=== PATIENT | male | born 1960 | race Caucasian/White ===

== ENCOUNTER 2020-06-18 19:51 | Emergency (ER) | payer BC, SELFPAY ==
[2020-06-18 19:55] VITALS: BP 152/103; PULSE 69; RESP 18; TEMP 35.6; O2SAT 100; BMI 38.7
--- NOTE | 2020-06-18 21:11 | ED.BACK ---
HPI - Back Pain/Injury General Chief Complaint: Back Pain/Injury Stated Complaint: lower back pain Time Seen by Provider: 06/18/20 21:09 Source: patient Mode of arrival: ambulatory Limitations: no limitations History of Present Illness HPI Narrative: This is a 60-year-old male who presents with atraumatic left lower back pain that is sharp in nature and started on Monday without associated fevers, chills, shortness of breath, chest pain /palpitations, GI symptoms but radiates into the left lower extremity posterior without numbness/ tingling /weakness. Patient states he does have chronic back pain but this is the worst it has been. He states he has tried heat, ice, Tylenol, ibuprofen, lidocaine patch. Related Data Home Medications Medication Instructions Recorded Confirmed atorvastatin 1 tab PO DAILY 06/18/20 06/18/20 citalopram 1 tab PO DAILY 06/18/20 06/18/20 fluticasone propionate [Flovent 1 puff INHALATION BID 06/18/20 06/18/20 HFA] lisinopril 1 tab PO DAILY 06/18/20 06/18/20 pantoprazole 1 tab PO DAILY 06/18/20 06/18/20 spironolactone 1 tab PO DAILY 06/18/20 06/18/20 Previous Rx's Medication Instructions Recorded cyclobenzaprine 10 mg PO BEDTIME PRN #3 tab 06/18/20 ketorolac 10 mg PO Q6H PRN 5 Days #20 tab 06/18/20 Allergies Allergy/AdvReac Type Severity Reaction Status Date / Time amoxicillin [AMOXICILLIN] Allergy Unknown DIFF Verified 06/18/20 21:46 BREATHING Review of Systems Review of Systems: Pertinent positives and negatives as stated in the HPI. GEN: no fevers, chills, fatigue HEENT: no nasal congestion, sore throat, ear pain NEURO: no headache, dizziness, focal weakness PULM: no cough, shortness of breath CV: no chest pain, palpitations, LE edema ABD: no abdominal pain, nausea, vomiting, diarrhea : no dysuria, urgency, frequency SKIN: no rash ROS otherwise negative x 10 PMFSH Past Medical History Source: nursing notes reviewed Medical History Pulmonary embolism Sarcoidosis Sleep apnea Social History Social History Alcohol intake: never Smoking Status: Never smoker Use of substances other than those prescribed or required for medical reasons: No Advance Directives: No Advance Directives Information Provided: No Physical Exam Vital Signs and I&O and Narrative: Vital Signs and I&O: Vital Signs Temp 98.3 F 06/18/20 21:26 Pulse 72 06/18/20 22:51 Resp 18 06/18/20 22:51 BP 129/79 06/18/20 22:51 Pulse Ox 96 06/18/20 22:51 Intake & Output 06/18/20 06/18/20 06/19/20 06:59 18:59 06:59 Weight 122.47 kg Body Mass Index 38.7 VITAL SIGNS: Reviewed. GENERAL: Well developed, well nourished, in no acute distress. HEAD: Normocephalic/atraumatic, EYES: PERRLA, EOMI intact without pain, no nystagmus/pallor/icterus noted EARS: Ext canals without abnormality, TMs non-bulging and non-erythematous NOSE: Nares patent bilateral OROPHARYNX: no oral lesions noted, posterior pharynx clear and non-erythematous without noted tonsillar enlargement/erythema/exudates NECK: Supple, no adenopathy LUNGS: Normal breath sounds. No adventitious sounds or accessory muscle use. SpO2<> CARDIOVASCULAR: Regular rate and rhythm without noted murmurs, no JVD or lower extremity edema. BACK: No CVA tenderness bilaterally, there is noted spasm to the left lower aspect and RLE straight leg test is positive with left lower extremity sensation and strength intact. ABDOMEN: Soft, non-tender, non-distended with bowel sounds. No rigidity. No guarding. No palpable masses or hernias noted MUSCULOSKELETAL: No tenderness, deformities, or effusions noted on gross inspection. EXTREMITIES: No cyanosis, clubbing or edema. SKIN: Inspection of the skin reveals no rashes, ulcerations, jaundice, pallor, or petechiae. NEUROLOGIC: Alert and oriented x 4. Strength and sensation to light touch were grossly intact x 4. Course Course Course Narrative: this is a 60-year-old male with history and clinical presentation consistent with acute on chronic lower back pain that is atraumatic and associated with muscle spasm and mild sciatica. There is no evidence on urinalysis for renal colic and EKG was without concerning findings. All results and findings were discussed with the patient at bedside and he had good reduction in back discomfort after receiving combination analgesics with lidocaine patch. MDM - Back Pain/Injury Lab Data Labs: Lab Results 06/18/20 Range/Units 21:35 Urine Color YELLOW Urine Appearance CLEAR Urine pH 5.5 (5.0-8.0) Ur Specific [place] 1.025 (1.005-1.025) Urine Protein NEG (NEG-TRACE) MG/DL Urine Glucose (UA) NEG (NEG) MG/DL Urine Ketones NEG (NEG) MG/DL Urine Blood NEG (NEG) Urine Nitrite NEG (NEG) Ur Leukocyte Esterase NEG (NEG) ECG Data Attestation: I personally reviewed and interpreted this ECG as follows: Interpretation: NSR, HR-63, no evidence of ischemia Discharge Plan Discharge Clinical Impression: Lumbar radiculopathy, Muscle spasm Patient Disposition: Home, Self-Care Instructions: Lumbar Radiculopathy (ED), Muscle Spasm (ED), Lower Back Exercises (ED) Additional Instructions: 1. Tylenol 1000 mg, orally, every 6 hours as needed for pain control. Do not exceed 4000 mg within 24 hours. 2. lidocaine patch, [id number] at every drug store, apply to area of maximal tenderness as directed on the outside packaging. 3. review information regarding gentle back exercises. The patient and/or family acknowledge understanding of results (as applicable), diagnosis, treatment plan, need for follow up, and symptoms that should prompt a return to the emergency room. Prescriptions: New ketorolac 10 mg tablet 10 mg PO Q6H PRN (Reason: pain) 5 Days Qty: 20 RF: 0 cyclobenzaprine 10 mg tablet 10 mg PO BEDTIME PRN (Reason: muscle spasm) Qty: 3 RF: 0 No Action atorvastatin 20 mg tablet 1 tab PO DAILY RF: 0 spironolactone 25 mg tablet 1 tab PO DAILY RF: 0 pantoprazole 20 mg tablet,delayed release (DR/EC) 1 tab PO DAILY RF: 0 citalopram 20 mg tablet 1 tab PO DAILY RF: 0 lisinopril 40 mg tablet 1 tab PO DAILY RF: 0 Flovent HFA 110 mcg/actuation HFA aerosol inhaler 1 puff inhalation BID RF: 0 Referrals: Amilcar Leggett MD [Primary Care Provider] - 2 days ( for further management and evaluation of left lower back pain)
--- NOTE | 2020-06-18 21:14 | ECG_ITS ---
Test Reason : WEAKNESS Blood Pressure : / mmHG Vent. Rate : 063 BPM Atrial Rate : 063 BPM P-R Int : 154 ms QRS Dur : 108 ms QT Int : 436 ms P-R-T Axes : 025 -15 016 degrees QTc Int : 446 ms Normal sinus rhythm Left axis deviation Normal ECG No previous ECGs available Referred By: Ade Haley Electronically Signed By:BRIONNA GARCIA MD
[2020-06-18 21:26] VITALS: BP 135/79; PULSE 62; RESP 16; TEMP 36.8; O2SAT 95
[2020-06-18 21:43] LABS: Appearance Urine CLEAR; Color Urine YELLOW; Glucose Urine UA NEG (NEG); Leukocyte Esterase Urine NEG (NEG); Nitrite Urine NEG (NEG); PH 5.5 (5.0-8.0); Specific Gravity - Urine 1.025 (1.005-1.025); Urine Blood NEG (NEG); Urine Ketones NEG (NEG); Urine Protein NEG (NEG-TRACE)
[2020-06-18] MEDS: Acetaminophen 325 MG TABLET 975 MG PO (21:52)
[2020-06-18] MEDS: Cyclobenzaprine HCl 10 MG TABLET PO (21:52)
[2020-06-18] MEDS: Lidocaine 4 % Patch ADH..PATCH 1 PATCH TRANSDERMA (21:53)
[2020-06-18] MEDS: Ketorolac Tromethamine 15 MG/ML VIAL IM (21:53)
[2020-06-18 22:51] VITALS: BP 129/79; PULSE 72; RESP 18; O2SAT 96
== END 2020-06-18 23:12 | disposition home or self-care (01) ==
PROVIDERS: Emergency Provider Student in an Organized Health Care Education/Training Program; PCP Internal Medicine
DX: M54.16 Radiculopathy, lumbar region (principal); M62.830 Muscle spasm of back; Z86.711 Personal history of pulmonary embolism; Z79.899 Other long term (current) drug therapy
CPT/HCPCS: 81003; 93005; 96372; 99284; J1885

== ENCOUNTER 2020-07-15 14:37 | Outpatient (REF) | payer BC, SELFPAY ==
[2020-07-15 15:42] LABS: MANUAL DIFF FLAG NO
[2020-07-15 15:52] LABS: Basophils Absolute Auto 0.1 X10*3/uL (0.0-0.2); Basophils Percent Auto 0.7 % (0-2); Eosinophils Absolute Auto 0.3 X10*3/uL (0.0-0.4); Eosinophils Percent Auto 4.3 % (0-4); Hematocrit 42.9 % (42-52); Hemoglobin 13.9 g/dl (14.0-18.0); Imm Gran Abs Auto 0.08 X10*3/uL (0.00-0.03); Imm Gran Pct Auto 1.1 % (0.0-0.4); Lymphocytes Absolute Auto 1.2 X10*3/uL (1.2-4.9); Lymphocytes Percent Auto 16.5 % (20-40); Mean Corpuscular HGB Conc 32.4 g/dl (31.0-36.0); Mean Corpuscular Hemoglobin 28.9 pg (27.0-33.0); Mean Corpuscular Volume 89.2 fL (80-98); Mean Platelet Volume 10.2 fL (9.4-12.4); Monocytes Absolute Auto 0.9 X10*3/uL (0.1-1.2); Monocytes Percent Auto 11.9 % (2-11); Neutrophils Absolute Auto 4.7 X10*3/uL (2.0-8.3); Neutrophils Percent Auto 65.5 % (45-73); Platelet Count 303 X10*3/uL (160-400); Red Blood Count 4.81 X10*6/uL (4.60-5.80); Red Cell Distribution Width 13.7 % (11.0-16.0); White Blood Count 7.2 X10*3/uL (4.8-10.8)
[2020-07-15 16:10] LABS: Alanine Aminotransferase 29 U/L (0-40); Albumin Level 4.2 g/dL (3.5-5.0); Alkaline Phosphatase 117 U/L (39-117); Anion Gap 15 (12-20); Aspartate Amino Transferase 28 U/L (5-37); Bilirubin Direct 0.4 mg/dL (0.0-0.5); Bilirubin Total 1.3 mg/dL (0.0-1.0); Blood Urea Nitrogen 15 mg/dL (9-16); Calcium 9.3 mg/dL (8.4-10.2); Carbon Dioxide 27 mmol/L (22-29); Chloride 103 mmol/L (96-108); Estimated Glomerular Filt Rate 55; Glucose Random 84 mg/dL (60-115); Potassium 5.5 mmol/l (3.3-5.1); Sodium 139 mmol/L (135-145); Total Protein 6.5 g/dL (6.5-8.0)
[2020-07-20 18:06] LABS: Angiotensin Converting Enzyme 11 U/L (9-67)
== END 2020-07-15 14:38 | disposition home or self-care (01) ==
LOC: HO.LAB 14:37
PROVIDERS: PCP Internal Medicine; Visit Provider Hospitalist
DX: D86.9 Sarcoidosis, unspecified (principal)
CPT/HCPCS: 36415; 80048; 80076; 82164; 85025

== ENCOUNTER → 2020-07-30 14:03 | Outpatient (BNVA) | payer BC, SELFPAY | PROVIDERS: PCP Internal Medicine; Referring Provider Internal Medicine; Visit Provider Hospitalist | DX: Z76.89 Persons encountering health services in other specified circumstances (principal) ==

== ENCOUNTER 2020-08-28 18:33 | Emergency (ER) | payer BC, SELFPAY ==
[2020-08-28 19:27] VITALS: BP 137/92; PULSE 97; RESP 18; TEMP 37.4; O2SAT 95; BMI 39.3
[2020-08-28 20:02] LABS: Basophils Percent Auto 0.3 % (0-2); Eosinophils Absolute Auto 0.1 X10*3/uL (0.0-0.4); Eosinophils Percent Auto 0.8 % (0-4); Hematocrit 46.8 % (42-52); Hemoglobin 15.6 g/dl (14.0-18.0); Imm Gran Abs Auto 0.07 X10*3/uL (0.00-0.03); Imm Gran Pct Auto 0.5 % (0.0-0.4); Lymphocytes Absolute Auto 0.7 X10*3/uL (1.2-4.9); Lymphocytes Percent Auto 4.4 % (20-40); MANUAL DIFF FLAG SCAN; Mean Corpuscular HGB Conc 33.3 g/dl (31.0-36.0); Mean Corpuscular Hemoglobin 29.2 pg (27.0-33.0); Mean Corpuscular Volume 87.6 fL (80-98); Mean Platelet Volume 9.9 fL (9.4-12.4); Monocytes Absolute Auto 1.4 X10*3/uL (0.1-1.2); Monocytes Percent Auto 8.8 % (2-11); Neutrophils Absolute Auto 13.2 X10*3/uL (2.0-8.3); Neutrophils Percent Auto 85.2 % (45-73); Platelet Count 284 X10*3/uL (160-400); Red Blood Count 5.34 X10*6/uL (4.60-5.80); Red Cell Distribution Width 13.6 % (11.0-16.0); SCAN SMEAR FLAG 1; White Blood Count 15.5 X10*3/uL (4.8-10.8)
--- NOTE | 2020-08-28 20:06 | CT_ITS ---
EXAMINATION: CT ABDOMEN AND PELVIS WITH CONTRAST CLINICAL INFORMATION: Diffuse abdominal pain worse in the right lower quadrant. COMPARISON: None TECHNIQUE: Multidetector volumetric images were obtained from the superior aspect of the liver through the pubic symphysis following administration 85 mL of Omnipaque 350 intravenous contrast. Sagittal and coronal reformatted images were obtained on the technologist's workstation. Oral contrast: No This CT examination was performed using dose optimization techniques as appropriate, variously including the following: *Automated exposure control *Adjustment of mA and/or kV according to patient size (this includes techniques or standardized protocols for targeted exams where dose is matched to indication/reason for exam; i.e. extremities or head) *Use of iterative reconstruction technique DLP: 986 mGy-cm FINDINGS: LUNG BASES: The visualized lung bases are unremarkable. A 0.9 cm right anterior prepericardiac lymph node is present. LIVER, GALLBLADDER, AND BILIARY TREE: The liver is normal in size, shape, and attenuation. No focal hepatic lesion or biliary ductal dilatation is present. The gallbladder is unremarkable with no evidence of radiopaque gallstones, gallbladder wall thickening, or obvious pericholecystic inflammatory changes. PANCREAS: Unremarkable. SPLEEN: Unremarkable. ADRENAL GLANDS: Unremarkable. KIDNEYS AND URETERS: The kidneys are normal in size, shape, and attenuation. 3 cysts are present in the right kidney. No solid renal masses are seen. A small punctate right lower pole nonobstructing calculus is seen measuring at most 2 mm in size. No hydronephrosis, hydroureter, or other calculi seen. No perinephric stranding. BLADDER: Unremarkable. GASTROINTESTINAL TRACT: Diverticular changes are present in the colon. In the mid sigmoid, there is an area of marked wall thickening with pericolonic inflammatory change consistent with acute diverticulitis. No extraluminal air is seen. No paracolonic fluid collections are seen. The remainder of the colon is unremarkable. The small bowel is unremarkable. The appendix is unremarkable. ABDOMINAL WALL: No significant hernia is appreciated. LYMPH NODES: Small retroperitoneal lymph nodes are present in the para-aortic region, retrocaval region and bilateral iliac regions. The largest nodes are again retrocaval measuring 1.7 x 1.3 x 2.9 cm along with a right iliac chain iliac node measuring 2.5 x 1.5 x 0.8 cm. VASCULAR: Unremarkable. PELVIC VISCERA: There is mild BPH with the prostate measuring 5.3 x 4.2 x 5.3 cm. Some prostatic calcifications are present. The seminal vesicles appear normal. OSSEOUS STRUCTURES: Unremarkable. CT/CT abdomen pelvis w con IMPRESSION: Acute diverticulitis in the sigmoid colon. The area of sigmoid that is involved is actually in the right lower quadrant, in the region of the patient's pain. Repeat imaging or colonoscopy after treatment is recommended to take certain there is no underlying neoplasm.
[2020-08-28 20:11] LABS: Glucose Urine UA NEG (NEG); Leukocyte Esterase Urine NEG (NEG); Nitrite Urine NEG (NEG); PH 5.5 (5.0-8.0); Specific Gravity - Urine >= 1.030 (1.005-1.025); Urine Blood NEG (NEG); Urine Ketones 5 MG/DL (NEG); Urine Protein NEG (NEG-TRACE)
[2020-08-28 20:13] LABS: Appearance Urine CLEAR; Color Urine YELLOW
[2020-08-28 20:15] LABS: Alanine Aminotransferase 27 U/L (0-40); Albumin Level 4.5 g/dL (3.5-5.0); Alkaline Phosphatase 142 U/L (39-117); Anion Gap 14 (12-20); Aspartate Amino Transferase 23 U/L (5-37); Bilirubin Total 1.6 mg/dL (0.0-1.0); Blood Urea Nitrogen 29 mg/dL (9-16); Calcium 9.4 mg/dL (8.4-10.2); Carbon Dioxide 28 mmol/L (22-29); Chloride 104 mmol/L (96-108); Creatinine Clr Calc Pharmacy 82.5; Estimated Glomerular Filt Rate 57; Glucose Random 111 mg/dL (60-115); Potassium 5.2 mmol/l (3.3-5.1); Sodium 141 mmol/L (135-145); Total Protein 7.1 g/dL (6.5-8.0)
[2020-08-28] MEDS: 0.9 % Sodium Chloride 1,000 ML 999 ML IVCONT (20:18)
[2020-08-28 20:21] LABS: Basophils Percent Auto 0.3 % (0-2); Eosinophils Absolute Auto 0.1 X10*3/uL (0.0-0.4); Eosinophils Percent Auto 0.7 % (0-4); Hematocrit 44.9 % (42-52); Hemoglobin 14.9 g/dl (14.0-18.0); Imm Gran Abs Auto 0.05 X10*3/uL (0.00-0.03); Imm Gran Pct Auto 0.3 % (0.0-0.4); Lymphocytes Absolute Auto 0.6 X10*3/uL (1.2-4.9); Lymphocytes Percent Auto 3.7 % (20-40); Mean Corpuscular HGB Conc 33.2 g/dl (31.0-36.0); Mean Corpuscular Hemoglobin 29.2 pg (27.0-33.0); Mean Corpuscular Volume 87.9 fL (80-98); Mean Platelet Volume 9.6 fL (9.4-12.4); Monocytes Absolute Auto 1.3 X10*3/uL (0.1-1.2); Monocytes Percent Auto 8.9 % (2-11); Neutrophils Percent Auto 86.1 % (45-73); Platelet Count 251 X10*3/uL (160-400); Red Blood Count 5.11 X10*6/uL (4.60-5.80); Red Cell Distribution Width 13.3 % (11.0-16.0); SCAN SMEAR FLAG 1; White Blood Count 15.1 X10*3/uL (4.8-10.8)
[2020-08-28 20:22] LABS: MANUAL DIFF FLAG NO
[2020-08-28 20:35] LABS: SLIDE REVIEW VERIFIED
[2020-08-28] MEDS: iohexoL 350 MG/ML 100 ML INFUS..BTL IV (20:35)
--- NOTE | 2020-08-28 20:47 | ED.GENADULT ---
HPI - General Adult General Chief complaint: General Medical Stated complaint: abdominal pain Time Seen by Provider: 08/28/20 19:56 Source: patient Mode of arrival: ambulatory Limitations: no limitations History of Present Illness HPI narrative: Patient comes to emergency room complaining of right-sided flank pain. Patient states he is unsure if his flank hurts , also complaining of diffuse abdominal pain, worse in the right lower quadrant. Patient denies history of kidney stones, no recent trauma. MD complaint: Abdominal pain Related Data Home Medications Medication Instructions Recorded Confirmed atorvastatin 1 tab PO DAILY 06/18/20 07/30/20 citalopram 1 tab PO DAILY 06/18/20 07/30/20 fluticasone propionate [Flovent 1 puff INHALATION BID 06/18/20 07/30/20 HFA] lisinopril 1 tab PO DAILY 06/18/20 07/30/20 pantoprazole 1 tab PO DAILY 06/18/20 07/30/20 spironolactone 1 tab PO DAILY 06/18/20 07/30/20 albuterol sulfate 90 mcg/actuation 2 inh INHALATION Q6H PRN 07/30/20 07/30/20 breath activated powder inhaler carvedilol 6.25 mg tablet 6.25 mg PO BID 07/30/20 07/30/20 flu vac qs 2019(4 yr up)CD(PF) ml IM 07/30/20 07/30/20 varicella-zoster glycoE [id number] IM 07/30/20 07/30/20 adj(PF) 50 mcg/0.5 mL IM susp, kit Previous Rx's Medication Instructions Recorded cyclobenzaprine 10 mg PO BEDTIME PRN #3 tab 06/18/20 ketorolac 10 mg PO Q6H PRN 5 Days #20 tab 06/18/20 budesonide-formoterol HFA 160 2 puff INHALATION BID 30 Days 07/30/20 mcg-4.5 mcg/actuation aerosol #10.2 g inhaler ciprofloxacin HCl 500 mg PO Q12H #19 tab 08/28/20 metronidazole 500 mg PO Q12H #19 tab 08/28/20 tramadol 50 mg PO Q8H PRN #14 tab 08/28/20 Allergies Allergy/AdvReac Type Severity Reaction Status Date / Time amoxicillin [AMOXICILLIN] Allergy Severe DIFF Verified 08/28/20 19:15 BREATHING Review of Systems Review of Systems: Constitutional : No Weight loss, No Fever, No Chills, No Night Sweats, No Fatigue, No Malaise ENT/Mouth : No Hearing loss, No Ear Pain, No Nasal Congestion, No Sinus Pain, No Hoarseness, No sore throat, No Rhinorrhea, No Swallowing Difficulty Eyes: No Eye Pain, No Swelling, No Redness, No Foreign Body, No Discharge, No Vision Changes Cardiovascular : No Chest Pain, No SOB, No Dyspnea on Exertion, No Orthopnea, No Edema, No Palpitations Respiratory : No Cough, No Sputum, No Wheezing, No Smoke Exposure, No Dyspnea Gastrointestinal : Patient denies nausea vomiting or diarrhea, patient states that he has cramping in his abdomen, unable to specify the quality of the pain or pinpoint the location Genitourinary : no irregular bleeding, No Dysuria, No Urinary Frequency, No Hematuria, No Urinary Incontinence, No Urgency, No Flank Pain, No Urinary Flow Changes, No Hesitancy Musculoskeletal : No joint pain, No Myalgias, No Joint Swelling Skin : No Skin Lesions, No rash Neuro : No Weakness, No Numbness, No Paresthesias, No Loss of Consciousness, No Dizziness, No Headache Psych : No Anxiety/Panic, No Depression, No SI/HI/AH/VH, No Social Issues, Heme/Lymph: No Bruising, No Bleeding,No Lymphadenopathy Endocrine : No Polyuria, No Polydipsia, No Temperature Intolerance PMFSH Past Medical History Medical History Asthma Cough NANCY on CPAP Pulmonary embolism Sarcoidosis Sarcoidosis Sleep apnea Social History Social History Alcohol intake: never Smoking Status: Smoker, status unknown Use of substances other than those prescribed or required for medical reasons: No Advance Directives: No Advance Directives Information Provided: No Physical Exam Vital Signs: Vital Signs: Last Vital Signs Temp 100.1 F 08/28/20 22:01 Pulse 102 H 08/28/20 22:01 Resp 18 08/28/20 22:01 BP 125/68 08/28/20 22:01 Pulse Ox 94 08/28/20 22:01 Body Mass Index 39.3 Appearance: Alert. Oriented X3. No acute distress. Eyes: Pupils equal, round and reactive to light. ENT: Pharynx normal. Neck: Normal inspection. Neck supple. No lymph nodes noted. No crepitus CVS: Normal heart rate and rhythm. Pulses normal. Normal S1 and S2 Respiratory: No respiratory distress. Breath sounds normal. No Wheezing. No rales Abdomen: Soft , distended, mild diffuse abdominal pain on palpation, however, significant abdominal pain on palpation in the right lower quadrant, no CVA tenderness Skin: Skin warm and dry. Normal skin color. Normal skin turgor. Extremities: No lower extremity edema. No lower extremity edema. No Lacerations. No Rash Neuro: Oriented X 3. No motor deficit. No sensory deficit. Moving all extermities. No slurred speech. Course Course Course Narrative: I discussed the CT scan and the labs with the patient, patient states that his abdominal pain is fairly well controlled, states that he thinks he will be doing better at home. Patient will be given 1 IV dose of Levaquin and metronidazole, then discharge home with pain medication and antibiotics. Discussed with the patient that he will need a repeat CT scan or a colonoscopy, patient needs to follow-up with his primary care physician and funnel setter Medical Decision Making Lab Data Result diagrams: 08/28/20 20:15 08/28/20 20:15 Labs: Lab Results 08/28/20 08/28/20 08/28/20 Range/Units 19:44 19:44 19:44 WBC 15.5 H (4.8-10.8) X10*3/uL RBC 5.34 (4.60-5.80) X10*6/uL Hgb 15.6 (14.0-18.0) g/dl Hct 46.8 (42-52) % MCV 87.6 (80-98) fL MCH 29.2 (27.0-33.0) pg MCHC 33.3 (31.0-36.0) g/dl RDW 13.6 (11.0-16.0) % Plt Count 284 (160-400) X10*3/uL MPV 9.9 (9.4-12.4) fL Immature Gran % (Auto) 0.5 H (0.0-0.4) % Neut % (Auto) 85.2 H (45-73) % Lymph % (Auto) 4.4 L (20-40) % [place] % (Auto) 8.8 (2-11) % Eos % (Auto) 0.8 (0-4) % Baso % (Auto) 0.3 (0-2) % Lymph # (Auto) 0.7 L (1.2-4.9) X10*3/uL [place] # (Auto) 1.4 H (0.1-1.2) X10*3/uL Eos # (Auto) 0.1 (0.0-0.4) X10*3/uL Baso # (Auto) 0.0 (0.0-0.2) X10*3/uL Abs Immat Gran (auto) 0.07 H (0.00-0.03) X10*3/uL Absolute Neuts (auto) 13.2 H (2.0-8.3) X10*3/uL Absolute Nucleated RBC 0.000 (0.0-0.012) X10*3/uL Nucleated RBC % (auto) 0.0 (0.0-0.2) /100WBC Smear Tech's Comments VERIFIED Hold Blue Top SEE NOTE Sodium 141 (135-145) mmol/L Potassium 5.2 H (3.3-5.1) mmol/l Chloride 104 (96-108) mmol/L Carbon Dioxide 28 (22-29) mmol/L Anion Gap 14 (12-20) BUN 29 H D (9-16) mg/dL Creatinine 1.29 (0.5-1.4) mg/dL Estim Creat Clear Calc 82.5 Estimated GFR 57 Random Glucose 111 (60-115) mg/dL Calcium 9.4 (8.4-10.2) mg/dL Total Bilirubin 1.6 H (0.0-1.0) mg/dL Direct Bilirubin (0.0-0.5) mg/dL AST 23 (5-37) U/L ALT 27 (0-40) U/L Alkaline Phosphatase 142 H D (39-117) U/L Total Protein 7.1 (6.5-8.0) g/dL Albumin 4.5 (3.5-5.0) g/dL Lipase (8-78) U/L Urine Color Urine Appearance Urine pH (5.0-8.0) Ur Specific [place] (1.005-1.025) Urine Protein (NEG-TRACE) MG/DL Urine Glucose (UA) (NEG) MG/DL Urine Ketones (NEG) MG/DL Urine Blood (NEG) Urine Nitrite (NEG) Ur Leukocyte Esterase (NEG) 08/28/20 08/28/20 08/28/20 Range/Units 19:44 20:15 20:15 WBC 15.1 H (4.8-10.8) X10*3/uL RBC 5.11 (4.60-5.80) X10*6/uL Hgb 14.9 (14.0-18.0) g/dl Hct 44.9 (42-52) % MCV 87.9 (80-98) fL MCH 29.2 (27.0-33.0) pg MCHC 33.2 (31.0-36.0) g/dl RDW 13.3 (11.0-16.0) % Plt Count 251 (160-400) X10*3/uL MPV 9.6 (9.4-12.4) fL Immature Gran % (Auto) 0.3 (0.0-0.4) % Neut % (Auto) 86.1 H (45-73) % Lymph % (Auto) 3.7 L (20-40) % [place] % (Auto) 8.9 (2-11) % Eos % (Auto) 0.7 (0-4) % Baso % (Auto) 0.3 (0-2) % Lymph # (Auto) 0.6 L (1.2-4.9) X10*3/uL [place] # (Auto) 1.3 H (0.1-1.2) X10*3/uL Eos # (Auto) 0.1 (0.0-0.4) X10*3/uL Baso # (Auto) 0.0 (0.0-0.2) X10*3/uL Abs Immat Gran (auto) 0.05 H (0.00-0.03) X10*3/uL Absolute Neuts (auto) 13.0 H (2.0-8.3) X10*3/uL Absolute Nucleated RBC 0.000 (0.0-0.012) X10*3/uL Nucleated RBC % (auto) 0.0 (0.0-0.2) /100WBC Smear Tech's Comments Hold Blue Top Sodium 140 (135-145) mmol/L Potassium 4.8 (3.3-5.1) mmol/l Chloride 105 (96-108) mmol/L Carbon Dioxide 26 (22-29) mmol/L Anion Gap 14 (12-20) BUN 29 H (9-16) mg/dL Creatinine 1.28 (0.5-1.4) mg/dL Estim Creat Clear Calc 83.2 Estimated GFR 58 Random Glucose 107 (60-115) mg/dL Calcium 9.0 (8.4-10.2) mg/dL Total Bilirubin 1.6 H (0.0-1.0) mg/dL Direct Bilirubin 0.6 H (0.0-0.5) mg/dL AST 20 (5-37) U/L ALT 24 (0-40) U/L Alkaline Phosphatase 133 H (39-117) U/L Total Protein 6.7 (6.5-8.0) g/dL Albumin 4.3 (3.5-5.0) g/dL Lipase 23 (8-78) U/L Urine Color YELLOW Urine Appearance CLEAR Urine pH 5.5 (5.0-8.0) Ur Specific [place] >= 1.030 H (1.005-1.025) Urine Protein NEG (NEG-TRACE) MG/DL Urine Glucose (UA) NEG (NEG) MG/DL Urine Ketones 5 (NEG) MG/DL Urine Blood NEG (NEG) Urine Nitrite NEG (NEG) Ur Leukocyte Esterase NEG (NEG) Imaging Data CT scan - abdomen: Radiologist's impression: FINDINGS: LUNG BASES: The visualized lung bases are unremarkable. A 0.9 cm right anterior prepericardiac lymph node is present. LIVER, GALLBLADDER, AND BILIARY TREE: The liver is normal in size, shape, and attenuation. No focal hepatic lesion or biliary ductal dilatation is present. The gallbladder is unremarkable with no evidence of radiopaque gallstones, gallbladder wall thickening, or obvious pericholecystic inflammatory changes. PANCREAS: Unremarkable. SPLEEN: Unremarkable. ADRENAL GLANDS: Unremarkable. KIDNEYS AND URETERS: The kidneys are normal in size, shape, and attenuation. 3 cysts are present in the right kidney. No solid renal masses are seen. A small punctate right lower pole nonobstructing calculus is seen measuring at most 2 mm in size. No hydronephrosis, hydroureter, or other calculi seen. No perinephric stranding. BLADDER: Unremarkable. GASTROINTESTINAL TRACT: Diverticular changes are present in the colon. In the mid sigmoid, there is an area of marked wall thickening with pericolonic inflammatory change consistent with acute diverticulitis. No extraluminal air is seen. No paracolonic fluid collections are seen. The remainder of the colon is unremarkable. The small bowel is unremarkable. The appendix is unremarkable. ABDOMINAL WALL: No significant hernia is appreciated. LYMPH NODES: Small retroperitoneal lymph nodes are present in the para-aortic region, retrocaval region and bilateral iliac regions. The largest nodes are again retrocaval measuring 1.7 x 1.3 x 2.9 cm along with a right iliac chain iliac node measuring 2.5 x 1.5 x 0.8 cm. VASCULAR: Unremarkable. PELVIC VISCERA: There is mild BPH with the prostate measuring 5.3 x 4.2 x 5.3 cm. Some prostatic calcifications are present. The seminal vesicles appear normal. OSSEOUS STRUCTURES: Unremarkable. CT/CT abdomen pelvis w con IMPRESSION: Acute diverticulitis in the sigmoid colon. The area of sigmoid that is involved is actually in the right lower quadrant, in the region of the patient's pain. Repeat imaging or colonoscopy after treatment is recommended to take certain there is no underlying neoplasm. Discharge Plan Discharge Clinical Impression: Diverticulitis Patient Disposition: Home, Self-Care Instructions: Diverticulitis (ED) Additional Instructions: If you have any worsening abdominal pain, fever, please return to the emergency room. Otherwise, please follow up with your primary care physician and funnel setter on Monday. Please be advised that you may need a repeat CT scan and/or a colonoscopy after you completed your treatment. Prescriptions: New ciprofloxacin HCl 500 mg tablet 500 mg PO Q12H Qty: 19 RF: 0 metronidazole 500 mg tablet 500 mg PO Q12H Qty: 19 RF: 0 tramadol 50 mg tablet 50 mg PO Q8H PRN (Reason: pain) Qty: 14 RF: 0 No Action atorvastatin 20 mg tablet 1 tab PO DAILY RF: 0 spironolactone 25 mg tablet 1 tab PO DAILY RF: 0 pantoprazole 20 mg tablet,delayed release (DR/EC) 1 tab PO DAILY RF: 0 citalopram 20 mg tablet 1 tab PO DAILY RF: 0 lisinopril 40 mg tablet 1 tab PO DAILY RF: 0 Flovent HFA 110 mcg/actuation HFA aerosol inhaler 1 puff inhalation BID RF: 0 ketorolac 10 mg tablet 10 mg PO Q6H PRN (Reason: pain) 5 Days Qty: 20 RF: 0 cyclobenzaprine 10 mg tablet 10 mg PO BEDTIME PRN (Reason: muscle spasm) Qty: 3 RF: 0 carvedilol 6.25 mg tablet 6.25 mg PO BID RF: 0 Flucelvax Quad (PF) 60 mcg (15 mcg x 4)/0.5 mL syringe IM RF: 0 Shingrix (PF) 50 mcg/0.5 mL suspension for reconstitution IM RF: 0 ProAir RespiClick 90 mcg/actuation aerosol powdr breath activated 2 inh inhalation Q6H PRNRF: 0 budesonide-formoterol [Symbicort] 160-4.5 mcg/actuation HFA aerosol inhaler 2 puff inhalation BID 30 Days Qty: 10.2 RF: 0
[2020-08-28 20:48] LABS: Alanine Aminotransferase 24 U/L (0-40); Albumin Level 4.3 g/dL (3.5-5.0); Alkaline Phosphatase 133 U/L (39-117); Anion Gap 14 (12-20); Aspartate Amino Transferase 20 U/L (5-37); Bilirubin Direct 0.6 mg/dL (0.0-0.5); Bilirubin Total 1.6 mg/dL (0.0-1.0); Blood Urea Nitrogen 29 mg/dL (9-16); Carbon Dioxide 26 mmol/L (22-29); Chloride 105 mmol/L (96-108); Creatinine Clr Calc Pharmacy 83.2; Estimated Glomerular Filt Rate 58; Glucose Random 107 mg/dL (60-115); Lipase 23 U/L (8-78); Potassium 4.8 mmol/l (3.3-5.1); Sodium 140 mmol/L (135-145); Total Protein 6.7 g/dL (6.5-8.0)
[2020-08-28] MEDS: Morphine Sulfate 4 MG/ML CARTRIDGE IVPUSH (21:09)
[2020-08-28 22:01] VITALS: BP 125/68; PULSE 102; RESP 18; TEMP 37.8; O2SAT 94
[2020-08-28] MEDS: Morphine Sulfate 4 MG/ML CARTRIDGE 2 MG IVPUSH (22:28)
[2020-08-28] MEDS: levoFLOXacin/D5W 500 MG/100 ML PIGGYBACK 100 MG IV (22:53)
[2020-08-29] MEDS: metroNIDAZOLE/NS 500 MG/100 ML PIGGYBACK 100 MG IV (00:09)
== END 2020-08-29 01:31 | disposition home or self-care (01) ==
PROVIDERS: Emergency Provider Emergency Medicine; PCP Internal Medicine
DX: K57.32 Diverticulitis of large intestine without perforation or abscess without bleeding (principal)
CPT/HCPCS: 36415; 74177; 80048; 80053; 80076; 81003; 83690; 85025; 87040; 96361; 96365; 96375; 96376; 99284; J1956; J2270; Q9967

== ENCOUNTER → 2020-09-01 08:29 | Outpatient (BNVA) | payer BC, SELFPAY | PROVIDERS: PCP Internal Medicine; Visit Provider Internal Medicine Gastroenterology | DX: Z76.89 Persons encountering health services in other specified circumstances (principal) ==

== ENCOUNTER 2021-11-13 12:32 | Inpatient (IN) | payer OTHER, SELFPAY ==
[2021-11-13] VITALS (7 sets, daily range): BP systolic 136–145; BP diastolic 78–96; PULSE 66–78; RESP 17–20; TEMP 36.7–37.1; O2SAT 92–99; BMI 38.0; BMI 39.2
--- NOTE | ~2021-11-13 | XR_ITS ---
EXAMINATION: XR CHEST CLINICAL INFORMATION: Chest pain COMPARISON: Previous abdominal pelvic CT August 2020 TECHNIQUE: Frontal view of the chest was obtained. FINDINGS: The cardiac silhouette is slightly enlarged. There is increased density and abnormal contour to the subcarinal region particularly on the right questionable for subcarinal mediastinal lymphadenopathy. Hilar contours are unremarkable. There is an abnormal parenchymal density in the right upper lobe partially overlying the right anterior fourth rib. The lungs are otherwise clear. There is no pleural effusion or pneumothorax. Bony structures are unremarkable. XR/XR chest 1V IMPRESSION: Question subcarinal mediastinal lymphadenopathy and abnormal parenchymal density in the right upper lobe. Follow-up chest CT with IV contrast should be considered.
--- NOTE | 2021-11-13 12:35 | ECG_ITS ---
Test Reason : chest pain Blood Pressure : / mmHG Vent. Rate : 070 BPM Atrial Rate : 070 BPM P-R Int : 150 ms QRS Dur : 146 ms QT Int : 452 ms P-R-T Axes : 028 -12 023 degrees QTc Int : 488 ms Normal sinus rhythm Right bundle branch block Abnormal ECG When compared with ECG of 18-JUN-2020 21:19, Right bundle branch block is now Present Referred By: Generic ED Physician Electronically Signed By:Mikhail Delgado
--- NOTE | 2021-11-13 12:48 | ECG_ITS ---
Test Reason : chest pain Blood Pressure : / mmHG Vent. Rate : 070 BPM Atrial Rate : 070 BPM P-R Int : 116 ms QRS Dur : 146 ms QT Int : 448 ms P-R-T Axes : 011 -27 007 degrees QTc Int : 483 ms Sinus rhythm with occasional Premature ventricular complexes Right bundle branch block Abnormal ECG When compared with ECG of 13-NOV-2021 12:36, Premature ventricular complexes are now Present Referred By: Marcos Pantoja Electronically Signed By:Mikhail Delgado
[2021-11-13 12:53] LABS: MANUAL DIFF FLAG NO
[2021-11-13 12:54] LABS: Basophils Percent Auto 0.3 % (0-2); Eosinophils Absolute Auto 0.2 X10*3/uL (0.0-0.4); Eosinophils Percent Auto 2.4 % (0-4); Hematocrit 42.7 % (42.0-52.0); Hemoglobin 14.1 g/dl (14.0-18.0); Imm Gran Abs Auto 0.05 X10*3/uL (0.00-0.03); Imm Gran Pct Auto 0.6 % (0.0-0.4); Lymphocytes Absolute Auto 0.9 X10*3/uL (1.2-4.9); Lymphocytes Percent Auto 10.5 % (20-40); Mean Corpuscular Hemoglobin 28.5 pg (27.0-33.0); Mean Corpuscular Volume 86.4 fL (80.0-98.0); Monocytes Percent Auto 11.2 % (2-11); Neutrophils Absolute Auto 6.7 x10*3/uL (2.0-8.3); Platelet Count 229 X10*3/uL (160-400); Red Blood Count 4.94 X10*6/uL (4.60-5.80); White Blood Count 8.9 X10*3/uL (4.8-10.8)
[2021-11-13 13:00] LABS: Prothrombin Time 11.8 SEC (9.9-13.0)
--- NOTE | 2021-11-13 13:01 | ED_ITS ---
HPI - Chest Pain General Chief Complaint: Chest Pain Stated Complaint: cp, light headed Time Seen by Provider: 11/13/21 12:48 Source: patient Limitations: no limitations History of Present Illness HPI narrative: This is a 61-year-old male with history of hypertension, hypercholesterolemia, obesity, who complains of discomfort in his chest, pressure-like feeling around his chest and upper back, which began last night. The onset was not during exertion. Discomfort has been relatively constant. He feels somewhat better after shower this morning but then the discomfort came back. Has had some nausea today, denies any unusual sweats. He feels a little short of breath. Denies any pain or swelling in his legs. He is not a tobacco smoker. Discomfort is about a 7/10 at its worst. Patient does have history of pulmonary embolism but 2 and half years ago and was on Eliquis for a year. The patient's notes that about 5 years ago patient did have chest pain and had a workup done at [facility] including a stress test Related Data Home Medications Medication Instructions Recorded Confirmed atorvastatin 20 mg tablet 1 tab PO DAILY 06/18/20 07/30/20 citalopram 20 mg tablet 1 tab PO DAILY 06/18/20 07/30/20 fluticasone propionate 110 1 puff INHALATION BID 06/18/20 07/30/20 mcg/actuation HFA aerosol inhaler (Flovent HFA) lisinopril 40 mg tablet 1 tab PO DAILY 06/18/20 07/30/20 spironolactone 25 mg tablet 1 tab PO DAILY 06/18/20 07/30/20 albuterol sulfate 90 mcg/actuation 2 inh INHALATION Q6H PRN 07/30/20 07/30/20 breath activated powder inhaler (ProAir RespiClick) carvedilol 6.25 mg tablet 6.25 mg PO BID 07/30/20 07/30/20 Previous Rx's Medication Instructions Recorded budesonide-formoterol HFA 160 2 puff INHALATION BID 30 Days 07/30/20 mcg-4.5 mcg/actuation aerosol #10.2 g inhaler (Symbicort) pantoprazole 20 mg tablet,delayed 20 mg PO DAILY 30 Days #30 tab 09/16/20 release Allergies Allergy/AdvReac Type Severity Reaction Status Date / Time amoxicillin [AMOXICILLIN] Allergy Severe DIFF Verified 08/28/20 19:15 BREATHING Review of Systems Review of Systems: Yes all other systems are reviewed and are negative Constitutional: Constitutional: Reports as per HPI and Denies fever(s) Eyes: Eyes: Reports as per HPI and Reports no additional eye complaints ENT: Reports system reviewed and no additional complaints, except as documented, Reports as per HPI, Denies nasal congestion, Denies nasal discharge and Denies sore throat Cardiovascular: Cardiovascular: Reports as per HPI, Denies chest pain and Denies dyspnea Respiratory: Respiratory: Reports as per HPI, Denies cough and Denies dyspnea Gastrointestinal: Gastrointestinal: Reports as per HPI, Denies abdominal pain, Denies diarrhea and Denies vomiting Genitourinary: Genitourinary: Reports as per HPI, Denies hematuria, Denies dysuria and Denies urinary frequency Musculoskeletal: Musculoskeletal: Reports no additional musculoskeletal complaints and Denies numbness Integumentary/Breasts: Skin/Breast: Reports as per HPI and Denies rash Neurologic: Reports as per HPI, Denies focal weakness and Denies numbness Psychiatric: Psychiatric: Reports no additional psychiatric complaints and Reports as per HPI Endocrine: Endocrine: Reports no additional endocrine complaints and Reports as per HPI Hematologic/Lymphatic: Hematologic/Lymphatic: Reports no additional hematologic/lymphatic complaints, Reports as per HPI and Reports other (No peripheral edema) [facility] Past Medical History Medical History (Updated 11/13/21 @ 15:07 by Marcos Pantoja MD) Asthma Cough GERD (gastroesophageal reflux disease) HLD (hyperlipidemia) HTN (hypertension) Obesity NANCY on CPAP Pulmonary embolism Sarcoidosis Sleep apnea Surgical History History of colonoscopy History of hernia repair Hx of endoscopy Hx of tonsillectomy Hx of vasectomy Family History Family History Father Family history of high blood pressure Mother History of colon cancer Social History Social History Alcohol intake: never Patient Tobacco Use Status: Never used Tobacco Use of substances other than those prescribed or required for medical reasons: No Advance Directives: Yes Advance Directives Information Provided: Yes Advance Directives on File: No Physical Exam Vital Signs: Vital Signs: Last Vital Signs Temp 98.8 F 11/13/21 13:01 Pulse 69 11/13/21 13:01 Resp 17 11/13/21 13:01 BP 136/82 11/13/21 13:01 Pulse Ox 99 11/13/21 13:01 BMI result Body Mass Index 39.2 Const: Other: Patient no distress, not pale or diaphoretic General: no acute distress Orientation/consciousness: patient oriented x3 HENMT: Head: Yes normal to inspection Mouth: moist mucous membranes Eyes: General: appearance normal, both eyes and all related structures Eyelids: Yes eyelids normal Conjunctivae: conjunctivae normal Pupils: Equal, round and reactive pupils present Neck: Neck: Yes supple Resp: Effort & Inspection: normal respiratory effort Auscultation: clear to auscultation bilaterally Cardio: Rate: regular rate Rhythm: regular rhythm Heart sounds: S1 normal heart sound present, S2 normal heart sound present, no gallops, no murmurs and no rubs GI: Other: Moderately obese Inspection: No distended Palpation (GI): Soft to palpation and nontender Skin: General skin exam: dry skin Neuro: General: patient oriented x3 Cranial nerves: Yes Equal, round and reactive pupils present Extrem: General: Yes no pedal edema Psych: Affect: normal affect MDM - Chest Pain MDM Narrative Medical decision making narrative: Patient with risk factors for coronary artery disease including hypertension, hypercholesterolemia, obesity, has had chest pain and pressure radiating to his upper back with associated nausea off and on since last night, more severe this afternoon. EKG shows a new right bundle branch block but no definite ischemic changes. Troponin is mildly elevated at 45.8. Given the patient's risk factors and the nature of his pain, this all likely represents acute coronary syndrome. Patient does have history of pulmonary embolism was D-dimer is negative and the nature of his pain is not pleuritic. Prior PE was related to travel. Patient was treated with aspirin, Plavix, heparin, nitroglycerin sublingual. Dr. Delgado of Cardiology was consulted regarding the patient's admission and agreed with management. Hospitalist Dr. Werner has evaluated the patient and the patient has been admitted to telemetry. Critical care time for this life-threatening illness exclusive of all other billable procedures was approximately 45 minutes including initial evaluation of the patient, ordering tests, x-ray interpretation, EKG interpretation, medical consultation, documentation, reevaluation. Medical Records Data Attestation: I reviewed the patient's medical records. Lab Data Attestation: I reviewed the patient's lab results. Result diagrams: 11/13/21 12:49 11/13/21 12:49 Labs: Lab Results 11/13/21 11/13/21 11/13/21 Range/Units 12:49 12:49 12:49 WBC 8.9 (4.8-10.8) X10*3/uL RBC 4.94 (4.60-5.80) X10*6/uL Hgb 14.1 (14.0-18.0) g/dl Hct 42.7 (42.0-52.0) % MCV 86.4 (80.0-98.0) fL MCH 28.5 (27.0-33.0) pg MCHC 33.0 (31.0-36.0) g/dl RDW 14.0 (11.0-16.0) % Plt Count 229 (160-400) X10*3/uL MPV 10.0 (9.4-12.4) fL Immature Gran % (Auto) 0.6 H (0.0-0.4) % Neut % (Auto) 75.0 H (45-73) % Lymph % (Auto) 10.5 L (20-40) % [facility] % (Auto) 11.2 H (2-11) % Eos % (Auto) 2.4 (0-4) % Baso % (Auto) 0.3 (0-2) % Lymph # (Auto) 0.9 L (1.2-4.9) X10*3/uL [facility] # (Auto) 1.0 (0.1-1.2) X10*3/uL Eos # (Auto) 0.2 (0.0-0.4) X10*3/uL Baso # (Auto) 0.0 (0.0-0.2) X10*3/uL Abs Immat Gran (auto) 0.05 H (0.00-0.03) X10*3/uL Absolute Neuts (auto) 6.7 (2.0-8.3) x10*3/uL Absolute Nucleated RBC 0.000 (0.0-0.012) X10*3/uL Nucleated RBC % (auto) 0.0 (0.0-0.2) /100WBC PT (9.9-13.0) SEC INR (0.9-1.1) APTT (24.1-38.0) SEC aPTT Heparin Protocol (53-77.9) SEC D-Dimer High Sensitivty NG/ML Sodium 141 (135-145) mmol/L Potassium 4.2 (3.3-5.1) mmol/L Chloride 109 H (96-108) mmol/L Carbon Dioxide 26 (22-29) mmol/L Anion Gap 10 L (12-20) BUN 18 H (9-16) mg/dL Creatinine 1.15 (0.5-1.4) mg/dL Estim Creat Clear Calc 89.8 Estimated GFR > 60 Random Glucose 126 H (60-115) mg/dL Calcium 9.3 (8.4-10.2) mg/dL Magnesium 1.8 (1.6-2.6) mg/dL Troponin I High Sens 45.8 H (<3.5-35.0) ng/L 11/13/21 11/13/21 Range/Units 12:49 13:40 WBC (4.8-10.8) X10*3/uL RBC (4.60-5.80) X10*6/uL Hgb (14.0-18.0) g/dl Hct (42.0-52.0) % MCV (80.0-98.0) fL MCH (27.0-33.0) pg MCHC (31.0-36.0) g/dl RDW (11.0-16.0) % Plt Count (160-400) X10*3/uL MPV (9.4-12.4) fL Immature Gran % (Auto) (0.0-0.4) % Neut % (Auto) (45-73) % Lymph % (Auto) (20-40) % [facility] % (Auto) (2-11) % Eos % (Auto) (0-4) % Baso % (Auto) (0-2) % Lymph # (Auto) (1.2-4.9) X10*3/uL [facility] # (Auto) (0.1-1.2) X10*3/uL Eos # (Auto) (0.0-0.4) X10*3/uL Baso # (Auto) (0.0-0.2) X10*3/uL Abs Immat Gran (auto) (0.00-0.03) X10*3/uL Absolute Neuts (auto) (2.0-8.3) x10*3/uL Absolute Nucleated RBC (0.0-0.012) X10*3/uL Nucleated RBC % (auto) (0.0-0.2) /100WBC PT 11.8 (9.9-13.0) SEC INR 1.0 (0.9-1.1) APTT 32.8 (24.1-38.0) SEC aPTT Heparin Protocol 33.6 L (53-77.9) SEC D-Dimer High Sensitivty < 150 NG/ML Sodium (135-145) mmol/L Potassium (3.3-5.1) mmol/L Chloride (96-108) mmol/L Carbon Dioxide (22-29) mmol/L Anion Gap (12-20) BUN (9-16) mg/dL Creatinine (0.5-1.4) mg/dL Estim Creat Clear Calc Estimated GFR Random Glucose (60-115) mg/dL Calcium (8.4-10.2) mg/dL Magnesium (1.6-2.6) mg/dL Troponin I High Sens (<3.5-35.0) ng/L Imaging Data Chest x-ray: My impression: Borderline cardiomegaly. A focal infiltrate or pleural effusion. Ectatic aorta. ECG Data ECG #1: ECG interpretation date: 11/13/21 ECG interpretation time: 13:09 Interpretation: Sinus rhythm with right bundle-branch block, single PVC. No concerning ST elevation or depression. Right bundle branch block is new compared to 06/18/2020 Discharge Plan Discharge Clinical Impression: NSTEMI (non-ST elevated myocardial infarction) Patient Disposition: Admitted As Inpatient
[2021-11-13 13:02] LABS: Partial Thromboplastin Time 32.8 SEC (24.1-38.0)
[2021-11-13 13:03] LABS: D Dimer High Sensitivity < 150 NG/ML
[2021-11-13 13:11] LABS: Anion Gap 10 (12-20); Blood Urea Nitrogen 18 mg/dL (9-16); Calcium 9.3 mg/dL (8.4-10.2); Carbon Dioxide 26 mmol/L (22-29); Chloride 109 mmol/L (96-108); Creatinine Clr Calc Pharmacy 89.8; Estimated Glomerular Filt Rate > 60; Glucose Random 126 mg/dL (60-115); Potassium 4.2 mmol/L (3.3-5.1); Sodium 141 mmol/L (135-145)
[2021-11-13 13:18] LABS: Troponin-I High Sensitivity 45.8 ng/L (<3.5-35.0)
[2021-11-13 13:27] LABS: Magnesium 1.8 mg/dL (1.6-2.6)
[2021-11-13] MEDS: Aspirin 81 MG TAB.CHEW 324 MG PO (13:51)
[2021-11-13] MEDS: Clopidogrel Bisulfate 300 MG TABLET PO (13:52)
[2021-11-13 13:54] LABS: PTT Heparin Drip 33.6 SEC (53-77.9)
[2021-11-13] MEDS: Heparin Sodium,Porcine/1/2NS 25,000 UNIT/250 ML IV.SOLN 12.38 UNIT IVCONT (13:55)
[2021-11-13] MEDS: Heparin Sodium,Porcine 5,000 UNIT/ML VIAL 4000 UNIT IVPUSH (13:57)
--- NOTE | 2021-11-13 14:12 | P.HPHOSP_ITS ---
History of Present Illness Date of Service: 11/13/21 Attending physician on admission: Andrei Werner Chief Complaint: Chest pain 61-year-old male with history of hypertension on Lisinopril, Coreg, hypercholesterolemia teated with Lipitor, NANCY uses CPAP, obesity, who presents with chest pain. He describes a pressure-like in the chest that started yesterday initially intermittent but became constant this morning around 3. He took Tylenol on 2 separate occasions with partial relief. This morning after shower he felt that the pain seemed worse. He is been feeling a bit SOB not ne cessary exertional. He has nausea but no vomiting, no diaphoresis. feeling around his chest and upper back since last night.? The onset was not during exertion.? Discomfort has been relatively constant.? He feels somewhat better after shower this morning but then the discomfort came back.? Has had some nausea today, denies any unusual sweats.? He feels a little short of breath.? Denies any pain or swelling in his legs.? Lab work shows a rise in troponin to 45, non specic ECG changes. Cardiology has advised IV heparin, additionally has received Plavix, and Aspirin, O2. He is fully vaccinated with [facility] for covid. Review of Systems Review of Systems: Gen: no fever Resp: no sob, no cough CV: + chest, no [place], no leg edema GI: No n/v, no abd pain Neuro: No confusion Yes all other systems are reviewed and are negative [facility] Medical History (Updated 11/13/21 @ 14:44 by Andrei Werner MD) Asthma Cough GERD (gastroesophageal reflux disease) HLD (hyperlipidemia) HTN (hypertension) Obesity NANCY on CPAP Pulmonary embolism Sarcoidosis Sleep apnea Family History Father Family history of high blood pressure Mother History of colon cancer Surgical History History of colonoscopy History of hernia repair Hx of endoscopy Hx of tonsillectomy Hx of vasectomy Social History Alcohol intake: never Patient Tobacco Use Status: Never used Tobacco Use of substances other than those prescribed or required for medical reasons: No Advance Directives: Yes Advance Directives Information Provided: Yes Advance Directives on File: No Meds Allergies Allergy/AdvReac Type Severity Reaction Status Date / Time amoxicillin [AMOXICILLIN] Allergy Severe DIFF Verified 08/28/20 19:15 BREATHING Active Medications: Current Medications Heparin Sodium (Porcine) (Heparin Sodium,Porcine 5,000 Unit/Ml Vial) 5,000 unit 40 unit/kg (5000 unit) IVPUSH PROTOCOL BOLUS PRN; Protocol PRN Reason: 40 unit/kg - Heparin Protocol Heparin Sodium (Porcine) (Heparin Sodium,Porcine 5,000 Unit/Ml Vial) 9,900 unit 80 unit/kg (9900 unit) IVPUSH PROTOCOL BOLUS PRN; Protocol PRN Reason: 80 unit/kg - Heparin Protocol Heparin Sodium/Sodium Chloride () 25,000 unit in 250 mls @ 0 mls/hr IVCONT .Q0M ALEXANDREA; Protocol Last Titration: 11/13/21 13:59 Dose: 8.08 units/kg/hr, 10 mls/hr Documented by: Nitroglycerin (Nitroglycerin 0.4 Mg Tab.Subl) 0.4 mg SUBLINGUAL [id number] PRN PRN Reason: Chest Pain Home Medications Medication Instructions Recorded Confirmed Last Taken Type atorvastatin 20 mg tablet 1 tab PO DAILY 06/18/20 07/30/20 06/18/20 History citalopram 20 mg tablet 1 tab PO DAILY 06/18/20 07/30/20 06/17/20 History fluticasone propionate 110 1 puff INHALATION BID 06/18/20 07/30/20 06/18/20 History mcg/actuation HFA aerosol inhaler (Flovent HFA) lisinopril 40 mg tablet 1 tab PO DAILY 06/18/20 07/30/20 06/17/20 History spironolactone 25 mg tablet 1 tab PO DAILY 06/18/20 07/30/20 06/17/20 History albuterol sulfate 90 mcg/actuation 2 inh INHALATION Q6H PRN 07/30/20 07/30/20 Unknown History breath activated powder inhaler (ProAir RespiClick) carvedilol 6.25 mg tablet 6.25 mg PO BID 07/30/20 07/30/20 Unknown History flu vac qs 2020(4 yr up)CD(PF) ml IM 07/30/20 07/30/20 Unknown History varicella-zoster glycoE [id number] IM 07/30/20 07/30/20 Unknown History adj(PF) 50 mcg/0.5 mL IM susp, kit Physical Exam Vital Signs and Narrative: Vital Signs: Last Vital Signs Temp 98.8 F 11/13/21 13:01 Pulse 69 11/13/21 13:01 Resp 17 11/13/21 13:01 BP 136/82 11/13/21 13:01 Pulse Ox 99 11/13/21 13:01 BMI result Body Mass Index 39.2 Const: Other: Constitutional: Alert, in no distress, overweight. Mental Status: Oriented to person, place and time. Eyes: Pupils are equal, round and reactive to light. Ear, Nose and Throat: Oropharynx clear, mucous membranes moist. Ears and nose without deformities. Trachea midline. Respiratory: Clear to auscultation. No wheezing, rales or rhonchi. Cardiovascular: S1 S2 regular. No murmurs, rubs or gallops. Gastrointestinal: Abdomen soft, non-tender, non-distended. Normal bowel sounds.? Neurologic: Cranial nerves II-XII grossly intact. No focal neurological deficits. Moves all extremities spontaneously.? Skin: No rashes or lesions.? Musculoskeletal: No cyanosis or clubbing. Psychiatric: Normal mood and affect? Results Labs CBC and Chem 7: 11/13/21 12:49 11/13/21 12:49 Labs: Laboratory Results - last 24 hr 11/13/21 11/13/21 11/13/21 12:49 12:49 12:49 MCV 86.4 MCH 28.5 MCHC 33.0 RDW 14.0 Plt Count 229 MPV 10.0 Immature Gran % (Auto) 0.6 H Neut % (Auto) 75.0 H Lymph % (Auto) 10.[address] [facility] [facility] % (Auto) 11.2 H Eos % (Auto) 2.4 Baso % (Auto) 0.3 Lymph # (Auto) 0.[address] [facility] # (Auto) 1.0 Eos # (Auto) 0.2 Baso # (Auto) 0.0 Abs Immat Gran (auto) 0.05 H Absolute Neuts (auto) 6.7 Absolute Nucleated RBC 0.000 Nucleated RBC % (auto) 0.0 PT 11.8 INR 1.0 APTT 32.8 aPTT Heparin Protocol D-Dimer High Sensitivty < 150 Anion Gap 10 L Estim Creat Clear Calc 89.8 Estimated GFR > 60 Random Glucose 126 H Calcium 9.3 Magnesium 1.8 11/13/21 13:40 MCV MCH MCHC RDW Plt Count MPV Immature Gran % (Auto) Neut % (Auto) Lymph % (Auto) [facility] % (Auto) Eos % (Auto) Baso % (Auto) Lymph # (Auto) [facility] # (Auto) Eos # (Auto) Baso # (Auto) Abs Immat Gran (auto) Absolute Neuts (auto) Absolute Nucleated RBC Nucleated RBC % (auto) PT INR APTT aPTT Heparin Protocol 33.6 L D-Dimer High Sensitivty Anion Gap Estim Creat Clear Calc Estimated GFR Random Glucose Calcium Magnesium Assessment and Plan (1) NANCY on CPAP: Status: Acute (2) NSTEMI (non-ST elevated myocardial infarction): Status: Acute (3) HTN (hypertension): Status: Acute (4) HLD (hyperlipidemia): Status: Acute (5) Obesity: Status: Acute Plan 61-year-old male with history of hypertension on Lisinopril, Coreg, hyp ercholesterolemia teated with Lipitor, NANCY uses CPAP, obesity, who presents with chest pain and found to have NSTEMI by elevated troponin I.. #NSTEMI-chest pain has subsided, hemodynamically stable -medical management with intravenous heparin, aspirin, Plavix, Lipitor, and beta-sammy. O2 -echocardiogram when available, he will probably be transfer to [facility] for cardiac catheterization at a later time -cardiology consultation in -morphine p.r.n. for chest pain, nitroglycerin p.r.n. as well for angina type of pain -check lipid panel tomorrow morning #Hypertension--resume home meds including Coreg and lisinopril. #Hyperlipidemia--increase Lipitor to 80 mg p.o. at bedtime. 20 mg at home #Obesity--have benefit of weight loss advice and he is aware of his option #NANCY--CPAP at night #GERD--ppi #Sarcoidosis with possible endobronchial involved--continue bronchodilators. Heparin for DVT prophylaxis. Need 2 midnight stay for management of acute heart attack that is required in travenous heparin for at least 48-72 hours in addition to the need for further testing and hemodynamic monitoring. Quality Stroke Does the patient have a stroke diagnosis?: No VTE Prior VTE?: No VTE Risk Level:: Medical - moderate - high VTE Device Contraindication: Treatment Not Indicated VTE Drug Contraindication: N/A - Med Ordered
--- NOTE | 2021-11-13 15:40 | PHA.MEDREC ---
Pharmacy Consult ? Medication Reconciliation Pharmacy has completed the medication reconciliation.
[2021-11-13 18:12] LABS: IDNOW Serial# 16C4AD1C
[2021-11-13 18:13] LABS: COVID-19 Test Negative (Negative)
--- NOTE | 2021-11-13 18:18 | PC.NURSE ---
Report given to Marciano VANEGAS. Awaiting bed to be clean.
[2021-11-13 20:29] LABS: PTT Heparin Drip 47.5 SEC (53-77.9)
[2021-11-13] MEDS: Heparin Sodium,Porcine 5,000 UNIT/ML VIAL 5000 UNIT IVPUSH (20:44)
[2021-11-13] MEDS: Morphine Sulfate 4 MG/ML CARTRIDGE 2 MG IVPUSH (21:23)
[2021-11-13] MEDS: Atorvastatin Calcium 80 MG TABLET PO (21:26)
--- NOTE | 2021-11-14 | CA_ITS ---
Acquisition Time: 2021-11-15 08:44:24 Total Exercise Time: 00:07:23 Test Indications: Abnormal ECG Medications: SEE EMAR Protocol: ANU Max HR: 137 BPM 85% of Pred: 161 BPM Max BP: 152/072 mmHG Max Work Load: 9.1 METS Exercise stress test with exercise 7 min 23 sec of Anu protocol, achieing 85% MPHR, 9.1 METs, with moderate shortness of breath, no chest discomfort, with isolated PVC, with normotensive response to exercise, with baseline EKG showing RBBB and downsloping ST leads III, V1 and V3, flattened ST aVF without noted changes during exercise or recovery. Test reviewed with Dr Carrasquillo. Referred By: Mikhail Delgado Overread By: MAG HEMPHILL
[2021-11-14 02:56] LABS: PTT Heparin Drip 74.1 SEC (53-77.9)
[2021-11-14 03:25] VITALS: BP 126/75; PULSE 80; RESP 20; TEMP 36.8; O2SAT 92
[2021-11-14 07:32] VITALS: BP 134/75; PULSE 76; RESP 12; TEMP 36.6; O2SAT 92
--- NOTE | 2021-11-14 07:43 | HO.PM.IMPN ---
Subjective Subjective Date of Service: 11/14/21 Interval History: F/u on NSTEMI, no chest pain, no sob, no dizznes, Review of Systems Gen: no fever Resp: no sob, no cough CV: + chest, no [place], no leg edema GI: No n/v, no abd pain Neuro: No confusion Physical Exam Vital Signs: Vital Signs: Last Vital Signs Temp 97.9 F 11/14/21 07:32 Pulse 76 11/14/21 07:32 Resp 12 11/14/21 07:32 BP 134/75 11/14/21 07:32 Pulse Ox 92 11/14/21 07:32 BMI result Body Mass Index 39.2 Objective Data Active Medications Acetaminophen (Acetaminophen 325 Mg Tablet) 650 mg PO Q6H PRN PRN Reason: Pain, Mild (Pain Scale 1-3) Al Hydroxide/Mg Hydroxide (Magnesium Hydrox/Alum Hydrox 30 Ml Oral.Susp) 30 ml PO Q4H PRN PRN Reason: Heartburn/Nausea Albuterol Sulfate (Albuterol Sulfate 90 Mcg 8 Gm Inhaler) 2 puff INHALE Q6H PRN PRN Reason: Shortness Of Breath Atorvastatin Calcium (Atorvastatin Calcium 80 Mg Tablet) 80 mg PO BEDTIME [facility] Last Admin: 11/13/21 21:26 Dose: 80 mg Documented by: MARIA DEL CARMEN Carvedilol (Carvedilol 6.25 Mg Tablet) 6.25 mg PO BID [facility]; Protocol Escitalopram Oxalate (Escitalopram Oxalate 10 Mg Tablet) 10 mg PO BEDTIME [facility] Heparin Sodium (Porcine) (Heparin Sodium,Porcine 5,000 Unit/Ml Vial) 5,000 unit 40 unit/kg (5000 unit) IVPUSH PROTOCOL BOLUS PRN; Protocol PRN Reason: 40 unit/kg - Heparin Protocol Last Admin: 11/13/21 20:44 Dose: 5,000 unit Documented by: MARIA DEL CARMEN Heparin Sodium (Porcine) (Heparin Sodium,Porcine 5,000 Unit/Ml Vial) 9,900 unit 80 unit/kg (9900 unit) IVPUSH PROTOCOL BOLUS PRN; Protocol PRN Reason: 80 unit/kg - Heparin Protocol Heparin Sodium/Sodium Chloride () 25,000 unit in 250 mls @ 0 mls/hr IVCONT .Q0M [facility]; Protocol Last Titration: 11/14/21 02:45 Dose: 10.08 units/kg/hr, 12.48 mls/hr Documented by: MARIA DEL CARMEN Cosigned by: DANNY Lisinopril (Lisinopril 40 Mg Tablet) 40 mg PO BEDTIME [facility]; Protocol Melatonin (Melatonin 3 Mg Tablet) 6 mg PO BEDTIME PRN PRN Reason: Insomnia Morphine Sulfate (Morphine Sulfate 4 Mg/Ml Cartridge) 2 mg IVPUSH Q4H PRN; Protocol PRN Reason: Pain, Severe (Pain Scale 7-10) Last Admin: 11/13/21 21:23 Dose: 2 mg Documented by: MARIA DEL CARMEN Multivitamins/Vitamin C (Multivitamin Tablet) 1 tab PO DAILY [facility] Nitroglycerin (Nitroglycerin 0.4 Mg Tab.Subl) 0.4 mg SUBLINGUAL Q5MX3 PRN PRN Reason: Chest Pain Nitroglycerin (Nitroglycerin 0.4 Mg Tab.Subl) 0.4 mg SUBLINGUAL Q5MX3 PRN PRN Reason: Chest Pain Omeprazole (Omeprazole 20 Mg Capsule.Dr) 20 mg PO DAILY@1630 [facility] Ondansetron HCl (Ondansetron Hcl 4 Mg/2 Ml Vial) 4 mg IVPUSH Q8H PRN PRN Reason: Nausea and Vomiting Sodium Chloride (0.9 % Sodium Chloride Flush 3 Ml Syringe) 3 ml IVFLUSH QSHIFT [facility] Last Admin: 11/14/21 01:15 Dose: Not Given Documented by: MARIA DEL CARMEN Non-Admin Reason: IV Running Spironolactone (Spironolactone 25 Mg Tablet) 25 mg PO BEDTIME [facility]; Protocol Vitamin D (Cholecalciferol (Vitamin D3) 25 Mcg Tablet) 25 mcg PO DAILY [facility] Labs CBC & Chem 7: 11/13/21 12:49 11/13/21 12:49 Labs: Laboratory Results - last 24 hr 11/13/21 11/13/21 11/13/21 12:49 12:49 12:49 MCV 86.4 MCH 28.5 MCHC 33.0 RDW 14.0 Plt Count 229 MPV 10.0 Immature Gran % (Auto) 0.6 H Neut % (Auto) 75.0 H Lymph % (Auto) 10.5 L [place] % (Auto) 11.2 H Eos % (Auto) 2.4 Baso % (Auto) 0.3 Lymph # (Auto) 0.9 L [place] # (Auto) 1.0 Eos # (Auto) 0.2 Baso # (Auto) 0.0 Abs Immat Gran (auto) 0.05 H Absolute Neuts (auto) 6.7 Absolute Nucleated RBC 0.000 Nucleated RBC % (auto) 0.0 PT 11.8 INR 1.0 APTT 32.8 aPTT Heparin Protocol D-Dimer High Sensitivty < 150 Anion Gap 10 L Estim Creat Clear Calc 89.8 Estimated GFR > 60 Random Glucose 126 H Calcium 9.3 Magnesium 1.8 COVID-19 ([facility]) COVID-19 Clin Com 11/13/21 11/13/21 11/13/21 13:40 14:13 20:04 MCV MCH MCHC RDW Plt Count MPV Immature Gran % (Auto) Neut % (Auto) Lymph % (Auto) [place] % (Auto) Eos % (Auto) Baso % (Auto) Lymph # (Auto) [place] # (Auto) Eos # (Auto) Baso # (Auto) Abs Immat Gran (auto) Absolute Neuts (auto) Absolute Nucleated RBC Nucleated RBC % (auto) PT INR APTT aPTT Heparin Protocol 33.6 L 47.5 L D D-Dimer High Sensitivty Anion Gap Estim Creat Clear Calc Estimated GFR Random Glucose Calcium Magnesium COVID-19 (MIR) Negative COVID-19 [facility] Com See Note 11/14/21 02:42 MCV MCH MCHC RDW Plt Count MPV Immature Gran % (Auto) Neut % (Auto) Lymph % (Auto) [place] % (Auto) Eos % (Auto) Baso % (Auto) Lymph # (Auto) [place] # (Auto) Eos # (Auto) Baso # (Auto) Abs Immat Gran (auto) Absolute Neuts (auto) Absolute Nucleated RBC Nucleated RBC % (auto) PT INR APTT aPTT Heparin Protocol 74.1 D D-Dimer High Sensitivty Anion Gap Estim Creat Clear Calc Estimated GFR Random Glucose Calcium Magnesium COVID-19 ([facility]IR) COVID-19 Clin [employer] Assessment and Plan (1) NSTEMI (non-ST elevated myocardial infarction): Status: Acute (2) HTN (hypertension): Status: Acute (3) HLD (hyperlipidemia): Status: Acute (4) NANCY on CPAP: Status: Acute Plan 61-year-old male with history of hypertension on Lisinopril, Coreg, hypercholesterolemia teated with Lipitor, NANCY uses CPAP, obesity, who presents with chest pain and found to have NSTEMI by elevated troponin I.. #NSTEMI--hemodynamically stable, no pain at present -medical management with intravenous heparin for 48 to 72 hours, aspirin, Plavix, Lipitor, and beta-sammy. O2 -morphine p.r.n. for chest pain, nitroglycerin p.r.n. as well for angina type of pain -check lipid panel this morning #Hypertension--resume home meds including Aldactone, Coreg and lisinopril. #Hyperlipidemia--increased Lipitor to 80 mg p.o. at bedtime. #Obesity--health benefits of weight loss advice and he is aware of his options #NANCY--CPAP at night #GERD--ppi #Sarcoidosis with possible endobronchial involved--continue bronchodilators. Heparin for DVT prophylaxis. need for inpt: NSTEMI management with IV heparin and likely need for cardiac cath Quality Stroke Does the patient have a stroke diagnosis?: No VTE Prior VTE?: No VTE Risk Level:: Medical - moderate - high VTE Device Contraindication: Treatment Not Indicated VTE Drug Contraindication: N/A - Med Ordered
[2021-11-14] MEDS: carvediloL 6.25 MG TABLET PO ×2 (08:05→20:37)
[2021-11-14] MEDS: Cholecalciferol (Vitamin D3) 25 MCG TABLET PO (08:05)
[2021-11-14] MEDS: Acetaminophen 325 MG TABLET 650 MG PO (08:05)
[2021-11-14] MEDS: Aspirin Enteric Coated 81 MG TABLET.DR PO (08:05)
[2021-11-14] MEDS: Multivitamin TABLET 1 TAB PO (08:05)
[2021-11-14] MEDS: 0.9 % Sodium Chloride Flush 3 ML SYRINGE IVFLUSH ×3 (08:05→20:38)
[2021-11-14 08:59] LABS: PTT Heparin Drip 60.6 SEC (53-77.9)
[2021-11-14 09:09] LABS: Cholesterol 117 mg/dL; HDL Cholesterol 35 mg/dL; LDL Cholesterol Calculated 59 mg/dl; Triglycerides 116 mg/dL
--- NOTE | 2021-11-14 10:25 | PM.CNCAR ---
History of Present Illness History of Present Illness Date of Service: 11/14/21 Requesting physician: Andrei Werner Chief complaint: Chest pain Narrative: 61-year-old gentleman background history of venous thromboembolism in 2019 for which he was on anticoagulation which was stopped approximately a year ago. Also has background of hypertension hyperlipidemia. He is presenting with chest discomfort which started on Monday. This was a pressure-like feeling as well as some back discomfort. These symptoms lasted for approximately 24 hours when he came to the emergency department. His ECG showed a new right bundle-branch block. His D-dimer was negative. His high sensitivity troponin level despite having 24 hours of chest discomfort was 45 and then 42. He said he received some morphine and since then has been doing well. He was started on heparin drip for acute coronary syndrome. [facility] Past Medical History Medical History (Updated 11/14/21 @ 10:27 by Mikhail Delgado MD) Asthma Cough GERD (gastroesophageal reflux disease) HLD (hyperlipidemia) HTN (hypertension) Obesity NANCY on CPAP Pulmonary embolism Sarcoidosis Sleep apnea Family History Family History Father Family history of high blood pressure Mother History of colon cancer Surgical History Surgical History History of colonoscopy History of hernia repair Hx of endoscopy Hx of tonsillectomy Hx of vasectomy Social History Social History Household Members: Spouse Housing: House Do you presently have visiting nurse or other home services: No Alcohol intake: never Patient Tobacco Use Status: Former Tobacco user Tobacco use type: Cigarette Advance Directives Date on File: 11/13/21 Meds Allergies Allergy/AdvReac Type Severity Reaction Status Date / Time amoxicillin [AMOXICILLIN] Allergy Severe DIFF Verified 08/28/20 19:15 BREATHING Active Medications: Current Medications Acetaminophen (Acetaminophen 325 Mg Tablet) 650 mg PO Q6H PRN PRN Reason: Pain, Mild (Pain Scale 1-3) Last Admin: 11/14/21 08:05 Dose: 650 mg Documented by: Al Hydroxide/Mg Hydroxide (Magnesium Hydrox/Alum Hydrox 30 Ml Oral.Susp) 30 ml PO Q4H PRN PRN Reason: Heartburn/Nausea Albuterol Sulfate (Albuterol Sulfate 90 Mcg 8 Gm Inhaler) 2 puff INHALE Q6H PRN PRN Reason: Shortness Of Breath Aspirin (Aspirin Enteric Coated 81 Mg Tablet.) 81 mg PO DAILY [facility] Last Admin: 11/14/21 08:05 Dose: 81 mg Documented by: Atorvastatin Calcium (Atorvastatin Calcium 80 Mg Tablet) 80 mg PO BEDTIME [facility] Last Admin: 11/13/21 21:26 Dose: 80 mg Documented by: Carvedilol (Carvedilol 6.25 Mg Tablet) 6.25 mg PO BID [facility]; Protocol Last Admin: 11/14/21 08:05 Dose: 6.25 mg Documented by: Escitalopram Oxalate (Escitalopram Oxalate 10 Mg Tablet) 10 mg PO BEDTIME [facility] Heparin Sodium (Porcine) (Heparin Sodium,Porcine 5,000 Unit/Ml Vial) 5,000 unit 40 unit/kg (5000 unit) IVPUSH PROTOCOL BOLUS PRN; Protocol PRN Reason: 40 unit/kg - Heparin Protocol Last Admin: 11/13/21 20:44 Dose: 5,000 unit Documented by: Heparin Sodium (Porcine) (Heparin Sodium,Porcine 5,000 Unit/Ml Vial) 9,900 unit 80 unit/kg (9900 unit) IVPUSH PROTOCOL BOLUS PRN; Protocol PRN Reason: 80 unit/kg - Heparin Protocol Heparin Sodium/Sodium Chloride () 25,000 unit in 250 mls @ 0 mls/hr IVCONT .Q0M [facility]; Protocol Last Titration: 11/14/21 09:26 Dose: 10.08 units/kg/hr, 12.48 mls/hr Documented by: Lisinopril (Lisinopril 40 Mg Tablet) 40 mg PO BEDTIME [facility]; Protocol Melatonin (Melatonin 3 Mg Tablet) 6 mg PO BEDTIME PRN PRN Reason: Insomnia Morphine Sulfate (Morphine Sulfate 4 Mg/Ml Cartridge) 2 mg IVPUSH Q4H PRN; Protocol PRN Reason: Pain, Severe (Pain Scale 7-10) Last Admin: 11/13/21 21:23 Dose: 2 mg Documented by: Multivitamins/Vitamin C (Multivitamin Tablet) 1 tab PO DAILY [facility] Last Admin: 11/14/21 08:05 Dose: 1 tab Documented by: Nitroglycerin (Nitroglycerin 0.4 Mg Tab.Subl) 0.4 mg SUBLINGUAL Q5MX3 PRN PRN Reason: Chest Pain Nitroglycerin (Nitroglycerin 0.4 Mg Tab.Subl) 0.4 mg SUBLINGUAL Q5MX3 PRN PRN Reason: Chest Pain Omeprazole (Omeprazole 20 Mg Capsule.Dr) 20 mg PO DAILY@1630 [facility] Ondansetron HCl (Ondansetron Hcl 4 Mg/2 Ml Vial) 4 mg IVPUSH Q8H PRN PRN Reason: Nausea and Vomiting Sodium Chloride (0.9 % Sodium Chloride Flush 3 Ml Syringe) 3 ml IVFLUSH QSHIFT [facility] Last Admin: 11/14/21 08:05 Dose: 3 ml Documented by: Spironolactone (Spironolactone 25 Mg Tablet) 25 mg PO BEDTIME [facility]; Protocol Vitamin D (Cholecalciferol (Vitamin D3) 25 Mcg Tablet) 25 mcg PO DAILY [facility] Last Admin: 11/14/21 08:05 Dose: 25 mcg Documented by: Home Medications Medication Instructions Recorded Confirmed Last Taken Type atorvastatin 20 mg tablet 1 tab PO BEDTIME 06/18/20 11/13/21 11/12/21 History citalopram 20 mg tablet 1 tab PO BEDTIME 06/18/20 11/13/21 11/13/21 History lisinopril 40 mg tablet 1 tab PO BEDTIME 06/18/20 11/13/21 11/12/21 History spironolactone 25 mg tablet 1 tab PO BEDTIME 06/18/20 11/13/21 11/12/21 History albuterol sulfate 90 mcg/actuation 2 inh INHALATION Q6H PRN 07/30/20 11/13/21 Unknown History breath activated powder inhaler (ProAir RespiClick) carvedilol 6.25 mg tablet 6.25 mg PO BID 07/30/20 11/13/21 11/13/21 History cholecalciferol (vitamin D3) 25 25 mcg PO DAILY 11/13/21 11/13/21 11/13/21 History mcg (1,000 unit) tablet (Vitamin D3) multivitamin 1 tab PO DAILY 11/13/21 11/13/21 11/13/21 History pantoprazole 20 mg tablet,delayed 1 tab PO BEDTIME 11/13/21 11/13/21 11/12/21 History release Physical Exam Vital Signs: Vital Signs: Last Vital Signs Temp 97.9 F 11/14/21 07:32 Pulse 76 11/14/21 07:32 Resp 12 11/14/21 07:32 BP 134/75 11/14/21 07:32 Pulse Ox 92 11/14/21 07:32 BMI result Body Mass Index 39.2 GENERAL APPEARANCE: in no acute distress, pleasant. NECK: no carotid bruit, no jugular venous distention. SKIN: no suspicious lesions, warm and dry. HEART: no murmurs, regular rate and rhythm. LUNGS: clear to auscultation bilaterally. ABDOMEN: soft, nontender. EXTREMITIES: no edema. PERIPHERAL PULSES: equal. NEUROLOGIC: No gross deficits, AAO X 3 Objective Labs and Meds Result diagrams: 11/13/21 12:49 11/13/21 12:49 Lab results: Laboratory Results - last 24 hr 11/13/21 11/13/21 11/13/21 12:49 12:49 12:49 WBC 8.9 RBC 4.94 Hgb 14.1 Hct 42.7 MCV 86.4 MCH 28.5 MCHC 33.0 RDW 14.0 Plt Count 229 MPV 10.0 Immature Gran % (Auto) 0.6 H Neut % (Auto) 75.0 H Lymph % (Auto) 10.5 L [place] % (Auto) 11.2 H Eos % (Auto) 2.4 Baso % (Auto) 0.3 Lymph # (Auto) 0.9 L [place] # (Auto) 1.0 Eos # (Auto) 0.2 Baso # (Auto) 0.0 Abs Immat Gran (auto) 0.05 H Absolute Neuts (auto) 6.7 Absolute Nucleated RBC 0.000 Nucleated RBC % (auto) 0.0 PT INR APTT aPTT Heparin Protocol D-Dimer High Sensitivty Sodium 141 Potassium 4.2 Chloride 109 H Carbon Dioxide 26 Anion Gap 10 L BUN 18 H Creatinine 1.15 Estim Creat Clear Calc 89.8 Estimated GFR > 60 Random Glucose 126 H Calcium 9.3 Magnesium 1.8 Troponin I High Sens 45.8 H Triglycerides Cholesterol LDL Cholesterol, Calc HDL Cholesterol COVID-19 ([facility]) COVID-19 Clin Com 11/13/21 11/13/21 11/13/21 12:49 13:40 14:13 WBC RBC Hgb Hct MCV MCH MCHC RDW Plt Count MPV Immature Gran % (Auto) Neut % (Auto) Lymph % (Auto) [place] % (Auto) Eos % (Auto) Baso % (Auto) Lymph # (Auto) [place] # (Auto) Eos # (Auto) Baso # (Auto) Abs Immat Gran (auto) Absolute Neuts (auto) Absolute Nucleated RBC Nucleated RBC % (auto) PT 11.8 INR 1.0 APTT 32.8 aPTT Heparin Protocol 33.6 L D-Dimer High Sensitivty < 150 Sodium Potassium Chloride Carbon Dioxide Anion Gap BUN Creatinine Estim Creat Clear Calc Estimated GFR Random Glucose Calcium Magnesium Troponin I High Sens Triglycerides Cholesterol LDL Cholesterol, Calc HDL Cholesterol COVID-19 ([facility]IR) Negative COVID-19 Clin Com See Note 11/13/21 11/13/21 11/14/21 15:24 20:04 02:42 WBC RBC Hgb Hct MCV MCH MCHC RDW Plt Count MPV Immature Gran % (Auto) Neut % (Auto) Lymph % (Auto) [place] % (Auto) Eos % (Auto) Baso % (Auto) Lymph # (Auto) [place] # (Auto) Eos # (Auto) Baso # (Auto) Abs Immat Gran (auto) Absolute Neuts (auto) Absolute Nucleated RBC Nucleated RBC % (auto) PT INR APTT aPTT Heparin Protocol 47.5 L D 74.1 D D-Dimer High Sensitivty Sodium Potassium Chloride Carbon Dioxide Anion Gap BUN Creatinine Estim Creat Clear Calc Estimated GFR Random Glucose Calcium Magnesium Troponin I High Sens 42.0 H Triglycerides Cholesterol LDL Cholesterol, Calc HDL Cholesterol COVID-19 (MIR) COVID-19 Clin Com 11/14/21 11/14/21 08:34 08:34 WBC RBC Hgb Hct MCV MCH MCHC RDW Plt Count MPV Immature Gran % (Auto) Neut % (Auto) Lymph % (Auto) [place] % (Auto) Eos % (Auto) Baso % (Auto) Lymph # (Auto) [place] # (Auto) Eos # (Auto) Baso # (Auto) Abs Immat Gran (auto) Absolute Neuts (auto) Absolute Nucleated RBC Nucleated RBC % (auto) PT INR APTT aPTT Heparin Protocol 60.6 D-Dimer High Sensitivty Sodium Potassium Chloride Carbon Dioxide Anion Gap BUN Creatinine Estim Creat Clear Calc Estimated GFR Random Glucose Calcium Magnesium Troponin I High Sens Triglycerides 116 Cholesterol 117 LDL Cholesterol, Calc 59 HDL Cholesterol 35 COVID-19 ([facility]IR) COVID-19 Clin Com Imaging Radiologist's impression: Impressions Chest X-Ray 11/13/21 14:20 IMPRESSION: Question subcarinal mediastinal lymphadenopathy and abnormal parenchymal density in the right upper lobe. Follow-up chest CT with IV contrast should be considered. Assessment and Plan (1) HTN (hypertension): Status: Acute (2) Chest pain: Status: Acute Plan 61-year-old gentleman who is presenting for chest pressure which lasted for approximately 24 hours persistently. His HS troponins are very mildly abnormal at 45 and 42. EKG showing right bundle-branch block without any dynamic changes. Right bundle-branch block is new. D-dimer is negative. He has been started on heparin drip on admission and is being treated as NSTEMI. I think his biomarkers are very mildly abnormal and a suspected his high sensitivity troponin level to be higher than this if he had 24 hour of ischemic discomfort. ECG has right bundle-branch block which is new compared to old EKG but has no dynamic ischemic changes. I think we continue heparin drip for now. We do echocardiogram tomorrow morning. If echo showed wall motion abnormality then will transfer to [facility] and pursue diagnostic angiography. On the other hand if his echocardiogram is normal and he has no wall motion abnormality then I will consider doing an exercise stress test. I have discussed this with the patient and his in detail and they are agreeable for this plan. Thank you for allowing me to participate in the care of your patient. Please feel free to contact me if you have any questions. Procedures Date of Service Date of Service: 11/14/21
[2021-11-14] MEDS: Heparin Sodium,Porcine/1/2NS 25,000 UNIT/250 ML IV.SOLN 12.48 UNIT IVCONT (10:44)
[2021-11-14 12:06] VITALS: BP 130/77; PULSE 72; RESP 16; TEMP 36.7; O2SAT 94
[2021-11-14 15:16] LABS: PTT Heparin Drip 43.1 SEC (53-77.9)
[2021-11-14] MEDS: Heparin Sodium,Porcine 5,000 UNIT/ML VIAL 5000 UNIT IVPUSH (15:29)
[2021-11-14 15:37] VITALS: BP 136/85; PULSE 70; RESP 18; TEMP 36.7; O2SAT 95
--- NOTE | 2021-11-14 15:58 | MHC.CM.PN ---
CM MET WITH PT AND WHO WAS AT BEDSIDE. PT LIVES AT HOME WITH HIS PT HAS NO SERVICES AND USES ONLY A CPAP FOR DME PT CONFIRMS HIS PCP IS IVONNE CARRION PT REPORTS HE HAS A HCP NAMING HIS HIS AGENT, SHE WILL BRING IN A COPY ON HER NEXT VISIT PT IS VACCINATED AGAINST COVID-19 WITH PFIZER X 3 CURRENT DC PLAN IS HOME WITH NO SERVICES TO TRANSPORT
[2021-11-14] MEDS: Omeprazole 20 MG CAPSULE.DR PO (17:24)
[2021-11-14 20:07] VITALS: BP 130/72; PULSE 78; RESP 18; TEMP 36.9; O2SAT 96
[2021-11-14] MEDS: Atorvastatin Calcium 80 MG TABLET PO (20:37)
[2021-11-14] MEDS: lisinopriL 40 MG TABLET PO (20:37)
[2021-11-14] MEDS: Spironolactone 25 MG TABLET PO (20:37)
[2021-11-14] MEDS: Escitalopram Oxalate 10 MG TABLET PO (20:37)
[2021-11-14 21:56] LABS: PTT Heparin Drip 78.4 SEC (53-77.9)
[2021-11-14 23:25] VITALS: BP 112/68; PULSE 74; RESP 20; TEMP 37.1; O2SAT 94
[2021-11-15 03:24] VITALS: BP 142/83; PULSE 70; RESP 18; TEMP 36.6; O2SAT 94
[2021-11-15 04:09] LABS: PTT Heparin Drip 57.1 SEC (53-77.9)
[2021-11-15] MEDS: Morphine Sulfate 4 MG/ML CARTRIDGE 2 MG IVPUSH (04:52)
[2021-11-15 07:38] VITALS: BP 129/82; PULSE 80; RESP 18; TEMP 36.4; O2SAT 93
[2021-11-15] MEDS: Heparin Sodium,Porcine/1/2NS 25,000 UNIT/250 ML IV.SOLN 12.48 UNIT IVCONT (08:58)
--- NOTE | 2021-11-15 09:57 | HO.PM.IMPN ---
Subjective Subjective Date of Service: 11/15/21 Interval History: F/u on NSTEMI, no chest pain, no sob, no dizznes, Review of Systems Gen: no fever Resp: no sob, no cough CV: no chest, no [place], no leg edema Physical Exam Vital Signs: Vital Signs: Last Vital Signs Temp 97.6 F 11/15/21 07:38 Pulse 80 11/15/21 07:38 Resp 18 11/15/21 07:38 BP 129/82 11/15/21 07:38 Pulse Ox 93 11/15/21 07:38 BMI result Body Mass Index 39.2 Const: Other: General: AO X 3, no acute distress Resp: CTA bilateral CVS: S1,S2,RRR GI: +BS, NT, no distention Skin: No rash Neuro: motor grossly intact Psych: appropriate affect Objective Data Active Medications Acetaminophen (Acetaminophen 325 Mg Tablet) 650 mg PO Q6H PRN PRN Reason: Pain, Mild (Pain Scale 1-3) Last Admin: 11/14/21 08:05 Dose: 650 mg Documented by: MICHAEL Al Hydroxide/Mg Hydroxide (Magnesium Hydrox/Alum Hydrox 30 Ml Oral.Susp) 30 ml PO Q4H PRN PRN Reason: Heartburn/Nausea Albuterol Sulfate (Albuterol Sulfate 90 Mcg 8 Gm Inhaler) 2 puff INHALE Q6H PRN PRN Reason: Shortness Of Breath Aspirin (Aspirin Enteric Coated 81 Mg Tablet.) 81 mg PO DAILY [facility] Last Admin: 11/14/21 08:05 Dose: 81 mg Documented by: MICHAEL Atorvastatin Calcium (Atorvastatin Calcium 80 Mg Tablet) 80 mg PO BEDTIME [facility] Last Admin: 11/14/21 20:37 Dose: 80 mg Documented by: RADHA Carvedilol (Carvedilol 6.25 Mg Tablet) 6.25 mg PO BID [facility]; Protocol Last Admin: 11/14/21 20:37 Dose: 6.25 mg Documented by: RADHA Escitalopram Oxalate (Escitalopram Oxalate 10 Mg Tablet) 10 mg PO BEDTIME [facility] Last Admin: 11/14/21 20:37 Dose: 10 mg Documented by: RADHA Heparin Sodium (Porcine) (Heparin Sodium,Porcine 5,000 Unit/Ml Vial) 5,000 unit 40 unit/kg (5000 unit) IVPUSH PROTOCOL BOLUS PRN; Protocol PRN Reason: 40 unit/kg - Heparin Protocol Last Admin: 11/14/21 15:29 Dose: 5,000 unit Documented by: MICHAEL Heparin Sodium (Porcine) (Heparin Sodium,Porcine 5,000 Unit/Ml Vial) 9,900 unit 80 unit/kg (9900 unit) IVPUSH PROTOCOL BOLUS PRN; Protocol PRN Reason: 80 unit/kg - Heparin Protocol Heparin Sodium/Sodium Chloride () 25,000 unit in 250 mls @ 0 mls/hr IVCONT .Q0M [facility]; Protocol Last Admin: 11/15/21 08:58 Dose: 10.08 units/kg/hr, 12.48 mls/hr Documented by: MARYCRUZ Cosigned by: CORWIN Lisinopril (Lisinopril 40 Mg Tablet) 40 mg PO BEDTIME [facility]; Protocol Last Admin: 11/14/21 20:37 Dose: 40 mg Documented by: RADHA Melatonin (Melatonin 3 Mg Tablet) 6 mg PO BEDTIME PRN PRN Reason: Insomnia Morphine Sulfate (Morphine Sulfate 4 Mg/Ml Cartridge) 2 mg IVPUSH Q4H PRN; Protocol PRN Reason: Pain, Severe (Pain Scale 7-10) Last Admin: 11/15/21 04:52 Dose: 2 mg Documented by: RADHA Multivitamins/Vitamin C (Multivitamin Tablet) 1 tab PO DAILY [facility] Last Admin: 11/14/21 08:05 Dose: 1 tab Documented by: MICHAEL Nitroglycerin (Nitroglycerin 0.4 Mg Tab.Subl) 0.4 mg SUBLINGUAL Q5MX3 PRN PRN Reason: Chest Pain Nitroglycerin (Nitroglycerin 0.4 Mg Tab.Subl) 0.4 mg SUBLINGUAL Q5MX3 PRN PRN Reason: Chest Pain Omeprazole (Omeprazole 20 Mg Capsule.Dr) 20 mg PO DAILY@1630 [facility] Last Admin: 11/14/21 17:24 Dose: 20 mg Documented by: MICHAEL Ondansetron HCl (Ondansetron Hcl 4 Mg/2 Ml Vial) 4 mg IVPUSH Q8H PRN PRN Reason: Nausea and Vomiting Sodium Chloride (0.9 % Sodium Chloride Flush 3 Ml Syringe) 3 ml IVFLUSH QSHIFT [facility] Last Admin: 11/14/21 20:38 Dose: 3 ml Documented by: RADHA Spironolactone (Spironolactone 25 Mg Tablet) 25 mg PO BEDTIME [facility]; Protocol Last Admin: 11/14/21 20:37 Dose: 25 mg Documented by: RADHA Vitamin D (Cholecalciferol (Vitamin D3) 25 Mcg Tablet) 25 mcg PO DAILY [facility] Last Admin: 11/14/21 08:05 Dose: 25 mcg Documented by: MICHAEL Labs CBC & Chem 7: 11/13/21 12:49 11/13/21 12:49 Labs: Laboratory Results - last 24 hr 11/14/21 11/14/21 11/15/21 14:53 21:42 03:54 aPTT Heparin Protocol 43.1 L D 78.4 H D 57.1 D Assessment and Plan (1) NSTEMI (non-ST elevated myocardial infarction): Status: Acute (2) HTN (hypertension): Status: Acute (3) HLD (hyperlipidemia): Status: Acute (4) NANCY on CPAP: Status: Acute (5) Obesity: Status: Acute Plan 61-year-old male with history of hypertension on Lisinopril, Coreg, hypercholesterolemia teated with Lipitor, NANCY uses CPAP, obesity, who presents with chest pain and found to have NSTEMI by elevated troponin I.. #NSTEMI--hemodynamically stable, no pain at present -medical management with intravenous heparin for 48 to 72 hours, aspirin, Plavix, Lipitor, and beta-sammy. O2 -morphine p.r.n. for chest pain, nitroglycerin p.r.n. as well for angina type of pain -check lipid panel this morning -If Echo today shows WMA then transfer to [facility], otherwise further risk stratification with Stress test #Hypertension--resume home meds including Aldactone, Coreg and lisinopril. #Hyperlipidemia--increased Lipitor to 80 mg p.o. at bedtime. #Obesity--health benefits of weight loss advice and he is aware of his options #NANCY--CPAP at night #GERD--ppi #Sarcoidosis with possible endobronchial involved--continue bronchodilators. Heparin for DVT prophylaxis. need for inpt: NSTEMI management with IV heparin, further testing Quality Stroke Does the patient have a stroke diagnosis?: No VTE Prior VTE?: No VTE Risk Level:: Medical - moderate - high VTE Device Contraindication: Treatment Not Indicated VTE Drug Contraindication: N/A - Med Ordered
[2021-11-15 10:28] LABS: PTT Heparin Drip 48.3 SEC (53-77.9)
[2021-11-15] MEDS: Multivitamin TABLET 1 TAB PO (10:46)
[2021-11-15] MEDS: carvediloL 6.25 MG TABLET PO (10:47)
[2021-11-15] MEDS: Aspirin Enteric Coated 81 MG TABLET.DR PO (10:48)
[2021-11-15] MEDS: 0.9 % Sodium Chloride Flush 3 ML SYRINGE IVFLUSH (10:48)
[2021-11-15] MEDS: Cholecalciferol (Vitamin D3) 25 MCG TABLET PO (10:48)
[2021-11-15] MEDS: Heparin Sodium,Porcine 5,000 UNIT/ML VIAL 5000 UNIT IVPUSH (10:53)
[2021-11-15 11:01] VITALS: BP 129/80; PULSE 91; RESP 18; TEMP 37.4; O2SAT 92
--- NOTE | 2021-11-15 11:31 | MHC.CM.PN ---
Patient has been medically cleared for dc to home today, no serrvices.
--- NOTE | 2021-11-15 11:31 | PM.DS ---
DS: Providers Provider Date of Service: 11/15/21 Date of admission: 11/13/21 14:19 Primary care physician: Lazaro Chand MD DS: Diagnosis Discharge Diagnosis (1) NSTEMI (non-ST elevated myocardial infarction): Status: Acute (2) HTN (hypertension): Status: Acute (3) HLD (hyperlipidemia): Status: Acute (4) NANCY on CPAP: Status: Acute (5) Obesity: Status: Acute DS: Summary Hospital Course Hospital Course: Chief Complaint: Chest pain 61-year-old male with history of hypertension on Lisinopril, Coreg, hypercholesterolemia teated with Lipitor, NANCY uses CPAP,? obesity, who? presents with chest pain. He describes a ? pressure-like? in the chest that started yesterday initially intermittent but became constant this morning around 3. He took? Tylenol on 2 separate occasions with partial relief. This morning after shower he felt that the pain seemed worse. He is been feeling a bit SOB not necessary exertional. He has nausea but no vomiting, no diaphoresis. feeling around his chest and upper back since? last night.? The onset was not during exertion.? Discomfort has been relatively constant.? He feels somewhat better after shower this morning but then the discomfort came back.? Has had some nausea today, denies any unusual sweats.? He feels a little short of breath.? Denies any pain or swelling in his legs.? Lab work shows a rise in troponin to 45, non specic ECG changes. Cardiology has advised IV heparin, additionally has received Plavix,? and Aspirin, O2. He is fully vaccinated with [employer] for covid. Hospital course: 61-year-old male with history of hypertension on Lisinopril, Coreg, hypercholesterolemia teated with Lipitor, NANCY uses CPAP,? obesity, who? presents with chest pain and found to have NSTEMI by elevated troponin I.. #NSTEMI--Troponin were mildy elevated but was medically treated with iV heparin for 48 hours, additional medical management including aspirin, Coreg and lipitor at 80, he was on 20 at home. He had Echo and stress on 11/15 with echo showing normal LV and no wall motion abnormality (WMA) and stress by Fran protocol--showing being unremarkable. Will discharge home with usual meds of lisinopril, aldactone, Lipitor increased to 40 mg and and to follow up with Dr. Delgado in the cardiology clinic #Hypertension--resume home meds including Aldactone, Coreg and lisinopril. #Hyperlipidemia--increased Lipitor to 40 mg p.o. at bedtime. #Obesity--health benefits of weight loss advice and he is aware of his options #NANCY--CPAP at night #GERD-- continue PPI #Sarcoidosis with possible endobronchial involved--continue bronchodilators. Heparin for DVT prophylaxis.? Time Spent with Patient Time attestation: Total time spent providing and/or coordinating discharge services: Discharge coordination time: Greater than 30 minutes Quality: Stroke Does the patient have a stroke diagnosis?: No Physical Exam Vital Signs: Vital Signs: Last Vital Signs Temp 99.3 F 11/15/21 11:01 Pulse 91 11/15/21 11:01 Resp 18 11/15/21 11:01 BP 129/80 11/15/21 11:01 Pulse Ox 92 11/15/21 11:01 BMI result Body Mass Index 39.2 DS: Data Data Completed and Pending Labs on day of discharge: Laboratory Results - last 24 hr 11/14/21 11/14/21 11/15/21 14:53 21:42 03:54 aPTT Heparin Protocol 43.1 L D 78.4 H D 57.1 D 11/15/21 10:12 aPTT Heparin Protocol 48.3 L Discharge Plan Discharge Anticipated Discharge Date/Time: 11/15/21 11:24 Patient Disposition: Home, Self-Care Discharge Diagnosis: Chest pain with elevated troponin I Referrals: Lazaro Chand MD [Primary Care Provider] - 1 Week Discharge Medications: New aspirin 81 mg capsule 81 mg PO DAILY Qty: 30 0RF Continued atorvastatin 20 mg tablet 1 tab PO BEDTIME 0RF spironolactone 25 mg tablet 1 tab PO BEDTIME 0RF citalopram 20 mg tablet 1 tab PO BEDTIME 0RF lisinopril 40 mg tablet 1 tab PO BEDTIME 0RF multivitamin Tablet 1 tab PO DAILY 0RF cholecalciferol (vitamin D3) [Vitamin D3] 25 mcg (1,000 unit) Tablet 25 mcg PO DAILY 0RF pantoprazole 20 mg tablet,delayed release (DR/EC) 1 tab PO BEDTIME 0RF carvedilol 6.25 mg tablet 6.25 mg PO BID 0RF ProAir RespiClick 90 mcg/actuation aerosol powdr breath activated 2 inh inhalation Q6H PRN (Reason: Shortness Of Breath) 0RF Changed atorvastatin 20 mg tablet 2 tab PO BEDTIME Qty: 60 0RF Discharge Orders: Discharge Order (Routine); Ordered 11/15/21 Ordered By: Andrei Werner Diet: advance to usual diet Activity on Discharge: As tolerated Stand Alone Forms: Patient Portal Discharge page Care Plan Goals: Optimizing medical issues, Health Concerns: HTN, HLD, obesity, NANCY Plan of Treatment: Continue usual medication, double dose of Lipitor and follow up with DR. Delgado, your stress test was ok and your echo was also ok, also take baby aspirin 1 a day Assessment: As above
--- NOTE | 2021-11-15 12:17 | PM.PNCARD ---
Subjective Subjective Date of Service: 11/15/21 Principal diagnosis: Abnormal troponin, chest pain, hypertension. Interval history: Patient currently not having any chest pain. Underwent echocardiogram shows normal LV systolic function with mildly dilated ascending aorta. Stress test at moderate workload was within normal limits with no ischemia. Blood pressure is well controlled Review of Systems Review of Systems Yes all other systems are reviewed and are negative Physical Exam Vital Signs: Last Vital Signs Temp 99.3 F 11/15/21 11:01 Pulse 91 11/15/21 11:01 Resp 18 11/15/21 11:01 BP 129/80 11/15/21 11:01 Pulse Ox 92 11/15/21 11:01 BMI result Body Mass Index 39.2 Const General: cooperative, comfortable, alert and awake Nutritional Appearance: obese Orientation/consciousness: patient oriented x3 Neck Neck: Yes trachea midline, Yes supple and Yes no JVD Resp Effort & Inspection: normal respiratory effort Cardio Jugular venous distension: no JVD Palpation: normal PMI Rate: regular rate Rhythm: regular rhythm Heart sounds: S1 normal heart sound present, S2 normal heart sound present, no click, no gallops and no murmurs GI Auscultation: normal bowel sounds Skin General skin exam: no rashes or lesions noted Neuro General: patient oriented x3 and no focal motor deficits Extrem General: Yes no clubbing, cyanosis or edema Psych Appearance: grossly normal Objective Labs and Meds Result diagrams: 11/13/21 12:49 11/13/21 12:49 Lab results: Laboratory Results - last 24 hr 11/14/21 11/14/21 11/15/21 14:53 21:42 03:54 aPTT Heparin Protocol 43.1 L D 78.4 H D 57.1 D 11/15/21 10:12 aPTT Heparin Protocol 48.3 L Progress Note: A&P Assessment and plan (1) HTN (hypertension): Status: Acute Assessment and Plan: Hypertension which is currently well optimized on current therapy. Continue the same. Discussed with patient about importance of good blood pressure control. So far it appears that his troponin elevation might be related to hypertension. Stress test is moderate workload is within normal limits. If he continues to have recurrent chest pain may need to do imaging stress test as outpatient. (2) Ascending aortic aneurysm: Status: Acute Plan Mild ascending aortic aneurysm most likely hypertensive in nature. Continue aggressive control blood pressure. Continue current therapy. Continue CPAP therapy. Low-salt diet was discussed. Advised to monitor blood pressure at home Will follow up in 2 weeks time in the office Fall Risk Details Current Medications: Current Medications Acetaminophen (Acetaminophen 325 Mg Tablet) 650 mg PO Q6H PRN PRN Reason: Pain, Mild (Pain Scale 1-3) Last Admin: 11/14/21 08:05 Dose: 650 mg Documented by: Al Hydroxide/Mg Hydroxide (Magnesium Hydrox/Alum Hydrox 30 Ml Oral.Susp) 30 ml PO Q4H PRN PRN Reason: Heartburn/Nausea Albuterol Sulfate (Albuterol Sulfate 90 Mcg 8 Gm Inhaler) 2 puff INHALE Q6H PRN PRN Reason: Shortness Of Breath Aspirin (Aspirin Enteric Coated 81 Mg Tablet.) 81 mg PO DAILY ALEXANDREA Last Admin: 11/15/21 10:48 Dose: 81 mg Documented by: Atorvastatin Calcium (Atorvastatin Calcium 80 Mg Tablet) 80 mg PO BEDTIME ALEXANDREA Last Admin: 11/14/21 20:37 Dose: 80 mg Documented by: Carvedilol (Carvedilol 6.25 Mg Tablet) 6.25 mg PO BID ALEXANDREA; Protocol Last Admin: 11/15/21 10:47 Dose: 6.25 mg Documented by: Escitalopram Oxalate (Escitalopram Oxalate 10 Mg Tablet) 10 mg PO BEDTIME ALEXANDREA Last Admin: 11/14/21 20:37 Dose: 10 mg Documented by: Heparin Sodium (Porcine) (Heparin Sodium,Porcine 5,000 Unit/Ml Vial) 5,000 unit 40 unit/kg (5000 unit) IVPUSH PROTOCOL BOLUS PRN; Protocol PRN Reason: 40 unit/kg - Heparin Protocol Last Admin: 11/15/21 10:53 Dose: 5,000 unit Documented by: Heparin Sodium (Porcine) (Heparin Sodium,Porcine 5,000 Unit/Ml Vial) 9,900 unit 80 unit/kg (9900 unit) IVPUSH PROTOCOL BOLUS PRN; Protocol PRN Reason: 80 unit/kg - Heparin Protocol Heparin Sodium/Sodium Chloride () 25,000 unit in 250 mls @ 0 mls/hr IVCONT .Q0M ALEXANDREA; Protocol Last Titration: 11/15/21 10:55 Dose: 12.08 units/kg/hr, 14.96 mls/hr Documented by: Lisinopril (Lisinopril 40 Mg Tablet) 40 mg PO BEDTIME ALEXANDREA; Protocol Last Admin: 11/14/21 20:37 Dose: 40 mg Documented by: Melatonin (Melatonin 3 Mg Tablet) 6 mg PO BEDTIME PRN PRN Reason: Insomnia Morphine Sulfate (Morphine Sulfate 4 Mg/Ml Cartridge) 2 mg IVPUSH Q4H PRN; Protocol PRN Reason: Pain, Severe (Pain Scale 7-10) Last Admin: 11/15/21 04:52 Dose: 2 mg Documented by: Multivitamins/Vitamin C (Multivitamin Tablet) 1 tab PO DAILY [facility] Last Admin: 11/15/21 10:46 Dose: 1 tab Documented by: Nitroglycerin (Nitroglycerin 0.4 Mg Tab.Subl) 0.4 mg SUBLINGUAL Q5MX3 PRN PRN Reason: Chest Pain Nitroglycerin (Nitroglycerin 0.4 Mg Tab.Subl) 0.4 mg SUBLINGUAL Q5MX3 PRN PRN Reason: Chest Pain Omeprazole (Omeprazole 20 Mg Capsule.Dr) 20 mg PO DAILY@1630 [facility] Last Admin: 11/14/21 17:24 Dose: 20 mg Documented by: Ondansetron HCl (Ondansetron Hcl 4 Mg/2 Ml Vial) 4 mg IVPUSH Q8H PRN PRN Reason: Nausea and Vomiting Sodium Chloride (0.9 % Sodium Chloride Flush 3 Ml Syringe) 3 ml IVFLUSH QSHIFT [facility] Last Admin: 11/15/21 10:48 Dose: 3 ml Documented by: Spironolactone (Spironolactone 25 Mg Tablet) 25 mg PO BEDTIME [facility]; Protocol Last Admin: 11/14/21 20:37 Dose: 25 mg Documented by: Vitamin D (Cholecalciferol (Vitamin D3) 25 Mcg Tablet) 25 mcg PO DAILY [facility] Last Admin: 11/15/21 10:48 Dose: 25 mcg Documented by: Time Spent With Patient Time: Total time spent is greater than 50% in coordination of care (as documented) at patient's floor/unit and/or counseling patient: Time with patient: 15 - 24 minutes Progress Note: Quality Stroke Does the patient have a stroke diagnosis?: No Procedures Date of Service Date of Service: 11/15/21
--- NOTE | 2021-11-15 12:30 | CA_ITS ---
Transthoracic Echocardiogram Patient (Last, First, Middle): Christiano Dorado, Gender: Male Date of : 1960 Age: 61 Procedure Date: 11/15/2021 Procedure Type: Transthoracic Echocardiogram Location: [facility] [place] Height: 177.8 cm Weight: 123.38 kg BSA: 2.38 m2 Heart Rate: bpm BP: 142 / 83 mmHg Performance Consultant: SAMSON Donato MD: Mikhail Delgado MD Hebrew Teacher: Rogelio Carrasquillo MD Symptoms: NSTEMI Study Quality: Technically Difficult/Contrast ECG Rhythm: Sinus Conclusions: - 1. Normal LV systolic function with impaired relaxation filling pattern 2. Mild mitral calcification with normal cardiac valvular Doppler 3. Mildly dilated ascending aorta at 4.2 cm 4. Normal RV systolic pressure 5. No gross pericardial effusion Findings Procedure Information Contrast agent, definity, is being given per protocol without apparent complications. Left Ventricle Normal left ventricular size, thickness, and systolic function. The visually estimated ejection fraction is between 60-65%. Spectral Doppler is indicative of an impaired relaxation filling pattern. E/E prime ratio is between 8 and 15 consistent with indeterminate filling pressures. Right Ventricle Normal right ventricular cavity size and systolic function. Atria Both atria are normal in size. Interatrial shunt cannot be excluded. Aortic Valve The aortic valve structure and function is likely normal. There is no aortic valve stenosis. There is no aortic valve regurgitation. Mitral Valve There is mild anterior mitral leaflet thickening. There is mild mitral annular calcification. There is trace mitral valve regurgitation. There is no mitral valve stenosis. Pulmonic Valve The pulmonic valve was not well visualized. Tricuspid Valve Likely normal tricuspid valve structure and function. There is trace tricuspid valve regurgitation. The right ventricular systolic pressure is normal. The right ventricular systolic pressure is 28 mmHg. Normal right atrial pressure. There is no evidence of pulmonary hypertension. Great Vessels The pulmonary artery was not well visualized. There is mild dilatation of the ascending aorta measuring 4.20 cm. Venous The inferior vena cava is normal in size and collapses greater than 50% with inspiration. Pericardium/Pleural There is no evidence of pericardial effusion. Prior Study Comparison No prior study available for comparison. Measurements 2D Linear Measurements IVSd: 1.15 0.6-0.9/0.6-1.0 cm LVIDd: 5.20 3.9-5.3/4.2-5.9 cm LVIDd Index: 2.18 2.4-3.2/2.2-3.1 cm/m2 LVIDs: 3.57 2.0-3.6 cm LVPWd: 1.11 0.7-1.1 cm LA Diam: 3.10 2.7-3.8/3.0-4.0 cm LAIDs Index: 1.30 1.5-2.3 cm/m2 LV Mass: 285.54 67-162/88-224 g LV Mass Index: 119.97 43-95/49-115 g/m2 LVOT Diam: 2.50 3.0+(-)1.3 cm 2D Systolic Function EF 4C: 60.20 >55% EF 2C: 64.20 >55% EF BiP: 62.40 >55% Mitral Valve MV Pk E: 0.54 MV PK A: 0.75 MV Decel Time: 264.00 E/A: 0.70 E'Lateral: 8.81 E'Medial: 6.74 E/E' Med: 8.00 E/E' Lat: 6.10 PHT: 77.00 MVA PHT: 2.86 Decel Radford: 2.03 Aortic Valve AoV Pk Loc: 1.19 AoV Mn Loc: 0.90 AoV VTI: 0.25 AoV Pk Grad: 6.00 Aov Mn Grad: 4.00 SIVAKUMAR Cont.VTI: 4.10 LVOT LVOT Pk Loc: 1.02 LVOT Mn Loc: 0.77 LVOT VTI: 0.21 LVOT Pk Grad: 4.00 LVOT Mn Grad: 3.00 LVOT Diam: 2.50 LVOT Area: 4.91 Diastolic Function MV Pk E: 0.54 MV Pk A: 0.75 E/A: 0.70 E'Medial: 6.74 E/E' Med: 8.00 E' Laterial: 8.81 E/E' Lat: 6.10 Right Ventricle TAPSE (mm): 26.70 TVS' Loc: 13.10 Tricuspid Valve TR Pk Loc: 1.82 TR Pk Grad: 13.00 RA Press: 15.00 RVSP: 28.00 Great Vessels Aorta Sinus of Valsalva: 4.01 2.0-3.5 cm Ao Asc: 4.20 2.1-3.4 cm Ao Arch: 3.10 Updated in Other Vendor System with Status of Final Rogelio Carrasquillo MD electronically signed on 11/15/2021 10:35:42 AM with status of Final
== END 2021-11-15 14:15 | disposition home or self-care (01) | DRG 190 ==
LOC: HO.ED 13:10 → HO.EDOVER 14:42 → HO.IMC 18:05
PROVIDERS: Hospitalist; Admitting Provider Internal Medicine; Emergency Provider Emergency Medicine; PCP Internal Medicine; Visit Provider Internal Medicine
DX: I21.4 Non-ST elevation (NSTEMI) myocardial infarction (principal); I71.2 Thoracic aortic aneurysm, without rupture; I45.10 Unspecified right bundle-branch block; I10 Essential (primary) hypertension; G47.33 Obstructive sleep apnea (adult) (pediatric); E78.5 Hyperlipidemia, unspecified; K21.9 Gastro-esophageal reflux disease without esophagitis; E66.9 Obesity, unspecified; D86.9 Sarcoidosis, unspecified; Z68.39 Body mass index [BMI] 39.0-39.9, adult; Z20.822 Contact with and (suspected) exposure to COVID-19; Z99.89 Dependence on other enabling machines and devices; Z87.891 Personal history of nicotine dependence; Z88.0 Allergy status to penicillin; Z79.82 Long term (current) use of aspirin; Z79.899 Other long term (current) drug therapy
CPT/HCPCS: 36415; 71045; 80048; 80061; 83735; 84484; 85025; 85379; 85610; 85730; 87635; 93005; 93017; 93306; 96374; 99285; J2270; Q9957

== ENCOUNTER → 2021-12-02 13:22 | Outpatient (BNVA) | payer OTHER, SELFPAY | PROVIDERS: PCP Internal Medicine; Referring Provider Internal Medicine; Visit Provider Nurse Practitioner Family | DX: Z09 Encounter for follow-up examination after completed treatment for conditions other than malignant neoplasm (principal); E78.5 Hyperlipidemia, unspecified; I21.4 Non-ST elevation (NSTEMI) myocardial infarction; I10 Essential (primary) hypertension; E66.9 Obesity, unspecified; I71.2 Thoracic aortic aneurysm, without rupture; Z79.899 Other long term (current) drug therapy | CPT/HCPCS: 99212 ==

== ENCOUNTER → 2021-12-07 08:47 | Outpatient (REF) | payer OTHER, SELFPAY ==
--- NOTE | ~2021-12-07 | NM_ITS ---
EXERCISE MYOCARDIAL PERFUSION STUDY INDICATION: Chest pain, assess for coronary disease and ischemia. TECHNIQUE: The patient was brought in for an exercise perfusion study on 12/07/2021. Patient performed exercise as per Fran protocol and was injected 45 mCi of sestamibi once target heart rate was achieved. Images were obtained using the SPECT gamma camera interlaced with the gating device. Images were obtained in supine position. Resting perfusion study was performed on 12/08/2021. Patient was administered 45 mCi of sestamibi intravenously at rest. Images were then obtained in supine position. Total DLP 112mGy-cm. Images were processed with the software and compared side to side in short axis, horizontal long axis and vertical long axis views. FINDINGS: Raw images were reviewed. The stress perfusion study showed diminished tracer uptake along the inferior wall. With CT attenuation correction, there is improvement suggestive of diaphragmatic attenuation artifact. The gated study shows normal LV systolic function with calculated LVEF of 56%. LV cavity is normal in size. The gated study shows normal wall thickening and contraction of segments. Resting study shows diminished tracer uptake along the inferior wall which improves with CT attenuation correction. Gating at rest reveals normal wall motion with ejection fraction at 53%. The findings are consistent with fixed inferior wall defect. No reversible defects. NM/NM cardiolite stress test IMPRESSION: 1. Myocardial perfusion imaging study shows no evidence of ischemia. Fixed inferior defect suspected to be from diaphragmatic attenuation artifact. 2. Gated LVEF is 56% during stress and 53% during rest. 3. Transient ischemic dilatation not present. EKG component of the test reported separately.
--- NOTE | 2021-12-07 08:50 | CA_ITS ---
Acquisition Time: 2021-12-07 09:01:34 Total Exercise Time: 00:06:58 Test Indications: Chest Pain Medications: ASA ALBUTEROL ATORVASTATIN CARVEDILOL CITALOPRAM LISINOPRIL PANTOPRAZOLE Protocol: ANU Max HR: 151 BPM 93% of Pred: 161 BPM Max BP: 166/080 mmHG Max Work Load: 8.4 METS Exercise stress test with exercise 6 min 58 sec of Anu protocol, with moderate shortness, anterior chest tightness both of which was relieved with use of his own Albuteral inhaler in recovery, with isolated PVCs, with normotensive response to exercise, with baseline EKG showing RBBB with downsloping STin V1 and V3 which did not change with exercise or recovery, No clear ischemic changes. Nuclear images pending. Test reveiwed with Dr Way. Referred By: Sabrina Shabazz Overread By: SABRINA SHABAZZ
== END ==
LOC: HO.CARD 08:47
PROVIDERS: Visit Provider Nurse Practitioner Family
DX: I21.4 Non-ST elevation (NSTEMI) myocardial infarction (principal)
CPT/HCPCS: 78452; 93017; A9500

== ENCOUNTER → 2022-01-12 14:34 | Outpatient (BNVA) | payer OTHER, SELFPAY | PROVIDERS: PCP Internal Medicine; Referring Provider Internal Medicine; Visit Provider Nurse Practitioner Family | DX: R07.9 Chest pain, unspecified (principal) ==

== ENCOUNTER 2022-05-19 09:51 | Outpatient (REF) | payer OTHER, SELFPAY ==
[2022-05-19 11:17] LABS: MANUAL DIFF FLAG NO
[2022-05-19 11:32] LABS: Basophils Absolute Auto 0.1 X10*3/uL (0.0-0.2); Basophils Percent Auto 0.8 % (0-2); Eosinophils Absolute Auto 0.4 X10*3/uL (0.0-0.4); Eosinophils Percent Auto 6.8 % (0-4); Hematocrit 42.4 % (42.0-52.0); Hemoglobin 13.9 g/dl (14.0-18.0); Imm Gran Abs Auto 0.03 X10*3/uL (0.00-0.03); Imm Gran Pct Auto 0.5 % (0.0-0.4); Lymphocytes Percent Auto 16.9 % (20-40); Mean Corpuscular HGB Conc 32.8 g/dl (31.0-36.0); Mean Corpuscular Hemoglobin 28.4 pg (27.0-33.0); Mean Corpuscular Volume 86.7 fL (80.0-98.0); Mean Platelet Volume 10.4 fL (9.4-12.4); Monocytes Absolute Auto 0.7 X10*3/uL (0.1-1.2); Neutrophils Absolute Auto 3.8 x10*3/uL (2.0-8.3); Platelet Count 242 X10*3/uL (160-400); Red Blood Count 4.89 X10*6/uL (4.60-5.80); Red Cell Distribution Width 13.8 % (11.0-16.0)
[2022-05-19 11:39] LABS: Appearance Urine Clear; Color Urine Yellow; Glucose Urine UA Negative (Negative); Leukocyte Esterase Urine Trace (Negative); Nitrite Urine Negative (Negative); PH 7.5 (5.0-9.0); Specific Gravity - Urine 1.015 (1.005-1.025); Urine Blood Negative (Negative); Urine Ketones Negative (Negative); Urine Protein Negative (Neg-Trace)
[2022-05-19 11:46] LABS: Bacteria Urine None Seen (None Seen); Hyaline Casts Urine 0-2 /LPF (0-2); RBC Urine 0-2 /HPF (0-2); Squamous Epithelial Cell Urine 0-2 /HPF (0-2); WBC Urine 0-5 /HPF (0-5)
[2022-05-19 12:42] LABS: Alanine Aminotransferase 30 U/L (0-40); Albumin Level 4.1 g/dL (3.5-5.0); Alkaline Phosphatase 141 U/L (39-117); Anion Gap 15 (12-20); Aspartate Amino Transferase 23 U/L (5-37); Bilirubin Total 1.9 mg/dL (0.0-1.0); Blood Urea Nitrogen 22 mg/dL (9-16); Calcium 9.1 mg/dL (8.4-10.2); Carbon Dioxide 27 mmol/L (22-29); Chloride 106 mmol/L (96-108); Cholesterol 100 mg/dL; Estimated Glomerular Filt Rate 55; Glucose Fasting 92 mg/dL (60-99); HDL Cholesterol 29 mg/dL; LDL Cholesterol Calculated 47 mg/dl; Potassium 5.2 mmol/L (3.3-5.1); Sodium 143 mmol/L (135-145); Total Protein 6.3 g/dL (6.5-8.0); Triglycerides 123 mg/dL
[2022-05-19 12:48] LABS: Prostate Specific Antigen Scr 1.99 ng/mL (<0.05-4.0); TSH reflex Free T4 2.89 uIU/mL (0.32-4.0)
== END 2022-05-19 09:52 | disposition home or self-care (01) ==
LOC: HO.HMGCLDS 09:51
PROVIDERS: PCP Nurse Practitioner Family; Visit Provider Nurse Practitioner Family
DX: Z00.00 Encounter for general adult medical examination without abnormal findings (principal); Z12.5 Encounter for screening for malignant neoplasm of prostate
CPT/HCPCS: 36415; 80053; 80061; 81001; 84153; 84443; 85025

== ENCOUNTER 2022-05-31 12:51 | Outpatient (REF) | payer OTHER, SELFPAY ==
[2022-05-31 13:50] LABS: MANUAL DIFF FLAG NO
[2022-05-31 14:05] LABS: Basophils Percent Auto 0.7 % (0-2); Eosinophils Absolute Auto 0.4 X10*3/uL (0.0-0.4); Eosinophils Percent Auto 6.9 % (0-4); Hematocrit 41.5 % (42.0-52.0); Hemoglobin 13.8 g/dl (14.0-18.0); Imm Gran Abs Auto 0.03 X10*3/uL (0.00-0.03); Imm Gran Pct Auto 0.5 % (0.0-0.4); Lymphocytes Absolute Auto 0.9 X10*3/uL (1.2-4.9); Lymphocytes Percent Auto 16.3 % (20-40); Mean Corpuscular HGB Conc 33.3 g/dl (31.0-36.0); Mean Corpuscular Hemoglobin 28.6 pg (27.0-33.0); Mean Corpuscular Volume 86.1 fL (80.0-98.0); Mean Platelet Volume 10.3 fL (9.4-12.4); Monocytes Absolute Auto 0.7 X10*3/uL (0.1-1.2); Monocytes Percent Auto 12.7 % (2-11); Neutrophils Absolute Auto 3.5 x10*3/uL (2.0-8.3); Neutrophils Percent Auto 62.9 % (45-73); Platelet Count 245 X10*3/uL (160-400); Red Blood Count 4.82 X10*6/uL (4.60-5.80); Red Cell Distribution Width 13.8 % (11.0-16.0); White Blood Count 5.5 X10*3/uL (4.8-10.8)
[2022-05-31 14:37] LABS: Anion Gap 14 (12-20); Bilirubin Direct 0.6 mg/dL (0.0-0.5); Bilirubin Total 1.6 mg/dL (0.0-1.0); Carbon Dioxide 24 mmol/L (22-29); Chloride 108 mmol/L (96-108); Gamma Glutamyl Transpeptidase 44 U/L (11-51); Potassium 4.5 mmol/L (3.3-5.1); Sodium 141 mmol/L (135-145)
[2022-05-31 16:54] LABS: Appearance Urine Clear; Color Urine Yellow; Glucose Urine UA Negative (Negative); Leukocyte Esterase Urine Negative (Negative); Nitrite Urine Negative (Negative); Specific Gravity - Urine <= 1.005 (1.005-1.025); Urine Blood Negative (Negative); Urine Ketones Negative (Negative); Urine Protein Negative (Neg-Trace)
== END 2022-05-31 12:52 | disposition home or self-care (01) ==
LOC: HO.HMGCLDS 12:51
PROVIDERS: PCP Nurse Practitioner Family; Visit Provider Nurse Practitioner Family
DX: Z00.00 Encounter for general adult medical examination without abnormal findings (principal); E87.5 Hyperkalemia; R74.8 Abnormal levels of other serum enzymes; R17 Unspecified jaundice
CPT/HCPCS: 36415; 80051; 81003; 82247; 82248; 82977; 85025

== ENCOUNTER 2022-07-15 13:31 | Outpatient (REF) | payer OTHER, SELFPAY ==
--- NOTE | ~2022-07-15 | XR_ITS ---
EXAMINATION: XR HIP, RIGHT CLINICAL INFORMATION: Pain right hip COMPARISON: CT abdomen/pelvis 08/28/2020 TECHNIQUE: Two views of the right hip. FINDINGS: The right hip joint space is maintained normal without any bony erosive changes or loose bodies. No fracture, dislocation, lytic or sclerotic process seen. The soft tissues are normal. XR/XR hip RT min 2V IMPRESSION: Unremarkable right hip exam. No major change compared to CT abdomen/pelvis exam 08/28/2020
== END 2022-07-15 13:32 | disposition home or self-care (01) ==
LOC: HO.HMGCX 13:31
PROVIDERS: PCP Nurse Practitioner Family; Visit Provider Nurse Practitioner Family
DX: M25.551 Pain in right hip (principal)
CPT/HCPCS: 73502

== ENCOUNTER 2022-08-18 14:00 | Outpatient (REF) | payer OTHER, SELFPAY ==
--- NOTE | ~2022-08-18 | US_ITS ---
EXAMINATION: US VENOUS ULTRASOUND WITH DOPPLER LOWER EXTREMITY, RIGHT CLINICAL INFORMATION: Pain right lower leg COMPARISON: None TECHNIQUE: Ultrasound of the deep veins is performed from the hip to the calf with compression sonography and color and pulse Doppler assessment. Spectral analysis with color-flow imaging is performed. FINDINGS: There is normal venous compression and respiratory variation and augmented flow. The visualized common femoral vein, superficial femoral vein, profunda femoral vein, popliteal vein, and the trifurcation region shows no evidence of deep venous thrombosis. There is no significant popliteal fossa cyst. If the patient's symptoms persist, followup ultrasound in 5 days 7 days might be of value to exclude proximal propagation from a non-visualized calf vein. US/US venous duplex LE RT IMPRESSION: No DVT demonstrated in the right lower extremity.
[2022-08-18 16:39] LABS: MANUAL DIFF FLAG NO
[2022-08-18 16:41] LABS: Basophils Absolute Auto 0.1 X10*3/uL (0.0-0.2); Basophils Percent Auto 0.9 % (0-2); Eosinophils Absolute Auto 0.5 X10*3/uL (0.0-0.4); Eosinophils Percent Auto 7.4 % (0-4); Hematocrit 46.6 % (42.0-52.0); Hemoglobin 15.7 g/dl (14.0-18.0); Imm Gran Abs Auto 0.04 X10*3/uL (0.00-0.03); Imm Gran Pct Auto 0.6 % (0.0-0.4); Lymphocytes Absolute Auto 1.1 X10*3/uL (1.2-4.9); Lymphocytes Percent Auto 16.7 % (20-40); Mean Corpuscular HGB Conc 33.7 g/dl (31.0-36.0); Mean Corpuscular Volume 86.1 fL (80.0-98.0); Mean Platelet Volume 10.5 fL (9.4-12.4); Monocytes Absolute Auto 0.9 X10*3/uL (0.1-1.2); Monocytes Percent Auto 14.3 % (2-11); Neutrophils Percent Auto 60.1 % (45-73); Platelet Count 309 X10*3/uL (160-400); Red Blood Count 5.41 X10*6/uL (4.60-5.80); Red Cell Distribution Width 13.9 % (11.0-16.0); White Blood Count 6.6 X10*3/uL (4.8-10.8)
[2022-08-18 16:52] LABS: D Dimer High Sensitivity 268 NG/ML
== END 2022-08-18 14:01 | disposition home or self-care (01) ==
LOC: HO.HMGCX 14:00
PROVIDERS: PCP Nurse Practitioner Family; Visit Provider Nurse Practitioner Family
DX: M79.661 Pain in right lower leg (principal); D64.9 Anemia, unspecified
CPT/HCPCS: 36415; 85025; 85379; 93971

== ENCOUNTER 2022-09-07 13:00 | Outpatient (RCR) | payer OTHER, SELFPAY ==
--- NOTE | 2022-08-10 15:37 | MHC.PT.EP ---
[facility] [place] Office [place] Office [place] Office [address] Gene Velasquez [address] [phone] F: [phone] F: [phone] F: [phone] F: [phone] Physical Therapy Plan of Care Date of Evaluation: Date of Surgery: Diagnosis: R hip pain Assessment: Patient is pleasant 62 y.o. male who was referred to PT by DINA Torres with Dx of R hip pain. PT Dx is consistent with chronic R hip pain from muscle imbalances of hip with limited hip extension, tightness in psoas and weakness in glutes. His current functional limitations include gait, prolonged standing, squatting, lying down/sleeping, riding motorcycle, walking outdoors (to walk dogs). He will benefit from skilled PT to address aforementioned impairments and functional limitations to meet goals. Frequency and Duration: The patient will be seen 2x/week for 6 weeks Short Term Goals: 3 weeks Patient demonstrates independence and consistency with HEP to self manage chronic symptoms. Patient reports reduction of pain 3/10 to be able to lie down in bed. Shelter Goals: 6 weeks Patient presents with increased R hip extension 10 degrees to restore normalized gait pattern. Patient presents with increased R hip glute med strength 4-/5 to be able to ride motorcycle for longer duration. Treatment Plan: Modalities to reduce pain, spasms and effusion. Manual therapy to restore motion and function. Therapeutic exercise to improve strength and flexibility. Neuromuscular re-education for posture and balance. Therapeutic activities to return to functional activities of daily living. Electronically signed by: Opal Luna, PT, DPT Please sign and return to therapist. Thank you for your referral.
--- NOTE | 2022-10-07 15:08 | MHC.PT.DC ---
[facility] [place] [facility] [place] [facility] [place] [facility] [address] Gene Velasquez [address] [phone] F: [phone] F: [phone] F: [phone] F: [phone] Physical Therapy Discharge Report Diagnosis: R hip pain Date of Surgery: Date of Evaluation: 08/10/22 Date of Discharge: 10/07/22 Treatments to Date: 7 Cancellations to Date: No Shows to Date: Discharge Status: Improved Function Independent with HEP Patient Elected to Stop Discharge Summary: 09/07; Pt felt fatigued after exs with no c/o pain. Pt will contact us if further therapy is needed. Patient improved with PT interventions but ceased attending PT on his own accord as of 09/07/22. Therefore he is discharged from PT at this time. Electronically signed by: Opal Luna, PT, DPT Please sign and return to therapist. Thank you for your referral.
== END 2022-10-07 15:09 | disposition home or self-care (01) ==
LOC: HO.PTCHIC 13:00
PROVIDERS: PCP Nurse Practitioner Family; Visit Provider Nurse Practitioner Family
DX: M25.551 Pain in right hip (principal)
CPT/HCPCS: 97110; 97112; 97140; 97161; 97530

== ENCOUNTER 2022-09-09 11:30 | Outpatient (REF) | payer OTHER, SELFPAY ==
--- NOTE | ~2022-09-09 | US_ITS ---
EXAMINATION: US VENOUS ULTRASOUND WITH DOPPLER LOWER EXTREMITY, RIGHT CLINICAL INFORMATION: Pain COMPARISON: Previous exam 08/18/2022 TECHNIQUE: Ultrasound of the deep veins is performed from the hip to the calf with compression sonography and color and pulse Doppler assessment. Spectral analysis with color-flow imaging is performed. FINDINGS: There is normal venous compression and respiratory variation and augmented flow. The visualized common femoral vein, superficial femoral vein, profunda femoral vein, popliteal vein, and the trifurcation region shows no evidence of deep venous thrombosis. There is no significant popliteal fossa cyst. US/US venous duplex LE RT IMPRESSION: No DVT demonstrated in the right lower extremity.
== END 2022-09-09 11:31 | disposition home or self-care (01) ==
LOC: HO.HMGCX 11:30
PROVIDERS: PCP Nurse Practitioner Family; Visit Provider Nurse Practitioner Family
DX: M79.661 Pain in right lower leg (principal)
CPT/HCPCS: 93971

== ENCOUNTER 2022-09-28 13:55 | Outpatient (REF) | payer OTHER, SELFPAY ==
--- NOTE | ~2022-09-28 | MR_ITS ---
EXAMINATION: MR HIP WITHOUT CONTRAST, RIGHT CLINICAL INFORMATION: Right hip pain. COMPARISON: Right hip radiographs dated 07/15/[address] abdomen/pelvis dated 08/28/2020. TECHNIQUE: MRI of the right hip was obtained using routine sequences on a high-field strength magnet. FINDINGS: ACETABULAR LABRUM: No displaced labral tear. ARTICULAR CARTILAGE/BONE: Articular cartilage thinning and signal heterogeneity with areas of full-thickness fissuring and subchondral cystic change at the superior acetabulum. Marginal osteophytes. No stress reaction, fracture, or avascular necrosis. There are new low T1/slightly high T2 lesions throughout the visualized osseous structures including the lower lumbar spine, pelvis, and proximal femurs. The largest is within the right acetabulum/ischium measuring up to 8.2 cm in craniocaudal dimension. A left acetabular lesion measures up to 3.7 cm. Innumerable additional lesions are identified. No associated pathologic fracture. These foci were not appreciated on the CT abdomen/pelvis dated 08/28/2020. MUSCLES/TENDONS: Minimal edema adjacent to the gluteus medius and gluteus minimus tendons, consistent with minimal tendinosis. No measurable tendon tear. JOINT FLUID/BURSA: Within normal limits. INTRAPELVIC STRUCTURES: Lobulated and enlarged prostate. Scattered sigmoid diverticulosis. MR/MR hip RT wo con IMPRESSION: 1. Diffuse osseous lesions throughout the lower lumbar spine, pelvis, and proximal femurs, new when compared to the CT dated 08/28/2020. Findings are concerning for metastatic disease. No associated pathologic fracture. 2. Mild right hip osteoarthritis. No stress reaction, fracture, or avascular necrosis. 3. Mild gluteus medius and gluteus minimus tendinosis. 4. Enlarged prostate. Scattered sigmoid diverticulosis. This critical result was discussed with GUILHERME Niño at 9:05 AM and IVIS Menchaca at 10:48 AM on 09/30/2022 and it was ascertained that the content and urgency of the report was understood at the time of direct communication.
== END 2022-09-28 13:56 | disposition home or self-care (01) ==
LOC: HO.MRI 13:55
PROVIDERS: PCP Nurse Practitioner Family; Visit Provider Nurse Practitioner Family
DX: M25.551 Pain in right hip (principal)
CPT/HCPCS: 73721

== ENCOUNTER → 2022-10-05 08:43 | Outpatient (BNV) | payer OTHER, SELFPAY | PROVIDERS: PCP Nurse Practitioner Family; Visit Provider Internal Medicine | DX: M89.8X5 Other specified disorders of bone, thigh (principal) | CPT/HCPCS: 99204; 99213; 99214 ==

== ENCOUNTER 2022-10-06 11:51 | Outpatient (REF) | payer OTHER, SELFPAY ==
--- NOTE | ~2022-10-06 | XR_ITS ---
EXAMINATION: XR HIP, BILATERAL XR FEMUR, BILATERAL CLINICAL INFORMATION: For prophylactic surgery. COMPARISON: None TECHNIQUE: Bilateral hips 2 views each. Bilateral femur 2 views each. FINDINGS: BILATERAL FEMUR: There is no visible bony cortical or medullary abnormality. The periosteum is normal. Visualized hip joint and the knee joints are normal. The soft tissues are normal. BILATERAL HIPS: There is no visible acute fracture, dislocation or subluxation. The soft tissues are normal. XR/XR hips JASSI min 3V IMPRESSION: 1. Unremarkable bilateral femur exam. 2. Unremarkable bilateral hip exam.
--- NOTE | ~2022-10-06 | CT_ITS ---
EXAMINATION: CT CHEST, ABDOMEN AND PELVIS WITH IV CONTRAST CLINICAL INFORMATION: Osseous lesions of the bones. COMPARISON: CTA of the abdomen and pelvis with contrast 08/28/2020. TECHNIQUE: 5 mm thin axial and reformatted 3 mm thin sagittal coronal images of chest were obtained following IV 85 mL Omnipaque 350. DLP: 945 mGy-cm. This CT examination was performed using dose optimization technique as appropriate, variously including the following: Automated exposure control Adjustment of MA and/or KV according to patient size(this includes techniques or standardized protocols for targeted exams where dose is matched to indication/reason for exam; extremities or head. Use of iterative reconstruction techniques. FINDINGS: CHEST: LUNGS: The lungs are expanded with bilateral upper lobe posterior segment atelectasis and/or scarring, slightly more prominent in the right upper lobe. There are ill-defined nodular densities, 6 mm nodule in the right upper lobe, axial image 26/3. Perivascular 6 mm nodule in the left lower lobe, axial image 24/3. A 3 mm nodular density in the left major fissure, axial image 24/3, likely lymph node. No acute consolidation. Minimal focal atelectatic changes seen in right middle lobe medially. MEDIASTINUM: The thyroid lobes are symmetrical and normal. Central trachea and the bronchi are widely patent. The heart size and the great vessels are normal caliber. There are numerous abnormal-appearing lymph nodes. There is a 1.6 cm lymph node in the right pretracheal space and a 1.5 cm left paratracheal lymph node, axial image 18/4. There are no coronary artery calcifications. PLEURA: There is no pleural effusion, thickening or calcification. AXILLA: There are small prominent left axillary lymph nodes measuring 1.5 cm. Smaller right axillary lymph nodes are seen. The chest wall is unremarkable. OSSEOUS STRUCTURES: There is mild ventral spondylosis of the mid and lower dorsal spine. No aggressive lytic or sclerotic process is seen. ABDOMEN AND PELVIS: LIVER, DUCTS AND GALLBLADDER: The liver is homogeneous in density, normal contour and size. There is a small hypodense 6 mm lesion in the right hepatic lobe, segment 7/8. There are no radiopaque gallstones or wall thickening, no intrahepatic or extrahepatic ductal dilatation. SPLEEN: Unremarkable. PANCREAS: Unremarkable. ADRENAL GLANDS: Unremarkable. KIDNEYS AND URETERS: Both kidney nephrograms are symmetrical and normal. There are 3 mm hypodense areas in the lower poles of both kidneys, suspicious for small stones. No caliectasis, enhancing renal mass or hydronephrosis. There are small hypodense lesions in the upper and lower pole of the right kidney suggestive of cysts. LYMPHOVASCULAR STRUCTURES: The abdominal aorta is normal caliber. There are numerous retroperitoneal abnormal lymph nodes. Few largest lymph nodes posterior to IVC measure 1.5 cm, axial image 36/3. Upper retroperitoneal lymph node measures 1.4 cm, axial image 22/3. A 2.9 cm lymph node left para-aortic region coronal image 55/5. GI TRACT: There is scattered stool, diverticula and gas seen throughout the colon without distention. The ileocecal junction appears normal. The small bowel loops are normal caliber. Appendix is not visualized. No free air or free fluid seen. ABDOMINAL WALL: There is a small umbilical hernia containing fat. PELVIS: The prostate gland is mildly enlarged with central gland calcification. The urinary bladder is nondistended and appears unremarkable. Bone windows reveal no aggressive lytic lesion. However, there is decreased bone marrow signal in the sacrum, bilateral greater trochanter left iliac bone. The findings are better visualized on the MRI of the right hip 09/28/2022. CT/CT abdomen pelvis w IV con IMPRESSION: 1. Multiple small pulmonary nodules, largest measuring 6 mm. 2. Abnormal retroperitoneal and mediastinal adenopathy. 3. Multiple bone marrow lesions seen in the pelvis. These are better visualized on the MRI of the right hip from 09/28/2022. 4. Mild prostate enlargement. RECOMMENDATIONS: Recommend bone marrow biopsy of left posterior iliac bone.
--- NOTE | ~2022-10-06 | XR_ITS ---
EXAMINATION: XR HIP, BILATERAL XR FEMUR, BILATERAL CLINICAL INFORMATION: For prophylactic surgery. COMPARISON: None TECHNIQUE: Bilateral hips 2 views each. Bilateral femur 2 views each. FINDINGS: BILATERAL FEMUR: There is no visible bony cortical or medullary abnormality. The periosteum is normal. Visualized hip joint and the knee joints are normal. The soft tissues are normal. BILATERAL HIPS: There is no visible acute fracture, dislocation or subluxation. The soft tissues are normal. XR/XR femur RT 2V IMPRESSION: 1. Unremarkable bilateral femur exam. 2. Unremarkable bilateral hip exam.
--- NOTE | ~2022-10-06 | XR_ITS ---
EXAMINATION: XR HIP, BILATERAL XR FEMUR, BILATERAL CLINICAL INFORMATION: For prophylactic surgery. COMPARISON: None TECHNIQUE: Bilateral hips 2 views each. Bilateral femur 2 views each. FINDINGS: BILATERAL FEMUR: There is no visible bony cortical or medullary abnormality. The periosteum is normal. Visualized hip joint and the knee joints are normal. The soft tissues are normal. BILATERAL HIPS: There is no visible acute fracture, dislocation or subluxation. The soft tissues are normal. XR/XR femur LT 2V IMPRESSION: 1. Unremarkable bilateral femur exam. 2. Unremarkable bilateral hip exam.
[2022-10-06] MEDS: iohexoL 350 MG/ML 100 ML INFUS..BTL IV (13:03)
== END 2022-10-06 11:52 | disposition home or self-care (01) ==
LOC: HO.CT 11:51
PROVIDERS: PCP Nurse Practitioner Family; Visit Provider Internal Medicine
DX: C41.9 Malignant neoplasm of bone and articular cartilage, unspecified (principal); M89.8X5 Other specified disorders of bone, thigh
CPT/HCPCS: 71260; 73522; 73552; 74177; Q9967

== ENCOUNTER → 2022-10-10 12:50 | Outpatient (REF) | payer OTHER, SELFPAY ==
--- NOTE | 2022-10-10 12:54 | CA_ITS ---
Transthoracic Echocardiogram Patient (Last, First, Middle): Christiano Dorado, Gender: Male Date of : 1960 Age: 62 Procedure Date: 10/10/2022 Procedure Type: Transthoracic Echocardiogram Location: OP Height: 177.8 cm Weight: 122.47 kg BSA: 2.37 m2 Heart Rate: bpm BP: 120 / 80 mmHg Water Resources Program Director: ALPHONSO Referring MD: Sabrina Shabazz JERSEY KNITTER-C Symptoms: I10 - Essential (primary) hypertension Study Quality: Fair, contrast used ECG Rhythm: Sinus Conclusions: - The left ventricular systolic function is normal. The calculated ejection fraction is 59% by biplane method. - Mildly increased right ventricular cavity size. - There is mild dilatation of the sinuses of Valsalva measuring 4.20 cm and mild dilatation of the ascending aorta measuring 4.40 cm. Findings Procedure Information Contrast agent, definity, is being given per protocol without apparent complications. Left Ventricle Normal left ventricular cavity size. There is normal left ventricular wall thickness. The left ventricular systolic function is normal. The calculated ejection fraction is 59% by biplane method. There is no evidence of regional wall motion abnormalities. Diastolic function is normal for age. Right Ventricle Mildly increased right ventricular cavity size. There is normal right ventricular systolic function. Atria Both atria are normal in size. Aortic Valve There is a normal trileaflet aortic valve. There is no aortic valve stenosis. There is no aortic valve regurgitation. Mitral Valve The mitral valve appears normal. There is no mitral valve regurgitation. There is no mitral valve stenosis. Pulmonic Valve The pulmonic valve is likely normal. Tricuspid Valve There is trace tricuspid valve regurgitation. Tricuspid regurgitation envelope is inadequate for calculation of right ventricular systolic pressure. Great Vessels There is mild dilatation of the sinuses of Valsalva measuring 4.20 cm and mild dilatation of the ascending aorta measuring 4.40 cm. Venous The inferior vena cava is normal in size and collapses greater than 50% with inspiration. Pericardium/Pleural Widened pericardial space, unable to distinguish between adipose tissue and effusion. Prior Study Comparison Changes noted compared to prior study dated: 11/15/2021. Slight increase in ascending aortic size. Measurements 2D Linear Measurements IVSd: 1.00 0.6-0.9/0.6-1.0 cm LVIDd: 5.15 3.9-5.3/4.2-5.9 cm LVIDd Index: 2.17 2.4-3.2/2.2-3.1 cm/m2 LVIDs: 3.72 2.0-3.6 cm LVPWd: 0.92 0.7-1.1 cm LA Diam: 2.90 2.7-3.8/3.0-4.0 cm LAIDs Index: 1.22 1.5-2.3 cm/m2 LV Mass: 224.85 67-162/88-224 g LV Mass Index: 94.87 43-95/49-115 g/m2 LVOT Diam: 2.50 3.0+(-)1.3 cm 2D Systolic Function EF 4C: 50.20 >55% EF 2C: 69.90 >55% EF BiP: 59.30 >55% Mitral Valve MV Pk E: 0.55 MV PK A: 0.65 MV Decel Time: 290.00 E/A: 0.80 E'Lateral: 7.40 E'Medial: 5.55 E/E' Med: 9.90 E/E' Lat: 7.40 PHT: 85.00 MVA PHT: 2.59 Decel Bureau: 1.89 Aortic Valve AoV Pk Loc: 1.43 AoV Mn Loc: 0.93 AoV VTI: 0.24 AoV Pk Grad: 8.00 Aov Mn Grad: 4.00 SIVAKUMAR Cont.VTI: 3.86 LVOT LVOT Pk Loc: 1.09 LVOT Mn Loc: 0.75 LVOT VTI: 0.19 LVOT Pk Grad: 5.00 LVOT Mn Grad: 3.00 LVOT Diam: 2.50 LVOT Area: 4.91 Diastolic Function MV Pk E: 0.55 MV Pk A: 0.65 E/A: 0.80 E'Medial: 5.55 E/E' Med: 9.90 E' Laterial: 7.40 E/E' Lat: 7.40 Right Ventricle TAPSE (mm): 32.50 TVS' Loc: 17.60 Tricuspid Valve RA Press: 3.00 Great Vessels Aorta Sinus of Valsalva: 4.20 2.0-3.5 cm Ao Asc: 4.40 2.1-3.4 cm Pulmonary Valve PV Pk Loc: 0.77 Peak PV Grad: 2.00 Updated in Other Vendor System with Status of Final Adarsh Way MD electronically signed on 10/10/2022 4:37:55 PM with status of Final
== END ==
LOC: HO.CARD 12:50
PROVIDERS: PCP Nurse Practitioner Family; Visit Provider Nurse Practitioner Family
DX: I71.20 Thoracic aortic aneurysm, without rupture, unspecified (principal); I10 Essential (primary) hypertension
CPT/HCPCS: 93306; Q9957

== ENCOUNTER 2022-10-17 11:59 | Day surgery (SDC) | payer OTHER, SELFPAY ==
[2022-10-17] VITALS (7 sets, daily range): BP systolic 111–136; BP diastolic 69–83; PULSE 68–74; RESP 16–18; TEMP 36.4–36.8; O2SAT 94–98; BMI 38.7
--- NOTE | ~2022-10-17 | CT_ITS ---
EXAMINATION: CT BONE MARROW ASPIRATE CLINICAL INFORMATION: Multiple pelvic lesions in pelvis, sacrum and bilateral femur only seen on MRI of the right femur. Evaluate metastatic disease. COMPARISON: None TECHNIQUE: Following explaining right bone marrow biopsy, bone marrow aspirate procedure, benefits and risk, a written consent was obtained. Patient was placed prone on fluoroscopy table and CT imaging was obtained through the pelvis. An optimal slice was selected and lead markers were placed along the right posterior iliac spine. An optimal marker was selected and marked on the skin. The site was prepped and draped in the usual sterile manner with 2% chlorhexidine solution. 1% lidocaine was injected at puncture site. Through a small skin incision a 16-gauge guide needle was advanced from the skin to the bony cortex of iliac crest. A mechanical drill was applied to the needle and needle advanced through the bony cortex. Coaxially a second longer needle was advanced and 2 bone marrow biopsy was performed through a lesion visualized on the MRI femur exam. Subsequently 2 bone marrow aspirates were obtained in EDTA and heparin and handed to the oracle technical developer. Postprocedure repeat CT imaging was obtained. There was no immediate hemorrhage seen. Simple dressing was applied postprocedure at the puncture site. Conscious sedation was utilized during the exam and patient monitored by IR nursing and radiologist for 22 minutes. Patient tolerated procedure extremely well. FINDINGS: On preliminary CT imaging there is slight sclerosis seen at several segments pelvic bone marrow including the right posterior iliac crest. CT fluoroscopy-guided right crest bone marrow biopsy and bone marrow aspirate was obtained. CT/CT biopsy aspirate bone marrow IMPRESSION: 1. Successful CT fluoroscopy-guided bone narrow biopsy and bone marrow aspirates performed to the right posterior iliac crest. 2. Patient has multiple bone marrow lesions on the MRI of the right femur 09/28/2022.
[2022-10-17 12:45] LABS: MANUAL DIFF FLAG NO
[2022-10-17 12:50] LABS: Basophils Percent Auto 0.6 % (0-2); Eosinophils Absolute Auto 0.4 X10*3/uL (0.0-0.4); Eosinophils Percent Auto 6.2 % (0-4); Hematocrit 45.1 % (42.0-52.0); Imm Gran Abs Auto 0.03 X10*3/uL (0.00-0.03); Imm Gran Pct Auto 0.4 % (0.0-0.4); Lymphocytes Absolute Auto 0.9 X10*3/uL (1.2-4.9); Lymphocytes Percent Auto 13.5 % (20-40); Mean Corpuscular HGB Conc 33.3 g/dl (31.0-36.0); Mean Corpuscular Hemoglobin 28.9 pg (27.0-33.0); Mean Corpuscular Volume 86.9 fL (80.0-98.0); Mean Platelet Volume 9.9 fL (9.4-12.4); Monocytes Absolute Auto 0.8 X10*3/uL (0.1-1.2); Monocytes Percent Auto 11.5 % (2-11); Neutrophils Absolute Auto 4.7 x10*3/uL (2.0-8.3); Neutrophils Percent Auto 67.8 % (45-73); Platelet Count 254 X10*3/uL (160-400); Red Blood Count 5.19 X10*6/uL (4.60-5.80); Red Cell Distribution Width 13.5 % (11.0-16.0)
[2022-10-17 12:57] LABS: Prothrombin Time 11.4 SEC (10.0-13.1)
[2022-10-17 12:59] LABS: Partial Thromboplastin Time 30.6 SEC (26.0-36.4)
[2022-10-17] MEDS: 0.9 % Sodium Chloride 1,000 ML 100 ML IVCONT (13:01)
[2022-10-17 13:03] LABS: Anion Gap 12 (12-20); Blood Urea Nitrogen 19 mg/dL (9-16); Carbon Dioxide 28 mmol/L (22-29); Chloride 107 mmol/L (96-108); Creatinine Clr Calc Pharmacy 83.8; Estimated Glomerular Filt Rate > 60; Potassium 4.9 mmol/L (3.3-5.1); Sodium 142 mmol/L (135-145)
[2022-10-17 14:54] LABS: Bone Marrow SEE SEPARATE REPORT
[2022-10-17] MEDS: Acetaminophen 325 MG TABLET 650 MG PO (15:53)
== END 2022-10-17 16:17 | disposition home or self-care (01) ==
PROVIDERS: Internal Medicine; PCP Nurse Practitioner Family; Visit Provider Radiology Diagnostic Radiology
DX: M89.8X5 Other specified disorders of bone, thigh (principal); C41.9 Malignant neoplasm of bone and articular cartilage, unspecified; M89.50 Osteolysis, unspecified site; D86.9 Sarcoidosis, unspecified; R59.0 Localized enlarged lymph nodes; Z80.0 Family history of malignant neoplasm of digestive organs; I10 Essential (primary) hypertension; J45.909 Unspecified asthma, uncomplicated; R05.9 Cough, unspecified; G47.33 Obstructive sleep apnea (adult) (pediatric); K21.9 Gastro-esophageal reflux disease without esophagitis; E78.5 Hyperlipidemia, unspecified; Z79.899 Other long term (current) drug therapy; Z99.89 Dependence on other enabling machines and devices; Z88.0 Allergy status to penicillin; Z86.711 Personal history of pulmonary embolism; Z87.19 Personal history of other diseases of the digestive system; Z87.891 Personal history of nicotine dependence
CPT/HCPCS: 36415; 38222; 80051; 82565; 84520; 85025; 85610; 85730; 88184; 88185; 88237; 88264; 88305; 88311; 88312; 88313; 88329; 99152; 99153; J1642; J2250; J3010

== ENCOUNTER → 2022-11-30 12:49 | Outpatient (BNVA) | payer OTHER, SELFPAY | PROVIDERS: PCP Nurse Practitioner Family; Referring Provider Nurse Practitioner Family; Visit Provider Internal Medicine Cardiovascular Disease | DX: I45.10 Unspecified right bundle-branch block (principal); R94.31 Abnormal electrocardiogram [ECG] [EKG]; I71.20 Thoracic aortic aneurysm, without rupture, unspecified; I10 Essential (primary) hypertension; R07.9 Chest pain, unspecified | CPT/HCPCS: 93005 ==

== ENCOUNTER 2022-12-13 14:46 | Outpatient (REF) | payer OTHER, SELFPAY ==
[2022-12-13 15:43] LABS: MANUAL DIFF FLAG NO
[2022-12-13 15:57] LABS: Basophils Absolute Auto 0.1 X10*3/uL (0.0-0.2); Basophils Percent Auto 0.8 % (0-2); Eosinophils Absolute Auto 0.4 X10*3/uL (0.0-0.4); Eosinophils Percent Auto 6.1 % (0-4); Hematocrit 45.8 % (42.0-52.0); Hemoglobin 15.1 g/dl (14.0-18.0); Imm Gran Abs Auto 0.04 X10*3/uL (0.00-0.03); Imm Gran Pct Auto 0.6 % (0.0-0.4); Lymphocytes Absolute Auto 1.1 X10*3/uL (1.2-4.9); Lymphocytes Percent Auto 16.5 % (20-40); Mean Corpuscular Hemoglobin 29.3 pg (27.0-33.0); Mean Corpuscular Volume 88.8 fL (80.0-98.0); Mean Platelet Volume 10.2 fL (9.4-12.4); Monocytes Absolute Auto 0.9 X10*3/uL (0.1-1.2); Monocytes Percent Auto 14.1 % (2-11); Neutrophils Absolute Auto 3.9 x10*3/uL (2.0-8.3); Neutrophils Percent Auto 61.9 % (45-73); Platelet Count 280 X10*3/uL (160-400); Red Blood Count 5.16 X10*6/uL (4.60-5.80); Red Cell Distribution Width 13.6 % (11.0-16.0); White Blood Count 6.4 X10*3/uL (4.8-10.8)
[2022-12-13 16:33] LABS: Alanine Aminotransferase 39 U/L (0-40); Albumin Level 4.2 g/dL (3.5-5.0); Alkaline Phosphatase 134 U/L (39-117); Anion Gap 13 (12-20); Aspartate Amino Transferase 27 U/L (5-37); Bilirubin Direct 0.3 mg/dL (0.0-0.5); Bilirubin Total 1.3 mg/dL (0.0-1.0); Blood Urea Nitrogen 19 mg/dL (9-16); Calcium 9.6 mg/dL (8.4-10.2); Carbon Dioxide 25 mmol/L (22-29); Chloride 108 mmol/L (96-108); Estimated Glomerular Filt Rate > 60; Glucose Random 102 mg/dL (60-115); Potassium 4.6 mmol/L (3.3-5.1); Sodium 141 mmol/L (135-145); Total Protein 6.3 g/dL (6.5-8.0)
[2022-12-13 16:38] LABS: Erythrocyte Sedimentation Rate 3 MM/HR (0-15)
[2022-12-18 16:23] LABS: Angiotensin Converting Enzyme 6.9 U/L (9-67)
== END 2022-12-13 14:47 | disposition home or self-care (01) ==
LOC: HO.LAB 14:46
PROVIDERS: PCP Nurse Practitioner Family; Visit Provider Hospitalist
DX: D86.9 Sarcoidosis, unspecified (principal); J45.909 Unspecified asthma, uncomplicated; R05.9 Cough, unspecified; G47.33 Obstructive sleep apnea (adult) (pediatric); Z99.89 Dependence on other enabling machines and devices
CPT/HCPCS: 36415; 80048; 80076; 82164; 85025; 85652

== ENCOUNTER 2023-01-11 15:19 | Outpatient (REF) | payer OTHER, SELFPAY ==
--- NOTE | ~2023-01-11 | CT_ITS ---
EXAMINATION: CT ABDOMEN AND PELVIS WITH CONTRAST CLINICAL INFORMATION: Follow up lytic lesion. COMPARISON: CT of the abdomen and pelvis 10/06/2022. TECHNIQUE: Multidetector volumetric images were obtained from the superior aspect of the liver through the pubic symphysis following administration 85 mL of Omnipaque 350 intravenous contrast. Sagittal and coronal reformatted images were obtained on the technologist's workstation. Oral contrast: No This CT examination was performed using dose optimization techniques as appropriate, variously including the following: *Automated exposure control *Adjustment of mA and/or kV according to patient size (this includes techniques or standardized protocols for targeted exams where dose is matched to indication/reason for exam; i.e. extremities or head) *Use of iterative reconstruction technique DLP: 794 mGy-cm FINDINGS: LUNG BASES: There is a 3 mm nodule in the right lower lobe on axial image 4/29, stable. Minimal atelectatic changes are seen in both lung bases. The heart size is normal. There is a small right pericardial lymph node measuring 1.3 cm. LIVER, GALLBLADDER, AND BILIARY TREE: The liver is normal in size, shape, and attenuation. No focal hepatic lesion or biliary ductal dilatation is present. The gallbladder is unremarkable with no evidence of radiopaque gallstones, gallbladder wall thickening, or obvious pericholecystic inflammatory changes. PANCREAS: Unremarkable. SPLEEN: Unremarkable. ADRENAL GLANDS: Unremarkable. KIDNEYS AND URETERS: The kidneys are normal in size, shape, and attenuation. There is a punctate 2 mm radiopaque calculi in the lower pole of the right kidney. Minimal bilateral perinephric stranding. There are small hypodense lesions seen in the upper mid and lower pole of the right kidney, consistent with cysts. The largest upper pole lesion measures 2 cm. BLADDER: Unremarkable. GASTROINTESTINAL TRACT: There is scattered stool, diverticula and gas seen throughout the colon without any distention or diverticulitis. The small bowel loops are normal caliber. Appendix is small and normal caliber. No inflammatory process or free air is seen. ABDOMINAL WALL: Small umbilical hernia containing fat is noted. LYMPH NODES: There are multiple small retroperitoneal lymph nodes. One of the largest lymph nodes in the left para-aortic region measures 1.8 cm on axial image 42/3. Approximately same size lymph nodes are seen on the previous study. VASCULAR: Unremarkable. PELVIC VISCERA: No free fluid or free air is seen. There are small prominent lymph nodes seen in the iliac chain. The prostate gland is normal size with central gland calcification. OSSEOUS STRUCTURES: No aggressive lytic or sclerotic process is seen. CT/CT abdomen pelvis w IV con IMPRESSION: 1. Multiple small retroperitoneal and iliac chain lymph nodes, stable. 2. Colonic diverticulosis without diverticulitis. 3. Right renal cysts and nonobstructive radiopaque calculi lower pole right kidney are stable. 4. Small umbilical hernia containing fat. 5. There is a 3 mm nodule right lower lobe, stable. 6. Stable, bilateral retroperitoneal lymphadenopathy. 7. Bilateral renal cysts. Fleischner guidelines were followed.
[2023-01-11] MEDS: iohexoL 350 MG/ML 100 ML INFUS..BTL 85 ML IV (15:41)
== END 2023-01-11 15:20 | disposition home or self-care (01) ==
LOC: HO.CT 15:19
PROVIDERS: Visit Provider Internal Medicine
DX: M89.8X5 Other specified disorders of bone, thigh (principal)
CPT/HCPCS: 74177; Q9967

== ENCOUNTER → 2023-03-06 13:51 | Outpatient (BNVA) | payer OTHER, SELFPAY | PROVIDERS: PCP Nurse Practitioner Family; Visit Provider Internal Medicine Gastroenterology ==

== ENCOUNTER → 2023-03-16 14:21 | Outpatient (BNVA) | payer OTHER, SELFPAY | PROVIDERS: PCP Nurse Practitioner Family; Visit Provider Hospitalist | DX: D86.9 Sarcoidosis, unspecified (principal) ==

== ENCOUNTER 2023-05-22 14:06 | Outpatient (AMB) | payer OTHER, SELFPAY ==
--- NOTE | 2023-05-22 14:09 | MHC.OFFVIS ---
Intake Vital Signs 05/22/23 14:11 Height 5 ft 10 in Weight 263 lb BMI 37.7 BP 122/80 Blood Pressure Location Rt brachial Position Sitting Intake Visit Reasons: 6 month follow up Intake Note: Patient is present for 6 month follow up Patient reports no medication changes Blood Pressure at todays visit 122/80 Allergies amoxicillin [AMOXICILLIN] Allergy (Severe, Verified 05/22/23 14:16) DIFF BREATHING Medication List - Last Reconciled 05/22/23 by Mikhail Delgado MD albuterol sulfate 90 mcg/actuation (ProAir RespiClick) 2 inhalations inhalation Q6H PRN 30 days albuterol sulfate 2.5 mg (3 mL) inhalation Q6H PRN 30 days aspirin 81 mg PO DAILY atorvastatin 40 mg PO DAILY 90 days carvedilol 6.25 mg PO BID cetirizine (All Day Allergy (cetirizine)) 10 mg PO DAILY PRN cholecalciferol (vitamin D3) (Vitamin D3) 25 mcg PO DAILY citalopram 20 mg PO BEDTIME 90 days CPAP (CPAP Machine/Device) As directed fluticasone propion-salmeterol 115-21 mcg/actuation (Advair HFA) 2 puffs inhalation Q12H 30 days lactobacillus combination no.9 (Adult 50 Plus Probiotic) 4,000 mmu cells PO DAILY lisinopril 40 mg PO BEDTIME multivitamin 1 tab PO DAILY mycophenolate mofetil (CellCept) 500 mg PO BID nebulizers As directed sod sulf-pot chloride-mag sulf 1.479-0.188- 0.225 gram (Sutab) PO PER PKG DIR spironolactone 25 mg PO BEDTIME 90 days tramadol 50 mg PO BID PRN 10 days HPI HPI Comments History of Present Illness Details 63-year-old gentleman here for follow-up. He was seen in the hospital when he presented with chest pain and mildly abnormal troponin levels. He had echocardiography which showed normal biventricular function with mildly dilated aorta. He had stress testing performed which was normal. Subsequent to that he was discharge home. It appears he was found to have a lytic bone lesion which on biopsy has proven to be sarcoidosis. He is saying he uses inhalers and follows with pulmonology. He has been exercising regularly on elliptical and does not get any chest discomfort or significant shortness of breath with 40 minute of workup. Occasionally he feels left-sided dull discomfort but this happens randomly and at rest and does not happen with exercise. Overall doing well and has no significant complaints otherwise. 05/22/23: He returns for follow-up. Blood pressure in the office is normal. He has been taking medications regularly. He is stable from sarcoidosis point of view. He had a CT chest which did not show any signs of aortic enlargement. This was a noncontrast study. In any case blood pressure control is good. He is denying any symptoms. [facility] Medical History History of non-ST elevation myocardial infarction (NSTEMI) History of pulmonary embolism Cataract Obesity HLD (hyperlipidemia) HTN (hypertension) GERD (gastroesophageal reflux disease) Cough NANCY on CPAP Sarcoidosis Asthma Surgical History History of bone marrow biopsy History of tonsillectomy History of vasectomy History of endoscopy History of hernia repair History of colonoscopy Family History Father Family history of high blood pressure Mother History of colon cancer History of abdominal aortic aneurysm (AAA) Social History Household Members: Spouse Housing: House Do you presently have visiting nurse or other home services: No Alcohol intake: never Patient Tobacco Use Status: Former Tobacco user Tobacco use type: Cigarette e-Cigarette/Vaping Use: Never Used Second Hand Smoke Exposure: No Advance Directives Date on File: 11/13/21 service: No Current occupational status: retired Cognitive needs: No Hearing needs: No Vision needs: No Physical Exam Vital Signs: Last Vital Signs BP 122/80 05/22/23 14:11 BMI result Body Mass Index 37.7 GENERAL APPEARANCE: in no acute distress, pleasant. NECK: no carotid bruit, no jugular venous distention. SKIN: no suspicious lesions, warm and dry. HEART: no murmurs, regular rate and rhythm. LUNGS: clear to auscultation bilaterally. ABDOMEN: soft, nontender. EXTREMITIES: no edema. PERIPHERAL PULSES: equal. NEUROLOGIC: No gross deficits, AAO X 3 Assessment & Plan Assessment & Plan (1) HTN (hypertension): Code(s): I10 - Essential (primary) hypertension (2) Ascending aortic aneurysm: Code(s): I71.2 - Thoracic aortic aneurysm, without rupture Plan [age] year gentleman is here for follow-up. He has mild dilation of sinus of Valsalva measuring 4.2 cm and mild dilation of ascending aorta measuring 4.4 cm by echocardiography performed in September 2022. He had subsequent CT scan which did not show any significant aneurysmal change but was a noncontrast study. In any case he has mild dilated aorta at this point. I think we should repeat echocardiography in 1 year and follow-up should be done after that. If we see any obvious issues on echocardiogram then we will do CT aortogram to assess the size of the aorta. He is saying his mother had aortic aneurysm and she from that. Right now blood pressure control is good and he has quit smoking. He is on atorvastatin for hyperlipidemia. Thank you for allowing me to participate in the care of your patient. Please feel free to contact me if you have any questions. Orders: Orders CA echo transthoracic complete 11 Months I71.2 - Thoracic aortic aneurysm, without rupture Coding Level of Care Code Est Pt Level 4 (56033) Diagnoses HTN (hypertension) I10 Ascending aortic aneurysm I71.2
[2023-05-22 14:11] VITALS: BP 122/80; BMI 37.7
== END 2023-05-22 14:38 | disposition home or self-care (01) ==
PROVIDERS: PCP Nurse Practitioner Family; Referring Provider Nurse Practitioner Family; Visit Provider Internal Medicine Cardiovascular Disease
DX: I10 Essential (primary) hypertension (principal); I71.20 Thoracic aortic aneurysm, without rupture, unspecified
CPT/HCPCS: 99214

== ENCOUNTER → 2023-05-22 14:06 | Outpatient (BNVA) | payer OTHER, SELFPAY | PROVIDERS: PCP Nurse Practitioner Family; Referring Provider Nurse Practitioner Family; Visit Provider Internal Medicine Cardiovascular Disease ==

== ENCOUNTER 2023-06-20 12:26 | Outpatient (AMB) | payer OTHER, SELFPAY ==
--- NOTE | 2023-06-20 13:41 | AM.OFFVISNUR ---
Intake Intake Visit Reasons: Flu vaccine Intake Note: Pt arrived for annual flu vaccine Allergies amoxicillin [AMOXICILLIN] Allergy (Severe, Verified 05/22/23 14:16) DIFF BREATHING Office Procedures Flu Questionnaire Does the patient have a severe egg allergy?: No Does the patient have severe life threatening allergies?: No Does the patient have a fever or illness today?: No Has the patient ever had Guillain-[place] Syndrome?: No Has the patient ever had any past reaction to a flu shot?: No Immunizations flu vacc [id number] 6mos up(PF) 60 mcg(15 mcgx4)/0.5 mL IM syringe Performing Provider: SIVA Blanco Performing Location: [facility] Administered by: Carla Dorado RN on 06/20/23 12:40 Dose Route Admin Location Dispensed Lot Number Expiration Date NDC Cryptologic Support Specialist 0.5 mL IM Right Deltoid 0.5 mL [id number] 03/10/24 28339-634-50 [place] VIS Given Date VIS Provided VIS Publication Date 06/20/23 Single Vaccine 21 Eligibility Eligibility Date Funding Source Not VF Eligible 06/20/23 Private Coding Assessment & Plan Assessment & Plan Orders: Orders Influenza [id number] Immunization Today Z23 - Encounter for immunization
== END 2023-06-20 15:28 | disposition home or self-care (01) ==
LOC: HO.HMGC 12:26
PROVIDERS: PCP Nurse Practitioner Family; Visit Provider Nurse Practitioner Family
DX: Z23 Encounter for immunization (principal)
CPT/HCPCS: 90471; 90686

== ENCOUNTER 2023-06-22 09:36 | Outpatient (REF) | payer OTHER, SELFPAY ==
[2023-06-22 11:36] LABS: MANUAL DIFF FLAG NO
[2023-06-22 11:46] LABS: Basophils Percent Auto 0.7 % (0-2); Eosinophils Absolute Auto 0.3 X10*3/uL (0.0-0.4); Hematocrit 43.9 % (42.0-52.0); Hemoglobin 14.4 g/dl (14.0-18.0); Imm Gran Abs Auto 0.01 X10*3/uL (0.00-0.03); Imm Gran Pct Auto 0.2 % (0.0-0.4); Lymphocytes Absolute Auto 0.6 X10*3/uL (1.2-4.9); Lymphocytes Percent Auto 11.5 % (20-40); Mean Corpuscular HGB Conc 32.8 g/dl (31.0-36.0); Mean Corpuscular Hemoglobin 29.1 pg (27.0-33.0); Mean Corpuscular Volume 88.7 fL (80.0-98.0); Mean Platelet Volume 10.5 fL (9.4-12.4); Monocytes Absolute Auto 0.6 X10*3/uL (0.1-1.2); Monocytes Percent Auto 11.4 % (2-11); Neutrophils Percent Auto 71.2 % (45-73); Platelet Count 255 X10*3/uL (160-400); Red Blood Count 4.95 X10*6/uL (4.60-5.80); Red Cell Distribution Width 13.4 % (11.0-16.0); White Blood Count 5.6 X10*3/uL (4.8-10.8)
[2023-06-22 12:32] LABS: Alanine Aminotransferase 24 U/L (0-40); Albumin Level 4.2 g/dL (3.5-5.0); Alkaline Phosphatase 125 U/L (39-117); Anion Gap 13 (12-20); Aspartate Amino Transferase 22 U/L (5-37); Bilirubin Total 1.2 mg/dL (0.0-1.0); Blood Urea Nitrogen 18 mg/dL (9-16); Calcium 9.3 mg/dL (8.4-10.2); Carbon Dioxide 25 mmol/L (22-29); Chloride 107 mmol/L (96-108); Cholesterol 110 mg/dL (<200); Estimated Glomerular Filt Rate > 60; Glucose Fasting 90 mg/dL (60-99); HDL Cholesterol 30 mg/dL (>40); LDL Cholesterol Calculated 57 mg/dL (<100); Potassium 4.2 mmol/L (3.3-5.1); Sodium 141 mmol/L (135-145); Total Protein 6.7 g/dL (6.5-8.0); Triglycerides 119 mg/dL (<150)
[2023-06-22 12:36] LABS: Prostate Specific Antigen Scr 2.84 ng/mL (<0.05-4.0)
[2023-06-22 12:38] LABS: TSH reflex Free T4 1.96 uIU/mL (0.32-4.0)
[2023-06-22 13:12] LABS: Appearance Urine Clear; Color Urine Yellow; Glucose Urine UA Negative (Negative); Leukocyte Esterase Urine Negative (Negative); Nitrite Urine Negative (Negative); Urine Blood Negative (Negative); Urine Ketones Negative (Negative); Urine Protein Negative (Neg-Trace)
== END 2023-06-22 09:37 | disposition home or self-care (01) ==
LOC: HO.HMGCLDS 09:36
PROVIDERS: PCP Nurse Practitioner Family; Visit Provider Nurse Practitioner Family
DX: I10 Essential (primary) hypertension (principal); Z12.5 Encounter for screening for malignant neoplasm of prostate
CPT/HCPCS: 36415; 80053; 80061; 81003; 84153; 84443; 85025

== ENCOUNTER 2023-07-13 09:55 | Outpatient (AMB) | payer OTHER, SELFPAY ==
[2023-07-13 10:11] VITALS: BP 130/78; PULSE 69; O2SAT 95; BMI 38.1
--- NOTE | 2023-07-13 10:11 | MHC.PC.OV ---
Vital Signs 07/13/23 10:11 Height 5 ft 10 in Weight 265 lb 4 oz BMI 38.1 BP 130/78 Blood Pressure Location Rt brachial Position Sitting Pulse 69 Pulse Source Pulse Oximeter Pulse Oximetry (%) 95 Oxygen Delivery Method Room Air Intake Visit Reasons: Left shoulder pain Intake Note: pt is here for c/o left shoulder pain Allergies amoxicillin [AMOXICILLIN] Allergy (Severe, Verified 07/13/23 10:16) DIFF BREATHING Medication List - Last Reconciled 07/13/23 by NATHANIEL BlancoP- albuterol sulfate 90 mcg/actuation (ProAir RespiClick) 2 inhalations inhalation Q6H PRN 30 days albuterol sulfate 2.5 mg (3 mL) inhalation Q6H PRN 30 days aspirin 81 mg PO DAILY atorvastatin 40 mg PO DAILY 90 days carvedilol 6.25 mg PO BID cetirizine (All Day Allergy (cetirizine)) 10 mg PO DAILY PRN cholecalciferol (vitamin D3) (Vitamin D3) 25 mcg PO DAILY citalopram 20 mg PO BEDTIME 90 days CPAP (CPAP Machine/Device) As directed cyclobenzaprine 10 mg PO BEDTIME PRN fluticasone propion-salmeterol 115-21 mcg/actuation (Advair HFA) 2 puffs inhalation Q12H 30 days lactobacillus combination no.9 (Adult 50 Plus Probiotic) 4,000 mmu cells PO DAILY lisinopril 40 mg PO BEDTIME multivitamin 1 tab PO DAILY mycophenolate mofetil (CellCept) 500 mg PO BID 30 days nebulizers As directed prednisone 40 mg (2 x 20 mg) PO DAILY 5 days sod sulf-pot chloride-mag sulf 1.479-0.188- 0.225 gram (Sutab) PO PER PKG DIR spironolactone 25 mg PO BEDTIME 90 days tramadol 50 mg PO BID PRN 20 days Tobacco use date assessed: 07/13/23 Dental Screening Dental Screen Date: 07/13/23 Did you have a dental visit in the last 12 months?: Yes Did you have a dental problem in the last 6 months where you did not have access to dental care?: No Was dental information given to patient?: Patient has dentist HPI Left shoulder pain HPI Details Pt c/o left shoulder pain. He reports that the pain started in his medial scapular region after moving objects in his house. Pt reports cervical neck discomfort and discomfort to his left trap. Will order XR (cervical). Will send prednisone and cyclobenzaprine (pt knows not to take this with tramadol). Denies radicular symptoms down BUE, fever, chills, and dizziness. [facility] Medical History History of non-ST elevation myocardial infarction (NSTEMI) History of pulmonary embolism Cataract Obesity HLD (hyperlipidemia) HTN (hypertension) GERD (gastroesophageal reflux disease) Cough NANCY on CPAP Sarcoidosis Asthma Surgical History History of bone marrow biopsy History of tonsillectomy History of vasectomy History of endoscopy History of hernia repair History of colonoscopy Family History Father Family history of high blood pressure Mother History of colon cancer History of abdominal aortic aneurysm (AAA) Social History Household Members: Spouse Housing: House Do you presently have visiting nurse or other home services: No Alcohol intake: never Patient Tobacco Use Status: Former Tobacco user Tobacco use type: Cigarette e-Cigarette/Vaping Use: Never Used Second Hand Smoke Exposure: No Advance Directives Date on File: 11/13/21 service: No Current occupational status: retired Cognitive needs: No Hearing needs: No Vision needs: No Questionnaire Thrive Questionnaire Date Thrive assessed: 05/12/22 SILVANA-7 AMB Questionnaire SILVANA-7 Date SILVANA - 7 assessed: 05/12/22 Source: Developed by Drs. Pete Carter, Tamika Corbin, Dennis Bearden and colleagues, with an educational bhargav from [employer]. Review of Systems Const Reports as per HPI Physical exam (Primary Care) Vital Signs: Last Vital Signs Pulse 69 07/13/23 10:11 BP 130/78 07/13/23 10:11 Pulse Ox 95 07/13/23 10:11 Oxygen Delivery Method Room Air 07/13/23 10:11 BMI result Body Mass Index 38.1 Tobacco/Smoking Status: Tobacco use Status Tobacco use date assessed 07/13/23 07/13/23 10:12 Patient Tobacco Use Status Former Tobacco user 07/13/23 10:12 Tobacco use type Cigarette 07/13/23 10:12 e-Cigarette/Vaping Use Never Used 07/13/23 10:12 Thrive Assessment: Date of Thrive Assessment Date Thrive assessed 05/12/22 07/13/23 10:12 Const General: cooperative Nutritional Appearance: obese Orientation/consciousness: patient oriented x3 Resp Effort & Inspection: normal respiratory effort Auscultation: clear to auscultation bilaterally Cardio Rate: regular rate Rhythm: regular rhythm Heart sounds: S1 normal heart sound present and S2 normal heart sound present Back/Spine/Pelvis Other: pain noted to left trap, left medial scapular region, and left cervical region with neck flexion, turning head to the right, and chin raises, - spurlings Neuro General: patient oriented x3 Psych Appearance: grossly normal Mental Status: mental status grossly normal Speech and movement: Normal speech and movement present Affect: normal affect Attitude: cooperative Thought process: Normal thought process present Thought content: Normal thought content present Insight: Good insight present (Psych) Judgement: Good judgement present (Psych) Assessment and Plan Assessment & Plan (1) Cervical neck pain with evidence of disc disease: Code(s): M50.90 - Cervical disc disorder, unspecified, unspecified cervical region Plan: XR ordered, prednisone and cyclobenzaprine sent (2) Muscle strain: Code(s): T14.8XXA - Other injury of unspecified body region, initial encounter Plan The patient agreed to the use of a coroner/medical examiner for this encounter. Scribed for MALGORZATA Torres by Bessie Carlson coroner/medical examiner, on 07/13/2023 at 10:25 EST. Orders: Orders XR cervical spine 2V Today M50.90 - Cervical disc disorder, unspecified, unspecified cervical region Medications: New cyclobenzaprine do not take concurrently with tramadol 10 mg PO BEDTIME PRN 20 tabs 0RF muscle spasm prednisone 40 mg (2 x 20 mg) PO DAILY 10 tabs 0RF 5 days Coding Level of Care Code Est Pt Level 3 (98615) Diagnoses Cervical neck pain with evidence of disc disease M50.90 Muscle strain T14.8XXA
== END 2023-07-13 11:24 | disposition home or self-care (01) ==
LOC: HO.HMGC 09:55
PROVIDERS: PCP Nurse Practitioner Family; Visit Provider Nurse Practitioner Family
DX: M50.90 Cervical disc disorder, unspecified, unspecified cervical region (principal); T14.8XXA Other injury of unspecified body region, initial encounter
CPT/HCPCS: 99213

== ENCOUNTER 2023-07-13 10:38 | Outpatient (REF) | payer OTHER, SELFPAY ==
--- NOTE | ~2023-07-13 | XR_ITS ---
EXAMINATION: XR CERVICAL SPINE CLINICAL INFORMATION: Cervical disc disorder, unspecified, unspecified cervical region COMPARISON: None available. TECHNIQUE: 3 views of the cervical spine were obtained. FINDINGS: The tip of the odontoid is obscured on the open-mouth view. The inferior half of the C7 vertebral body is obscured by the soft tissues of the patient's shoulder. The bones are diffusely demineralized. There is no fracture or subluxation. Prevertebral soft tissues are within normal limits. There is mild disc space narrowing at C5-C6 and moderate to marked narrowing of the disc space at C6-C7 both with marginal osteophyte formation. There is straightening of the usual cervical lordosis which can be seen with muscle spasm or be due to patient positioning. XR/XR cervical spine 2V IMPRESSION: 1. Degenerative disc disease at C5-C6 and C6-C7. 2. Straightening of the usual cervical lordosis which can be seen with muscle spasm or be due to patient positioning.
== END 2023-07-13 10:39 | disposition home or self-care (01) ==
LOC: HO.HMGCX 10:38
PROVIDERS: PCP Nurse Practitioner Family; Visit Provider Nurse Practitioner Family
DX: M50.90 Cervical disc disorder, unspecified, unspecified cervical region (principal)
CPT/HCPCS: 72040

== ENCOUNTER → 2023-07-18 12:54 | Outpatient (BNVA) | payer OTHER, SELFPAY | PROVIDERS: PCP Nurse Practitioner Family; Visit Provider Physician Assistant Surgical ==

== ENCOUNTER 2023-07-21 09:24 | Outpatient (AMB) | payer OTHER, SELFPAY ==
--- NOTE | 2023-07-21 09:27 | MHC.OFFVIS ---
Intake Vital Signs 07/21/23 09:28 Height 5 ft 10 in Weight 260 lb 2.327 oz BMI 37.3 BP 110/70 Blood Pressure Location Lt brachial Position Sitting Pulse 71 Pulse Source Pulse Oximeter Pulse Oximetry (%) 97 Oxygen Delivery Method Room Air Intake Visit Reasons: Sarcoidosis Follow Up Recommended By Dr Apodaca Supervisor Cab Required: No Allergies amoxicillin [AMOXICILLIN] Allergy (Severe, Verified 07/21/23 09:30) DIFF BREATHING HPI HPI Comments History of Present Illness Details The patient is a 63-year-old gentleman with a known history of sarcoidosis. Apparently I did evaluate him on back more than a year ago. In the fall of the patient did have worsening shortness of breath and he was evaluated at [facility] where he was found to have bilateral pulmonary emboli. He was placed on Eliquis. He did follow-up with professor of theatre the in the only explanation for his blood clots with the possibility of underlying hypercoagulable state from sarcoidosis. The patient has been on Flovent up, but, he has not been on systemic cortical steroids. He also has some underlying renal insufficiency. Question if he has some potential extra pulmonary sarcoid involvement that we need additional therapy with steroids. Therefore, I will repeat his blood work and also repeat a CT scan of the chest to assess his nodular densities as well as pulmonary emboli that he had back in May 2019. Will hold off for few months as we cleared the culprit 19 virus. However, if the patient develops any worsening symptoms may have to look at it sooner. Otherwise will reassess the need for systemic cortical steroids or systemic therapy for the sarcoid at the time. He did have blood work done at [facility] back in February. His Magan level was normal. His calcium levels were also normal. No evidence of any renal involvement. The only thing is that his liver function studies were little elevated. He is following up closely with GI. In regards of the blood clots he still on the anticoagulation is tolerating that well. He did undergo a CT scan of the chest demonstrating no further blood clot burden in the vessels. He does have pulmonary nodules and slight increase in the hilar mediastinal lymphadenopathy consistent with his history of sarcoidosis. At this point however he is going to have surgery for his cataracts and he is going to have further evaluation for the thickness of the esophagus so therefore hold off on any treatment for sarcoid at this time at least systemically. He did have some evidence of bronchitis or thickening of the airways bringing up the question of endobronchial sarcoid so therefore will increase his Flovent from 110-220 mcg with the hope of decreasing some of the inflammation directly. In the meantime will hold off on any systemic therapy as he is going to be further evaluated for the issues above. In 3-4 months will have him come back in having get pulmonary function studies and repeat the blood work and decide if at that point we should treat him systemically for the sarcoidosis. 12/13/2022 the patient is here for a pulmonary follow-up visit. He was sent over from the professor of theatre. The patient was having hip discomfort and he underwent a imaging study demonstrating what appeared to be bony lytic lesions. He also went a CT scan of the chest demonstrating hilar mediastinal lymphadenopathy along with some interstitial lung disease. Clinically for the patient is doing well from a respiratory status. She denies any coughing or shortness of breath. he did undergo a CT-guided biopsy of 1 of the lytic lesions and it did demonstrate sarcoid with positive granulomas. In view of the inflammatory lytic lesions I did recommend that he should go on immunosuppressive therapy to minimize the active sarcoid symptoms. However, the patient is reluctant to take any medications at this time. We did talk about medications assess CellCept and methotrexate which will be steroid sparing. He is okay getting blood work to assess for his Magan level and also checking other end-organ involvement. He did have his eyes checked in his aluminum polisher told him that he did not have any evidence of sarcoid in the eyes. Therefore, the patient will continue to consider therapy in meantime he is scheduled to have a repeat CT scan sometime in January and a follow-up with Hematology. He will follow-up with me after that. 03/16/2023 the patient is here for a pulmonary follow-up visit. The patient is doing relatively well. He was exposed to sick contacts and has been having increasing cough shortness of breath chest tightness. Does have some wheezing on examination. Therefore will go ahead and start Advair HFA. The patient also has been on CellCept. Tolerating the CellCept well without any evidence of any adverse effects. He is on a lower dose at this time. He is scheduled to follow up with Hematology-Oncology. I which point he will have additional imaging studies. If he does have imaging studies scheduled by [facility] he can always call oximetry order a further imaging studies prior to the next visit. 07/21/2023 the patient is here for a pulmonary follow-up visit. Overall the patient is doing well. He is tolerating the CellCept 500 mg twice a day. This is a small dose. It is reassuring that he is responding well to the low dose. He did have a repeat CT scan of the abdomen. It appears that the bony lesions have not resolved. We contemplated decreasing the CellCept. However, has not been 6 months in since his such as low-dose will go ahead and continue the 500 mg twice a day until the spring. Which at that point will recheck the blood work and will start decreasing down the CellCept slowly. Will plan to do further imaging studies to make sure there is no recurrence of disease. In regards to the ER where he continues use it with good response. He has not required his rescue inhaler. The patient also will get the Prevnar 20 vaccine today. We did talk about the other vaccines and I did advise him that he follow through with the other vaccines since he does have underlying respiratory disease. COUNTS INCLUDE 234 BEDS AT THE [facility] Medical History (Updated 07/21/23 @ 12:49 by Corby Dumont MD) DDD (degenerative disc disease), cervical History of non-ST elevation myocardial infarction (NSTEMI) History of pulmonary embolism Cataract Obesity HLD (hyperlipidemia) HTN (hypertension) GERD (gastroesophageal reflux disease) Cough NANCY on CPAP Sarcoidosis Asthma Surgical History History of bone marrow biopsy History of tonsillectomy History of vasectomy History of endoscopy History of hernia repair History of colonoscopy Family History Father Family history of high blood pressure Mother History of colon cancer History of abdominal aortic aneurysm (AAA) Social History Household Members: Spouse Housing: House Do you presently have visiting nurse or other home services: No Alcohol intake: never Patient Tobacco Use Status: Former Tobacco user Tobacco use type: Cigarette e-Cigarette/Vaping Use: Never Used Second Hand Smoke Exposure: No Advance Directives Date on File: 11/13/21 service: No Current occupational status: retired Cognitive needs: No Hearing needs: No Vision needs: No Review of Systems Const Denies night sweats ENT Denies change in voice, Denies lip swelling, Denies mouth pain, Reports nasal congestion, Reports nasal discharge and Denies tongue swelling Card Denies chest pain Resp Reports cough and Denies wheezing GI Denies abdominal pain Musc Reports myalgias and Reports arthralgias Neuro Denies Neuro-related abnormal movements Psych Denies no additional complaints Sy/Lymph Denies easy bleeding and Denies lymphadenopathy Aller/Immun Denies lip swelling, Denies tongue swelling and Denies wheezing Physical Exam Vital Signs: Last Vital Signs Pulse 71 07/21/23 09:28 BP 110/70 07/21/23 09:28 Pulse Ox 97 07/21/23 09:28 Oxygen Delivery Method Room Air 07/21/23 09:28 BMI result Body Mass Index 37.3 Const General: alert HEENT General nose exam: Abnormal external nose present and Nasal discharge present Eyes Pupils: Equal, round and reactive pupils present Neck Neck: Yes normal visual inspection, Yes full ROM and Yes no lymphadenopathy Chest Chest palpation & inspection: normal inspection of the chest Resp Auscultation: clear to auscultation bilaterally and no wheezes Cardio Rate: regular rate Rhythm: regular rhythm Heart sounds: S1 normal heart sound present and S2 normal heart sound present GI Palpation (GI): Soft to palpation and nontender Auscultation: normal bowel sounds General: Yes no CVA tenderness Back/Spine/Pelvis Back: no CVA tenderness Skin General skin exam: rashes and/or lesions noted Neuro Cranial nerves: Yes Equal, round and reactive pupils present Extrem General: Yes no clubbing, cyanosis or edema Immunizations pneumoc 20-juno conj-dip cr(PF) 0.5 mL IM syringe Performing Provider: Corby Dumont MD Performing Location: [facility] Pulmonology Services Administered by: Radha Lorenzana LPN on 07/21/23 10:06 Dose Route Admin Location Dispensed Lot Number Expiration Date NDC Community Outreach Director 0.5 mL IM Left Deltoid 0.5 mL [id number] 04/10/24 5324-5289-63 [employer] VIS Given Date VIS Provided VIS Publication Date 07/21/23 Single Vaccine 23 Eligibility Eligibility Date Funding Source Not [facility] Eligible 07/21/23 Private Assessment & Plan Assessment & Plan (1) Sarcoidosis: Comment: with evidence of extra pulmonary sarcoidosis with active inflammation, better at this time Code(s): D86.9 - Sarcoidosis, unspecified Plan: ICS (2) Asthma: Code(s): J45.909 - Unspecified asthma, uncomplicated Qualifiers: Asthma complication type: uncomplicated Asthma persistence: persistent Asthma severity: moderate Qualified Code(s): J45.40 - Moderate persistent asthma, uncomplicated Plan: Stop Flovent Start Symbicort (3) NANCY on CPAP: Comment: (NANCY dx 2017 slepe test - AHI 39. On CPAP) Code(s): G47.33 - Obstructive sleep apnea (adult) (pediatric); Z99.89 - Dependence on other enabling machines and devices Plan: continue CPAP (4) Cough: Code(s): R05 - Cough Qualifiers: Cough type: chronic Qualified Code(s): R05.3 - Chronic cough Plan continue Cellcept 500mg BID, will decrease during the next visit Bloodwork in 3 months Advair HFA AZUL as needed F/U 4 months Orders: Orders Complete Blood Count Auto Diff 11/09/23 D86.9 - Sarcoidosis, unspecified Liver Panel 11/09/23 D86.9 - Sarcoidosis, unspecified Angiotensin Converting Enzyme 11/09/23 D86.9 - Sarcoidosis, unspecified Erythrocyte Sedimentation Rate 11/09/23 D86.9 - Sarcoidosis, unspecified Basic Metabolic Panel 11/09/23 D86.9 - Sarcoidosis, unspecified Pneumococcal 20 Immunization Today D86.9 - Sarcoidosis, unspecified Coding Level of Care Code Est Pt Level 4 (64827) Diagnoses Sarcoidosis D86.9 Moderate persistent asthma without complication J45.40 Asthma complication type: uncomplicated Asthma persistence: persistent Asthma severity: moderate NANCY on CPAP G47.33; Z99.89 Chronic cough R05.3 Cough type: chronic Time Spent (min) 17
[2023-07-21 09:28] VITALS: BP 110/70; PULSE 71; O2SAT 97; BMI 37.3
== END 2023-07-21 10:00 | disposition home or self-care (01) ==
PROVIDERS: PCP Nurse Practitioner Family; Visit Provider Hospitalist
DX: D86.9 Sarcoidosis, unspecified (principal); J45.40 Moderate persistent asthma, uncomplicated; G47.33 Obstructive sleep apnea (adult) (pediatric); Z99.89 Dependence on other enabling machines and devices; R05.3 Chronic cough
CPT/HCPCS: 99214

== ENCOUNTER → 2023-07-21 09:24 | Outpatient (BNVA) | payer OTHER, SELFPAY | PROVIDERS: PCP Nurse Practitioner Family; Visit Provider Hospitalist | DX: D86.9 Sarcoidosis, unspecified (principal); J45.40 Moderate persistent asthma, uncomplicated; R05.3 Chronic cough; G47.33 Obstructive sleep apnea (adult) (pediatric); Z86.711 Personal history of pulmonary embolism; Z79.01 Long term (current) use of anticoagulants; Z99.89 Dependence on other enabling machines and devices; Z23 Encounter for immunization | CPT/HCPCS: 90471; 90677 ==

== ENCOUNTER 2023-07-26 08:15 | Outpatient (AMB) | payer OTHER, SELFPAY ==
--- NOTE | 2023-07-26 12:51 | MHC.OFFVISWM ---
Intake VS Expanded 07/26/23 13:10 Height 5 ft 10 in Weight 258 lb 8 oz BMI 37.1 Body Fat % 36.8 Body Fat Mass 95.2 Fat Free Mass 163.4 Visceral Fat Rating 22 Body Water % 36.8 Body Water Mass 95.2 Basal Metabolic Rate/Score 2,238 Intake Visit Reasons: TV [employer] SCREEN [employer]ER SWL BMI 37.1 Allergies amoxicillin [AMOXICILLIN] Allergy (Severe, Verified 07/26/23 12:51) DIFF BREATHING Medication List - Last Reconciled 07/26/23 by Micheal Emerson MD albuterol sulfate 90 mcg/actuation (ProAir RespiClick) 2 inhalations inhalation Q6H PRN 30 days albuterol sulfate 2.5 mg (3 mL) inhalation Q6H PRN 30 days aspirin 81 mg PO DAILY atorvastatin 40 mg PO DAILY 90 days carvedilol 6.25 mg PO BID cetirizine (All Day Allergy (cetirizine)) 10 mg PO DAILY PRN cholecalciferol (vitamin D3) (Vitamin D3) 25 mcg PO DAILY citalopram 20 mg PO BEDTIME 90 days CPAP (CPAP Machine/Device) As directed cyclobenzaprine 10 mg PO BEDTIME PRN famotidine (Pepcid) 20 mg PO DAILY fluticasone propion-salmeterol 115-21 mcg/actuation (Advair HFA) 2 puffs inhalation Q12H 30 days lactobacillus combination no.9 (Adult 50 Plus Probiotic) 4,000 mmu cells PO DAILY lisinopril 40 mg PO BEDTIME multivitamin 1 tab PO DAILY mycophenolate mofetil (CellCept) 500 mg PO BID 30 days nebulizers As directed sod sulf-pot chloride-mag sulf 1.479-0.188- 0.225 gram (Sutab) PO PER PKG DIR spironolactone 25 mg PO BEDTIME 90 days tramadol 50 mg PO BID PRN 20 days HPI TV [employer] SCREEN [employer] AS[employer]ER SWL BMI 37.1 HPI Details Start time: 12.37pm, End time: 1.37pm ?I spent 50 minutes speaking with the patient on the phone plus an additional 5 minutes reviewing and updating records for a total of 10 minutes HPI Comments History of Present Illness Details Previous weight loss efforts: self diets and exercise Wakes up: 7.30am, Sleeps: 10.30pm Breakfast: 8am (cereal) Lunch: 12pm (sandwich) often skips Dinner: 6pm (meat, chicken, shrimps) Snacks: 10am (candy, pastry, fruit), 2pm (candy or chips) Exercise: Has Elliptical and stationary bike at home Fluids: coffee 2 cups/day (black), tea (2 cups per day with lemon), soda (diet soda: 1 can per day), juice: rarely, ETOH: rarely PFSH Medical History (Updated 07/26/23 @ 13:01 by Micheal Emerson MD) Anxiety Depression COPD (chronic obstructive pulmonary disease) GERD (gastroesophageal reflux disease) DDD (degenerative disc disease), cervical History of non-ST elevation myocardial infarction (NSTEMI) History of pulmonary embolism Cataract Obesity HLD (hyperlipidemia) HTN (hypertension) Cough NANCY on CPAP Sarcoidosis Asthma Surgical History History of bone marrow biopsy History of tonsillectomy History of vasectomy History of endoscopy History of hernia repair History of colonoscopy Family History (Updated 07/24/23 @ 13:26 by Eva Sevilla) Father Family history of high blood pressure Mother History of colon cancer History of abdominal aortic aneurysm (AAA) Brother Prostate cancer Social History Household Members: Spouse Housing: House Do you presently have visiting nurse or other home services: No Alcohol intake: never Patient Tobacco Use Status: Former Tobacco user Tobacco use type: Cigarette e-Cigarette/Vaping Use: Never Used Second Hand Smoke Exposure: No Advance Directives Date on File: 11/13/21 service: No Current occupational status: retired Cognitive needs: No Hearing needs: No Vision needs: No Assessment & Plan Assessment & Plan (1) Obesity: Code(s): E66.9 - Obesity, unspecified Plan: 1.? Plan for lap sleeve gastrectomy. If diaphragmatic or ventral hernias are present at time of surgery, these will be repaired laparoscopically as well. Risks and complications were discussed in detail including possible conversion to an open procedure, anastomotic leak, bleeding requiring transfusion, small bowel obstruction, , DVT and pulmonary embolism, cardiac, or pulmonary complications, as keno terminal operator complications such as anastomotic ulcer, insufficient weight loss and vitamin deficiencies. I emphasized the importance of close follow-up, adherence to instructions and good communication. 2. Nutritional counseling. Start with 2 CELEBRATE REBUILD protein (buy at [facility]) shakes (ONE scoop EACH in 8oz low fat unsweetened almond milk each) at 8am-10am and 11am-1pm, 1 protein bar (CELEBRATE protein bars, buy at [facility] [employer] [facility]) at 2pm-4pm, dinner at 5pm (10 forks of protein and 10 forks of salad/vegetables) AND one more protein bar after dinner at 7pm-9pm. So you do 2 protein shakes, 2 protein bars and one meal per day. Meal to include lean meat (beef, fish, pork, turkey, chicken), or welsh yogurt, or egg whites, or beans with a salad with olive oil and fruits (berries, pears, apples, kiwi). Avoid salt, breads, potatoes, rice, pasta, desserts. 3. Each shake would be drunk slowly, like coffee in a period of 2 hours. May add your coffee into the shakes, if flavor match. 4. Cut each bar in 4 pieces and eat each piece in 30min ?to make each bar last 2 hours. 5. I emphasized the importance of measuring accurately the food portion and measure it when serving the food in plate 6. The meal portions include 10 full-size forks of meat and 10 full-size forks of salad. You always eat the meat portion but you can replace up to 5 forks for salad/vegetables with rice, potatoes or pasta, or a fruit ?if you like. The less you do it the better weight loss will be. 7. One full-size fork is what it can be scooped on the fork without falling aside and not what can be bit with the fork. Use regular forks like those you find in a typical restaurant. 8.? Please send me weight measurements as soon as possible and then once a week. Always include your diet and exercise plan. 9. Start Elliptical with an incline of 2.0 and resistance of 2.0. Increase the incline by 1 every 3 min to a max resistance of 8.0, and repeat cycles for 300 calories. Goal is to burn 2000 calories per week on exercise, which means either 300 calories daily, or 400 calories 5 days per week, or 500 calories 4 days per week, or 650 calories 3 days per week. 10. Alternatively start stationary bike at a resistance level of 4.0 Increase level by 1.0 every 3 min to a max level of 10.0. Stay at this level for 3 min and then return to level 4.0 and repeat same steps until 300 calories are burned. Velocity target is 12mph and heart rate is 145 bpm. Goal is to burn 2000 calories per week on exercise. You can use either the bike or the elliptical, or alternate doing one or the other every other day, or do both daily for 150 calories each. 11. Goal is to lose at least 1.5-2lbs per week 12. Goal to lose 10% of your weight before surgery, which is about 26lbs. Ultimate weight goal: 232lbs before surgery 13. Please follow the diet plan exactly without any change. If you don't like something about the plan or you feel hungry you need to communicate with me so I can help you revise the plan. You should not change the plan yourself. (2) HTN (hypertension): Code(s): I10 - Essential (primary) hypertension (3) Ascending aortic aneurysm: Code(s): I71.2 - Thoracic aortic aneurysm, without rupture (4) Sarcoidosis: Comment: with evidence of extra pulmonary sarcoidosis with active inflammation, better at this time Code(s): D86.9 - Sarcoidosis, unspecified (5) Cervical neck pain with evidence of disc disease: Code(s): M50.90 - Cervical disc disorder, unspecified, unspecified cervical region (6) Hip pain: Code(s): M25.559 - Pain in unspecified hip (7) BMI 37.0-37.9, adult: Code(s): Z68.37 - Body mass index [BMI] 37.0-37.9, adult (8) GERD (gastroesophageal reflux disease): Code(s): K21.9 - Gastro-esophageal reflux disease without esophagitis Qualifiers: Esophagitis presence: esophagitis presence not specified Qualified Code(s): K21.9 - Gastro-esophageal reflux disease without esophagitis (9) HLD (hyperlipidemia): Code(s): E78.5 - Hyperlipidemia, unspecified (10) NANCY on CPAP: Comment: (NANCY dx 2017 slepe test - AHI 39. On CPAP) Code(s): G47.33 - Obstructive sleep apnea (adult) (pediatric); Z99.89 - Dependence on other enabling machines and devices (11) COPD (chronic obstructive pulmonary disease): Code(s): J44.9 - Chronic obstructive pulmonary disease, unspecified Orders: Orders Insulin Today D86.9 - Sarcoidosis, unspecified, E66.9 - Obesity, unspecified, E78.5 - Hyperlipidemia, unspecified, G47.33 - Obstructive sleep apnea (adult) (pediatric), I10 - Essential (primary) hypertension, I71.2 - Thoracic aortic aneurysm, without rupture, J44.9 - Chronic obstructive pulmonary disease, unspecified, K21.9 - Gastro-esophageal reflux disease without esophagitis, Z68.37 - Body mass index [BMI] 37.0-37.9, adult, Z99.89 - Dependence on other enabling machines and devices Vitamin A Today D86.9 - Sarcoidosis, unspecified, E66.9 - Obesity, unspecified, E78.5 - Hyperlipidemia, unspecified, G47.33 - Obstructive sleep apnea (adult) (pediatric), I10 - Essential (primary) hypertension, I71.2 - Thoracic aortic aneurysm, without rupture, J44.9 - Chronic obstructive pulmonary disease, unspecified, K21.9 - Gastro-esophageal reflux disease without esophagitis, Z68.37 - Body mass index [BMI] 37.0-37.9, adult, Z99.89 - Dependence on other enabling machines and devices C Reactive Protein Today D86.9 - Sarcoidosis, unspecified, E66.9 - Obesity, unspecified, E78.5 - Hyperlipidemia, unspecified, G47.33 - Obstructive sleep apnea (adult) (pediatric), I10 - Essential (primary) hypertension, I71.2 - Thoracic aortic aneurysm, without rupture, J44.9 - Chronic obstructive pulmonary disease, unspecified, K21.9 - Gastro-esophageal reflux disease without esophagitis, Z68.37 - Body mass index [BMI] 37.0-37.9, adult, Z99.89 - Dependence on other enabling machines and devices PTHI Today D86.9 - Sarcoidosis, unspecified, E66.9 - Obesity, unspecified, E78.5 - Hyperlipidemia, unspecified, G47.33 - Obstructive sleep apnea (adult) (pediatric), I10 - Essential (primary) hypertension, I71.2 - Thoracic aortic aneurysm, without rupture, J44.9 - Chronic obstructive pulmonary disease, unspecified, K21.9 - Gastro-esophageal reflux disease without esophagitis, Z68.37 - Body mass index [BMI] 37.0-37.9, adult, Z99.89 - Dependence on other enabling machines and devices H Pylori Breath Test Today D86.9 - Sarcoidosis, unspecified, E66.9 - Obesity, unspecified, E78.5 - Hyperlipidemia, unspecified, G47.33 - Obstructive sleep apnea (adult) (pediatric), I10 - Essential (primary) hypertension, I71.2 - Thoracic aortic aneurysm, without rupture, J44.9 - Chronic obstructive pulmonary disease, unspecified, K21.9 - Gastro-esophageal reflux disease without esophagitis, Z68.37 - Body mass index [BMI] 37.0-37.9, adult, Z99.89 - Dependence on other enabling machines and devices Vitamin D 25-OH Total Today D86.9 - Sarcoidosis, unspecified, E66.9 - Obesity, unspecified, E78.5 - Hyperlipidemia, unspecified, G47.33 - Obstructive sleep apnea (adult) (pediatric), I10 - Essential (primary) hypertension, I71.2 - Thoracic aortic aneurysm, without rupture, J44.9 - Chronic obstructive pulmonary disease, unspecified, K21.9 - Gastro-esophageal reflux disease without esophagitis, Z68.37 - Body mass index [BMI] 37.0-37.9, adult, Z99.89 - Dependence on other enabling machines and devices Hemoglobin A1c Today D86.9 - Sarcoidosis, unspecified, E66.9 - Obesity, unspecified, E78.5 - Hyperlipidemia, unspecified, G47.33 - Obstructive sleep apnea (adult) (pediatric), I10 - Essential (primary) hypertension, I71.2 - Thoracic aortic aneurysm, without rupture, J44.9 - Chronic obstructive pulmonary disease, unspecified, K21.9 - Gastro-esophageal reflux disease without esophagitis, Z68.37 - Body mass index [BMI] 37.0-37.9, adult, Z99.89 - Dependence on other enabling machines and devices FL upper GI w air Today D86.9 - Sarcoidosis, unspecified, E66.9 - Obesity, unspecified, E78.5 - Hyperlipidemia, unspecified, G47.33 - Obstructive sleep apnea (adult) (pediatric), I10 - Essential (primary) hypertension, I71.2 - Thoracic aortic aneurysm, without rupture, J44.9 - Chronic obstructive pulmonary disease, unspecified, K21.9 - Gastro-esophageal reflux disease without esophagitis, Z68.37 - Body mass index [BMI] 37.0-37.9, adult, Z99.89 - Dependence on other enabling machines and devices Lipid Panel Today D86.9 - Sarcoidosis, unspecified, E66.9 - Obesity, unspecified, E78.5 - Hyperlipidemia, unspecified, G47.33 - Obstructive sleep apnea (adult) (pediatric), I10 - Essential (primary) hypertension, I71.2 - Thoracic aortic aneurysm, without rupture, J44.9 - Chronic obstructive pulmonary disease, unspecified, K21.9 - Gastro-esophageal reflux disease without esophagitis, Z68.37 - Body mass index [BMI] 37.0-37.9, adult, Z99.89 - Dependence on other enabling machines and devices IRON PROFILE Today D86.9 - Sarcoidosis, unspecified, E66.9 - Obesity, unspecified, E78.5 - Hyperlipidemia, unspecified, G47.33 - Obstructive sleep apnea (adult) (pediatric), I10 - Essential (primary) hypertension, I71.2 - Thoracic aortic aneurysm, without rupture, J44.9 - Chronic obstructive pulmonary disease, unspecified, K21.9 - Gastro-esophageal reflux disease without esophagitis, Z68.37 - Body mass index [BMI] 37.0-37.9, adult, Z99.89 - Dependence on other enabling machines and devices Complete Blood Count Auto Diff Today D86.9 - Sarcoidosis, unspecified, E66.9 - Obesity, unspecified, E78.5 - Hyperlipidemia, unspecified, G47.33 - Obstructive sleep apnea (adult) (pediatric), I10 - Essential (primary) hypertension, I71.2 - Thoracic aortic aneurysm, without rupture, J44.9 - Chronic obstructive pulmonary disease, unspecified, K21.9 - Gastro-esophageal reflux disease without esophagitis, Z68.37 - Body mass index [BMI] 37.0-37.9, adult, Z99.89 - Dependence on other enabling machines and devices Vitamin B12 and Folate Today D86.9 - Sarcoidosis, unspecified, E66.9 - Obesity, unspecified, E78.5 - Hyperlipidemia, unspecified, G47.33 - Obstructive sleep apnea (adult) (pediatric), I10 - Essential (primary) hypertension, I71.2 - Thoracic aortic aneurysm, without rupture, J44.9 - Chronic obstructive pulmonary disease, unspecified, K21.9 - Gastro-esophageal reflux disease without esophagitis, Z68.37 - Body mass index [BMI] 37.0-37.9, adult, Z99.89 - Dependence on other enabling machines and devices Zinc Today D86.9 - Sarcoidosis, unspecified, E66.9 - Obesity, unspecified, E78.5 - Hyperlipidemia, unspecified, G47.33 - Obstructive sleep apnea (adult) (pediatric), I10 - Essential (primary) hypertension, I71.2 - Thoracic aortic aneurysm, without rupture, J44.9 - Chronic obstructive pulmonary disease, unspecified, K21.9 - Gastro-esophageal reflux disease without esophagitis, Z68.37 - Body mass index [BMI] 37.0-37.9, adult, Z99.89 - Dependence on other enabling machines and devices Comprehensive Met. Panel Today D86.9 - Sarcoidosis, unspecified, E66.9 - Obesity, unspecified, E78.5 - Hyperlipidemia, unspecified, G47.33 - Obstructive sleep apnea (adult) (pediatric), I10 - Essential (primary) hypertension, I71.2 - Thoracic aortic aneurysm, without rupture, J44.9 - Chronic obstructive pulmonary disease, unspecified, K21.9 - Gastro-esophageal reflux disease without esophagitis, Z68.37 - Body mass index [BMI] 37.0-37.9, adult, Z99.89 - Dependence on other enabling machines and devices Vitamin B1 Today D86.9 - Sarcoidosis, unspecified, E66.9 - Obesity, unspecified, E78.5 - Hyperlipidemia, unspecified, G47.33 - Obstructive sleep apnea (adult) (pediatric), I10 - Essential (primary) hypertension, I71.2 - Thoracic aortic aneurysm, without rupture, J44.9 - Chronic obstructive pulmonary disease, unspecified, K21.9 - Gastro-esophageal reflux disease without esophagitis, Z68.37 - Body mass index [BMI] 37.0-37.9, adult, Z99.89 - Dependence on other enabling machines and devices Ferritin Today D86.9 - Sarcoidosis, unspecified, E66.9 - Obesity, unspecified, E78.5 - Hyperlipidemia, unspecified, G47.33 - Obstructive sleep apnea (adult) (pediatric), I10 - Essential (primary) hypertension, I71.2 - Thoracic aortic aneurysm, without rupture, J44.9 - Chronic obstructive pulmonary disease, unspecified, K21.9 - Gastro-esophageal reflux disease without esophagitis, Z68.37 - Body mass index [BMI] 37.0-37.9, adult, Z99.89 - Dependence on other enabling machines and devices TSH reflex Free T4 Today D86.9 - Sarcoidosis, unspecified, E66.9 - Obesity, unspecified, E78.5 - Hyperlipidemia, unspecified, G47.33 - Obstructive sleep apnea (adult) (pediatric), I10 - Essential (primary) hypertension, I71.2 - Thoracic aortic aneurysm, without rupture, J44.9 - Chronic obstructive pulmonary disease, unspecified, K21.9 - Gastro-esophageal reflux disease without esophagitis, Z68.37 - Body mass index [BMI] 37.0-37.9, adult, Z99.89 - Dependence on other enabling machines and devices US abdomen comp w elastography Today D86.9 - Sarcoidosis, unspecified, E66.9 - Obesity, unspecified, E78.5 - Hyperlipidemia, unspecified, G47.33 - Obstructive sleep apnea (adult) (pediatric), I10 - Essential (primary) hypertension, I71.2 - Thoracic aortic aneurysm, without rupture, J44.9 - Chronic obstructive pulmonary disease, unspecified, K21.9 - Gastro-esophageal reflux disease without esophagitis, Z68.37 - Body mass index [BMI] 37.0-37.9, adult, Z99.89 - Dependence on other enabling machines and devices XR chest 2V Today D86.9 - Sarcoidosis, unspecified, E66.9 - Obesity, unspecified, E78.5 - Hyperlipidemia, unspecified, G47.33 - Obstructive sleep apnea (adult) (pediatric), I10 - Essential (primary) hypertension, I71.2 - Thoracic aortic aneurysm, without rupture, J44.9 - Chronic obstructive pulmonary disease, unspecified, K21.9 - Gastro-esophageal reflux disease without esophagitis, Z68.37 - Body mass index [BMI] 37.0-37.9, adult, Z99.89 - Dependence on other enabling machines and devices ECG 12 lead EKG Today D86.9 - Sarcoidosis, unspecified, E66.9 - Obesity, unspecified, E78.5 - Hyperlipidemia, unspecified, G47.33 - Obstructive sleep apnea (adult) (pediatric), I10 - Essential (primary) hypertension, I71.2 - Thoracic aortic aneurysm, without rupture, J44.9 - Chronic obstructive pulmonary disease, unspecified, K21.9 - Gastro-esophageal reflux disease without esophagitis, Z68.37 - Body mass index [BMI] 37.0-37.9, adult, Z99.89 - Dependence on other enabling machines and devices Referrals Nutrition/Dietitian Referral D86.9 - Sarcoidosis, unspecified, E66.9 - Obesity, unspecified, E78.5 - Hyperlipidemia, unspecified, G47.33 - Obstructive sleep apnea (adult) (pediatric), I10 - Essential (primary) hypertension, I71.2 - Thoracic aortic aneurysm, without rupture, J44.9 - Chronic obstructive pulmonary disease, unspecified, K21.9 - Gastro-esophageal reflux disease without esophagitis, Z68.37 - Body mass index [BMI] 37.0-37.9, adult, Z99.89 - Dependence on other enabling machines and devices Behavioral Health Referral D86.9 - Sarcoidosis, unspecified, E66.9 - Obesity, unspecified, E78.5 - Hyperlipidemia, unspecified, G47.33 - Obstructive sleep apnea (adult) (pediatric), I10 - Essential (primary) hypertension, I71.2 - Thoracic aortic aneurysm, without rupture, J44.9 - Chronic obstructive pulmonary disease, unspecified, K21.9 - Gastro-esophageal reflux disease without esophagitis, Z68.37 - Body mass index [BMI] 37.0-37.9, adult, Z99.89 - Dependence on other enabling machines and devices Telehealth Telehealth Location of provider rendering services: practice address Location of patient: address on file Patient Identification confirmed using: Name, : Yes Telehealth method: voice only Patient verbally consented to treatment: Yes Patient verbally consented to billing insurance company: Yes Patient informed of any privacy concerns related to visit: Yes Minutes spent on Phone/Video with Pt.: 60 Coding Level of Care Code Tele New Pt Level 5 (98865) Diagnoses Obesity E66.9 HTN (hypertension) I10 Ascending aortic aneurysm I71.2 Sarcoidosis D86.9 Cervical neck pain with evidence of disc disease M50.90 Hip pain M25.559 BMI 37.0-37.9, adult Z68.37 Gastroesophageal reflux disease, unspecified whether esophagitis present K21.9 Esophagitis presence: esophagitis presence not specified HLD (hyperlipidemia) E78.5 NANCY on CPAP G47.33; Z99.89 COPD (chronic obstructive pulmonary disease) J44.9 Time Spent (min) 60
[2023-07-26 13:10] VITALS: BMI 37.1
== END 2023-07-26 13:38 | disposition home or self-care (01) ==
LOC: HO.HBS 08:15
PROVIDERS: PCP Nurse Practitioner Family; Visit Provider Surgery
DX: E66.9 Obesity, unspecified (principal); Z68.37 Body mass index [BMI] 37.0-37.9, adult; G47.33 Obstructive sleep apnea (adult) (pediatric); Z99.89 Dependence on other enabling machines and devices; J44.9 Chronic obstructive pulmonary disease, unspecified
CPT/HCPCS: 99443

== ENCOUNTER → 2023-07-26 08:15 | Outpatient (BNVA) | payer OTHER, SELFPAY | PROVIDERS: PCP Nurse Practitioner Family; Visit Provider Surgery ==

== ENCOUNTER 2023-08-18 17:49 | Emergency (ER) | payer OTHER, SELFPAY ==
[2023-08-18 18:02] VITALS: BP 111/79; PULSE 84; RESP 16; TEMP 36.4; O2SAT 94; BMI 37.3
--- NOTE | 2023-08-18 18:02 | ED_ITS ---
HPI - General Adult General Chief complaint: Abdominal Pain Stated complaint: ?diverticulitis Related Data Home Medications Medication Instructions Recorded Confirmed cholecalciferol (vitamin D3) 25 25 mcg PO DAILY 11/13/21 10/17/23 mcg (1,000 unit) tablet (Vitamin D3) multivitamin 1 tab PO DAILY 11/13/21 10/17/23 cetirizine 10 mg tablet (All Day 10 mg PO DAILY PRN Allergic 05/12/22 10/17/23 Allergy (cetirizine)) Symptoms lactobacillus combination no.9 4 4,000 mmu cells PO DAILY 11/30/22 10/17/23 billion cell capsule (Adult 50 Plus Probiotic) CPAP (CPAP Machine/Device) 12/13/22 07/26/23 nebulizers 12/13/22 07/26/23 famotidine 20 mg tablet (Pepcid) 20 mg PO DAILY 07/26/23 10/17/23 erythromycin 5 mg/gram (0.5 %) eye 1 appl ophthalmic (eye) DAILY 11/03/23 ointment Previous Rx's Medication Instructions Recorded aspirin 81 mg capsule 81 mg PO DAILY #30 caps 11/15/21 albuterol sulfate 90 mcg/actuation 2 inh inhalation Q6H PRN Shortness 02/16/23 breath activated powder inhaler Of Breath 30 days #1 ea (ProAir RespiClick) albuterol sulfate 2.5 mg/3 mL 2.5 mg (3 mL) inhalation Q6H PRN 03/16/23 (0.083 %) solution for nebulization shortness of breath or wheezing 30 days #180 mL mycophenolate mofetil 500 mg 500 mg PO BID 30 days #60 tabs 05/25/23 tablet (CellCept) carvedilol 6.25 mg tablet 6.25 mg PO BID #180 tabs 06/22/23 citalopram 20 mg tablet 20 mg PO BEDTIME 90 days #90 tabs 06/22/23 lisinopril 40 mg tablet 40 mg PO BEDTIME #90 tabs 09/07/23 fluticasone propionate 115 2 puff inhalation Q12H 30 days #12 09/19/23 mcg-salmeterol 21 mcg/actuation grams HFA inhaler (Advair HFA) erythromycin 5 mg/gram (0.5 %) eye 1 appl ophthalmic (eye) QID 5 days 11/02/23 ointment #3.5 grams spironolactone 25 mg tablet 25 mg PO BEDTIME 90 days #90 tabs 11/05/23 atorvastatin 40 mg tablet 40 mg PO DAILY 90 days #90 tabs 11/10/23 tramadol 50 mg tablet 50 mg PO BID PRN pain 20 days #40 11/16/23 tabs Allergies Allergy/AdvReac Type Severity Reaction Status Date / Time amoxicillin [AMOXICILLIN] Allergy Severe DIFF Verified 11/03/23 12:06 BREATHING [facility] Past Medical History Medical History Enlarged prostate BMI 37.0-37.9, adult Muscle strain Hip pain Screening for colon cancer Right calf pain Hip pain, right Elevated bilirubin Elevated alkaline phosphatase level Obesity Anxiety Depression COPD (chronic obstructive pulmonary disease) GERD (gastroesophageal reflux disease) DDD (degenerative disc disease), cervical History of non-ST elevation myocardial infarction (NSTEMI) History of pulmonary embolism Cataract HLD (hyperlipidemia) HTN (hypertension) Cough NANCY on CPAP Sarcoidosis Asthma Surgical History History of bone marrow biopsy History of tonsillectomy History of vasectomy History of endoscopy History of hernia repair History of colonoscopy Family History Family History Father Family history of high blood pressure Mother History of colon cancer History of abdominal aortic aneurysm (AAA) Brother Prostate cancer Social History Social History Household Members: Spouse Housing: House Do you presently have visiting nurse or other home services: No Alcohol intake: never Patient Tobacco Use Status: Former Tobacco user Tobacco use type: Cigarette e-Cigarette/Vaping Use: Never Used Second Hand Smoke Exposure: No Advance Directives Date on File: 11/13/21 service: No Current occupational status: retired Cognitive needs: No Hearing needs: No Vision needs: No Physical Exam ED Vital Signs: BMI result Body Mass Index 37.3 Course Course Course Narrative: RME- 63 year old male presents for evalaution of left lower quadrant abdominal pain. Plan for labs, UA, CT abdomen and pelvis. He reports a history of diverticulitis and this feels similar. Symptoms started late last night Medical Decision Making Lab Data 08/18/23 18:13 08/18/23 18:13 Labs: Lab Results 08/18/23 Range/Units 18:13 WBC 11.8 H (4.8-10.8) X10*3/uL RBC 5.13 (4.60-5.80) X10*6/uL Hgb 14.5 (14.0-18.0) g/dl Hct 43.8 (42.0-52.0) % MCV 85.4 (80.0-98.0) fL MCH 28.3 (27.0-33.0) pg MCHC 33.1 (31.0-36.0) g/dl RDW 13.2 (11.0-16.0) % Plt Count 271 (160-400) X10*3/uL MPV 9.6 (9.4-12.4) fL Immature Gran % (Auto) 0.5 H (0.0-0.4) % Neut % (Auto) 80.0 H (45-73) % Lymph % (Auto) 6.5 L (20-40) % [place] % (Auto) 11.6 H (2-11) % Eos % (Auto) 1.1 (0-4) % Baso % (Auto) 0.3 (0-2) % Lymph # (Auto) 0.8 L (1.2-4.9) X10*3/uL [place] # (Auto) 1.4 H (0.1-1.2) X10*3/uL Eos # (Auto) 0.1 (0.0-0.4) X10*3/uL Baso # (Auto) 0.0 (0.0-0.2) X10*3/uL Abs Immat Gran (auto) 0.06 H (0.00-0.03) X10*3/uL Absolute Neuts (auto) 9.4 H (2.0-8.3) x10*3/uL Absolute Nucleated RBC 0.000 (0.0-0.012) X10*3/uL Nucleated RBC % (auto) 0.0 (0.0-0.2) /100WBC Sodium 139 (135-145) mmol/L Potassium 4.6 (3.3-5.1) mmol/L Chloride 105 (96-108) mmol/L Carbon Dioxide 26 (22-29) mmol/L Anion Gap 13 (12-20) BUN 17 H (9-16) mg/dL Creatinine 1.15 (0.5-1.4) mg/dL Estim Creat Clear Calc 86.7 Estimated GFR > 60 Random Glucose 107 (60-115) mg/dL Calcium 9.8 (8.4-10.2) mg/dL Total Bilirubin 1.6 H (0.0-1.0) mg/dL AST 16 (5-37) U/L ALT 17 (0-40) U/L Alkaline Phosphatase 130 H (39-117) U/L Total Protein 6.9 (6.5-8.0) g/dL Albumin 4.1 (3.5-5.0) g/dL Lipase 22 (8-78) U/L Discharge Plan Discharge Clinical Impression: Abdominal pain Patient Disposition: Left W/O Completing Treatment Prescriptions: No Action ProAir RespiClick 90 mcg/actuation aerosol powdr breath activated 2 inh inhalation Q6H PRN (Reason: Shortness Of Breath) 30 Days Qty: 1 11RF mycophenolate mofetil [CellCept] 500 mg tablet 500 mg PO BID 30 Days Qty: 60 6RF carvedilol 6.25 mg tablet 6.25 mg PO BID Qty: 180 1RF citalopram 20 mg tablet 20 mg PO BEDTIME 90 Days Qty: 90 1RF lisinopril 40 mg tablet 40 mg PO BEDTIME Qty: 90 1RF fluticasone propion-salmeterol [Advair HFA] 115-21 mcg/actuation HFA aerosol inhaler 2 puff inhalation Q12H 30 Days Qty: 12 11RF spironolactone 25 mg tablet 25 mg PO BEDTIME 90 Days Qty: 90 1RF atorvastatin 40 mg tablet 40 mg PO DAILY 90 Days Qty: 90 1RF tramadol 50 mg tablet 50 mg PO BID PRN (Reason: pain) 20 Days Qty: 40 0RF multivitamin Tablet 1 tab PO DAILY cholecalciferol (vitamin D3) [Vitamin D3] 25 mcg (1,000 unit) Tablet 25 mcg PO DAILY aspirin 81 mg capsule 81 mg PO DAILY Qty: 30 0RF cetirizine [All Day Allergy (cetirizine)] 10 mg tablet 10 mg PO DAILY PRN (Reason: Allergic Symptoms) erythromycin 5 mg/gram (0.5 %) ointment 1 appl ophthalmic (eye) QID 5 Days Qty: 3.5 1RF Rx Instructions: Apply 0.5 inch to lower lid of eyes 4 times daily for 5 days (DME) nebulizers Misc See Rx Instructions .Route Rx Instructions: As directed (DME) CPAP Machine/Device Device See Rx Instructions .Route Rx Instructions: As directed Adult 50 Plus Probiotic 4 billion cell capsule 4,000 mmu cells PO DAILY Rx Instructions: administer with a meal albuterol sulfate 2.5 mg /3 mL (0.083 %) solution for nebulization 2.5 mg inhalation Q6H PRN (Reason: shortness of breath or wheezing) 30 Days Qty: 180 11RF famotidine [Pepcid] 20 mg tablet 20 mg PO DAILY erythromycin 5 mg/gram (0.5 %) ointment 1 appl ophthalmic (eye) DAILY Discharge Date/Time: 08/18/23 21:29
[2023-08-18 18:19] LABS: MANUAL DIFF FLAG NO
[2023-08-18 18:21] LABS: Basophils Percent Auto 0.3 % (0-2); Eosinophils Absolute Auto 0.1 X10*3/uL (0.0-0.4); Eosinophils Percent Auto 1.1 % (0-4); Hematocrit 43.8 % (42.0-52.0); Hemoglobin 14.5 g/dl (14.0-18.0); Imm Gran Abs Auto 0.06 X10*3/uL (0.00-0.03); Imm Gran Pct Auto 0.5 % (0.0-0.4); Lymphocytes Absolute Auto 0.8 X10*3/uL (1.2-4.9); Lymphocytes Percent Auto 6.5 % (20-40); Mean Corpuscular HGB Conc 33.1 g/dl (31.0-36.0); Mean Corpuscular Hemoglobin 28.3 pg (27.0-33.0); Mean Corpuscular Volume 85.4 fL (80.0-98.0); Mean Platelet Volume 9.6 fL (9.4-12.4); Monocytes Absolute Auto 1.4 X10*3/uL (0.1-1.2); Monocytes Percent Auto 11.6 % (2-11); Neutrophils Absolute Auto 9.4 x10*3/uL (2.0-8.3); Platelet Count 271 X10*3/uL (160-400); Red Blood Count 5.13 X10*6/uL (4.60-5.80); Red Cell Distribution Width 13.2 % (11.0-16.0); White Blood Count 11.8 X10*3/uL (4.8-10.8)
[2023-08-18 18:45] LABS: Alanine Aminotransferase 17 U/L (0-40); Albumin Level 4.1 g/dL (3.5-5.0); Alkaline Phosphatase 130 U/L (39-117); Anion Gap 13 (12-20); Aspartate Amino Transferase 16 U/L (5-37); Bilirubin Total 1.6 mg/dL (0.0-1.0); Blood Urea Nitrogen 17 mg/dL (9-16); Calcium 9.8 mg/dL (8.4-10.2); Carbon Dioxide 26 mmol/L (22-29); Chloride 105 mmol/L (96-108); Creatinine Clr Calc Pharmacy 86.7; Estimated Glomerular Filt Rate > 60; Glucose Random 107 mg/dL (60-115); Lipase 22 U/L (8-78); Potassium 4.6 mmol/L (3.3-5.1); Sodium 139 mmol/L (135-145); Total Protein 6.9 g/dL (6.5-8.0)
== END 2023-08-18 21:29 | disposition left against medical advice (07) ==
PROVIDERS: Physician Assistant; Emergency Provider Emergency Medicine; PCP Nurse Practitioner Family
DX: R10.32 Left lower quadrant pain (principal); Z79.899 Other long term (current) drug therapy; Z87.891 Personal history of nicotine dependence
CPT/HCPCS: 36415; 80053; 83690; 85025; 99281; 99283

== ENCOUNTER 2023-08-19 10:31 | Emergency (ER) | payer OTHER, SELFPAY ==
--- NOTE | ~2023-08-19 | CT_ITS ---
EXAMINATION: CT ABDOMEN AND PELVIS WITH CONTRAST CLINICAL INFORMATION: Abdominal pain. History of diverticulitis. COMPARISON: Previous CT of the abdomen and pelvis January 2023 TECHNIQUE: Multidetector volumetric images were obtained from the superior aspect of the liver through the pubic symphysis following administration 85 mL of Omnipaque 350 intravenous contrast. Sagittal and coronal reformatted images were obtained on the technologist's workstation. Oral contrast: Yes This CT examination was performed using dose optimization techniques as appropriate, variously including the following: *Automated exposure control *Adjustment of mA and/or kV according to patient size (this includes techniques or standardized protocols for targeted exams where dose is matched to indication/reason for exam; i.e. extremities or head) *Use of iterative reconstruction technique DLP: 782 mGy-cm FINDINGS: LUNG BASES: The visualized lung bases are unremarkable. LIVER, GALLBLADDER, AND BILIARY TREE: The liver is normal in size, shape, and attenuation. No focal hepatic lesion or biliary ductal dilatation is present. The gallbladder is unremarkable with no evidence of radiopaque gallstones, gallbladder wall thickening, or obvious pericholecystic inflammatory changes. PANCREAS: Unremarkable. SPLEEN: Unremarkable. ADRENAL GLANDS: Unremarkable. KIDNEYS AND URETERS: The kidneys are normal in size, shape, and attenuation. Small bilateral nonobstructing renal stones. Small right renal cysts. No imaging follow-up recommended. BLADDER: Not optimally distended . GASTROINTESTINAL TRACT: There is diverticulosis of the colon. There is mild wall thickening of the proximal sigmoid colon and stranding of the adjacent fat suggestive of diverticulitis. No evidence of obstruction, perforation or abscess. The small and large bowel are otherwise unremarkable. The appendix is unremarkable. ABDOMINAL WALL: Small umbilical hernia containing fat LYMPH NODES: Prominent retroperitoneal lymph nodes. These are similar to January 2023 exam. Largest lymph nodes are left periaortic lymph node measuring 1.2 cm in short axis axial image 38, right external iliac lymph node measuring 1.4 cm and left common iliac lymph node measuring 1.5 cm in short axis axial image 62 series 3. No ascites. VASCULAR: Unremarkable. PELVIC VISCERA: Slightly enlarged measuring 4.2 x 5.2 cm. OSSEOUS STRUCTURES: Mild degenerative changes of the spine and hip joints. CT/CT abdomen pelvis w IV con IMPRESSION: Mild sigmoid diverticulitis. Small nonobstructing bilateral renal stones. Enlarged prostate gland. Stable retroperitoneal lymphadenopathy. Fleischner guidelines were followed.
[2023-08-19 11:48] VITALS: BP 115/81; PULSE 71; RESP 17; TEMP 36.3; O2SAT 96; BMI 36.3
--- NOTE | 2023-08-19 11:48 | ED_ITS ---
HPI - Abdominal Pain General Chief Complaint: Abdominal Pain Stated Complaint: abd pain Time Seen by Provider: 08/19/23 13:33 Source: patient Mode of arrival: ambulatory Limitations: no limitations History of Present Illness HPI narrative: Patient is a 63 year old assigned male at with a history of diverticulosis, HTN, and GERD presenting to the emergency department today with abdominal pain. Patient states that over the last 3 days he has had abdominal pain and yesterday, he had a fever. Patient denies any dizziness, lightheadedness, vomiting, fever, chills, blurry vision, double vision, loss of vision, chest pain, difficulty breathing, shortness of breath, back pain, night sweats, pain with urination, increased urinary frequency, increased urinary urgency, blood in his urine or stool, syncope or a near syncopal episode, recent trauma or falls, bowel incontinence, bladder incontinence, bowel retention, bladder retention, or any other complaints at this time. MD elicited complaint: abdominal pain Pertinent past history: diverticulitis Onset (ago): day(s) (3) Pain Consistency: constant Location: other Severity: mild Radiation: none Exacerbating factors: nothing Relieving factors: nothing Associated symptoms: nausea Related Data Home Medications Medication Instructions Recorded Confirmed cholecalciferol (vitamin D3) 25 25 mcg PO DAILY 11/13/21 07/26/23 mcg (1,000 unit) tablet (Vitamin D3) multivitamin 1 tab PO DAILY 11/13/21 07/26/23 cetirizine 10 mg tablet (All Day 10 mg PO DAILY PRN Allergic 05/12/22 07/26/23 Allergy (cetirizine)) Symptoms lactobacillus combination no.9 4 4,000 mmu cells PO DAILY 11/30/22 07/26/23 billion cell capsule (Adult 50 Plus Probiotic) CPAP (CPAP Machine/Device) 12/13/22 07/26/23 nebulizers 12/13/22 07/26/23 famotidine 20 mg tablet (Pepcid) 20 mg PO DAILY 07/26/23 07/26/23 Previous Rx's Medication Instructions Recorded aspirin 81 mg capsule 81 mg PO DAILY #30 caps 11/15/21 lisinopril 40 mg tablet 40 mg PO BEDTIME #90 tabs 02/01/23 albuterol sulfate 90 mcg/actuation 2 inh inhalation Q6H PRN Shortness 02/16/23 breath activated powder inhaler Of Breath 30 days #1 ea (ProAir RespiClick) atorvastatin 40 mg tablet 40 mg PO DAILY 90 days #90 tabs 02/22/23 spironolactone 25 mg tablet 25 mg PO BEDTIME 90 days #90 tabs 03/02/23 sodium sul 1.479 gram-potas ch See Rx Instructions PO PER PKG DIR 03/06/23 0.188 gram-magnes sul 0.225 gram #24 tabs tablet (Sutab) albuterol sulfate 2.5 mg/3 mL 2.5 mg (3 mL) inhalation Q6H PRN 03/16/23 (0.083 %) solution for nebulization shortness of breath or wheezing 30 days #180 mL fluticasone propionate 115 2 puff inhalation Q12H 30 days #12 03/16/23 mcg-salmeterol 21 mcg/actuation grams HFA inhaler (Advair HFA) mycophenolate mofetil 500 mg 500 mg PO BID 30 days #60 tabs 05/25/23 tablet (CellCept) carvedilol 6.25 mg tablet 6.25 mg PO BID #180 tabs 06/22/23 citalopram 20 mg tablet 20 mg PO BEDTIME 90 days #90 tabs 06/22/23 tramadol 50 mg tablet 50 mg PO BID PRN pain 20 days #40 07/06/23 tabs cyclobenzaprine 10 mg tablet 10 mg PO BEDTIME PRN muscle spasm 07/13/23 #20 tabs ciprofloxacin HCl 500 mg tablet 500 mg PO BID 7 days #14 tabs 08/19/23 (Cipro) metronidazole 500 mg tablet 500 mg PO TID 7 days #21 tabs 08/19/23 Allergies Allergy/AdvReac Type Severity Reaction Status Date / Time amoxicillin [AMOXICILLIN] Allergy Severe DIFF Verified 08/18/23 18:02 BREATHING Review of Systems Constitutional: Reports no additional constitutional complaints, Denies chills, Denies fever(s) and Denies night sweats Eyes: Reports no additional eye complaints, Denies blurry vision, Denies change in vision, Denies diplopia, Denies eye discharge, Denies loss of vision and Denies eye pain Denies dizziness Cardiovascular: Reports no additional cardiovascular complaints, Denies chest pain, Denies lightheadedness, Denies Loss of Consciousness and Denies dyspnea Respiratory: Reports no additional respiratory complaints and Denies dyspnea Gastrointestinal: Reports no additional gastrointestinal complaints, Reports abdominal pain, Denies melena, Denies hematochezia, Denies change in bowel habits and Denies change in stool character Genitourinary: Reports no additional male genitourinary complaints, Denies hematuria, Denies oliguria, Denies difficulty urinating, Denies dysuria, Denies urinary frequency, Denies urinary hesitancy, Denies urinary incontinence and Denies urinary urgency Musculoskeletal: Reports no additional musculoskeletal complaints, Denies numbness and Denies tingling Denies dizziness, Denies loss of vision, Denies numbness and Denies tingling Psychiatric: Reports no additional psychiatric complaints Endocrine: Reports no additional endocrine complaints Hematologic/Lymphatic: Reports no additional hematologic/lymphatic complaints Allergic/Immunologic: Reports no additional allergic/immunologic complaints PMFSH Past Medical History Attestation statement: The following information was validated with the patient. Source: old records reviewed and nursing notes reviewed Medical History BMI 37.0-37.9, adult Muscle strain Hip pain Screening for colon cancer Right calf pain Hip pain, right Elevated bilirubin Elevated alkaline phosphatase level Obesity Anxiety Depression COPD (chronic obstructive pulmonary disease) GERD (gastroesophageal reflux disease) DDD (degenerative disc disease), cervical History of non-ST elevation myocardial infarction (NSTEMI) History of pulmonary embolism Cataract HLD (hyperlipidemia) HTN (hypertension) Cough NANCY on CPAP Sarcoidosis Asthma Surgical History History of bone marrow biopsy History of tonsillectomy History of vasectomy History of endoscopy History of hernia repair History of colonoscopy Family History Family History Father Family history of high blood pressure Mother History of colon cancer History of abdominal aortic aneurysm (AAA) Brother Prostate cancer Social History Social History Household Members: Spouse Housing: House Do you presently have visiting nurse or other home services: No Alcohol intake: never Patient Tobacco Use Status: Former Tobacco user Tobacco use type: Cigarette e-Cigarette/Vaping Use: Never Used Second Hand Smoke Exposure: No Advance Directives: Yes Advance Directives on File: Yes Advance Directives Date on File: 11/13/21 service: No Current occupational status: retired Cognitive needs: No Hearing needs: No Vision needs: No Physical Exam ED Vital Signs: Vital Signs - 24 hr 08/19/23 11:48 08/19/23 13:58 Temperature 97.3 F Pulse Rate 71 74 Respiratory Rate 17 20 Blood Pressure 115/81 120/75 Pulse Oximetry 96 94 Oxygen Delivery Method Room Air Room Air BMI result Body Mass Index 36.3 Const General: cooperative, no acute distress, alert and awake Nutritional Appearance: well nourished Orientation/consciousness: patient oriented x3 Limitations: no limitations HENMT Head: Yes normal to inspection and Yes atraumatic Ears: hearing grossly normal bilaterally and external ears normal General nose exam: Normal external nose present, no nasal discharge noted and no epistaxis Face and sinus: Yes normal facial exam, No abrasion and No laceration Mouth: Normal oral and palatal mucosa present, no drooling and no muffled voice Eyes General: appearance normal, both eyes and all related structures Periorbital: periorbital findings normal Eyelids: Yes eyelids normal Conjunctivae: conjunctivae normal Pupils: Equal, round and reactive pupils present EOM: EOMs intact bilaterally Neck Neck: Yes normal visual inspection, Yes full ROM and Yes no lymphadenopathy Chest Chest palpation & inspection: normal inspection of the chest Resp Effort & Inspection: normal respiratory effort and able to speak in complete sentences GI Inspection: Yes normal to inspection Palpation (GI): Soft to palpation, not firm, nontender, no guarding and not rigid Neuro General: patient oriented x3 and moves all extremities Cranial nerves: Yes Equal, round and reactive pupils present Cognition (Neuro): normal cognition Motor exam (neuro): 5/5 motor strength present throughout Sensory Exam: Normal double simultaneous stimulation for sensation Coordination: [id number] test normal Extrem General: Yes normal to inspection, Yes full ROM and Yes capillary refill normal Psych Appearance: grossly normal Mental Status: mental status grossly normal Affect: normal affect Attitude: cooperative Thought process: Normal thought process present Thought content: Normal thought content present Insight: Good insight present (Psych) Course Course Course Narrative: This is a rapid medical exam. Deferred additional HPI, ROS, PE to primary provider. 63 yo with history of HTN, HLD, sarcodosis here with complaints of LLQ pain since with fever 101.4, nausea. History of diverticulitis and feels similar. Will obtain labs including lactic acid, blood culture Will need CT A/P VSS Medical Decision Making Medical Decision Making [facility] Narrative: Patient is a 63 year old assigned male at with a history of diverticulosis, HTN, and GERD presenting to the emergency department today with abdominal pain. Patient's physical exam was unremarkable. Patient's blood work was unremarkable. Patient's CT abd/pelvis showed diverticulitis with no perforation. I explained my physical exam findings as well as all test results to the patient. I answered all questions asked by the patient. I stressed the importance of the patient taking his medication as prescribed. I stressed the importance of the patient following up with his primary care provider. I stressed the importance of the patient returning to the emergency department immediately if his symptoms were to worsen or if he were to develop any dizziness, shortness of breath, difficulty breathing, chest pain, blurry vision, loss of vision, nausea, vomiting, abdominal pain, fever, chills, back pain, or any other complaints. Patient verbalized agreement and understanding with this treatment plan and discharge. Differential Diagnosis Differential Diagnoses: The differential diagnosis associated with the presentation includes Abdominal pain Gastroenteritis Gastritis Diverticulitis Admission/Observation Consideration of admission/observation: Escalation of care including admission/observation considered Patient would have been admitted to the hospital had his work up had any findings where hospital admission was appropriate and his clinical presentation warranted hospital admission. Lab Data MDM Lab Attestation statement: I reviewed the patient's lab results. My interpretation of these studies and their corresponding values is that they are grossly normal. 08/19/23 13:13 08/19/23 13:13 Labs: Lab Results 08/19/23 Range/Units 13:13 WBC 8.5 (4.8-10.8) X10*3/uL RBC 5.27 (4.60-5.80) X10*6/uL Hgb 15.0 (14.0-18.0) g/dl Hct 45.5 (42.0-52.0) % MCV 86.3 (80.0-98.0) fL MCH 28.5 (27.0-33.0) pg MCHC 33.0 (31.0-36.0) g/dl RDW 13.2 (11.0-16.0) % Plt Count 267 (160-400) X10*3/uL MPV 9.8 (9.4-12.4) fL Immature Gran % (Auto) 0.6 H (0.0-0.4) % Neut % (Auto) 79.6 H (45-73) % Lymph % (Auto) 7.7 L (20-40) % [place] % (Auto) 9.9 (2-11) % Eos % (Auto) 1.8 (0-4) % Baso % (Auto) 0.4 (0-2) % Lymph # (Auto) 0.7 L (1.2-4.9) X10*3/uL [place] # (Auto) 0.8 (0.1-1.2) X10*3/uL Eos # (Auto) 0.2 (0.0-0.4) X10*3/uL Baso # (Auto) 0.0 (0.0-0.2) X10*3/uL Abs Immat Gran (auto) 0.05 H (0.00-0.03) X10*3/uL Absolute Neuts (auto) 6.8 (2.0-8.3) x10*3/uL Absolute Nucleated RBC 0.000 (0.0-0.012) X10*3/uL Nucleated RBC % (auto) 0.0 (0.0-0.2) /100WBC Sodium 141 (135-145) mmol/L Potassium 5.2 H (3.3-5.1) mmol/L Chloride 105 (96-108) mmol/L Carbon Dioxide 27 (22-29) mmol/L Anion Gap 14 (12-20) BUN 20 H (9-16) mg/dL Creatinine 1.26 (0.5-1.4) mg/dL Estim Creat Clear Calc 78.1 Estimated GFR 58 Random Glucose 105 (60-115) mg/dL Lactic Acid 0.7 (0.5-2.0) mmol/L Calcium 10.3 H (8.4-10.2) mg/dL Total Bilirubin 2.0 H (0.0-1.0) mg/dL Direct Bilirubin 0.7 H (0.0-0.5) mg/dL AST 16 (5-37) U/L ALT 16 (0-40) U/L Alkaline Phosphatase 125 H (39-117) U/L Total Protein 7.3 (6.5-8.0) g/dL Albumin 4.3 (3.5-5.0) g/dL Independent Interpretation I performed an independent interpretation of an: CT Scan Interpretation: My interpretation is in agreement with the radiologist's impression of this imaging study. - EXAMINATION: CT ABDOMEN AND PELVIS WITH CONTRAST CLINICAL INFORMATION: Abdominal pain. History of diverticulitis. COMPARISON: Previous CT of the abdomen and pelvis January 2023 TECHNIQUE: Multidetector volumetric images were obtained from the superior aspect of the liver through the pubic symphysis following administration 85 mL of Omnipaque 350 intravenous contrast. Sagittal and coronal reformatted images were obtained on the technologist's workstation. Oral contrast: Yes This CT examination was performed using dose optimization techniques as appropriate, variously including the following: *Automated exposure control *Adjustment of mA and/or kV according to patient size (this includes techniques or standardized protocols for targeted exams where dose is matched to indication/reason for exam; i.e. extremities or head) *Use of iterative reconstruction technique DLP: 782 mGy-cm FINDINGS: LUNG BASES: The visualized lung bases are unremarkable. LIVER, GALLBLADDER, AND BILIARY TREE: The liver is normal in size, shape, and attenuation. No focal hepatic lesion or biliary ductal dilatation is present. The gallbladder is unremarkable with no evidence of radiopaque gallstones, gallbladder wall thickening, or obvious pericholecystic inflammatory changes. PANCREAS: Unremarkable. SPLEEN: Unremarkable. ADRENAL GLANDS: Unremarkable. KIDNEYS AND URETERS: The kidneys are normal in size, shape, and attenuation. Small bilateral nonobstructing renal stones. Small right renal cysts. No imaging follow-up recommended. BLADDER: Not optimally distended . GASTROINTESTINAL TRACT: There is diverticulosis of the colon. There is mild wall thickening of the proximal sigmoid colon and stranding of the adjacent fat suggestive of diverticulitis. No evidence of obstruction, perforation or abscess. The small and large bowel are otherwise unremarkable. The appendix is unremarkable. ABDOMINAL WALL: Small umbilical hernia containing fat LYMPH NODES: Prominent retroperitoneal lymph nodes. These are similar to January 2023 exam. Largest lymph nodes are left periaortic lymph node measuring 1.2 cm in short axis axial image 38, right external iliac lymph node measuring 1.4 cm and left common iliac lymph node measuring 1.5 cm in short axis axial image 62 series 3. No ascites. VASCULAR: Unremarkable. PELVIC VISCERA: Slightly enlarged measuring 4.2 x 5.2 cm. OSSEOUS STRUCTURES: Mild degenerative changes of the spine and hip joints. CT/CT abdomen pelvis w IV con IMPRESSION: Mild sigmoid diverticulitis. Small nonobstructing bilateral renal stones. Enlarged prostate gland. Stable retroperitoneal lymphadenopathy. Fleischner guidelines were followed. Dictated By: Ade Schwarz MD Signed By: Electronically signed by Ade Schwarz MD 08/19/23 6401 Radiology Impression Discussion of test interpretation with radiology: I have reviewed the radiologist's reading. Prescription Management I considered prescription management with: Antibiotic (patient prescribed antibiotics for his diverticulitis) Chronic Conditions Patient?s care impacted by: Hypertension Medications Administered Discontinued Medications Generic Name Dose Route Start Last Admin Trade Name Freq PRN Reason Stop Dose Admin Iohexol 85 ml 08/19/23 16:03 08/19/23 16:04 Iohexol 350 Mg/Ml 100 Ml Infus..Btl IV 08/19/23 16:04 85 ml ONCE ONE Administration Discharge Plan Discharge Clinical Impression: Diverticulitis Patient Disposition: Home, Self-Care Instructions: Diverticulitis (ED) Additional Instructions: Follow up with your primary care provider. Return to the emergency department immediately if your symptoms worsen or if you develop any dizziness, shortness of breath, difficulty breathing, chest pain, blurry vision, loss of vision, nausea, vomiting, abdominal pain, fever, chills, back pain, or any other complaints. Prescriptions: New metronidazole 500 mg tablet 500 mg PO TID 7 Days Qty: 21 0RF ciprofloxacin HCl [Cipro] 500 mg tablet 500 mg PO BID 7 Days Qty: 14 0RF No Action lisinopril 40 mg tablet 40 mg PO BEDTIME Qty: 90 1RF ProAir RespiClick 90 mcg/actuation aerosol powdr breath activated 2 inh inhalation Q6H PRN (Reason: Shortness Of Breath) 30 Days Qty: 1 11RF atorvastatin 40 mg tablet 40 mg PO DAILY 90 Days Qty: 90 1RF spironolactone 25 mg tablet 25 mg PO BEDTIME 90 Days Qty: 90 1RF mycophenolate mofetil [CellCept] 500 mg tablet 500 mg PO BID 30 Days Qty: 60 6RF carvedilol 6.25 mg tablet 6.25 mg PO BID Qty: 180 1RF citalopram 20 mg tablet 20 mg PO BEDTIME 90 Days Qty: 90 1RF tramadol 50 mg tablet 50 mg PO BID PRN (Reason: pain) 20 Days Qty: 40 0RF multivitamin Tablet 1 tab PO DAILY cholecalciferol (vitamin D3) [Vitamin D3] 25 mcg (1,000 unit) Tablet 25 mcg PO DAILY aspirin 81 mg capsule 81 mg PO DAILY Qty: 30 0RF cetirizine [All Day Allergy (cetirizine)] 10 mg tablet 10 mg PO DAILY PRN (Reason: Allergic Symptoms) cyclobenzaprine 10 mg tablet 10 mg PO BEDTIME PRN (Reason: muscle spasm) Qty: 20 0RF Rx Instructions: do not take concurrently with tramadol (DME) nebulizers Misc See Rx Instructions .Route Rx Instructions: As directed (DME) CPAP Machine/Device Device See Rx Instructions .Route Rx Instructions: As directed Adult 50 Plus Probiotic 4 billion cell capsule 4,000 mmu cells PO DAILY Rx Instructions: administer with a meal fluticasone propion-salmeterol [Advair HFA] 115-21 mcg/actuation HFA aerosol inhaler 2 puff inhalation Q12H 30 Days Qty: 12 11RF albuterol sulfate 2.5 mg /3 mL (0.083 %) solution for nebulization 2.5 mg inhalation Q6H PRN (Reason: shortness of breath or wheezing) 30 Days Qty: 180 11RF Sutab 1.479-0.188- 0.225 gram tablet See Rx Instructions PO PER PKG DIR Qty: 24 0RF Rx Instructions: PO PER PKG DIR famotidine [Pepcid] 20 mg tablet 20 mg PO DAILY Referrals: Yury Menchaca, RELIGIOUS ACTIVITIES DIRECTOR-BC [Primary Care Provider] - Print Language: Moldovan
[2023-08-19 13:20] LABS: MANUAL DIFF FLAG NO
[2023-08-19 13:24] LABS: Basophils Percent Auto 0.4 % (0-2); Eosinophils Absolute Auto 0.2 X10*3/uL (0.0-0.4); Eosinophils Percent Auto 1.8 % (0-4); Hematocrit 45.5 % (42.0-52.0); Imm Gran Abs Auto 0.05 X10*3/uL (0.00-0.03); Imm Gran Pct Auto 0.6 % (0.0-0.4); Lymphocytes Absolute Auto 0.7 X10*3/uL (1.2-4.9); Lymphocytes Percent Auto 7.7 % (20-40); Mean Corpuscular Hemoglobin 28.5 pg (27.0-33.0); Mean Corpuscular Volume 86.3 fL (80.0-98.0); Mean Platelet Volume 9.8 fL (9.4-12.4); Monocytes Absolute Auto 0.8 X10*3/uL (0.1-1.2); Monocytes Percent Auto 9.9 % (2-11); Neutrophils Absolute Auto 6.8 x10*3/uL (2.0-8.3); Neutrophils Percent Auto 79.6 % (45-73); Platelet Count 267 X10*3/uL (160-400); Red Blood Count 5.27 X10*6/uL (4.60-5.80); Red Cell Distribution Width 13.2 % (11.0-16.0); White Blood Count 8.5 X10*3/uL (4.8-10.8)
[2023-08-19 13:33] LABS: Lactic Acid 0.7 mmol/L (0.5-2.0)
[2023-08-19 13:38] LABS: Alanine Aminotransferase 16 U/L (0-40); Albumin Level 4.3 g/dL (3.5-5.0); Alkaline Phosphatase 125 U/L (39-117); Anion Gap 14 (12-20); Aspartate Amino Transferase 16 U/L (5-37); Bilirubin Direct 0.7 mg/dL (0.0-0.5); Blood Urea Nitrogen 20 mg/dL (9-16); Calcium 10.3 mg/dL (8.4-10.2); Carbon Dioxide 27 mmol/L (22-29); Chloride 105 mmol/L (96-108); Creatinine Clr Calc Pharmacy 78.1; Estimated Glomerular Filt Rate 58; Glucose Random 105 mg/dL (60-115); Potassium 5.2 mmol/L (3.3-5.1); Sodium 141 mmol/L (135-145); Total Protein 7.3 g/dL (6.5-8.0)
[2023-08-19 13:58] VITALS: BP 120/75; PULSE 74; RESP 20; O2SAT 94
[2023-08-19] MEDS: iohexoL 350 MG/ML 100 ML INFUS..BTL 85 ML IV (16:04)
[2023-08-19] MEDS: levoFLOXacin 750 MG TABLET PO (17:26)
[2023-08-19] MEDS: metroNIDAZOLE 500 MG TABLET PO (17:26)
== END 2023-08-19 17:30 | disposition home or self-care (01) ==
PROVIDERS: Nurse Practitioner Family; Emergency Provider Emergency Medicine Emergency Medical Services; PCP Nurse Practitioner Family
DX: K57.92 Diverticulitis of intestine, part unspecified, without perforation or abscess without bleeding (principal); N20.0 Calculus of kidney; N40.0 Benign prostatic hyperplasia without lower urinary tract symptoms; R59.1 Generalized enlarged lymph nodes; R10.9 Unspecified abdominal pain; J44.9 Chronic obstructive pulmonary disease, unspecified
CPT/HCPCS: 36415; 74177; 80048; 80076; 83605; 85025; 87040; 99283; 99284; Q9967

== ENCOUNTER 2023-10-13 14:43 | Outpatient (AMB) | payer OTHER, SELFPAY ==
--- NOTE | 2023-10-13 14:55 | A.OFFVIS_ITS ---
Intake Intake Visit Reasons: Elevated PSA Intake Note: NEW Patient presents today to established treatment for Elevated PSA : Meds- None Allergies to Antibiotic- Amoxicillin Blood Thinner- Aspirin Post Void Residual: 29 mL Service Porter Required: No Accompanied by: Self / Same As Patient Allergies amoxicillin [AMOXICILLIN] Allergy (Severe, Verified 10/13/23 15:19) DIFF BREATHING HPI HPI Comments History of Present Illness Details Christiano is a 63 year old male who is here for evaluation for elevated PSA and enlarged prostate. The patient has history of kidney stones. Family history of prostate cancer his brother is 3 years older than him was diagnosed with prostate cancer age 63 The patient feels he empties his bladder adequately. Does admit to occasional urgency, nocturia x1 AUA symptom score 19/35. Review of labs 05/19/2022 PSA--1.99 06/22/2023--PSA--2.84 I have reviewed chart, imaging CT scan August 2023 small bilateral kidney stones, I have reviewed the films with the patient. I have discussed PSA is a blood test, prostate specific antigen and is an enzyme secreted by the prostate gland. Elevated PSA may be due to multiple conditions including prostate inflammatory condition, enlarged prostate or prostate can cer. UA--negative blood negative leukocytes Prostate Exam: Mild to moderately enlarged with mildly irregularity on the right side, no hard nodules Plan: Discussed trial of alpha sammy to help with urinary flow. Patient declined. Repeat PSA in 4 months [facility] Medical History Enlarged prostate BMI 37.0-37.9, adult Muscle strain Hip pain Screening for colon cancer Right calf pain Hip pain, right Elevated bilirubin Elevated alkaline phosphatase level Obesity Anxiety Depression COPD (chronic obstructive pulmonary disease) GERD (gastroesophageal reflux disease) DDD (degenerative disc disease), cervical History of non-ST elevation myocardial infarction (NSTEMI) History of pulmonary embolism Cataract HLD (hyperlipidemia) HTN (hypertension) Cough NANCY on CPAP Sarcoidosis Asthma Surgical History History of bone marrow biopsy History of tonsillectomy History of vasectomy History of endoscopy History of hernia repair History of colonoscopy Family History Father Family history of high blood pressure Mother History of colon cancer History of abdominal aortic aneurysm (AAA) Brother Prostate cancer Social History Household Members: Spouse Housing: House Do you presently have visiting nurse or other home services: No Alcohol intake: never Patient Tobacco Use Status: Former Tobacco user Tobacco use type: Cigarette e-Cigarette/Vaping Use: Never Used Second Hand Smoke Exposure: No Advance Directives Date on File: 11/13/21 service: No Current occupational status: retired Cognitive needs: No Hearing needs: No Vision needs: No Questionnaire AUA Symptom Score AUA Incomplete emptying - It does not feel like I empty my bladder all the way.: 4 - More than half the time Frequency - I have to go again less than two hours after I finish urinating.: 5 - Almost always Intermittency - I stop and start again several times when I urinate.: 4 - More than half the time Urgency - It is hard to wait when I have to urinate.: 3 - About half the time Weak stream - I have a weak urinary stream.: 2 - Less than half the time Straining - I have to push or strain to begin urination.: 0 - Not at all Nocturia - I get up to urinate after I go to bed until the time I get up in the morning.: 1 time AUA Symptom Score: 19 Quality of life due to urinary symptoms: If you were to spend the rest of your life with your urinary condition the way it is now, how would you feel about that?: Mostly Satisfied Source: Jose Juan HERNANDEZ, Ranjana DUNN Jr, O'Bertram MP, et al, and the Measurement Committee of the [employer]. The [employer] symptom index for benign prostatic hyperplasia. J Urol. 1992; 148: 4916-2325. Copyright 1992 [employer] Review of Systems Const All systems reviewed & are unremarkable except as noted in HPI and below Reports no additional complaints Eyes Reports no additional complaints ENT Reports no additional complaints Card Denies dyspnea Resp Denies cough and Denies dyspnea GI Reports no additional complaints Musc Reports no additional complaints Skin/Breast Denies rash and Denies unusual bruising Neuro Reports no additional complaints Psych Reports no additional complaints Endo Reports no additional complaints Sy/Lymph Reports no additional complaints Aller/Immun Reports no additional complaints Physical Exam Const General: healthy appearing, no acute distress and well developed Nutritional Appearance: overweight Orientation/consciousness: patient oriented x3 HEENT Head: Yes normocephalic and Yes atraumatic Eyes Conjunctivae: conjunctivae normal Neck Neck: Yes normal visual inspection Chest Chest palpation & inspection: normal inspection of the chest Resp Effort & Inspection: normal respiratory effort Cardio Rate: regular rate GI Inspection: Yes normal to inspection Palpation (GI): Soft to palpation Other: Prostate Exam: Mild to moderately enlarged new mildly irregular on the right side, no hard nodules Skin General skin exam: no rashes or lesions noted Neuro General: patient oriented x3 Extrem General: No pedal edema Psych Appearance: grossly normal Affect: normal affect Office Procedures Post Void Residual Post Residual Void Post Void Residual (PVR): 29 13850-Cggs Void Residual by ultrasound Results AMB Urinalysis, Automated UA Leukoctes 0 Danica/uL Last Edit by HONORIO Rg on 10/13/23 15:26 UA Nitrite Negative Last Edit by HONORIO Rg on 10/13/23 15:26 UA Urobilinogen 0.2 mg/dL Last Edit by HONORIO Rg on 10/13/23 15:2 6 UA Protein 0 mg/dL Last Edit by HONORIO Rg on 10/13/23 15:26 UA pH 6.0 Last Edit by HONORIO Rg on 10/13/23 15:26 UA Blood 0 Bong/uL Last Edit by HONORIO Rg on 10/13/23 15:26 UA Specific [place] 1.020 Last Edit by HONORIO Rg on 10/13/23 15: 26 UA Ketone Negative Last Edit by HONORIO Rg on 10/13/23 15:26 UA Bilirubin 0 mg/dL Last Edit by HONORIO Rg on 10/13/23 15:26 UA Glucose 0 mg/dL Last Edit by HONORIO Rg on 10/13/23 15:26 Results Reviewed Results Reviewed: Laboratory Last Values Urine pH (Auto) 6.0 10/13/23 15:24 Specific [place] (Auto) 1.020 10/13/23 15:24 Urine Protein (Auto) 0 mg/dL 10/13/23 15:24 Glucose (UA)(Auto) 0 mg/dL 10/13/23 15:24 Urine Ketones (Auto) Negative 10/13/23 15:24 Urine Blood (Auto) 0 Bong/uL 10/13/23 15:24 Urine Nitrite (Auto) Negative 10/13/23 15:24 Urine Bilirubin (Auto) 0 mg/dL 10/13/23 15:24 Urine Urobilinogen (Auto) 0.2 mg/dL 10/13/23 15:24 Leukocyte Esterase (Auto) 0 Danica/uL 10/13/23 15:24 Date of Service: 08/19/23 Procedure(s): CT abdomen pelvis w IV con Accession Number(s): [id number] cc: Patito Smith; Yury Menchaca [facility]-~ EXAMINATION: CT ABDOMEN AND PELVIS WITH CONTRAST CLINICAL INFORMATION: Abdominal pain. History of diverticulitis. COMPARISON: Previous CT of the abdomen and pelvis January 2023 TECHNIQUE: Multidetector volumetric images were obtained from the superior aspect of the liver through the pubic symphysis following administration 85 mL of Omnipaque 350 intravenous contrast. Sagittal and coronal reformatted images were obtained on the technologist's workstation. Oral contrast: Yes This CT examination was performed using dose optimization techniques as appropriate, variously including the following: *Automated exposure control *Adjustment of mA and/or kV according to patient size (this includes techniques or standardized protocols for targeted exams where dose is matched to indication/reason for exam; i.e. extremities or head) *Use of iterative reconstruction technique DLP: 782 mGy-cm FINDINGS: LUNG BASES: The visualized lung bases are unremarkable. LIVER, GALLBLADDER, AND BILIARY TREE: The liver is normal in size, shape, and attenuation. No focal hepatic lesion or biliary ductal dilatation is present. The gallbladder is unremarkable with no evidence of radiopaque gallstones, gallbladder wall thickening, or obvious pericholecystic inflammatory changes. PANCREAS: Unremarkable. SPLEEN: Unremarkable. ADRENAL GLANDS: Unremarkable. KIDNEYS AND URETERS: The kidneys are normal in size, shape, and attenuation. Small bilateral nonobstructing renal stones. Small right renal cysts. No imaging follow-up recommended. BLADDER: Not optimally distended . GASTROINTESTINAL TRACT: There is diverticulosis of the colon. There is mild wall thickening of the proximal sigmoid colon and stranding of the adjacent fat suggestive of diverticulitis. No evidence of obstruction, perforation or abscess. The small and large bowel are otherwise unremarkable. The appendix is unremarkable. ABDOMINAL WALL: Small umbilical hernia containing fat LYMPH NODES: Prominent retroperitoneal lymph nodes. These are similar to January 2023 exam. Largest lymph nodes are left periaortic lymph node measuring 1.2 cm in short axis axial image 38, right external iliac lymph node measuring 1.4 cm and left common iliac lymph node measuring 1.5 cm in short axis axial image 62 series 3. No ascites. VASCULAR: Unremarkable. PELVIC VISCERA: Slightly enlarged measuring 4.2 x 5.2 cm. OSSEOUS STRUCTURES: Mild degenerative changes of the spine and hip joints. IMPRESSION: Mild sigmoid diverticulitis. Small nonobstructing bilateral renal stones. Enlarged prostate gland. Stable retroperitoneal lymphadenopathy. Assessment & Plan Assessment & Plan (1) Bilateral kidney stones: Code(s): N20.0 - Calculus of kidney (2) Enlarged prostate: Code(s): N40.0 - Benign prostatic hyperplasia without lower urinary tract symptoms (3) Family history of prostate cancer: Code(s): Z80.42 - Family history of malignant neoplasm of prostate (4) Elevated PSA: Code(s): R97.20 - Elevated prostate specific antigen [PSA] Plan Discussed trial of alpha sammy to help with urinary flow. Patient declined. Repeat PSA in 4 months Orders: Orders AMB Post Void Residual by ultrasound Today N39.8 - Other specified disorders of urinary system PSA,Total (Free>4and<10) 4 Months R97.20 - Elevated prostate specific antigen [PSA], Z80.42 - Family history of malignant neoplasm of prostate AMB Urinalysis Automated Today Z13.9 - Encounter for screening, unspecified Patient Instructions: The patient had an opportunity to ask questions regarding treatment plan. All questions were answered. Imaging, Laboratory studies and physical exam results were discussed and reviewed in detail. No major barriers to understanding were identified. The patient expressed understanding and agreement with the above treatment plan. The patient is aware they should contact our office by phone for worsening of their current condition or the appearance of new symptoms. Compliance is encouraged with any medications and followup testing that is ordered. It is a privilege to be allowed the opportunity to participate in the urologic care of your patient. If you have any questions or concerns regarding treatment for the above conditions please do not hesitate to contact me. The office telephone contact is [phone]. This note is constructed in part using voice recognition software. While every effort has been made to ensure accuracy emergency medical service manager errors may have been included. Yours sincerely, Ton Mcdowell MD Quality Reporting (2019) Benign Prostatic Hyperplasia ([facility] 771) AUA symptom score: 19 Quality of life due to urinary symptoms: If you were to spend the rest of your life with your urinary condition the way it is now, how would you feel about that?: Mostly Satisfied Coding Level of Care Code New Pt Level 4 (35536) Diagnoses Bilateral kidney stones N20.0 Enlarged prostate N40.0 Family history of prostate cancer Z80.42 Elevated PSA R97.20 CPT Codes Post Residual Void - PVR CPT Code: 68635-Cgey Void Residual by ultrasound ([id number])
== END 2023-10-13 15:38 | disposition home or self-care (01) ==
PROVIDERS: PCP Nurse Practitioner Family; Visit Provider Urology
DX: N20.0 Calculus of kidney (principal); N40.0 Benign prostatic hyperplasia without lower urinary tract symptoms; Z80.42 Family history of malignant neoplasm of prostate; R97.20 Elevated prostate specific antigen [PSA]; Z13.9 Encounter for screening, unspecified
CPT/HCPCS: 99204

== ENCOUNTER → 2023-10-13 14:43 | Outpatient (BNVA) | payer OTHER, SELFPAY | PROVIDERS: PCP Nurse Practitioner Family; Visit Provider Urology | DX: N20.0 Calculus of kidney (principal); N40.0 Benign prostatic hyperplasia without lower urinary tract symptoms; N39.8 Other specified disorders of urinary system; R97.20 Elevated prostate specific antigen [PSA]; Z80.42 Family history of malignant neoplasm of prostate | CPT/HCPCS: 51798; 81003 ==

== ENCOUNTER 2023-10-19 06:20 | Day surgery (SDC) | payer OTHER, SELFPAY ==
[2023-10-17 10:44] VITALS: BMI 38.0
--- NOTE | 2023-10-18 09:33 | HO.ANESPROP2 ---
Documented by User: Karen Nascimento NP 10/18/23 09:53 HPI - Anesthesia Eval Consult details Narrative: 63yo M for Colonoscopy Follows [facility] cardiology. Last visit 05/2023. Stable. Follows [facility] pulmo for sarcoid. Stable at 07/2023 office visit. Bony lesions. On CellCept. [facility] Active Problems Active Problems: All Active Problems (Updated 10/13/23 @ 15:38 by Ton Mcdowell MD) Elevated PSA (Acute) Family history of prostate cancer (Acute) Enlarged prostate (Acute) Bilateral kidney stones (Acute) Increased prostate specific antigen (PSA) velocity (Acute) Anxiety (Acute) Depression (Acute) COPD (chronic obstructive pulmonary disease) (Acute) NANCY on CPAP (Acute) HLD (hyperlipidemia) (Acute) GERD (gastroesophageal reflux disease) (Acute) Cervical neck pain with evidence of disc disease (Acute) Sarcoidosis (Acute) History of pulmonary embolism (Acute) Ascending aortic aneurysm (Acute) Hyperkalemia (Acute) Anemia (Acute) Bone cancer (Acute) Lytic bone lesion of hip (Chronic) HTN (hypertension) (Acute) Past Medical History Medical History Enlarged prostate BMI 37.0-37.9, adult Muscle strain Hip pain Screening for colon cancer Right calf pain Hip pain, right Elevated bilirubin Elevated alkaline phosphatase level Obesity Anxiety Depression COPD (chronic obstructive pulmonary disease) GERD (gastroesophageal reflux disease) DDD (degenerative disc disease), cervical History of non-ST elevation myocardial infarction (NSTEMI) History of pulmonary embolism Cataract HLD (hyperlipidemia) HTN (hypertension) Cough NANCY on CPAP Sarcoidosis Asthma Family History Family History Father Family history of high blood pressure Mother History of colon cancer History of abdominal aortic aneurysm (AAA) Brother Prostate cancer Surgical History Surgical History History of bone marrow biopsy History of tonsillectomy History of vasectomy History of endoscopy History of hernia repair History of colonoscopy Social History Social History Household Members: Spouse Housing: House Do you presently have visiting nurse or other home services: No Alcohol intake: never Patient Tobacco Use Status: Former Tobacco user Tobacco use type: Cigarette e-Cigarette/Vaping Use: Never Used Second Hand Smoke Exposure: No Use of substances other than those prescribed or required for medical reasons: No Are you DNR?: No Advance Directives: No Advance Directives Information Provided: Yes Advance Directives Date on File: 11/13/21 service: No Current occupational status: retired Cognitive needs: No Hearing needs: No Vision needs: No Meds Allergies Allergy/AdvReac Type Severity Reaction Status Date / Time amoxicillin [AMOXICILLIN] Allergy Severe DIFF Verified 10/13/23 15:19 BREATHING Home Medications Medication Instructions Recorded Confirmed Last Taken Type cholecalciferol (vitamin D3) 25 25 mcg PO DAILY 11/13/21 10/17/23 11/13/21 History mcg (1,000 unit) tablet (Vitamin D3) multivitamin 1 tab PO DAILY 11/13/21 10/17/23 11/13/21 History cetirizine 10 mg tablet (All Day 10 mg PO DAILY PRN Allergic 05/12/22 10/17/23 Unknown History Allergy (cetirizine)) Symptoms lactobacillus combination no.9 4 4,000 mmu cells PO DAILY 11/30/22 10/17/23 Unknown History billion cell capsule (Adult 50 Plus Probiotic) CPAP (CPAP Machine/Device) 12/13/22 07/26/23 Unknown History nebulizers 12/13/22 07/26/23 Unknown History famotidine 20 mg tablet (Pepcid) 20 mg PO DAILY 07/26/23 10/17/23 Unknown History Exam Height,Weight and Vital Signs: Height 5 ft 10 in Weight 120.202 kg Pertinent Lab Results Pertinent Lab Results: Laboratory Tests 08/19/23 13:13 WBC 8.5 Sodium 141 Potassium 5.2 H Chloride 105 Carbon Dioxide 27 BUN 20 H Creatinine 1.26 Laboratory Tests 08/19/23 13:13 WBC 8.5 Hgb 15.0 Hct 45.5 Plt Count 267 Narrative Narrative: EKG 11/2022 NSR @ 64 RBBB ECHO 09/2022 Conclusions: - The left ventricular systolic function is normal. The calculated ejection fraction is 59% by biplane method. - Mildly increased right ventricular cavity size. - There is mild dilatation of the sinuses of Valsalva measuring 4.20 cm and mild dilatation of the ascending aorta measuring 4.40 cm. NM cardiolite stress test 2021 IMPRESSION: 1. Myocardial perfusion imaging study shows no evidence of ischemia. Fixed inferior defect suspected to be from diaphragmatic attenuation artifact. 2. Gated LVEF is 56% during stress and 53% during rest. 3. Transient ischemic dilatation not present. EKG component of the test reported separately. Assessment and Plan Assessment Anesthesia Assessment: Chart Reviewed Documented by User: Carlos Lugo MD 10/19/23 07:16 [facility] Past Medical History Medical History Enlarged prostate BMI 37.0-37.9, adult Muscle strain Hip pain Screening for colon cancer Right calf pain Hip pain, right Elevated bilirubin Elevated alkaline phosphatase level Obesity Anxiety Depression COPD (chronic obstructive pulmonary disease) GERD (gastroesophageal reflux disease) DDD (degenerative disc disease), cervical History of non-ST elevation myocardial infarction (NSTEMI) History of pulmonary embolism Cataract HLD (hyperlipidemia) HTN (hypertension) Cough NANCY on CPAP Sarcoidosis Asthma Family History Family History Father Family history of high blood pressure Mother History of colon cancer History of abdominal aortic aneurysm (AAA) Brother Prostate cancer Family history of problems with anesthesia: No Surgical History Surgical History History of bone marrow biopsy History of tonsillectomy History of vasectomy History of endoscopy History of hernia repair History of colonoscopy History of Problems with Anesthesia: No Social History Social History Household Members: Spouse Housing: House Do you presently have visiting nurse or other home services: No Alcohol intake: never Patient Tobacco Use Status: Former Tobacco user Tobacco use type: Cigarette e-Cigarette/Vaping Use: Never Used Second Hand Smoke Exposure: No Use of substances other than those prescribed or required for medical reasons: No Are you DNR?: No Advance Directives: No Advance Directives Information Provided: Yes Advance Directives Date on File: 11/13/21 service: No Current occupational status: retired Cognitive needs: No Hearing needs: No Vision needs: No Meds Allergies Allergy/AdvReac Type Severity Reaction Status Date / Time amoxicillin [AMOXICILLIN] Allergy Severe DIFF Verified 10/13/23 15:19 BREATHING Home Medications Medication Instructions Recorded Confirmed Last Taken Type cholecalciferol (vitamin D3) 25 25 mcg PO DAILY 11/13/21 10/17/23 11/13/21 History mcg (1,000 unit) tablet (Vitamin D3) multivitamin 1 tab PO DAILY 11/13/21 10/17/23 11/13/21 History cetirizine 10 mg tablet (All Day 10 mg PO DAILY PRN Allergic 05/12/22 10/17/23 Unknown History Allergy (cetirizine)) Symptoms lactobacillus combination no.9 4 4,000 mmu cells PO DAILY 11/30/22 10/17/23 Unknown History billion cell capsule (Adult 50 Plus Probiotic) CPAP (CPAP Machine/Device) 12/13/22 07/26/23 Unknown History nebulizers 12/13/22 07/26/23 Unknown History famotidine 20 mg tablet (Pepcid) 20 mg PO DAILY 07/26/23 10/17/23 Unknown History Exam Airway Mallampati Class: III TM Dist: >3cm Neck ROM: Full Loose/Missing/Broken Teeth: No Heart: rrr+[id number] Lungs: cta b/l Assessment and Plan Assessment Anesthesia Assessment: Anesthesia Plan Discussed Final Anesthetic Review Family History of Problems with Anesthesia: No History of Problems with Anesthesia: No NPO: Yes ASA Class: III Final Preanesthetic Review: No Changes in Pt Med Stat, Meds/Allgs Chart Reviewed, Consent Obtained/Reviewed and Anes Risks/Benef Reviewed Patient Risk: Intermediate Procedure Risk: Intermediate Assessment/Block/Sedation in SS: Assess/Block/Sedation-SS Anesthetic Plan Anesthetic Plan: MAC: and Agree w/ Assess. and Plan Disposition: Standard PACU
--- NOTE | 2023-10-19 06:49 | P.HPSUR_ITS ---
Pre-Procedural Eval Section A - 24 Hr Update-Section A only Date of Service: 10/19/23 Section B - Complete if H&P > 30 days Chief Complaint: screening Details of Present Illness: FH of CRC in mother in her 60's Relevant Family History (Specify if Yes): Yes Relevant Social History: None Present Medications: see Short Stay Collaborative assessment Medical History: Significant History (Enlarged prostate BMI 37.0-37.9, adult Muscle strain Hip pain Screening for colon cancer Right calf pain Hip pain, right Elevated bilirubin Elevated alkaline phosphatase level Obesity Anxiety Dep ression COPD (chronic obstructive pulmonary disease) GERD (gastroesophageal reflux disease) DDD (degenera) History of Previous Operations: Relevant previous surgery/procedure and date(s) (History of bone marrow biopsy History of tonsillectomy History of vasectomy History of endoscopy History of hernia repair History of colonoscopy) Allergies: Allergies Allergy/AdvReac Type Severity Reaction Status Date / Time amoxicillin [AMOXICILLIN] Allergy Severe DIFF Verified 10/13/23 15:19 BREATHING Review of Systems Sugical H&P ROS: Negative: Constitution, Cardiovascular, Respiratory, Neurological, Psychiatric, Hem-Onc, Allergic/Immunologic, Gastrointestinal, Genitourinary, Musculoskeletal, Integumentary, Endocrine and Eyes/Ears/Nose/Throat Exam Surgical H&P Exam: Normal: HEENT, Normal: Heart, Normal: Lungs, Normal: Extremities, Normal: Abdomen, Normal: Skin and Normal: Neurological Plan Diagnosis/Plan: Unchanged I have reviewed the history and physical and performed a pertinent physical examination on my patient. No changes have occurred unless specified. Time Spent With Patient Time: Total time managing care of this patient today ____ minutes.
[2023-10-19 07:14] VITALS: BP 153/98; PULSE 68; RESP 18; TEMP 37.2; O2SAT 95
[2023-10-19] MEDS: Lactated Ringers 1,000 ML 100 ML IVCONT (07:26)
[2023-10-19 08:15] VITALS: BP 100/69; PULSE 80; RESP 16; TEMP 36.2; O2SAT 97
--- NOTE | 2023-10-19 08:15 | P.OP_ITS ---
Operative Note Operative Note Date of Service: 10/19/23 Narrative: Operative Information Procedure Description: Colonoscopy Indication: screening Anesthesia: MAC COLONOSCOPY Instrument: Olympus variable stiffness pediatric scope 190L Colonoscopy Monitoring: Vital signs and clinical assessment, continuous EKG monitoring, Pulse oximetry, Carbon Dioxide monitoring and blood pressure monitoring were done throughout the procedure. Colon withdrawal time was 12 minutes. Procedure: The patient was placed in the left lateral decubitis position and pre-procedure medications were administered. After a digital rectal examination of the ano-rectum, the video colonoscope was inserted into the rectum and advanced through the colon to the cecum/TI. The colonoscope was slowly withdrawn in a retrograde panoramic fashion and the colon mucosa was carefully examined including a retroflexed view of the rectum. Findings and interventions are described below. Procedure Difficulty: easy Findings: Terminal Ileum- superficial intubation, normal Cecum:normal Ascending Colon: normal Transverse Colon - scattered diverticula Descending Colon: moderate diverticulosis Sigmoid Colon: moderate severe diverticulosis Rectum: Retroflexion with small internal hemorrhoids, grade I Anorectum - normal Colon preparation: Roxana Bowel Preparation Scale Right colon; 2 Transverse colon: 2 Left colon; 2 (0 = Unprepared colon segment with mucosa not seen due to solid stool that cannot be cleared. 1 = Portion of mucosa of the colon segment seen, but other areas of the colon segment not well seen due to staining, residual stool and/or opaque liquid. 2 = Minor amount of residual staining, small fragments of stool and/or opaque liquid, but mucosa of colon segment seen well. 3 = Entire mucosa of colon segment seen well with no residual staining, small fragments of stool or opaque liquid) Impression and Post Procedure Diagnosis: internal hemorrhoids diverticular disease Plan: High fiber diet leaflet Avoid straining at stool, epsom salts and sitz bath, anusol supps or cream Repeat Colonoscopy in 5 years due to FH of CRC or earlier if clinically indicated Above findings were reviewed with the patient and relevant handouts were provided if indicated.
[2023-10-19 08:30] VITALS: BP 115/76; PULSE 74; RESP 18; TEMP 36.2; O2SAT 96
== END 2023-10-19 09:00 | disposition home or self-care (01) ==
PROVIDERS: PCP Nurse Practitioner Family; Visit Provider Internal Medicine Gastroenterology
PROC: 0DJD8ZZ Inspection of Lower Intestinal Tract, Via Natural or Artificial Opening Endoscopic (ICD-10-PCS; CPT 45378; principal; 2023-10-19 07:30)
DX: Z12.11 Encounter for screening for malignant neoplasm of colon (principal); K57.30 Diverticulosis of large intestine without perforation or abscess without bleeding; K64.0 First degree hemorrhoids; Z80.0 Family history of malignant neoplasm of digestive organs; I10 Essential (primary) hypertension; J44.9 Chronic obstructive pulmonary disease, unspecified; Z86.711 Personal history of pulmonary embolism; Z79.82 Long term (current) use of aspirin; Z79.02 Long term (current) use of antithrombotics/antiplatelets; Z79.899 Other long term (current) drug therapy
CPT/HCPCS: 45378; J2704

== ENCOUNTER → 2023-10-19 06:20 | Outpatient (BNV) | payer OTHER, SELFPAY | PROVIDERS: PCP Nurse Practitioner Family; Visit Provider Internal Medicine Gastroenterology | DX: Z12.11 Encounter for screening for malignant neoplasm of colon (principal); K57.90 Diverticulosis of intestine, part unspecified, without perforation or abscess without bleeding; K64.0 First degree hemorrhoids | CPT/HCPCS: 45378 ==

== ENCOUNTER 2023-11-02 12:46 | Outpatient (AMB) | payer OTHER, SELFPAY ==
[2023-11-02 12:46] VITALS: BP 112/70; PULSE 67; TEMP 36.7; O2SAT 96; BMI 36.9
--- NOTE | 2023-11-02 12:46 | MHC.OFFWIV ---
Intake Vital Signs 11/02/23 12:46 Height 5 ft 10 in Weight 257 lb BMI 36.9 BP 112/70 Blood Pressure Location Lt brachial Position Sitting Pulse 67 Pulse Source Pulse Oximeter Temp 98.1 F Temp Source Temporal Artery Scan Pulse Oximetry (%) 96 Oxygen Delivery Method Room Air Intake Visit Reasons: EP pink eye both eyes Intake Note: pt is here today for pink eye in both eyes started Monday Patient Tobacco Use Status: Former Tobacco user Allergies amoxicillin [AMOXICILLIN] Allergy (Severe, Verified 11/02/23 12:47) DIFF BREATHING Do you need a note to return to daycare/school/sports/work: No HPI EP pink eye both eyes HPI Details This is a 63-year-old male patient who presents today with redness of both eyes, right greater than left for the last 3 days. Did have a positive COVID test 10 days ago. He otherwise feels well today. History of sarcoidosis. 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 He denies any eye pain. Denies any blurred vision or photophobia. Reports having some crust on his lashes upon awakening this morning. Denies known exposure to contacts with similar symptoms. [facility] Medical History Enlarged prostate BMI 37.0-37.9, adult Muscle strain Hip pain Screening for colon cancer Right calf pain Hip pain, right Elevated bilirubin Elevated alkaline phosphatase level Obesity Anxiety Depression COPD (chronic obstructive pulmonary disease) GERD (gastroesophageal reflux disease) DDD (degenerative disc disease), cervical History of non-ST elevation myocardial infarction (NSTEMI) History of pulmonary embolism Cataract HLD (hyperlipidemia) HTN (hypertension) Cough NANCY on CPAP Sarcoidosis Asthma Surgical History History of bone marrow biopsy History of tonsillectomy History of vasectomy History of endoscopy History of hernia repair History of colonoscopy Family History Father Family history of high blood pressure Mother History of colon cancer History of abdominal aortic aneurysm (AAA) Brother Prostate cancer Social History Household Members: Spouse Housing: House Do you presently have visiting nurse or other home services: No Alcohol intake: never Patient Tobacco Use Status: Former Tobacco user Tobacco use type: Cigarette e-Cigarette/Vaping Use: Never Used Second Hand Smoke Exposure: No Advance Directives Date on File: 11/13/21 service: No Current occupational status: retired Cognitive needs: No Hearing needs: No Vision needs: No Review of Systems Const All systems reviewed & are unremarkable except as noted in HPI and below Physical Exam Vital Signs: Last Vital Signs Temp 98.1 F 11/02/23 12:46 Pulse 67 11/02/23 12:46 BP 112/70 11/02/23 12:46 Pulse Ox 96 11/02/23 12:46 Oxygen Delivery Method Room Air 11/02/23 12:46 BMI result Body Mass Index 36.9 Const General: cooperative, healthy appearing and no acute distress HEENT Head: Yes normal to inspection Eyes Alignment and Position: alignment normal Eyelids: Yes eyelids normal Conjunctivae: conjunctival abnormal bilateral conjunctival injection (R>L) diffuse and discharge mucoid Corneas: corneas normal Pupils: Equal, round and reactive pupils present and Pupil accommodation reflex normal EOM: EOMs intact bilaterally Direct Ophthalmoscopy: normal light reflex and no photophobia Resp Effort & Inspection: normal respiratory effort Skin General skin exam: no rashes or lesions noted Neuro Cranial nerves: Yes Equal, round and reactive pupils present Extrem General: Yes no clubbing, cyanosis or edema Psych Appearance: grossly normal Mental Status: mental status grossly normal Speech and movement: Normal speech and movement present Assessment & Plan Assessment & Plan (1) Acute conjunctivitis, bilateral: Code(s): H10.33 - Unspecified acute conjunctivitis, bilateral Qualifiers: Acute conjunctivitis type: unspecified Qualified Code(s): H10.33 - Unspecified acute conjunctivitis, bilateral Plan: Will start patient on ophthalmic erythromycin ointment. We reviewed indications, use, possible side effects of this. It is possible that this conjunctivitis is viral given recent COVID infection, however he does have discharge/crust on lashes, and so will treat empirically for bacterial conjunctivitis at this time. He can apply some warm compresses to eyes as needed to soak crust off of flashes. If he does not improve with time and treatment, or if new symptoms develop/current symptoms worsen, he should return to the clinic or contact day camp unit leader for follow-up. He verbalizes understanding and agrees to plan. Medications: New erythromycin Apply 0.5 inch to lower lid of eyes 4 times daily for 5 days 1 appl ophthalmic (eye) QID 3.5 grams 1RF 5 days H10.33 - Unspecified acute conjunctivitis, bilateral Coding Level of Care Code Est Pt Level 3 (01987) Diagnoses Acute conjunctivitis of both eyes, unspecified acute conjunctivitis type H10.33 Acute conjunctivitis type: unspecified
== END 2023-11-02 13:27 | disposition home or self-care (01) ==
PROVIDERS: PCP Nurse Practitioner Family; Visit Provider Nurse Practitioner Family
DX: H10.33 Unspecified acute conjunctivitis, bilateral (principal)
CPT/HCPCS: 99213

== ENCOUNTER 2023-11-03 12:02 | Outpatient (AMB) | payer OTHER, SELFPAY ==
--- NOTE | 2023-11-03 12:07 | A.OFFVIS_ITS ---
Intake Vital Signs 11/03/23 12:08 Height 5 ft 10 in Weight 255 lb BMI 36.6 BP 105/59 L Blood Pressure Location Lt brachial Position Sitting Pulse 66 Intake Visit Reasons: s/p colon Intake Note: Patient follow up for Colonoscopy results. Patient denies any GI issues. Restrooms Or Lounges Maid Required: No Accompanied by: Self / Same As Patient Allergies amoxicillin [AMOXICILLIN] Allergy (Severe, Verified 11/03/23 12:06) DIFF BREATHING HPI s/p colon HPI Details 63 yr old m with hx of sarcoidosis, and PTE being seen for f/u RECAP: He had CTA at [facility] for pulm evaluation, he was noted to have thickened abn appearing esophagus he denied any trouble swallowing last few months has noted, more hiccups he might have worse heartburn if something with a lot of tomato denied diarrhea or constipation he takes inhaled steroids for sarcoidosis he has also been told that he has cirrhosis he had colonoscopy 3 yrs ago at [facility] and was normal last colonoscopy 2017 done for diverticulitis, also pos FH of CRC in mother--she was in her 60's Other data: CT: 01/11/23--normal appearing liver EGD 04/2020 done with rosmery, esophagitis bx: mild reflux, moderate gastritis, he was given fluconazole no mass lesions seen US 03/2020--- scalloped margins of liver, gallstones, fibroelastography F0, F1 LABS: 12/2022-- mild raised alk phos and bili, INR 1, HGB and PLTS were normal supposed cirrhosis, not really confirmed by labs, I suspect its more likely NRH 2/2 sarcoidosis Colonoscopy:10/19/23-- diverticulosis, hemorrhoids, no polyps INTERIM: recovering from pink eye and covid feels well no abdominal pain no nausea appetite good EXAM: GENERAL: The patient is well developed and nontoxic. VITAL SIGNS:see workflow HEENT: Nonicteric sclerae, PERRLA, EOMI. Oropharynx clear. Moist mucous membranes. Conjunctivae appear well perfused. No thyroid mass. CHEST: Chest wall is nontender. HEART: Regular rate and rhythm without murmurs. LUNGS: Clear to auscultation bilaterally. ABDOMEN: Soft, positive bowel sounds, nontender, no organomegaly.no flank tenderness SKIN: No rash, no excessive bruising, petechiae, or purpura. NEUROLOGIC: Cranial nerves II-XII intact without motor/sensory deficit. 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 from sarcoidosis, NOT ci rrhosis 3/ FH of CRC PLAN: 1/ reviewed findings, diverticulosis, hi gh fiber diet, avoiding constipation, rept colo 5 yrs, but can do earlier if any concerns 2/ PCP can monitor LFT PFSH Medical History Enlarged prostate BMI 37.0-37.9, adult Muscle strain Hip pain Screening for colon cancer Right calf pain Hip pain, right Elevated bilirubin Elevated alkaline phosphatase level Obesity Anxiety Depression COPD (chronic obstructive pulmonary disease) GERD (gastroesophageal reflux disease) DDD (degenerative disc disease), cervical History of non-ST elevation myocardial infarction (NSTEMI) History of pulmonary embolism Cataract HLD (hyperlipidemia) HTN (hypertension) Cough NANCY on CPAP Sarcoidosis Asthma Surgical History History of bone marrow biopsy History of tonsillectomy History of vasectomy History of endoscopy History of hernia repair History of colonoscopy Family History Father Family history of high blood pressure Mother History of colon cancer History of abdominal aortic aneurysm (AAA) Brother Prostate cancer Social History Household Members: Spouse Housing: House Do you presently have visiting nurse or other home services: No Alcohol intake: never Patient Tobacco Use Status: Former Tobacco user Tobacco use type: Cigarette e-Cigarette/Vaping Use: Never Used Second Hand Smoke Exposure: No Advance Directives Date on File: 11/13/21 service: No Current occupational status: retired Cognitive needs: No Hearing needs: No Vision needs: No Physical Exam Vital Signs: Last Vital Signs Pulse 66 11/03/23 12:08 BP 105/59 L 11/03/23 12:08 BMI result Body Mass Index 36.6 Assessment & Plan Assessment & Plan (1) Diverticulosis large intestine w/o perforation or abscess w/bleeding: Code(s): K57.31 - Diverticulosis of large intestine without perforation or abscess with bleeding Plan: as above Coding Level of Care Code Est Pt Level 3 (73119) Diagnoses Diverticulosis large intestine w/o perforation or abscess w/bleeding K57.31
[2023-11-03 12:08] VITALS: BP 105/59; PULSE 66; BMI 36.6
== END 2023-11-03 12:40 | disposition home or self-care (01) ==
PROVIDERS: PCP Nurse Practitioner Family; Visit Provider Internal Medicine Gastroenterology
DX: K57.31 Diverticulosis of large intestine without perforation or abscess with bleeding (principal)
CPT/HCPCS: 99213

== ENCOUNTER → 2023-11-03 12:02 | Outpatient (BNVA) | payer OTHER, SELFPAY | PROVIDERS: PCP Nurse Practitioner Family; Visit Provider Internal Medicine Gastroenterology ==

== ENCOUNTER 2023-11-22 09:48 | Outpatient (REF) | payer OTHER, SELFPAY ==
[2023-11-22 13:20] LABS: MANUAL DIFF FLAG NO
[2023-11-22 13:35] LABS: Basophils Percent Auto 0.7 % (0-2); Eosinophils Absolute Auto 0.3 X10*3/uL (0.0-0.4); Eosinophils Percent Auto 6.6 % (0-4); Hematocrit 41.8 % (42.0-52.0); Hemoglobin 13.5 g/dl (14.0-18.0); Imm Gran Abs Auto 0.03 X10*3/uL (0.00-0.03); Imm Gran Pct Auto 0.7 % (0.0-0.4); Lymphocytes Absolute Auto 0.6 X10*3/uL (1.2-4.9); Lymphocytes Percent Auto 14.2 % (20-40); Mean Corpuscular HGB Conc 32.3 g/dl (31.0-36.0); Mean Corpuscular Hemoglobin 28.2 pg (27.0-33.0); Mean Corpuscular Volume 87.4 fL (80.0-98.0); Mean Platelet Volume 10.5 fL (9.4-12.4); Monocytes Absolute Auto 0.5 X10*3/uL (0.1-1.2); Monocytes Percent Auto 12.5 % (2-11); Neutrophils Absolute Auto 2.8 x10*3/uL (2.0-8.3); Neutrophils Percent Auto 65.3 % (45-73); Platelet Count 232 X10*3/uL (160-400); Red Blood Count 4.78 X10*6/uL (4.60-5.80); Red Cell Distribution Width 13.8 % (11.0-16.0); White Blood Count 4.2 X10*3/uL (4.8-10.8)
[2023-11-22 13:55] LABS: Alanine Aminotransferase 19 U/L (0-40); Alkaline Phosphatase 125 U/L (39-117); Anion Gap 10 (12-20); Aspartate Amino Transferase 21 U/L (5-37); Bilirubin Direct 0.3 mg/dL (0.0-0.5); Blood Urea Nitrogen 18 mg/dL (9-16); Calcium 9.3 mg/dL (8.4-10.2); Carbon Dioxide 29 mmol/L (22-29); Chloride 108 mmol/L (96-108); Cholesterol 102 mg/dL (<200); Estimated Glomerular Filt Rate > 60; Glucose Fasting 86 mg/dL (60-99); Glucose Random 87 mg/dL (60-115); HDL Cholesterol 29 mg/dL (>40); LDL Cholesterol Calculated 48 mg/dL (<100); Potassium 4.4 mmol/L (3.3-5.1); Sodium 143 mmol/L (135-145); Total Protein 6.3 g/dL (6.5-8.0); Triglycerides 126 mg/dL (<150)
[2023-11-22 13:59] LABS: Appearance Urine Clear; Color Urine Yellow; Glucose Urine UA Negative (Negative); Leukocyte Esterase Urine Negative (Negative); Nitrite Urine Negative (Negative); PH 6.5 (5.0-9.0); Specific Gravity - Urine 1.015 (1.005-1.025); Urine Blood Negative (Negative); Urine Ketones Negative (Negative); Urine Protein Negative (Neg-Trace)
[2023-11-22 14:01] LABS: TSH reflex Free T4 2.27 uIU/mL (0.32-4.0)
[2023-11-22 14:33] LABS: Erythrocyte Sedimentation Rate 2 MM/HR (0-15)
[2023-11-26 03:44] LABS: Angiotensin Converting Enzyme 5.4 U/L (9-67)
== END 2023-11-22 09:49 | disposition home or self-care (01) ==
LOC: HO.HMGCLDS 09:48
PROVIDERS: Hospitalist; PCP Nurse Practitioner Family; Visit Provider Nurse Practitioner Family
DX: I10 Essential (primary) hypertension (principal); D86.9 Sarcoidosis, unspecified
CPT/HCPCS: 36415; 80048; 80053; 80061; 80076; 81003; 82164; 84443; 85025; 85652

== ENCOUNTER 2023-11-29 12:50 | Outpatient (AMB) | payer OTHER, SELFPAY ==
[2023-11-29 12:51] VITALS: BP 110/62; PULSE 65; O2SAT 95; BMI 38.2
--- NOTE | 2023-11-29 12:51 | MHC.PC.OV ---
Vital Signs 11/29/23 12:51 Height 5 ft 10 in Weight 266 lb BMI 38.2 BP 110/62 Blood Pressure Location Lt brachial Position Sitting Pulse 65 Pulse Source Pulse Oximeter Pulse Oximetry (%) 95 Oxygen Delivery Method Room Air Intake Visit Reasons: Annual PE/CX appt from Aug Intake Note: pt is here for annual exam, [place] [facility] [place] [employer] Required: No Accompanied by: Self / Same As Patient Allergies amoxicillin [AMOXICILLIN] Allergy (Severe, Verified 11/29/23 12:52) DIFF BREATHING Tobacco use date assessed: 11/29/23 Dental Screening Dental Screen Date: 11/29/23 Did you have a dental visit in the last 12 months?: Yes Did you have a dental problem in the last 6 months where you did not have access to dental care?: No Was dental information given to patient?: Patient has dentist HPI Annual PE/CX appt from Aug HPI Details Pt is here for a PE. Labs have already been performed. PSA is up to date. Colon screen is up to date. Pt sees urology, GI, pulmonology, cardiology, and hematology. I had pt's lawn caretaker look at his most recent CBC, no concerns reported. [facility] Medical History Physical exam Enlarged prostate BMI 37.0-37.9, adult Muscle strain Hip pain Screening for colon cancer Right calf pain Hip pain, right Elevated bilirubin Elevated alkaline phosphatase level Obesity Anxiety Depression COPD (chronic obstructive pulmonary disease) GERD (gastroesophageal reflux disease) DDD (degenerative disc disease), cervical History of non-ST elevation myocardial infarction (NSTEMI) History of pulmonary embolism Cataract HLD (hyperlipidemia) HTN (hypertension) Cough NANCY on CPAP Sarcoidosis Asthma Surgical History History of bone marrow biopsy History of tonsillectomy History of vasectomy History of endoscopy History of hernia repair History of colonoscopy Family History Father Family history of high blood pressure Mother History of colon cancer History of abdominal aortic aneurysm (AAA) Brother Prostate cancer Social History Household Members: Spouse Housing: House Do you presently have visiting nurse or other home services: No Alcohol intake: never Patient Tobacco Use Status: Former Tobacco user Tobacco use type: Cigarette e-Cigarette/Vaping Use: Never Used Second Hand Smoke Exposure: No Advance Directives Date on File: 11/13/21 service: No Current occupational status: retired Cognitive needs: No Hearing needs: No Vision needs: No Questionnaire PHQ-9 Over the last 2 weeks, how often have you been bothered by any of the following problems? 1. Little interest or pleasure in doing things: not at all 2. Feeling down, depressed, or hopeless: not at all 3. Trouble falling or staying asleep, or sleeping too much: nearly every day 4. Feeling tired or having little energy: not at all 5. Poor appetite or overeating: not at all 6. Feeling bad about yourself - or that you are a failure or have let yourself or your family down: not at all 7. Trouble concentrating on things, such as reading the newspaper or watching television: not at all 8. Moving or speaking so slowly that other people could have noticed. Or the opposite - being so fidgety or restless that you have been moving around a lot more than usual: not at all 9. Thoughts that you would be better off or of hurting yourself in some way: not at all Total score: 3 Depression Screening Interpretation: Negative Depression Screening Done: Yes 93048 - PHQ-9 Billing: Yes Source: Developed by Drs. Pete Carter, Tamika Corbin, Dennis Bearden and colleagues, with an educational bhargav from [employer]. Thrive Questionnaire Date Thrive assessed: 11/29/23 I am a: Patient What is your living situation today?: I have a steady place to live Within the past 12 months, did the food you bought not last and you didn't have the money to get more?: Never true Within the past 12 months, did you worry whether your food would run out before you got money to buy more?: Never true Do you have trouble paying for medicines?: No Do you have trouble getting transportation to medical appointments?: No Do you have trouble paying your heating and electricity bill?: No Do you have trouble taking care of your child, family member or friend?: No Do you have trouble with day-to-day activities such as bathing, preparing meals, shopping, managing finances, etc.?: No Are you currently unemployed and looking for a job?: No Are you interested in more education?: No Please select the resources that you would like help with: None Currently or been in a relationship where the following occur: no concerns reported THRIVE Score: 0 AUDIT C Alcohol Use Questionnaire (AUDIT-C) 1. How often do you have a drink containing alcohol?: Monthly or less 2. How many drinks containing alcohol do you have on a typical day when you are drinking?: 1 or 2 3. How often do you have six or more drinks on one occasion?: Never Total Score: 1 Score Reviewed/Action Taken: Yes SILVANA-7 AMB Questionnaire SILVANA-7 Date SILVANA - 7 assessed: 11/29/23 Feeling nervous, anxious, or on edge: 1 = Several days Not being able to stop or control worryin = More than half the days Worrying too much about different things: 1 = Several days Trouble relaxin = More than half the days Being so restless that it is hard to sit still: 1 = Several days Becoming easily annoyed or irritable: 0 = Not at all Feeling afraid as if something awful might happen: 0 = Not at all Total SILVANA-7 score (0-4 normal; 5-9 mild; 10-14 moderate; 15-21 severe): 7 Source: Developed by Drs. Pete Carter, Tamika Corbin, Dennis Bearden and colleagues, with an educational bhargav from [employer]. SILVANA-7 Assessment Billing SILVANA-7 Assessment Tool: SILVANA-7 Assessment 75639 Review of Systems Const Denies chills and Denies fever(s) Eyes Denies blurry vision ENT Denies vertigo, Denies dizziness and Denies sore throat Card Denies chest pain at rest, Denies chest pain with activity, Denies diaphoresis, Denies dyspnea and Denies dyspnea on exertion Resp Denies cough, Denies dyspnea, Denies dyspnea on exertion and Denies wheezing GI Denies abdominal pain, Denies melena, Denies hematochezia, Denies constipation, Denies diarrhea and Denies loose stools Denies hematuria Musc Denies numbness and Denies tingling Skin/Breast Denies lesions Neuro Denies vertigo, Denies dizziness, Denies numbness and Denies tingling Psych Denies anxiety, Denies depression, Denies homicidal ideation, Denies suicidal ideation and Denies other (substance abuse) Aller/Immun Denies wheezing Physical exam (Primary Care) Vital Signs: Last Vital Signs Pulse 65 11/29/23 12:51 BP 110/62 11/29/23 12:51 Pulse Ox 95 11/29/23 12:51 Oxygen Delivery Method Room Air 11/29/23 12:51 BMI result Body Mass Index 38.2 Tobacco/Smoking Status: Tobacco use Status Tobacco use date assessed 11/29/23 11/29/23 12:53 Patient Tobacco Use Status Former Tobacco user 11/29/23 12:53 Tobacco use type Cigarette 11/29/23 12:53 e-Cigarette/Vaping Use Never Used 11/29/23 12:53 PHQ-9: PHQ-9 Score PHQ-9: Total score 3 11/29/23 13:10 Depression Screening Interpretation: Negative Thrive Assessment: Date of Thrive Assessment Date Thrive assessed 11/29/23 11/29/23 13:10 Currently or been in a relationship where the following occur: no concerns reported Const General: cooperative Nutritional Appearance: obese Orientation/consciousness: patient oriented x3 HENMT Head: Yes normal to inspection, Yes normocephalic and Yes atraumatic Ears: TM's normal bilaterally Eyes General: appearance normal, both eyes and all related structures Alignment and Position: alignment normal and position normal Neck Neck: Yes normal visual inspection and Yes no lymphadenopathy Thyroid: Thyroid normal Resp Effort & Inspection: normal respiratory effort Auscultation: clear to auscultation bilaterally Cardio Rate: regular rate Rhythm: regular rhythm Heart sounds: S1 normal heart sound present, S2 normal heart sound present and no murmurs GI Palpation (GI): Soft to palpation and nontender Auscultation: normal bowel sounds Male General Exam: Yes normal external exam Penis: normal penis Scrotum: scrotum normal, testes descended bilaterally and no inguinal hernias Testes: no testicular mass Skin Rashes: no rashes Neuro General: patient oriented x3, moves all extremities, no focal motor deficits and deep tendon reflexes 2+ bilaterally Romberg Test: Negative Psych Appearance: grossly normal Mental Status: mental status grossly normal Speech and movement: Normal speech and movement present Affect: normal affect Attitude: cooperative Thought process: Normal thought process present Thought content: Normal thought content present Insight: Good insight present (Psych) Judgement: Good judgement present (Psych) Assessment and Plan Assessment & Plan (1) Physical exam: Code(s): Z00.00 - Encounter for general adult medical examination without abnormal findings Plan: Labs already performed Plan The patient agreed to the use of a medical social worker for this encounter. Scribed for MALGORZATA Torres by Bessie Carlson medical social worker, on 11/29/2023 at 13:10 EST. Coding Level of Care Code Est Pt Prev Care 40-64y(11313) Diagnoses Physical exam Z00.00 Additional Codes SILVANA-7 Assessment Billing - SILVANA-7 Assessment Tool: SILVANA-7 Assessment 26605 ([id number])
== END 2023-11-29 13:27 | disposition home or self-care (01) ==
PROVIDERS: PCP Nurse Practitioner Family; Visit Provider Nurse Practitioner Family
DX: Z00.00 Encounter for general adult medical examination without abnormal findings (principal)
CPT/HCPCS: 99396

== ENCOUNTER 2024-01-22 13:02 | Outpatient (AMB) | payer OTHER, SELFPAY ==
[2024-01-22 13:20] VITALS: PULSE 62; O2SAT 94; BMI 37.3
--- NOTE | 2024-01-22 13:20 | MHC.OFFVIS ---
Vital Signs 01/22/24 13:20 Height 5 ft 10 in Weight 260 lb BMI 37.3 Pulse 62 Pulse Source Pulse Oximeter Pulse Oximetry (%) 94 Oxygen Delivery Method Room Air Intake Visit Reasons: Sarcoidosis Surveillance Manager Required: No Allergies amoxicillin [AMOXICILLIN] Allergy (Severe, Verified 01/22/24 13:21) DIFF BREATHING HPI Comments Details: The patient is a 63-year-old gentleman with a known history of sarcoidosis. Apparently I did evaluate him on back more than a year ago. In the fall of the patient did have worsening shortness of breath and he was evaluated at [facility] where he was found to have bilateral pulmonary emboli. He was placed on Eliquis. He did follow-up with housecleaner the in the only explanation for his blood clots with the possibility of underlying hypercoagulable state from sarcoidosis. The patient has been on Flovent up, but, he has not been on systemic cortical steroids. He also has some underlying renal insufficiency. Question if he has some potential extra pulmonary sarcoid involvement that we need additional therapy with steroids. Therefore, I will repeat his blood work and also repeat a CT scan of the chest to assess his nodular densities as well as pulmonary emboli that he had back in May 2019. Will hold off for few months as we cleared the culprit 19 virus. However, if the patient develops any worsening symptoms may have to look at it sooner. Otherwise will reassess the need for systemic cortical steroids or systemic therapy for the sarcoid at the time. He did have blood work done at [facility] back in February. His Magan level was normal. His calcium levels were also normal. No evidence of any renal involvement. The only thing is that his liver function studies were little elevated. He is following up closely with GI. In regards of the blood clots he still on the anticoagulation is tolerating that well. He did undergo a CT scan of the chest demonstrating no further blood clot burden in the vessels. He does have pulmonary nodules and slight increase in the hilar mediastinal lymphadenopathy consistent with his history of sarcoidosis. At this point however he is going to have surgery for his cataracts and he is going to have further evaluation for the thickness of the esophagus so therefore hold off on any treatment for sarcoid at this time at least systemically. He did have some evidence of bronchitis or thickening of the airways bringing up the question of endobronchial sarcoid so therefore will increase his Flovent from 110-220 mcg with the hope of decreasing some of the inflammation directly. In the meantime will hold off on any systemic therapy as he is going to be further evaluated for the issues above. In 3-4 months will have him come back in having get pulmonary function studies and repeat the blood work and decide if at that point we should treat him systemically for the sarcoidosis. 12/13/2022 the patient is here for a pulmonary follow-up visit. He was sent over from the housecleaner. The patient was having hip discomfort and he underwent a imaging study demonstrating what appeared to be bony lytic lesions. He also went a CT scan of the chest demonstrating hilar mediastinal lymphadenopathy along with some interstitial lung disease. Clinically for the patient is doing well from a respiratory status. She denies any coughing or shortness of breath. he did undergo a CT-guided biopsy of 1 of the lytic lesions and it did demonstrate sarcoid with positive granulomas. In view of the inflammatory lytic lesions I did recommend that he should go on immunosuppressive therapy to minimize the active sarcoid symptoms. However, the patient is reluctant to take any medications at this time. We did talk about medications assess CellCept and methotrexate which will be steroid sparing. He is okay getting blood work to assess for his Magan level and also checking other end-organ involvement. He did have his eyes checked in his inspector floor sub assembly told him that he did not have any evidence of sarcoid in the eyes. Therefore, the patient will continue to consider therapy in meantime he is scheduled to have a repeat CT scan sometime in January and a follow-up with Hematology. He will follow-up with me after that. 03/16/2023 the patient is here for a pulmonary follow-up visit. The patient is doing relatively well. He was exposed to sick contacts and has been having increasing cough shortness of breath chest tightness. Does have some wheezing on examination. Therefore will go ahead and start Advair HFA. The patient also has been on CellCept. Tolerating the CellCept well without any evidence of any adverse effects. He is on a lower dose at this time. He is scheduled to follow up with Hematology-Oncology. I which point he will have additional imaging studies. If he does have imaging studies scheduled by collagen he can always call oximetry order a further imaging studies prior to the next visit. 07/21/2023 the patient is here for a pulmonary follow-up visit. Overall the patient is doing well. He is tolerating the CellCept 500 mg twice a day. This is a small dose. It is reassuring that he is responding well to the low dose. He did have a repeat CT scan of the abdomen. It appears that the bony lesions have not resolved. We contemplated decreasing the CellCept. However, has not been 6 months in since his such as low-dose will go ahead and continue the 500 mg twice a day until the spring. Which at that point will recheck the blood work and will start decreasing down the CellCept slowly. Will plan to do further imaging studies to make sure there is no recurrence of disease. In regards to the ER where he continues use it with good response. He has not required his rescue inhaler. The patient also will get the Prevnar 20 vaccine today. We did talk about the other vaccines and I did advise him that he follow through with the other vaccines since he does have underlying respiratory disease. 01/22/2024 the patient is here for pulmonary follow-up visit. Overall he is doing well from a respiratory status. He continues on the mycophenolate 500 mg twice a day. He recently was evaluated in the hospital for abdominal pain and was diagnosed with diverticulitis. No evidence of any perforation in he did have diverticula. In addition to that the bony structures were within normal limits. Therefore I am hopeful that we can start decreasing down the mycophenolate. Will go ahead and decrease down to 100 mg daily. If the patient started developing any worsening respiratory symptoms or complaints he can always call to be can readdress. His blood work is also reassuring. He is going to follow-up with Hematology soon. He will follow-up Pulmonary in 3-4 months at which time will discuss considering stopping the medication altogether. From a CPAP standpoint he continues uses CPAP every night CPAP therapy has been affecting beneficial. He does use a fullface mask. He gets supplies from his [employer] company, [employer]. Will send a prescription for for his CPAP supplies at the time. [facility] Medical History Physical exam Enlarged prostate BMI 37.0-37.9, adult Muscle strain Hip pain Screening for colon cancer Right calf pain Hip pain, right Elevated bilirubin Elevated alkaline phosphatase level Obesity Anxiety Depression COPD (chronic obstructive pulmonary disease) GERD (gastroesophageal reflux disease) DDD (degenerative disc disease), cervical History of non-ST elevation myocardial infarction (NSTEMI) History of pulmonary embolism Cataract HLD (hyperlipidemia) HTN (hypertension) Cough NANCY on CPAP Sarcoidosis Asthma Surgical History History of bone marrow biopsy History of tonsillectomy History of vasectomy History of endoscopy History of hernia repair History of colonoscopy Family History Father Family history of high blood pressure Mother History of colon cancer History of abdominal aortic aneurysm (AAA) Brother Prostate cancer Social History Household Members: Spouse Housing: House Do you presently have visiting nurse or other home services: No Alcohol intake: never Patient Tobacco Use Status: Former Tobacco user Tobacco use type: Cigarette e-Cigarette/Vaping Use: Never Used Second Hand Smoke Exposure: No Advance Directives Date on File: 11/13/21 service: No Current occupational status: retired Cognitive needs: No Hearing needs: No Vision needs: No Review of Systems Const Denies night sweats ENT Denies change in voice, Denies lip swelling, Denies mouth pain, Reports nasal congestion, Reports nasal discharge and Denies tongue swelling Card Denies chest pain Resp Reports cough and Denies wheezing GI Denies abdominal pain Musc Denies myalgias and Reports arthralgias Neuro Denies Neuro-related abnormal movements Psych Denies no additional complaints Sy/Lymph Denies easy bleeding and Denies lymphadenopathy Aller/Immun Denies lip swelling, Denies tongue swelling and Denies wheezing Physical Exam Vital Signs: Last Vital Signs Pulse 62 01/22/24 13:20 Pulse Ox 94 01/22/24 13:20 Oxygen Delivery Method Room Air 01/22/24 13:20 BMI result Body Mass Index 37.3 Const General: alert HEENT General nose exam: Abnormal external nose present and Nasal discharge present Eyes Pupils: Equal, round and reactive pupils present Neck Neck: Yes normal visual inspection, Yes full ROM and Yes no lymphadenopathy Chest Chest palpation & inspection: normal inspection of the chest Resp Auscultation: clear to auscultation bilaterally and no wheezes Cardio Rate: regular rate Rhythm: regular rhythm Heart sounds: S1 normal heart sound present and S2 normal heart sound present GI Palpation (GI): Soft to palpation and nontender Auscultation: normal bowel sounds General: Yes no CVA tenderness Back/Spine/Pelvis Back: no CVA tenderness Skin General skin exam: rashes and/or lesions noted Neuro Cranial nerves: Yes Equal, round and reactive pupils present Extrem General: Yes no clubbing, cyanosis or edema Assessment & Plan Assessment & Plan (1) Sarcoidosis: Comment: with evidence of extra pulmonary sarcoidosis with active inflammation, better at this time Code(s): D86.9 - Sarcoidosis, unspecified Category: Medical Plan: ICS (2) NANCY on CPAP: Comment: (NANCY dx 2017 slepe test - AHI 39. On CPAP) Code(s): G47.33 - Obstructive sleep apnea (adult) (pediatric); Z99.89 - Dependence on other enabling machines and devices Category: Medical Plan: continue CPAP Plan decrease Cellcept 500mg daily Bloodwork in 3 months Advair HFA AZUL as needed continue APAP F/U 4 months Orders: Orders Angiotensin Converting Enzyme Today D86.9 - Sarcoidosis, unspecified Liver Panel Today D86.9 - Sarcoidosis, unspecified Basic Metabolic Panel Today D86.9 - Sarcoidosis, unspecified Complete Blood Count Auto Diff Today D86.9 - Sarcoidosis, unspecified Coding Level of Care Code Est Pt Level 4 (36167) Diagnoses Sarcoidosis D86.9 NANCY on CPAP G47.33; Z99.89 Time Spent (min) 17
== END 2024-01-22 13:41 | disposition home or self-care (01) ==
PROVIDERS: PCP Nurse Practitioner Family; Visit Provider Hospitalist
DX: D86.9 Sarcoidosis, unspecified (principal); G47.33 Obstructive sleep apnea (adult) (pediatric); Z99.89 Dependence on other enabling machines and devices
CPT/HCPCS: 99214

== ENCOUNTER → 2024-01-22 13:02 | Outpatient (BNVA) | payer OTHER, SELFPAY | PROVIDERS: PCP Nurse Practitioner Family; Visit Provider Hospitalist ==

== ENCOUNTER 2024-02-09 06:02 | Emergency (ER) | payer OTHER, SELFPAY ==
--- NOTE | ~2024-02-09 | CT_ITS ---
EXAMINATION: CT ABDOMEN AND PELVIS WITH CONTRAST CLINICAL INFORMATION: Left lower quadrant pain. COMPARISON: 08/19/2023 TECHNIQUE: Multidetector volumetric images were obtained from the superior aspect of the liver through the pubic symphysis following administration 85 mL of Omnipaque 350 intravenous contrast. Sagittal and coronal reformatted images were obtained on the technologist's workstation. Oral contrast: No This CT examination was performed using dose optimization techniques as appropriate, variously including the following: *Automated exposure control *Adjustment of mA and/or kV according to patient size (this includes techniques or standardized protocols for targeted exams where dose is matched to indication/reason for exam; i.e. extremities or head) *Use of iterative reconstruction technique DLP: 897 mGy-cm FINDINGS: LUNG BASES: Possible incidental filling defects within the pulmonary arterial branches to the right lower lobe. LIVER, GALLBLADDER, AND BILIARY TREE: The liver appears nodular. Few hypodensities too small to characterize. No biliary ductal dilatation. The gallbladder is unremarkable. PANCREAS: Questionable enhancing lesion within the pancreatic head measuring 1.2 x 2.1 cm on image 37 of series 3. No ductal dilatation. SPLEEN: Not enlarged. ADRENAL GLANDS: No adrenal mass. KIDNEYS AND URETERS: The kidneys are symmetric in size and enhancement. There are punctate nonobstructing bilateral renal calculi. Right renal cysts for which no further imaging follow-up is needed. No hydronephrosis or perinephric fluid collection. BLADDER: Unremarkable. GASTROINTESTINAL TRACT: The stomach is underdistended. Diverticular disease of the colon. Wall thickening of the sigmoid colon with inflamed diverticulum. There is pericolonic stranding. No organized fluid collection or evidence of localized perforation. No small bowel obstruction. ABDOMINAL WALL: Small fat-containing umbilical hernia. LYMPH NODES: Enlarged gastrohepatic ligament and portacaval lymph nodes. Enlarged retroperitoneal lymph nodes. Enlarged left common iliac and iliac chain lymph nodes. Enlarged right obturator lymph node. Enlarged left pelvic sidewall lymph node. VASCULAR: Normal caliber abdominal aorta. PELVIC VISCERA: Enlarged prostate gland. OSSEOUS STRUCTURES: No destructive bone lesions. CT/CT abdomen pelvis w IV con IMPRESSION: Acute diverticulitis of the sigmoid colon. Follow-up imaging after treatment is advised. Possible incidental right lower lobe pulmonary emboli. Multistation lymphadenopathy as described above. The possibility of lymphoma or lymphoproliferative disorder should be considered. The appearance is unchanged relative to 08/19/2023. Possible enhancing mass in the head of the pancreas measuring 1.2 x 2.1 cm. MRI/MRCP is recommended. Bilateral punctate nonobstructing renal calculi. No hydronephrosis. Findings were reviewed and discussed with Iqra Angeles DO at noon on 02/09/2024.
[2024-02-09 06:26] VITALS: BP 133/82; PULSE 84; TEMP 37.4; O2SAT 93; BMI 37.0
--- NOTE | 2024-02-09 06:56 | MHC.EDTECH ---
Patient blood drawn and urine sample collected all sent to lab .
[2024-02-09 06:57] LABS: MANUAL DIFF FLAG NO
[2024-02-09 07:05] LABS: Basophils Absolute Auto 0.1 X10*3/uL (0.0-0.2); Basophils Percent Auto 0.5 % (0-2); Eosinophils Absolute Auto 0.2 X10*3/uL (0.0-0.4); Eosinophils Percent Auto 1.6 % (0-4); Hemoglobin 14.8 g/dl (14.0-18.0); Imm Gran Abs Auto 0.03 X10*3/uL (0.00-0.03); Imm Gran Pct Auto 0.3 % (0.0-0.4); Lymphocytes Absolute Auto 0.7 X10*3/uL (1.2-4.9); Lymphocytes Percent Auto 6.1 % (20-40); Mean Corpuscular HGB Conc 32.9 g/dl (31.0-36.0); Mean Corpuscular Hemoglobin 28.4 pg (27.0-33.0); Mean Corpuscular Volume 86.4 fL (80.0-98.0); Mean Platelet Volume 9.8 fL (9.4-12.4); Monocytes Absolute Auto 1.3 X10*3/uL (0.1-1.2); Monocytes Percent Auto 11.6 % (2-11); Neutrophils Absolute Auto 8.7 x10*3/uL (2.0-8.3); Neutrophils Percent Auto 79.9 % (45-73); Platelet Count 225 X10*3/uL (160-400); Red Blood Count 5.21 X10*6/uL (4.60-5.80); Red Cell Distribution Width 13.8 % (11.0-16.0); White Blood Count 10.9 X10*3/uL (4.8-10.8)
[2024-02-09 07:07] LABS: Appearance Urine Clear; Color Urine Yellow; Glucose Urine UA Negative (Negative); Leukocyte Esterase Urine Negative (Negative); Nitrite Urine Negative (Negative); PH 5.5 (5.0-9.0); Urine Blood Negative (Negative); Urine Ketones Negative (Negative); Urine Protein Negative (Neg-Trace)
[2024-02-09 07:09] LABS: Anion Gap 13 (12-20); Blood Urea Nitrogen 18 mg/dL (9-16); Calcium 9.7 mg/dL (8.4-10.2); Carbon Dioxide 27 mmol/L (22-29); Chloride 104 mmol/L (96-108); Creatinine Clr Calc Pharmacy 78.8; Estimated Glomerular Filt Rate 58; Glucose Random 108 mg/dL (60-115); Potassium 4.9 mmol/L (3.3-5.1); Sodium 139 mmol/L (135-145)
[2024-02-09 07:44] VITALS: BP 136/83; PULSE 85; RESP 19; TEMP 37.1; O2SAT 95
--- NOTE | 2024-02-09 07:48 | PC.NURSE ---
Pt presents to ED from home, reports lower ABD pain, lower back pain and hot sweats/ chills since Monday night. Denies any vomiting, diarrhea, CP or SOB. Does report some trouble urinating but denies changes in odor or color. Does report similar episodes in the past with his diverticulitis. Pain is 7/10, aching and sharp. Alert and oriented, breathing even and unlabored, skin slightly clammy.
[2024-02-09 08:09] LABS: Alanine Aminotransferase 16 U/L (0-40); Albumin Level 4.2 g/dL (3.5-5.0); Alkaline Phosphatase 121 U/L (39-117); Aspartate Amino Transferase 17 U/L (5-37); Bilirubin Direct 0.5 mg/dL (0.0-0.5); Bilirubin Total 1.6 mg/dL (0.0-1.0); Lipase 23 U/L (8-78); Total Protein 6.8 g/dL (6.5-8.0)
[2024-02-09] MEDS: ondansetron HCL 4 MG/2 ML VIAL IVPUSH (08:42)
[2024-02-09 08:43] VITALS: RESP 16
[2024-02-09] MEDS: Morphine Sulfate 4 MG/ML CARTRIDGE IVPUSH (08:43)
[2024-02-09] MEDS: 0.9 % Sodium Chloride 1,000 ML 999 ML IV (08:44)
--- NOTE | 2024-02-09 08:44 | ED.ABDPAIN ---
HPI - Abdominal Pain General Chief Complaint: Abdominal Pain Stated Complaint: abd and back pain Time Seen by Provider: 02/09/24 07:52 Source: patient Mode of arrival: ambulatory Limitations: no limitations History of Present Illness ED Provider: JESSICA HPI narrative: 63 yo male with PMH of COPD, HLD, GERD, anxiety, depression, BPH, sarcoidosis (on cellcept) that did go to the pelvic bone, HTN, diverticulitis no prior surgery or drain, DVT 5 years ago related to travel here with c/o 2 days worsening lower abdominal pain as well as lower back pain he notes some hot and cold flashes and feels pressure when he urinates. Mild nausea, no diarrhea or bloody stools reported. Worried he has diverticulitis again. Recently drove to and from [place] at start of month MD elicited complaint: abdominal pain Pertinent past history: diverticulitis Onset (ago): day(s) (2) Pain Consistency: constant Location: LLQ Severity: moderate Quality: aching Radiation: none Migration to: no migration Exacerbating factors: movement Relieving factors: nothing Associated symptoms: nausea and chills Related Data Home Medications ?Medication ?Instructions ?Recorded ?Confirmed cholecalciferol (vitamin D3) 25 25 mcg PO DAILY 11/13/21 10/17/23 mcg (1,000 unit) tablet (Vitamin D3) multivitamin 1 tab PO DAILY 11/13/21 10/17/23 cetirizine 10 mg tablet (All Day 10 mg PO DAILY PRN Allergic 05/12/22 10/17/23 Allergy (cetirizine)) Symptoms lactobacillus combination no.9 4 4,000 mmu cells PO DAILY 11/30/22 10/17/23 billion cell capsule (Adult 50 Plus Probiotic) CPAP (CPAP Machine/Device) 12/13/22 07/26/23 nebulizers 12/13/22 07/26/23 famotidine 20 mg tablet (Pepcid) 20 mg PO DAILY 07/26/23 10/17/23 Previous Rx's ?Medication ?Instructions ?Recorded aspirin 81 mg capsule 81 mg PO DAILY #30 caps 11/15/21 albuterol sulfate 90 mcg/actuation 2 inh inhalation Q6H PRN Shortness 02/16/23 breath activated powder inhaler Of Breath 30 days #1 ea (ProAir RespiClick) albuterol sulfate 2.5 mg/3 mL 2.5 mg (3 mL) inhalation Q6H PRN 03/16/23 (0.083 %) solution for nebulization shortness of breath or wheezing 30 days #180 mL carvedilol 6.25 mg tablet 6.25 mg PO BID #180 tabs 06/22/23 lisinopril 40 mg tablet 40 mg PO BEDTIME #90 tabs 09/07/23 fluticasone propionate 115 2 puff inhalation Q12H 30 days #12 09/19/23 mcg-salmeterol 21 mcg/actuation grams HFA inhaler (Advair HFA) spironolactone 25 mg tablet 25 mg PO BEDTIME 90 days #90 tabs 11/05/23 atorvastatin 40 mg tablet 40 mg PO DAILY 90 days #90 tabs 11/10/23 mycophenolate mofetil 500 mg 500 mg PO BID 30 days #60 tabs 11/30/23 tablet (CellCept) citalopram 20 mg tablet 20 mg PO BEDTIME 90 days #90 tabs 12/06/23 tramadol 50 mg tablet 50 mg PO BID PRN pain 20 days #40 02/07/24 tabs apixaban 5 mg (74 tabs) tablets in 5 mg PO BID #74 ea 02/09/24 a dose pack ([facility] DVT-PE Treat 30D Start) ciprofloxacin HCl 500 mg tablet 500 mg PO Q12H #14 tabs 02/09/24 morphine 15 mg immediate release 15 mg PO Q6H PRN pain #14 tabs 02/09/24 tablet Allergies Allergy/AdvReac Type Severity Reaction Status Date / Time amoxicillin [AMOXICILLIN] Allergy Severe DIFF Verified 02/09/24 06:28 BREATHING Review of Systems Review of Systems Constitutional : No Weight loss, No Fever, pos Chills ENT/Mouth : No sore throat, No Rhinorrhea Eyes: No Swelling, No Redness Cardiovascular : No Chest Pain, No SOB, No edema Respiratory : No Cough, No Sputum, No Wheezing Gastrointestinal : Positive Nausea, no Vomiting, no Diarrhea, positive abdominal Pain, No Hematochezia, No Melena Genitourinary : No Dysuria, No Urinary Frequency, No Hematuria, No Urgency Musculoskeletal : No joint pain, No Myalgias, No Joint Swelling Skin : No Skin Lesions, No rash Neuro : No Weakness, No Numbness, No Dizziness, No Headache Psych : No Anxiety/Panic, No Depression All other systems reviewed and are negative. [facility], [facility] Past Medical History Attestation statement: The following information was validated with the patient. Source: old records reviewed Medical History Physical exam Enlarged prostate BMI 37.0-37.9, adult Muscle strain Hip pain Screening for colon cancer Right calf pain Hip pain, right Elevated bilirubin Elevated alkaline phosphatase level Obesity Anxiety Depression COPD (chronic obstructive pulmonary disease) GERD (gastroesophageal reflux disease) DDD (degenerative disc disease), cervical History of non-ST elevation myocardial infarction (NSTEMI) History of pulmonary embolism Cataract HLD (hyperlipidemia) HTN (hypertension) Cough NANCY on CPAP Sarcoidosis Asthma Surgical History History of bone marrow biopsy History of tonsillectomy History of vasectomy History of endoscopy History of hernia repair History of colonoscopy Family History Family History Father Family history of high blood pressure Mother History of colon cancer History of abdominal aortic aneurysm (AAA) Brother Prostate cancer Social History Social History Household Members: Spouse Housing: House Do you presently have visiting nurse or other home services: No Alcohol intake: never Patient Tobacco Use Status: Former Tobacco user Tobacco use type: Cigarette Smoked in Last 30 Days: No e-Cigarette/Vaping Use: Never Used Second Hand Smoke Exposure: No Use of substances other than those prescribed or required for medical reasons: No Advance Directives: Yes Advance Directives Information Provided: Yes Advance Directives on File: No Advance Directives Date on File: 11/13/21 Do you have a plan to hurt others: No Plan service: No Current occupational status: retired Cognitive needs: No Hearing needs: No Vision needs: No Physical Exam ED Vital Signs: Vital Signs - 24 hr 02/09/24 06:26 02/09/24 07:44 02/09/24 08:43 Temperature 99.3 F 98.7 F Pulse Rate 84 85 Respiratory Rate 19 16 Blood Pressure 133/82 136/83 Pulse Oximetry 93 95 Oxygen Delivery Method Room Air Room Air 02/09/24 11:15 Temperature 98.4 F Pulse Rate 81 Respiratory Rate 18 Blood Pressure 110/73 Pulse Oximetry 92 Oxygen Delivery Method Room Air BMI result Body Mass Index 37.0 Appearance: Alert. Oriented X3. No acute distress. Eyes: Pupils equal, round and reactive to light. ENT: Pharynx normal. Neck: Normal inspection. Neck supple. CVS: Normal heart rate and rhythm. Pulses normal. Respiratory: No respiratory distress. Breath sounds normal. Abdomen: Soft and moderate ttp in LLQ no rebound Skin: Skin warm and dry. Normal skin color. Normal skin turgor. Extremities: No lower extremity edema. No calf ttp Neuro: Oriented X 3. No motor deficit. No sensory deficit. Course Course Course Narrative: pain improved with IV morphine Medical Decision Making Medical Decision Making MDM Narrative: 63 yo male with PMH of COPD, HLD, GERD, anxiety, depression, BPH, sarcoidosis (on cellcept) that did go to the pelvic bone, HTN, diverticulitis, prior provoked DVT completed eliquis therapy about 4 years ago here with c/o LLQ pain chills and not feeling well x 2 days at this time labs, UA, CT scan for diverticulitis ordered, IV morphine for pain. No signs of acute abdomen ordered. Differential Diagnosis Differential Diagnoses: The differential diagnosis associated with the presentation includes renal colic, colitis, diverticulitis, constipation Admission/Observation Consideration of admission/observation: Escalation of care including admission/observation considered no vomiting, no need for further IV antibiotics no hypoxia stable VS feels better can be managed as outpatient with eliquis and oral antibiotics he is in agreement and would like to go home he is reliable Lab Data MDM Lab Attestation statement: I reviewed the patient's lab results. 02/09/24 06:50 02/09/24 06:50 Labs: Lab Results 02/09/24 02/09/24 Range/Units 06:50 12:46 WBC 10.9 H (4.8-10.8) X10*3/uL RBC 5.21 (4.60-5.80) X10*6/uL Hgb 14.8 (14.0-18.0) g/dl Hct 45.0 (42.0-52.0) % MCV 86.4 (80.0-98.0) fL MCH 28.4 (27.0-33.0) pg MCHC 32.9 (31.0-36.0) g/dl RDW 13.8 (11.0-16.0) % Plt Count 225 (160-400) X10*3/uL MPV 9.8 (9.4-12.4) fL Immature Gran % (Auto) 0.3 (0.0-0.4) % Neut % (Auto) 79.9 H (45-73) % Lymph % (Auto) 6.1 L (20-40) % [place] % (Auto) 11.6 H (2-11) % Eos % (Auto) 1.6 (0-4) % Baso % (Auto) 0.5 (0-2) % Lymph # (Auto) 0.7 L (1.2-4.9) X10*3/uL [place] # (Auto) 1.3 H (0.1-1.2) X10*3/uL Eos # (Auto) 0.2 (0.0-0.4) X10*3/uL Baso # (Auto) 0.1 (0.0-0.2) X10*3/uL Abs Immat Gran (auto) 0.03 (0.00-0.03) X10*3/uL Absolute Neuts (auto) 8.7 H (2.0-8.3) x10*3/uL Absolute Nucleated RBC 0.000 (0.0-0.012) X10*3/uL Nucleated RBC % (auto) 0.0 (0.0-0.2) /100WBC PT 13.8 H (11.1-13.3) SEC INR 1.1 (0.9-1.1) Sodium 139 (135-145) mmol/L Potassium 4.9 (3.3-5.1) mmol/L Chloride 104 (96-108) mmol/L Carbon Dioxide 27 (22-29) mmol/L Anion Gap 13 (12-20) BUN 18 H (9-16) mg/dL Creatinine 1.26 (0.5-1.4) mg/dL Estim Creat Clear Calc 78.8 Estimated GFR 58 Random Glucose 108 (60-115) mg/dL Lactic Acid 0.6 (0.5-2.0) mmol/L Calcium 9.7 (8.4-10.2) mg/dL Total Bilirubin 1.6 H (0.0-1.0) mg/dL Direct Bilirubin 0.5 (0.0-0.5) mg/dL AST 17 (5-37) U/L ALT 16 (0-40) U/L Alkaline Phosphatase 121 H (39-117) U/L Troponin I High Sens 5.8 (<3.5-35.0) ng/L B-Natriuretic Peptide 25 (<100) pg/mL Total Protein 6.8 (6.5-8.0) g/dL Albumin 4.2 (3.5-5.0) g/dL Lipase 23 (8-78) U/L Urine Color Yellow Urine Appearance Clear Urine pH 5.5 (5.0-9.0) Ur Specific Daisy 1.020 (1.005-1.025) Urine Protein Negative (Neg-Trace) mg/dL Urine Glucose (UA) Negative (Negative) mg/dL Urine Ketones Negative (Negative) mg/dL Urine Blood Negative (Negative) Urine Nitrite Negative (Negative) Ur Leukocyte Esterase Negative (Negative) Independent Interpretation I performed an independent interpretation of an: EKG and CT Scan (PE, pancreatic mass, diverticulitis) Interpretation: Rate: 78 Rhythm: NSR [place]: normal Normal P waves. Normal RAJINDER. RBBB ST T wave : no LINDSAY, inverted t wave III qTC: 499 prior studies: no acute ischemia The study has been interpreted contemporaneously by me. . Radiology Impression Discussion of test interpretation with radiology: I discussed test interpretation with the radiologist and I have reviewed the radiologist's reading. External Record Review External record reviewed: Inpatient record Prescription Management I considered prescription management with: Pain Medication, Antibiotic and Other Medications Administered Discontinued Medications Generic Name Dose Route Start Last Admin Trade Name Freq PRN Reason Stop Dose Admin Sodium Chloride 1,000 mls @ 999 mls/hr 02/09/24 08:15 02/09/24 12:20 Ns IV 02/09/24 09:15 Infused .Q1H1M ONE Infusion Iohexol 85 ml 02/09/24 09:38 02/09/24 09:38 Iohexol 350 Mg/Ml 75 Ml Infus..Btl IV 02/09/24 09:39 85 ml ONCE ONE Administration Morphine Sulfate 4 mg 02/09/24 08:15 02/09/24 08:43 Morphine Sulfate 4 Mg/Ml Cartridge IVPUSH 02/09/24 08:16 4 mg ONCE ONE Administration Protocol Ondansetron HCl 4 mg 02/09/24 08:15 02/09/24 08:42 Ondansetron Hcl 4 Mg/2 Ml Vial IVPUSH 02/09/24 08:16 4 mg ONCE ONE Administration Critical Care Time Critical Care Time Critical Care Time: Yes Total Critical Care Time: 35 Attestation: pain improved with IV morphine, repeat labs, review of records I attest to this time spent taking care of the patient Discharge Plan Discharge Clinical Impression: Diverticulitis, Pancreatic lesion Pulmonary emboli Qualifiers: Pulmonary embolism type: unspecified Chronicity: acute Acute cor pulmonale presence: without acute cor pulmonale Qualified Code(s): I26.99 - Other pulmonary embolism without acute cor pulmonale Patient Disposition: Home, Self-Care Instructions: Diverticulitis (ED), Diverticulitis Diet (ED), Blood Thinners (ED) Additional Instructions: there is a list of things that need to be done and you need to be aware of 1. diverticulitis - bland diet monitor pain return for worsening pain fevers inability to take your medications blood in toilet or clots 2. incidental blood clot in right lower lung given 2nd time you need to see a blood doctor (va underwriter) Dr. Apodaca is listed below - take the eliquis return for head strikes, black or bloody stools, bleeding that will not stop 3. Pancreatit mass - you need MRI of pancreas call your doctor and obtain one this has remained stable since last CT scan Prescriptions: New ciprofloxacin HCl 500 mg tablet 500 mg PO Q12H Qty: 14 0RF morphine 15 mg tablet 15 mg PO Q6H PRN (Reason: pain) Qty: 14 0RF Rx Instructions: partial fill okay; Partial Fill upon patient request. Eliquis DVT-PE Treat 30D Start 5 mg (74 tabs) tablets,dose pack 5 mg PO BID Qty: 74 0RF Rx Instructions: starter pack initial 10mg BID for one week then 5mg BID to complete pack No Action ProAir RespiClick 90 mcg/actuation aerosol powdr breath activated 2 inh inhalation Q6H PRN (Reason: Shortness Of Breath) 30 Days Qty: 1 11RF carvedilol 6.25 mg tablet 6.25 mg PO BID Qty: 180 1RF lisinopril 40 mg tablet 40 mg PO BEDTIME Qty: 90 1RF fluticasone propion-salmeterol [Advair HFA] 115-21 mcg/actuation HFA aerosol inhaler 2 puff inhalation Q12H 30 Days Qty: 12 11RF spironolactone 25 mg tablet 25 mg PO BEDTIME 90 Days Qty: 90 1RF atorvastatin 40 mg tablet 40 mg PO DAILY 90 Days Qty: 90 1RF mycophenolate mofetil [CellCept] 500 mg tablet 500 mg PO BID 30 Days Qty: 60 6RF citalopram 20 mg tablet 20 mg PO BEDTIME 90 Days Qty: 90 1RF tramadol 50 mg tablet 50 mg PO BID PRN (Reason: pain) 20 Days Qty: 40 0RF multivitamin Tablet 1 tab PO DAILY cholecalciferol (vitamin D3) [Vitamin D3] 25 mcg (1,000 unit) Tablet 25 mcg PO DAILY aspirin 81 mg capsule 81 mg PO DAILY Qty: 30 0RF cetirizine [All Day Allergy (cetirizine)] 10 mg tablet 10 mg PO DAILY PRN (Reason: Allergic Symptoms) (DME) nebulizers Misc See Rx Instructions .Route Rx Instructions: As directed (DME) CPAP Machine/Device Device See Rx Instructions .Route Rx Instructions: As directed Adult 50 Plus Probiotic 4 billion cell capsule 4,000 mmu cells PO DAILY Rx Instructions: administer with a meal albuterol sulfate 2.5 mg /3 mL (0.083 %) solution for nebulization 2.5 mg inhalation Q6H PRN (Reason: shortness of breath or wheezing) 30 Days Qty: 180 11RF famotidine [Pepcid] 20 mg tablet 20 mg PO DAILY Referrals: Juliana Apodaca MD [Physician] - (va underwriter ) Stand Alone Forms: Work/School Release Print Language: Vincentian
[2024-02-09] MEDS: iohexoL 350 MG/ML 75 ML INFUS..BTL 85 ML IV (09:38)
[2024-02-09 11:15] VITALS: BP 110/73; PULSE 81; RESP 18; TEMP 36.9; O2SAT 92
--- NOTE | 2024-02-09 12:03 | ECG_ITS ---
Test Reason : abd pain Blood Pressure : / mmHG Vent. Rate : 078 BPM Atrial Rate : 078 BPM P-R Int : 140 ms QRS Dur : 148 ms QT Int : 438 ms P-R-T Axes : 000 -10 003 degrees QTc Int : 499 ms Normal sinus rhythm Right bundle branch block Abnormal ECG When compared with ECG of 13-NOV-2021 12:59, Premature ventricular complexes are no longer Present Referred By: Iqra Angeles Electronically Signed By:MEGAN PÉREZ
[2024-02-09 13:00] LABS: Lactic Acid 0.6 mmol/L (0.5-2.0)
[2024-02-09 13:03] LABS: INTERNATIONAL NORM RATIO 1.1 (0.9-1.1); Prothrombin Time 13.8 SEC (11.1-13.3)
[2024-02-09 13:11] LABS: B Type Natriuretic Peptide 25 pg/mL (<100)
[2024-02-09 13:12] LABS: Troponin-I High Sensitivity 5.8 ng/L (<3.5-35.0)
--- NOTE | 2024-02-09 13:13 | PC.NURSE ---
Per MD, second culture set canceled.
[2024-02-09] MEDS: metroNIDAZOLE 500 MG TABLET PO (13:30)
[2024-02-09 13:35] VITALS: BP 124/84; PULSE 81; RESP 17; TEMP 37.2; O2SAT 95
== END 2024-02-09 13:36 | disposition home or self-care (01) ==
PROVIDERS: Emergency Provider Emergency Medicine; PCP Nurse Practitioner Family
DX: K57.92 Diverticulitis of intestine, part unspecified, without perforation or abscess without bleeding (principal); I26.99 Other pulmonary embolism without acute cor pulmonale; K86.89 Other specified diseases of pancreas; I10 Essential (primary) hypertension; J44.9 Chronic obstructive pulmonary disease, unspecified; Z86.718 Personal history of other venous thrombosis and embolism
CPT/HCPCS: 36415; 74177; 80048; 80076; 81003; 83605; 83690; 83880; 84484; 85025; 85610; 87040; 93005; 96361; 96374; 96375; 99285; J2270; J2405; Q9967

== ENCOUNTER → 2024-02-09 12:03 | Outpatient (BNV) | payer OTHER, SELFPAY | PROVIDERS: Emergency Provider Emergency Medicine; PCP Nurse Practitioner Family; Visit Provider Internal Medicine | DX: R94.31 Abnormal electrocardiogram [ECG] [EKG] (principal) | CPT/HCPCS: 93010 ==

== ENCOUNTER 2024-02-15 10:30 | Outpatient (REF) | payer OTHER, SELFPAY ==
[2024-02-15 14:01] LABS: PSA,Total (Free>4and<10) 4.18 ng/mL (0.00-4.00)
[2024-02-16 13:38] LABS: Free Prostate Spec Ag 0.6 ng/mL; Percent Free Prostate Spec Ag 15 % (calc) (>25)
== END 2024-02-15 10:31 | disposition home or self-care (01) ==
LOC: HO.HMGCLDS 10:30
PROVIDERS: PCP Nurse Practitioner Family; Visit Provider Urology
DX: R97.20 Elevated prostate specific antigen [PSA] (principal); Z80.42 Family history of malignant neoplasm of prostate; Z12.5 Encounter for screening for malignant neoplasm of prostate
CPT/HCPCS: 36415; 84153; 84154

== ENCOUNTER 2024-03-11 12:57 | Outpatient (AMB) | payer OTHER, SELFPAY ==
--- NOTE | 2024-03-11 13:05 | A.OFFVIS_ITS ---
Intake Visit Reasons: 5m/PSA Intake Note: Patient is present for 5 month f/u Urology Medication:none Antibiotic Allergy:amoxicillin Blood Thinner:aspirin last PVR:29ML Today's PVR: Solar Designer/Installer Required: No Allergies amoxicillin [AMOXICILLIN] Allergy (Severe, Verified 03/11/24 13:07) DIFF BREATHING HPI Comments Details: 03/11/24--Christiano is a 64 year old male who is here for FU for elevated PSA, enlarged prostate and h/o kidney stones. Repeat PSA 02/15/24--4.18. Will continue to monitor PSA. Repeat PSA in 6 months Review of chart: 10/13/23--Christiano is a 63 year old male who is here for evaluation for elevated PSA and enlarged prostate. The patient has history of kidney stones. Family history of prostate cancer his brother is 3 years older than him was diagnosed with prostate cancer age 63. The patient feels he empties his bladder adequately. Does admit to occasional urgency, nocturia x1 AUA symptom score 19/35. Review of labs 05/19/2022 PSA--1.99 06/22/2023--PSA--2.84 I have reviewed chart, imaging CT scan August 2023 small bilateral kidney stones, I have reviewed the films with the patient. I have discussed PSA is a blood test, prostate specific antigen and is an enzyme secreted by the prostate gland. Elevated PSA may be due to multiple conditions including prostate inflammatory condition, enlarged prostate or prostate cancer. UA--negative blood negative leukocytes. Prostate Exam: Mild to moderately enlarged with mildly irregularity on the right side, no hard nodules. [facility] Medical History Physical exam Enlarged prostate BMI 37.0-37.9, adult Muscle strain Hip pain Screening for colon cancer Right calf pain Hip pain, right Elevated bilirubin Elevated alkaline phosphatase level Obesity Anxiety Depression COPD (chronic obstructive pulmonary disease) GERD (gastroesophageal reflux disease) DDD (degenerative disc disease), cervical History of non-ST elevation myocardial infarction (NSTEMI) History of pulmonary embolism Cataract HLD (hyperlipidemia) HTN (hypertension) Cough NANCY on CPAP Sarcoidosis Asthma Surgical History History of bone marrow biopsy History of tonsillectomy History of vasectomy History of endoscopy History of hernia repair History of colonoscopy Family History Father Family history of high blood pressure Mother History of colon cancer History of abdominal aortic aneurysm (AAA) Brother Prostate cancer Social History Household Members: Spouse Housing: House Do you presently have visiting nurse or other home services: No Alcohol intake: never Patient Tobacco Use Status: Former Tobacco user Tobacco use type: Cigarette e-Cigarette/Vaping Use: Never Used Second Hand Smoke Exposure: No Advance Directives Date on File: 11/13/21 service: No Current occupational status: retired Cognitive needs: No Hearing needs: No Vision needs: No Review of Systems Const All systems reviewed & are unremarkable except as noted in HPI and below Reports no additional complaints Eyes Reports no additional complaints ENT Reports no additional complaints Card Reports no additional complaints Resp Reports no additional complaints GI Reports no additional complaints Reports as per HPI Musc Reports no additional complaints Skin/Breast Reports system reviewed and no additional complaints, except as documented Neuro Reports no additional complaints Psych Reports no additional complaints Endo Reports no additional complaints Sy/Lymph Reports no additional complaints Aller/Immun Reports no additional complaints Results AMB Urinalysis, Automated UA Leukoctes 15 Danica/uL Last Edit by MARYJANE Cheng on 03/11/24 13:18 UA Nitrite Negative Last Edit by MARYJANE Cheng on 03/11/24 13:18 UA Urobilinogen 0.2 mg/dL Last Edit by MARYJANE Cheng on 03/11/24 13:1 8 UA Protein 15 mg/dL Last Edit by MARYJANE Cheng on 03/11/24 13:18 UA pH 5.5 Last Edit by MARYJANE Cheng on 03/11/24 13:18 UA Blood 0 Bong/uL Last Edit by MARYJANE Cheng on 03/11/24 13:18 UA Specific [place] 1.025 Last Edit by MARYJANE Cheng on 03/11/24 13: 18 UA Ketone Positive Last Edit by MARYJANE Cheng on 03/11/24 13:18 UA Bilirubin 0 mg/dL Last Edit by MARYJANE Cheng on 03/11/24 13:18 UA Glucose 0 mg/dL Last Edit by MARYJANE Cheng on 03/11/24 13:18 Results Reviewed Results Reviewed: Laboratory Last Values Urine pH (Auto) 5.5 03/11/24 13:17 Specific [place] (Auto) 1.025 03/11/24 13:17 Urine Protein (Auto) 15 mg/dL 03/11/24 13:17 Glucose (UA)(Auto) 0 mg/dL 03/11/24 13:17 Urine Ketones (Auto) Positive 03/11/24 13:17 Urine Blood (Auto) 0 Bong/uL 03/11/24 13:17 Urine Nitrite (Auto) Negative 03/11/24 13:17 Urine Bilirubin (Auto) 0 mg/dL 03/11/24 13:17 Urine Urobilinogen (Auto) 0.2 mg/dL 03/11/24 13:17 Leukocyte Esterase (Auto) 15 Danica/uL 03/11/24 13:17 Assessment & Plan Assessment & Plan (1) Bilateral kidney stones: Code(s): N20.0 - Calculus of kidney Category: Medical (2) Enlarged prostate: Code(s): N40.0 - Benign prostatic hyperplasia without lower urinary tract symptoms Category: Medical (3) Family history of prostate cancer: Code(s): Z80.42 - Family history of malignant neoplasm of prostate Category: Medical (4) Elevated PSA: Code(s): R97.20 - Elevated prostate specific antigen [PSA] Category: Medical Plan PSA in 6 months Orders: Orders AMB Urinalysis Automated 03/11/24 Z13.9 - Encounter for screening, unspecified Patient Instructions: The patient had an opportunity to ask questions regarding treatment plan. The patient expressed understanding and agreement with the above treatment plan. The patient is aware they should contact our office by phone for worsening of their current condition or the appearance of new symptoms. Compliance is encouraged with any medications and followup testing that is ordered. It is a privilege to be allowed the opportunity to participate in the urologic care of your patient. If you have any questions or concerns regarding treatment for the above conditions please do not hesitate to contact me. The office telephone contact is [phone]. This note is constructed in part using voice recognition software. While every effort has been made to ensure accuracy employee benefits insurance agent errors may have been included. Yours sincerely, Ton Mcdowell MD Coding Level of Care Code Est Pt Level 3 (45471) Diagnoses Bilateral kidney stones N20.0 Enlarged prostate N40.0 Family history of prostate cancer Z80.42 Elevated PSA R97.20
== END 2024-03-11 13:45 | disposition home or self-care (01) ==
PROVIDERS: PCP Nurse Practitioner Family; Visit Provider Urology
DX: N20.0 Calculus of kidney (principal); N40.0 Benign prostatic hyperplasia without lower urinary tract symptoms; Z80.42 Family history of malignant neoplasm of prostate; R97.20 Elevated prostate specific antigen [PSA]
CPT/HCPCS: 99213

== ENCOUNTER → 2024-03-11 12:57 | Outpatient (BNVA) | payer OTHER, SELFPAY | PROVIDERS: PCP Nurse Practitioner Family; Visit Provider Urology | DX: R97.20 Elevated prostate specific antigen [PSA] (principal); N40.0 Benign prostatic hyperplasia without lower urinary tract symptoms; N20.0 Calculus of kidney; Z80.42 Family history of malignant neoplasm of prostate | CPT/HCPCS: 81003 ==

== ENCOUNTER 2024-03-12 11:00 | Outpatient (RCR) | payer OTHER, SELFPAY ==
--- NOTE | 2024-02-08 13:56 | MHC.PT.EP ---
[facility] [place] Office [place] Office [place] Office [address] [phone] F: [phone] F: [phone] F: [phone] F: [phone] Physical Therapy Plan of Care Date of Evaluation: 02/08/24 Date of Surgery: Diagnosis: Neck pain Assessment: Patient is a 63 year old R handed male who presents with s/s consistent with cervical neck pain. He does not work and is retired. Patient past medical history includes PE, NSTEMI and chronic hip pain. Current impairments include pain, posture, ROM, strength, activity tolerance and functional mobility. Functional limitations include decreased ability to turn head, sit, drive, sleep and sustain positions comfortably. Patient is motivated with good rehab potential. Skilled PT will address impairments and functional limitations in order to achieve goals. Frequency and Duration: The patient will be seen 2x/week for 5 weeks Short Term Goals: I with HEP - 2 weeks AROM rotation to 64 b/l - 3 weeks Able to sleep pain free - 3 weeks Residential Goals: NPDI 10% or less - [address] hour without increased s/s - 5 weeks Max pain 2/10 with ADLs - 5 weeks s/s centralized - 5 weeks Treatment Plan: Modalities to reduce pain, spasms and effusion. Manual therapy to restore motion and function. Therapeutic exercise to improve strength and flexibility. Neuromuscular re-education for posture and balance. Therapeutic activities to return to functional activities of daily living. Electronically signed by: Naeem Richard, PT Please sign and return to therapist. Thank you for your referral.
--- NOTE | 2024-06-19 14:51 | MHC.PT.DC ---
[facility] [place] Office [place] Office [place] Office [address] Gene Velasquez [address] [phone] F: [phone] F: [phone] F: [phone] F: [phone] Physical Therapy Discharge Report Diagnosis: Neck pain Date of Surgery: Date of Evaluation: 02/08/24 Date of Discharge: 03/31/24 Treatments to Date: 8 Cancellations to Date: No Shows to Date: Discharge Status: Independent with HEP Patient Elected to Stop Discharge Summary: Pt was looking into home traction and has HEP as well. 03/12; Discussed getting a home CTX unit to cont at home . Pt has 1 visit before DC. 03/07; Pt has 2 remaining visits and discussed DC at that time and F/U with M<D for further testing. 03/05; Pt was able to perform chin tucks with only c/o soreness. Pt L c/s rotation improviong, but some limitation remains. 02/28; Pt c/s rotation progressing. No c/o N/T with exs. DC chin tucks due to c/o previous sxs of N/T. 02/27/24: traction second time today. good response with slight reduction in peripheralized s/s. we will continue to use moving forward barring any adverse reactions. 02/21; Pt unable to perform UB due to N/T L U.E. Pt limited with chin tucks. Pt felt relief after CTX. 02/19; Nisha had increased L U.E N/T with rows DC. Pt sxs resolve with flexing L sh up. Pt tight L Ut, SCM muscles. Patient is a 63 year old R handed male who presents with s/s consistent with cervical neck pain. He does not work and is retired. Patient past medical history includes PE, NSTEMI and chronic hip pain. Current impairments include pain, posture, ROM, strength, activity tolerance and functional mobility. Functional limitations include decreased ability to turn head, sit, drive, sleep and sustain positions comfortably. Patient is motivated with good rehab potential. Skilled PT will address impairments and functional limitations in order to achieve goals. Electronically signed by: Naeem Richard PT Please sign and return to therapist. Thank you for your referral.
== END 2024-06-19 14:51 | disposition home or self-care (01) ==
LOC: HO.PTCHIC 11:00
PROVIDERS: PCP Nurse Practitioner Family; Visit Provider Nurse Practitioner Family
DX: M50.90 Cervical disc disorder, unspecified, unspecified cervical region (principal)
CPT/HCPCS: 97012; 97110; 97140; 97163

== ENCOUNTER → 2024-04-15 09:57 | Outpatient (REF) | payer OTHER, SELFPAY ==
--- NOTE | ~2024-04-15 | NM_ITS ---
EXAMINATION: NM BONE SCAN OF THE WHOLE BODY CLINICAL INFORMATION: 64-year-old male with right hip pain following to have multifocal osseous lesions seen on MRI of the right hip done on 09/28/2022. Increased PSA. COMPARISON: MRI of the right hip done on 09/28/[address]-guided bone marrow biopsy done on 10/17/2022 and most recent prior CT of the abdomen and pelvis done on 02/09/2024. TECHNIQUE: Multiple gamma scintillation camera images of the whole body were performed 3 hours following the intravenous administration of 40 mCi Tc-99m MDP. FINDINGS: In the head, asymmetric right frontoparietal calvarial focal lesion is present. Asymmetric left frontoparietal calvarial lesion is also present. In the thoracic cage and upper extremities, near symmetric increased tracer avidity around both shoulder and sternoclavicular joints likely represent nonspecific arthritic changes. Heterogeneous tracer avidity seen predominantly within the posterior mid left hemithoracic cage is nonspecific, may represent subtle early changes of cortical involvement. In the spine, heterogeneous increased tracer avidity is noted most pronounced at mid to lower thoracic spine, may represent degenerative changes versus evolving non-degenerative osseous disease. In the pelvis, asymmetric increased tracer avidity is noted within the right ischium and posterior right iliac region adjacent to the SI joint. When correlating with the prior MRI study, suspicious for disease involvement. In the lower extremities, asymmetric increased tracer avidity is noted in the region of the left greater trochanter of the femur, correlates with a focal lesion in this region as was documented on the prior MRI study dated 09/28/2022. Nonspecific periarticular increased tracer avidity at both knees and both feet likely represent nonspecific arthritic and/or posttraumatic changes. No other definite bony abnormalities are noted. The urinary bladder and faint visualization of both kidneys are noted. NM/NM bone scan whole body IMPRESSION: * Multifocal tracer avid osseous disease is present within the axial and appendicular skeleton, of indeterminate etiology. * Follow-up F-[address] scan and/or PSMA PET CT scan as appropriate may be considered for further clarification. * Alternatively, CT-guided biopsy of the left subtrochanteric lesion may be considered for definitive tissue diagnosis, if clinically appropriate.
== END ==
LOC: HO.NUCMED 09:57
PROVIDERS: PCP Nurse Practitioner Family; Visit Provider Internal Medicine
DX: C41.9 Malignant neoplasm of bone and articular cartilage, unspecified (principal)
CPT/HCPCS: 78306; A9503

== ENCOUNTER → 2024-04-17 12:52 | Outpatient (REF) | payer OTHER, SELFPAY ==
--- NOTE | 2024-04-17 12:55 | CA_ITS ---
Transthoracic Echocardiogram Patient (Last, First, Middle): Christiano Dorado, Gender: Male Date of : 1960 Age: 64 Procedure Date: 04/17/2024 Procedure Type: Transthoracic Echocardiogram Location: OP Height: 177.8 cm Weight: 115.67 kg BSA: 2.31 m2 Heart Rate: bpm BP: 112 / 70 mmHg Administrative Resources Associate: SAMSON Donato MD: Mikhail Delgado MD Stroke Belt Sander Operator: Rogelio Carrasquillo MD Symptoms: I71.2 - Thoracic aortic aneurysm, without rupture Study Quality: Fair ECG Rhythm: Sinus Conclusions: - 1. Normal LV ejection fraction 60 65% with grade 1 diastolic dysfunction 2. Trivial aortic regurgitation 3. [id number] aortic enlargement 4. Normal RV systolic pressure 5. No pericardial effusion Findings Left Ventricle Normal left ventricular size, thickness, and systolic function. The visually estimated ejection fraction is between 60-65%. Spectral Doppler is indicative of an impaired relaxation filling pattern. E/E prime ratio is between 8 and 15 consistent with indeterminate filling pressures. Right Ventricle Normal right ventricular cavity size and systolic function. Atria The left atrium is mildly dilated. There is lipomatous hypertrophy of the interatrial septum. There is no evidence of interatrial shunt. The right atrium is normal in size. Aortic Valve Normal aortic valve structure and function. There is no aortic valve stenosis. There is trace (trivial) aortic valve regurgitation. Mitral Valve Normal mitral valve structure and function. There is trace mitral valve regurgitation. There is no mitral valve stenosis. Pulmonic Valve The pulmonic valve is likely normal. Tricuspid Valve Normal tricuspid valve structure. There is trace tricuspid valve regurgitation. The right ventricular systolic pressure is normal. The right ventricular systolic pressure is 21 mmHg. Normal right atrial pressure. There is no evidence of pulmonary hypertension. Great Vessels The pulmonary artery was not well visualized. There is mild to moderate dilatation of the ascending aorta measuring 4.40 cm. Venous The inferior vena cava is normal in size and collapses greater than 50% with inspiration. Pericardium/Pleural There is no evidence of pericardial effusion. Measurements 2D Linear Measurements IVSd: 0.98 0.6-0.9/0.6-1.0 cm LVIDd: 5.16 3.9-5.3/4.2-5.9 cm LVIDd Index: 2.23 2.4-3.2/2.2-3.1 cm/m2 LVIDs: 3.75 2.0-3.6 cm LVPWd: 0.98 0.7-1.1 cm Ao Root: 4.20 2.1-3.5 cm LA Diam: 3.50 2.7-3.8/3.0-4.0 cm LAIDs Index: 1.52 1.5-2.3 cm/m2 LV Mass: 232.50 67-162/88-224 g LV Mass Index: 100.65 43-95/49-115 g/m2 LVOT Diam: 2.30 3.0+(-)1.3 cm 2D Systolic Function EF 4C: 55.90 >55% EF 2C: 63.80 >55% EF BiP: 60.40 >55% Mitral Valve MV Pk E: 0.57 MV PK A: 0.59 MV Decel Time: 477.00 E/A: 1.00 E'Lateral: 7.51 E'Medial: 7.72 E/E' Med: 7.30 E/E' Lat: 7.50 PHT: 140.00 MVA PHT: 1.57 Decel [place]: 1.19 Aortic Valve AoV Pk Loc: 1.25 AoV Mn Loc: 0.86 AoV VTI: 0.30 AoV Pk Grad: 6.00 Aov Mn Grad: 3.00 SIVAKUMAR Cont.VTI: 2.49 LVOT LVOT Pk Loc: 0.82 LVOT Mn Loc: 0.55 LVOT VTI: 0.18 LVOT Pk Grad: 3.00 LVOT Mn Grad: 1.00 LVOT Diam: 2.30 LVOT Area: 4.15 Diastolic Function MV Pk E: 0.57 MV Pk A: 0.59 E/A: 1.00 E'Medial: 7.72 E/E' Med: 7.30 E' Laterial: 7.51 E/E' Lat: 7.50 Right Ventricle TAPSE (mm): 27.00 TVS' Loc: 12.40 Tricuspid Valve TR Pk Loc: 2.14 TR Pk Grad: 18.00 RA Press: 3.00 RVSP: 21.00 Great Vessels Aorta Ao Root-2D: 4.20 2.0-3.7 cm Ao Asc: 4.40 2.1-3.4 cm Ao Arch: 3.70 Updated in Other Vendor System with Status of Final Rogelio Carrasquillo MD electronically signed on 04/18/2024 2:33:03 PM with status of Final
== END ==
LOC: HO.CARD 12:52
PROVIDERS: PCP Nurse Practitioner Family; Visit Provider Internal Medicine Cardiovascular Disease
DX: I71.20 Thoracic aortic aneurysm, without rupture, unspecified (principal)
CPT/HCPCS: 93306

== ENCOUNTER → 2024-04-17 12:55 | Outpatient (BNV) | payer OTHER, SELFPAY | PROVIDERS: PCP Nurse Practitioner Family; Visit Provider Internal Medicine Cardiovascular Disease | DX: I71.21 Aneurysm of the ascending aorta, without rupture (principal); I35.1 Nonrheumatic aortic (valve) insufficiency | CPT/HCPCS: 93306 ==

== ENCOUNTER 2024-05-10 09:44 | Outpatient (REF) | payer OTHER, SELFPAY ==
[2024-05-10 13:31] LABS: MANUAL DIFF FLAG NO
[2024-05-10 13:36] LABS: Basophils Percent Auto 0.7 % (0-2); Eosinophils Absolute Auto 0.4 X10*3/uL (0.0-0.4); Eosinophils Percent Auto 6.8 % (0-4); Hematocrit 44.7 % (42.0-52.0); Hemoglobin 14.4 g/dl (14.0-18.0); Imm Gran Abs Auto 0.02 X10*3/uL (0.00-0.03); Imm Gran Pct Auto 0.4 % (0.0-0.4); Lymphocytes Absolute Auto 0.8 X10*3/uL (1.2-4.9); Lymphocytes Percent Auto 13.8 % (20-40); Mean Corpuscular HGB Conc 32.2 g/dl (31.0-36.0); Mean Corpuscular Volume 86.8 fL (80.0-98.0); Mean Platelet Volume 10.4 fL (9.4-12.4); Monocytes Absolute Auto 0.6 X10*3/uL (0.1-1.2); Monocytes Percent Auto 11.3 % (2-11); Neutrophils Absolute Auto 3.6 x10*3/uL (2.0-8.3); Platelet Count 229 X10*3/uL (160-400); Red Blood Count 5.15 X10*6/uL (4.60-5.80); Red Cell Distribution Width 14.2 % (11.0-16.0); White Blood Count 5.4 X10*3/uL (4.8-10.8)
[2024-05-10 13:38] LABS: Appearance Urine Clear; Color Urine Yellow; Glucose Urine UA Negative (Negative); Leukocyte Esterase Urine Negative (Negative); Nitrite Urine Negative (Negative); PH 8.5 (5.0-9.0); Specific Gravity - Urine 1.015 (1.005-1.025); Urine Blood Negative (Negative); Urine Ketones Negative (Negative); Urine Protein Negative (Neg-Trace)
[2024-05-10 14:25] LABS: Alanine Aminotransferase 28 U/L (0-40); Albumin Level 4.1 g/dL (3.5-5.0); Alkaline Phosphatase 123 U/L (39-117); Anion Gap 9 (12-20); Aspartate Amino Transferase 27 U/L (5-37); Bilirubin Total 1.2 mg/dL (0.0-1.0); Blood Urea Nitrogen 15 mg/dL (9-16); Calcium 9.2 mg/dL (8.4-10.2); Carbon Dioxide 27 mmol/L (22-29); Chloride 108 mmol/L (96-108); Cholesterol 108 mg/dL (<200); Estimated Glomerular Filt Rate > 60; Glucose Fasting 98 mg/dL (60-99); HDL Cholesterol 30 mg/dL (>40); LDL Cholesterol Calculated 55 mg/dL (<100); Potassium 4.3 mmol/L (3.3-5.1); Sodium 140 mmol/L (135-145); Total Protein 6.6 g/dL (6.5-8.0); Triglycerides 115 mg/dL (<150)
[2024-05-10 14:44] LABS: TSH reflex Free T4 1.56 uIU/mL (0.32-4.0)
== END 2024-05-10 09:45 | disposition home or self-care (01) ==
LOC: HO.HMGCLDS 09:44
PROVIDERS: PCP Nurse Practitioner Family; Visit Provider Nurse Practitioner Family
DX: I10 Essential (primary) hypertension (principal)
CPT/HCPCS: 36415; 80053; 80061; 81003; 84443; 85025

== ENCOUNTER 2024-05-14 10:28 | Outpatient (AMB) | payer OTHER, SELFPAY ==
[2024-05-14 10:30] VITALS: BP 118/74; PULSE 73; O2SAT 95; BMI 37.6
--- NOTE | 2024-05-14 10:30 | MHC.PC.OV ---
Vital Signs 05/14/24 10:30 Height 5 ft 10 in Weight 262 lb BMI 37.6 BP 118/74 Blood Pressure Location Rt brachial Position Sitting Pulse 73 Pulse Source Pulse Oximeter Pulse Oximetry (%) 95 Intake Visit Reasons: 6M F/U Intake Note: pt is here for 6 month follow up with labs and sleep concerns Tabber Required: No Allergies amoxicillin [AMOXICILLIN] Allergy (Severe, Verified 05/14/24 10:32) DIFF BREATHING Medication List - Last Reconciled 05/14/24 by MARK Blanco- albuterol sulfate 90 mcg/actuation (ProAir RespiClick) 2 inhalations inhalation Q6H PRN 30 days albuterol sulfate 2.5 mg (3 mL) inhalation Q6H PRN 30 days apixaban (Eliquis) 5 mg PO BID aspirin 81 mg PO DAILY atorvastatin 40 mg PO DAILY 90 days carvedilol 6.25 mg PO BID cetirizine (All Day Allergy (cetirizine)) 10 mg PO DAILY PRN cholecalciferol (vitamin D3) (Vitamin D3) 25 mcg PO DAILY citalopram 20 mg PO BEDTIME 90 days CPAP (CPAP Machine/Device) As directed famotidine (Pepcid) 20 mg PO DAILY fluticasone propion-salmeterol 115-21 mcg/actuation (Advair HFA) 2 puffs inhalation Q12H 30 days lactobacillus combination no.9 (Adult 50 Plus Probiotic) 4,000 mmu cells PO DAILY lisinopril 40 mg PO BEDTIME multivitamin 1 tab PO DAILY mycophenolate mofetil (CellCept) 500 mg PO BID 30 days nebulizers As directed spironolactone 25 mg PO BEDTIME 90 days tramadol 50 mg PO BID PRN 20 days trazodone 50 mg PO BEDTIME PRN Tobacco use date assessed: 11/29/23 Dental Screening Dental Screen Date: 11/29/23 HPI 6M F/U HPI Details HTN: Blood pressure is stable, managed with carvedilol 6.25mg bid, lisinopril 40mg, and spironolactone 25mg. Pt reports that his blood pressure is stable at home as well. Denies chest pain, shortness of breath, headache, dizziness, and blurred vision. Overall doing well, labs were benign. COUNT INCLUDES THE [facility] Medical History Physical exam Enlarged prostate BMI 37.0-37.9, adult Muscle strain Hip pain Screening for colon cancer Right calf pain Hip pain, right Elevated bilirubin Elevated alkaline phosphatase level Obesity Anxiety Depression COPD (chronic obstructive pulmonary disease) GERD (gastroesophageal reflux disease) DDD (degenerative disc disease), cervical History of non-ST elevation myocardial infarction (NSTEMI) History of pulmonary embolism Cataract HLD (hyperlipidemia) HTN (hypertension) Cough NANCY on CPAP Sarcoidosis Asthma Surgical History History of bone marrow biopsy History of tonsillectomy History of vasectomy History of endoscopy History of hernia repair History of colonoscopy Family History Father Family history of high blood pressure Mother History of colon cancer History of abdominal aortic aneurysm (AAA) Brother Prostate cancer Social History (Reviewed 05/14/24 @ 11:21 by Yury Menchaca [facility]) Household Members: Spouse Housing: House Do you presently have visiting nurse or other home services: No Alcohol intake: never Patient Tobacco Use Status: Former Tobacco user Tobacco use type: Cigarette e-Cigarette/Vaping Use: Never Used Second Hand Smoke Exposure: No Advance Directives Date on File: 11/13/21 service: No Current occupational status: retired Cognitive needs: No Hearing needs: No Vision needs: No Questionnaire PHQ-9 Over the last 2 weeks, how often have you been bothered by any of the following problems? 1. Little interest or pleasure in doing things: not at all 2. Feeling down, depressed, or hopeless: not at all 3. Trouble falling or staying asleep, or sleeping too much: nearly every day 4. Feeling tired or having little energy: several days 5. Poor appetite or overeating: nearly every day 6. Feeling bad about yourself - or that you are a failure or have let yourself or your family down: not at all 7. Trouble concentrating on things, such as reading the newspaper or watching television: not at all 8. Moving or speaking so slowly that other people could have noticed. Or the opposite - being so fidgety or restless that you have been moving around a lot more than usual: not at all 9. Thoughts that you would be better off or of hurting yourself in some way: not at all Total score: 7 Depression Screening Interpretation: Negative Depression Screening Done: Yes 29450 - PHQ-9 Billing: Yes Source: Developed by Drs. Pete Carter, Tamika Corbin, Dennis Bearden and colleagues, with an educational bhargav from [employer]. Thrive Questionnaire Date Thrive assessed: 11/29/23 I am a: Patient What is your living situation today?: I have a steady place to live Within the past 12 months, did the food you bought not last and you didn't have the money to get more?: Never true Within the past 12 months, did you worry whether your food would run out before you got money to buy more?: Never true Do you have trouble paying for medicines?: No Do you have trouble getting transportation to medical appointments?: No Do you have trouble paying your heating and electricity bill?: No Do you have trouble taking care of your child, family member or friend?: No Do you have trouble with day-to-day activities such as bathing, preparing meals, shopping, managing finances, etc.?: No Are you currently unemployed and looking for a job?: No Are you interested in more education?: No Please select the resources that you would like help with: None Currently or been in a relationship where the following occur: No concerns reported THRIVE Score: 0 AUDIT C Alcohol Use Questionnaire (AUDIT-C) 1. How often do you have a drink containing alcohol?: Monthly or less 2. How many drinks containing alcohol do you have on a typical day when you are drinking?: 1 or 2 3. How often do you have six or more drinks on one occasion?: Never Total Score: 1 SILVANA-7 AMB Questionnaire SILVANA-7 Date SILVANA - 7 assessed: 11/29/23 Feeling nervous, anxious, or on edge: 0 = Not at all Not being able to stop or control worryin = Not at all Worrying too much about different things: 0 = Not at all Trouble relaxin = Not at all Being so restless that it is hard to sit still: 0 = Not at all Becoming easily annoyed or irritable: 0 = Not at all Feeling afraid as if something awful might happen: 0 = Not at all Total SILVANA-7 score (0-4 normal; 5-9 mild; 10-14 moderate; 15-21 severe): 0 Source: Developed by Drs. Pete Carter, Tamika Corbin, Dennis Bearden and colleagues, with an educational bhargav from [employer]. Review of Systems Const Reports as per HPI Physical exam (Primary Care) Vital Signs: Last Vital Signs Pulse 73 05/14/24 10:30 BP 118/74 05/14/24 10:30 Pulse Ox 95 05/14/24 10:30 BMI result Body Mass Index 37.6 Tobacco/Smoking Status: Tobacco use Status Tobacco use date assessed 11/29/23 05/14/24 10:35 Patient Tobacco Use Status Former Tobacco user 05/14/24 10:35 Tobacco use type Cigarette 05/14/24 10:35 e-Cigarette/Vaping Use Never Used 05/14/24 10:35 PHQ-9: PHQ-9 Score PHQ-9: Total score 7 05/14/24 10:35 Depression Screening Interpretation: Negative Thrive Assessment: Date of Thrive Assessment Date Thrive assessed 11/29/23 05/14/24 10:35 Currently or been in a relationship where the following occur: No concerns reported Const General: cooperative Nutritional Appearance: obese Orientation/consciousness: patient oriented x3 Resp Effort & Inspection: normal respiratory effort Auscultation: clear to auscultation bilaterally Cardio Rate: regular rate Rhythm: regular rhythm Heart sounds: S1 normal heart sound present and S2 normal heart sound present Neuro General: patient oriented x3 Extrem Right lower extremity: edema (trace) Left lower extremity: edema (trace) Psych Appearance: grossly normal Mental Status: mental status grossly normal Speech and movement: Normal speech and movement present Affect: normal affect Attitude: cooperative Thought process: Normal thought process present Thought content: Normal thought content present Insight: Good insight present (Psych) Judgement: Good judgement present (Psych) Assessment and Plan Assessment & Plan (1) HTN (hypertension): Code(s): I10 - Essential (primary) hypertension Plan: Cont same medications Plan The patient agreed to the use of a biomedical scientist for this encounter. Scribed for MALGORZATA Torres by amy Matthew scribe, on 05/14/2024 at 10:50 EST. Medications: New trazodone 50 mg PO BEDTIME PRN 90 tabs 0RF sleep Coding Level of Care Code Est Pt Level 3 (85642) Diagnoses HTN (hypertension) I10
== END 2024-05-14 13:08 | disposition home or self-care (01) ==
PROVIDERS: PCP Nurse Practitioner Family; Visit Provider Nurse Practitioner Family
DX: I10 Essential (primary) hypertension (principal)
CPT/HCPCS: 99213

== ENCOUNTER → 2024-06-06 13:25 | Outpatient (BNVA) | payer OTHER, SELFPAY | PROVIDERS: PCP Nurse Practitioner Family ==

== ENCOUNTER 2024-06-17 15:42 | Outpatient (AMB) | payer OTHER, SELFPAY ==
[2024-06-17 15:47] VITALS: BP 122/78; PULSE 76; O2SAT 95; BMI 37.3
--- NOTE | 2024-06-17 15:47 | A.OFFPC_ITS ---
Vital Signs 06/17/24 15:47 Height 5 ft 10 in Weight 260 lb BMI 37.3 BP 122/78 Blood Pressure Location Rt brachial Position Sitting Pulse 76 Pulse Source Pulse Oximeter Pulse Oximetry (%) 95 Oxygen Delivery Method Room Air Intake Visit Reasons: f/up - HTN Intake Note: pt is here for f/up regarding HTN Community Engagement Representative Required: No Accompanied by: Self / Same As Patient Allergies amoxicillin [AMOXICILLIN] Allergy (Severe, Verified 06/17/24 17:31) DIFF BREATHING Medication List - Last Reconciled 06/17/24 by Yury Menchaca, [facility] albuterol sulfate 90 mcg/actuation (ProAir RespiClick) 2 inhalations inhalation Q6H PRN 30 days albuterol sulfate 2.5 mg (3 mL) inhalation Q6H PRN 30 days apixaban (Eliquis) 5 mg PO BID aspirin 81 mg PO DAILY atorvastatin 40 mg PO DAILY 90 days carvedilol 6.25 mg PO BID cetirizine (All Day Allergy (cetirizine)) 10 mg PO DAILY PRN cholecalciferol (vitamin D3) (Vitamin D3) 25 mcg PO DAILY citalopram 20 mg PO BEDTIME 90 days CPAP (CPAP Machine/Device) As directed famotidine (Pepcid) 20 mg PO DAILY fluticasone propion-salmeterol 115-21 mcg/actuation (Advair HFA) 2 puffs inhalation Q12H 30 days lactobacillus combination no.9 (Adult 50 Plus Probiotic) 4,000 mmu cells PO DAILY lisinopril 20 mg PO BEDTIME 90 days multivitamin 1 tab PO DAILY mycophenolate mofetil (CellCept) 500 mg PO BID 30 days nebulizers As directed spironolactone 25 mg PO BEDTIME 90 days tramadol 50 mg PO BID PRN 20 days trazodone 50 mg PO BEDTIME PRN Tobacco use date assessed: 11/29/23 Dental Screening Dental Screen Date: 11/29/23 HPI f/up - HTN HPI Details HTN: Blood pressure is stable today, managed with carvedilol 6.25mg bid, lisinopril 40mg, and spironolactone 25mg. Pt is reporting orthostatic hypotension (showed proof from home, dizzy spells upon arising). Will start with a decrease of lisinopril from 40mg to 20mg. Denies chest pain, shortness of breath, headache, and blurred vision. Pt c/o left posterior hip pain. He also reports pain to his left inguinal region. Pt reports that the pain is worse with driving, walking, and lying down. He does report clicking. Will order XR and refer to PT. [facility] Medical History Physical exam Enlarged prostate BMI 37.0-37.9, adult Muscle strain Hip pain Screening for colon cancer Right calf pain Hip pain, right Elevated bilirubin Elevated alkaline phosphatase level Obesity Anxiety Depression COPD (chronic obstructive pulmonary disease) GERD (gastroesophageal reflux disease) DDD (degenerative disc disease), cervical History of non-ST elevation myocardial infarction (NSTEMI) History of pulmonary embolism Cataract HLD (hyperlipidemia) HTN (hypertension) Cough NANCY on CPAP Sarcoidosis Asthma Surgical History History of bone marrow biopsy History of tonsillectomy History of vasectomy History of endoscopy History of hernia repair History of colonoscopy Family History Father Family history of high blood pressure Mother History of colon cancer History of abdominal aortic aneurysm (AAA) Brother Prostate cancer Social History Household Members: Spouse Housing: House Do you presently have visiting nurse or other home services: No Alcohol intake: never Patient Tobacco Use Status: Former Tobacco user Tobacco use type: Cigarette e-Cigarette/Vaping Use: Never Used Second Hand Smoke Exposure: No Advance Directives Date on File: 11/13/21 service: No Current occupational status: retired Cognitive needs: No Hearing needs: No Vision needs: No Questionnaire Thrive Questionnaire Date Thrive assessed: 05/07/24 I am a: Patient What is your living situation today?: I have a steady place to live Within the past 12 months, did the food you bought not last and you didn't have the money to get more?: Never true Within the past 12 months, did you worry whether your food would run out before you got money to buy more?: Never true Do you have trouble paying for medicines?: No Do you have trouble getting transportation to medical appointments?: No Do you have trouble paying your heating and electricity bill?: No Do you have trouble taking care of your child, family member or friend?: No Do you have trouble with day-to-day activities such as bathing, preparing meals, shopping, managing finances, etc.?: No Are you currently unemployed and looking for a job?: No Are you interested in more education?: No Please select the resources that you would like help with: None Currently or been in a relationship where the following occur: No concerns reported THRIVE Score: 0 SILVANA-7 AMB Questionnaire SILVANA-7 Date SILVANA - 7 assessed: 11/29/23 Source: Developed by Drs. Pete Carter, Tamika Corbin, Dennis Bearden and colleagues, with an educational bhargav from [employer]. Review of Systems Const Reports as per HPI Physical exam (Primary Care) Vital Signs: Last Vital Signs Pulse 76 06/17/24 15:47 BP 122/78 06/17/24 15:47 Pulse Ox 95 06/17/24 15:47 Oxygen Delivery Method Room Air 06/17/24 15:47 BMI result Body Mass Index 37.3 Tobacco/Smoking Status: Tobacco use Status Tobacco use date assessed 11/29/23 06/17/24 15:48 Patient Tobacco Use Status Former Tobacco user 06/17/24 15:48 Tobacco use type Cigarette 06/17/24 15:48 e-Cigarette/Vaping Use Never Used 06/17/24 15:48 Thrive Assessment: Date of Thrive Assessment Date Thrive assessed 05/07/24 06/17/24 15:48 Currently or been in a relationship where the following occur: No concerns reported Const General: cooperative Nutritional Appearance: obese Orientation/consciousness: patient oriented x3 Resp Effort & Inspection: normal respiratory effort Auscultation: clear to auscultation bilaterally Cardio Rate: regular rate Rhythm: regular rhythm Heart sounds: S1 normal heart sound present and S2 normal heart sound present Neuro General: patient oriented x3 Extrem Other: left hip: - fabers, able to perform knee to chest raises and entire LLE raises without difficulty, no pain with palpation Psych Appearance: grossly normal Mental Status: mental status grossly normal Speech and movement: Normal speech and movement present Affect: normal affect Attitude: cooperative Thought process: Normal thought process present Thought content: Normal thought content present Insight: Good insight present (Psych) Judgement: Good judgement present (Psych) Office Procedures Flu Questionnaire Does the patient have a severe egg allergy?: No Does the patient have severe life threatening allergies?: No Does the patient have a fever or illness today?: No Has the patient ever had Guillain-Glencoe Syndrome?: No Has the patient ever had any past reaction to a flu shot?: No Immunizations Fluarix Triv [id number] (PF) 45 mcg (15 mcg x 3)/0.5 mL IM syringe Performing Provider: MALGORZATA Blanco Performing Location: [facility] – [place] Adult Primary [facility] Administered by: Omar Galloway CMA on 06/17/24 15:59 Dose Route Admin Location Dispensed Lot Number Expiration Date [facility] Drivers' Cash Clerk 0.5 mL IM Left Deltoid 0.5 mL [id number] 03/10/25 70135-357-02 [employer] VIS Given Date VIS Provided VIS Publication Date 06/17/24 Single Vaccine 21 Eligibility Eligibility Date Funding Source Not [facility] Eligible 06/17/24 Private Coding Level of Care Code Est Pt Level 3 (32246) Diagnoses Left hip pain M25.552 Orthostatic hypotension I95.1 Assessment & Plan Assessment & Plan (1) Left hip pain: Code(s): M25.552 - Pain in left hip Category: Medical Plan: XR ordered, referred to PT (2) Orthostatic hypotension: Code(s): I95.1 - Orthostatic hypotension Category: Medical Plan: decreased lisinopril from 40mg to 20mg, pt will cont to monitor s/s and BPs and report back to myself. Plan The patient agreed to the use of a medical case manager for this encounter. Scribed for MALGORZATA Torres by amy Matthew scribe, on 06/17/2024 at 16:00 EST. Orders: Orders Influenza [id number] Immunization Today Z23 - Encounter for immunization XR hip LT min 2V Today M25.552 - Pain in left hip PT Evaluation and Treatment Today M25.552 - Pain in left hip Medications: Changed From lisinopril 40 mg PO BEDTIME 90 tabs 1RF To lisinopril 20 mg PO BEDTIME 90 tabs 1RF 90 days
== END 2024-06-17 16:49 | disposition home or self-care (01) ==
PROVIDERS: PCP Nurse Practitioner Family; Visit Provider Nurse Practitioner Family
DX: M25.552 Pain in left hip (principal); I95.1 Orthostatic hypotension; Z23 Encounter for immunization

== ENCOUNTER → 2024-06-17 15:42 | Outpatient (BNVA) | payer OTHER, SELFPAY | PROVIDERS: PCP Nurse Practitioner Family; Visit Provider Nurse Practitioner Family | DX: I10 Essential (primary) hypertension (principal); I95.1 Orthostatic hypotension; M25.552 Pain in left hip; Z79.899 Other long term (current) drug therapy; Z23 Encounter for immunization | CPT/HCPCS: 90471; 90656 ==

== ENCOUNTER 2024-06-17 16:22 | Outpatient (REF) | payer OTHER, SELFPAY ==
--- NOTE | ~2024-06-17 | XR_ITS ---
EXAMINATION: XR HIP LEFT 2 VIEWS CLINICAL INFORMATION: Pain in left hip M25.552. COMPARISON: XR Bilateral hips 10/06/2022 TECHNIQUE: Two views of the left hip. FINDINGS: No fracture. Alignment is anatomic. Joint space narrowing and osteophyte formation is seen within the left hip joint space consistent with moderate osteoarthritis. . Soft tissues are unremarkable. XR/XR hip LT min 2V IMPRESSION: Moderate osteoarthritis of the left hip. Electronically signed by: Alonso Gottlieb MD 08/26/2024 07:20 PM GABRIELE BORJA
== END 2024-06-17 16:23 | disposition home or self-care (01) ==
LOC: HO.HMGCX 16:22
PROVIDERS: PCP Nurse Practitioner Family; Visit Provider Nurse Practitioner Family
DX: M25.552 Pain in left hip (principal)
CPT/HCPCS: 73502

== ENCOUNTER 2024-07-05 11:53 | Outpatient (AMB) | payer OTHER, SELFPAY ==
--- NOTE | 2024-07-05 12:04 | MHC.OFFWIV ---
Intake Vital Signs 07/05/24 12:06 Weight 260 lb BP 124/90 H Blood Pressure Location Lt brachial Position Sitting Pulse 62 Pulse Source Pulse Oximeter Pulse Oximetry (%) 98 Oxygen Delivery Method Room Air Intake Visit Reasons: EP LT ear ache Intake Note: Patient here for left ear pain and headache that has been present for about 1 week. Patient Tobacco Use Status: Former Tobacco user Allergies amoxicillin [AMOXICILLIN] Allergy (Severe, Verified 07/05/24 12:06) DIFF BREATHING Medication List - Last Reconciled 07/05/24 by Edison Leon MD albuterol sulfate 90 mcg/actuation (ProAir RespiClick) 2 inhalations inhalation Q6H PRN 30 days albuterol sulfate 2.5 mg (3 mL) inhalation Q6H PRN 30 days apixaban (Eliquis) 5 mg PO BID aspirin 81 mg PO DAILY atorvastatin 40 mg PO DAILY 90 days carvedilol 6.25 mg PO BID cetirizine (All Day Allergy (cetirizine)) 10 mg PO DAILY PRN cholecalciferol (vitamin D3) (Vitamin D3) 25 mcg PO DAILY citalopram 20 mg PO BEDTIME 90 days CPAP (CPAP Machine/Device) As directed famotidine (Pepcid) 20 mg PO DAILY fluticasone propion-salmeterol 115-21 mcg/actuation (Advair HFA) 2 puffs inhalation Q12H 30 days lactobacillus combination no.9 (Adult 50 Plus Probiotic) 4,000 mmu cells PO DAILY lisinopril 20 mg PO BEDTIME 90 days multivitamin 1 tab PO DAILY mycophenolate mofetil (CellCept) 500 mg PO BID 30 days nebulizers As directed spironolactone 25 mg PO BEDTIME 90 days tramadol 50 mg PO BID PRN 20 days trazodone 50 mg PO BEDTIME PRN Do you need a note to return to daycare/school/sports/work: No HPI EP LT ear ache HPI Details Patient is 64-year-old gentleman came in today to be evaluated for left ear pain Which has been hurting him for the past 1 week Patient also wear a CPAP machine and has recently adjusted the strap There is no fever no sore throat There is slight ringing is present in left ear On examination he has dullness to his light reflex left side I am treating him with azithromycin [facility] Medical History Physical exam Enlarged prostate BMI 37.0-37.9, adult Muscle strain Hip pain Screening for colon cancer Right calf pain Hip pain, right Elevated bilirubin Elevated alkaline phosphatase level Obesity Anxiety Depression COPD (chronic obstructive pulmonary disease) GERD (gastroesophageal reflux disease) DDD (degenerative disc disease), cervical History of non-ST elevation myocardial infarction (NSTEMI) History of pulmonary embolism Cataract HLD (hyperlipidemia) HTN (hypertension) Cough NANCY on CPAP Sarcoidosis Asthma Surgical History History of bone marrow biopsy History of tonsillectomy History of vasectomy History of endoscopy History of hernia repair History of colonoscopy Family History Father Family history of high blood pressure Mother History of colon cancer History of abdominal aortic aneurysm (AAA) Brother Prostate cancer Social History Household Members: Spouse Housing: House Do you presently have visiting nurse or other home services: No Alcohol intake: never Patient Tobacco Use Status: Former Tobacco user Tobacco use type: Cigarette e-Cigarette/Vaping Use: Never Used Second Hand Smoke Exposure: No Advance Directives Date on File: 11/13/21 service: No Current occupational status: retired Cognitive needs: No Hearing needs: No Vision needs: No Review of Systems Const All systems reviewed & are unremarkable except as noted in HPI and below Physical Exam Vital Signs: Last Vital Signs Pulse 62 07/05/24 12:06 BP 124/90 H 07/05/24 12:06 Pulse Ox 98 07/05/24 12:06 Oxygen Delivery Method Room Air 07/05/24 12:06 Const General: no acute distress Orientation/consciousness: patient oriented x3 HEENT Other: Left ear with dull light reflex, no pain with tragus pressure Eyes General: appearance normal, both eyes and all related structures Resp Effort & Inspection: normal respiratory effort and able to speak in complete sentences Neuro General: patient oriented x3 Psych Mental Status: mental status grossly normal Assessment & Plan Assessment & Plan (1) Left ear pain: Code(s): H92.02 - Otalgia, left ear Plan Patient is 64-year-old gentleman came in today to be evaluated for left ear pain Which has been hurting him for the past 1 week Patient also wear a CPAP machine and has recently adjusted the strap There is no fever no sore throat There is slight ringing is present in left ear On examination he has dullness to his light reflex left side I am treating him with azithromycin Medications: New azithromycin Take 2 tablets today then 1 daily 250 mg PO ONCE 6 tabs 0RF 5 days J06.9 - Acute upper respiratory infection, unspecified Coding Level of Care Code Est Pt Level 3 (90314) Diagnoses Left ear pain H92.02
[2024-07-05 12:06] VITALS: BP 124/90; PULSE 62; O2SAT 98
== END 2024-07-05 12:26 | disposition home or self-care (01) ==
PROVIDERS: PCP Nurse Practitioner Family; Visit Provider Internal Medicine
DX: H92.02 Otalgia, left ear (principal)

== ENCOUNTER → 2024-07-05 11:53 | Outpatient (BNVA) | payer OTHER, SELFPAY | PROVIDERS: PCP Nurse Practitioner Family ==

== ENCOUNTER 2024-08-06 13:00 | Outpatient (RCR) | payer OTHER, SELFPAY ==
--- NOTE | 2024-07-15 13:39 | MHC.PT.EP ---
[facility] [place] Office [place] Office [place] Office [address] Gene Velasquez [address] [phone] F: [phone] F: [phone] F: [phone] F: [phone] Physical Therapy Plan of Care Date of Evaluation: 07/15/24 Date of Surgery: Diagnosis: L hip pain Assessment: Patient is a 64 year old R handed male who presents with s/s consistent with L hip pain. He is retired but does enjoy staying active around the house and in the community. Patient past medical history includes currently being on blood thinners, COPD, anxiety, depression and obesity. Current impairments include pain, posture, ROM, flexibility, strength, activity tolerance and functional mobility. Functional limitations include decreased ability to stand, walk, sleep, negotiate stairs and perform ordinary tasks around the house. Patient is motivated with good rehab potential. Skilled PT will address impairments and functional limitations in order to achieve goals. Frequency and Duration: The patient will be seen 2x/week for 5 weeks Short Term Goals: I with HEP - 2 weeks AROM ER 35 b/l - 3 weeks Able to walk 10 minutes without increased pain - 3 weeks Intermediate Goals: Able to walk 20 minutes without increased pain - 5 weeks LEFS 56/80 - 5 weeks Hip strength 4+/5 grossly - 5 weeks 90/90 lacking 30 or less - 5 weeks Treatment Plan: Modalities to reduce pain, spasms and effusion. Manual therapy to restore motion and function. Therapeutic exercise to improve strength and flexibility. Neuromuscular re-education for posture and balance. Therapeutic activities to return to functional activities of daily living. Electronically signed by: Naeem Richard, PT Please sign and return to therapist. Thank you for your referral.
--- NOTE | 2024-10-23 13:44 | MHC.PT.DC ---
[facility] [place] [facility] [place] [facility] [place] [facility] [address] Velasquez [address] [phone] F: [phone] F: [phone] F: [phone] F: [phone] Physical Therapy Discharge Report Diagnosis: L hip pain Date of Surgery: Date of Evaluation: 07/15/24 Date of Discharge: 08/24/24 Treatments to Date: 4 Cancellations to Date: No Shows to Date: Discharge Status: Independent with HEP Patient Elected to Stop Discharge Summary: Pt elected to stop and continue with HEP at this time. 08/06; Pt stated he prefers no table exs. Pt c/o L hip pain with abd, DC after 1 min. Pt has 2 sc appts will let us know if he wishes to make 2 more NV. 08/01/24: pt progressing well with skilled PT. responds well to exercise seated or standing. we proceeded with this today and held table ex. 07/23; Pt had exp dizziness STS rested and sxs resolved. Pt c/o fatigue with hip exs. No increase in pain noted. Patient is a 64 year old R handed male who presents with s/s consistent with L hip pain. He is retired but does enjoy staying active around the house and in the community. Patient past medical history includes currently being on blood thinners, COPD, anxiety, depression and obesity. Current impairments include pain, posture, ROM, flexibility, strength, activity tolerance and functional mobility. Functional limitations include decreased ability to stand, walk, sleep, negotiate stairs and perform ordinary tasks around the house. Patient is motivated with good rehab potential. Skilled PT will address impairments and functional limitations in order to achieve goals. Electronically signed by: Naeem Richard, PT Please sign and return to therapist. Thank you for your referral.
== END 2024-10-23 13:45 | disposition home or self-care (01) ==
LOC: HO.PTCHIC 13:00
PROVIDERS: PCP Nurse Practitioner Family; Visit Provider Nurse Practitioner Family
DX: M25.552 Pain in left hip (principal)
CPT/HCPCS: 97110; 97163

== ENCOUNTER 2024-08-27 14:43 | Outpatient (AMB) | payer OTHER, SELFPAY ==
--- NOTE | 2024-08-27 14:47 | AM.OFFWIN_ITS ---
Intake Vital Signs 08/27/24 14:48 Weight 261 lb BP 122/80 Blood Pressure Location Rt brachial Position Sitting Pulse 62 Pulse Source Pulse Oximeter Pulse Oximetry (%) 94 Oxygen Delivery Method Room Air Intake Visit Reasons: EP Dog bite LT hand Intake Note: Patient here for dog bite on left hand after trying to take a bug out of the dogs ear. Patient Tobacco Use Status: Former Tobacco user Allergies amoxicillin [AMOXICILLIN] Allergy (Severe, Verified 08/27/24 14:49) DIFF BREATHING Do you need a note to return to daycare/school/sports/work: No HPI EP Dog bite LT hand HPI Details 64-year-old male presents to the office for a sick visit. Patient's own dog bit him this morning. The dog has completed his immunization schedule. [facility] Medical History Physical exam Enlarged prostate BMI 37.0-37.9, adult Muscle strain Hip pain Screening for colon cancer Right calf pain Hip pain, right Elevated bilirubin Elevated alkaline phosphatase level Obesity Anxiety Depression COPD (chronic obstructive pulmonary disease) GERD (gastroesophageal reflux disease) DDD (degenerative disc disease), cervical History of non-ST elevation myocardial infarction (NSTEMI) History of pulmonary embolism Cataract HLD (hyperlipidemia) HTN (hypertension) Cough NANCY on CPAP Sarcoidosis Asthma Surgical History History of bone marrow biopsy History of tonsillectomy History of vasectomy History of endoscopy History of hernia repair History of colonoscopy Family History Father Family history of high blood pressure Mother History of colon cancer History of abdominal aortic aneurysm (AAA) Brother Prostate cancer Social History Household Members: Spouse Housing: House Do you presently have visiting nurse or other home services: No Alcohol intake: never Patient Tobacco Use Status: Former Tobacco user Tobacco use type: Cigarette e-Cigarette/Vaping Use: Never Used Second Hand Smoke Exposure: No Advance Directives Date on File: 11/13/21 service: No Current occupational status: retired Cognitive needs: No Hearing needs: No Vision needs: No Physical Exam Vital Signs: Last Vital Signs Pulse 62 08/27/24 14:48 BP 122/80 08/27/24 14:48 Pulse Ox 94 08/27/24 14:48 Oxygen Delivery Method Room Air 08/27/24 14:48 Extrem Other: Left hand: Puncture wound on the dorsum of the hand and on the palmar side. The wound on both sides is approximately 1 cm in size. Assessment & Plan Assessment & Plan (1) Wound cellulitis: Code(s): L03.90 - Cellulitis, unspecified Plan: Wound was cleaned with Betadine and peroxide. A dry surgical dressing was applied. Patient is up-to-date on his tetanus immunization. Ciprofloxacin and meloxicam added to the regimen. Coding Level of Care Code Est Pt Level 4 (52516) Diagnoses Wound cellulitis L03.90
[2024-08-27 14:48] VITALS: BP 122/80; PULSE 62; O2SAT 94
== END 2024-08-27 15:45 | disposition home or self-care (01) ==
PROVIDERS: PCP Nurse Practitioner Family; Visit Provider Internal Medicine
DX: L03.90 Cellulitis, unspecified (principal)

== ENCOUNTER 2024-08-29 11:50 | Outpatient (REF) | payer OTHER, SELFPAY ==
[2024-08-29 14:03] LABS: PSA,Total (Free>4and<10) 2.77 ng/mL (0.00-4.00)
== END 2024-08-29 11:51 | disposition home or self-care (01) ==
LOC: HO.HMGCLDS 11:50
PROVIDERS: PCP Nurse Practitioner Family; Visit Provider Urology
DX: N40.0 Benign prostatic hyperplasia without lower urinary tract symptoms (principal); Z80.42 Family history of malignant neoplasm of prostate; R97.20 Elevated prostate specific antigen [PSA]; Z12.5 Encounter for screening for malignant neoplasm of prostate
CPT/HCPCS: 36415; 84153

== ENCOUNTER 2024-09-02 11:07 | Outpatient (AMB) | payer OTHER, SELFPAY ==
--- NOTE | 2024-09-02 11:24 | AM.OFFWIN_ITS ---
Intake Vital Signs 09/02/24 11:27 BP 120/84 Blood Pressure Location Lt brachial Position Sitting Pulse 59 Pulse Source Pulse Oximeter Pulse Oximetry (%) 98 Oxygen Delivery Method Room Air Intake Visit Reasons: EP Bite on LT hand Intake Note: Patient here for left hand bite that is still swollen after 1 week. Patient Tobacco Use Status: Former Tobacco user Allergies amoxicillin [AMOXICILLIN] Allergy (Severe, Verified 09/02/24 11:26) DIFF BREATHING Do you need a note to return to daycare/school/sports/work: No HPI HPI Comments History of Present Illness Details History of Present Illness The patient is a 64-year-old male presenting with a dog bite infection to the left hand. The incident occurred last Monday, the . The patient has been taking Ciprofloxacin at a dose of 250 mg twice daily for seven days following the bite. Despite the treatment, the patient reports that the wound continues to discharge serosanguinous fluid, with minimal reduction in swelling. He experiences a shooting pain and is unable to fully make a fist due to tightness and discomfort, suggesting possible tendon involvement or persistent swelling. The patient has a known allergy to Amoxicillin. Physical Exam General: Cooperative, healthy appearing, comfortable, no acute distress and well developed Orientation: Patient oriented x3 Limitations: Cannot make a full fist with the left hand due to tightness and pain Head: Normal to inspection Ears: Hearing grossly normal bilaterally Nose: Normal Nxternal nose present Face and sinus: ormal facial exam Eyes: Appearance normal, both eyes and all related structures Neck: Normal visual inspection and Yes full ROM Respiratory: Normal respiratory effort and able to speak in complete sentences. Skin: No rashes or lesions noted Neuro: Patient oriented x3 Extremities: Left hand hypothenar eminance with edema, warmth and weeping serosanguinous fluid. Limited movement due to pain and tightness, not quite able to make fist. all 5 digits NVI and full ROM [facility] Medical History Physical exam Enlarged prostate BMI 37.0-37.9, adult Muscle strain Hip pain Screening for colon cancer Right calf pain Hip pain, right Elevated bilirubin Elevated alkaline phosphatase level Obesity Anxiety Depression COPD (chronic obstructive pulmonary disease) GERD (gastroesophageal reflux disease) DDD (degenerative disc disease), cervical History of non-ST elevation myocardial infarction (NSTEMI) History of pulmonary embolism Cataract HLD (hyperlipidemia) HTN (hypertension) Cough NANCY on CPAP Sarcoidosis Asthma Surgical History History of bone marrow biopsy History of tonsillectomy History of vasectomy History of endoscopy History of hernia repair History of colonoscopy Family History Father Family history of high blood pressure Mother History of colon cancer History of abdominal aortic aneurysm (AAA) Brother Prostate cancer Social History Household Members: Spouse Housing: House Do you presently have visiting nurse or other home services: No Alcohol intake: never Patient Tobacco Use Status: Former Tobacco user Tobacco use type: Cigarette e-Cigarette/Vaping Use: Never Used Second Hand Smoke Exposure: No Advance Directives Date on File: 11/13/21 service: No Current occupational status: retired Cognitive needs: No Hearing needs: No Vision needs: No Review of Systems Const All systems reviewed & are unremarkable except as noted in HPI and below Physical Exam Vital Signs: Last Vital Signs Pulse 59 09/02/24 11:27 BP 120/84 09/02/24 11:27 Pulse Ox 98 09/02/24 11:27 Oxygen Delivery Method Room Air 09/02/24 11:27 Assessment & Plan Assessment & Plan (1) Dog bite of left hand with infection: Code(s): S61.452A - Open bite of left hand, initial encounter; L08.9 - Local infection of the skin and subcutaneous tissue, unspecified; W54.0XXA - Bitten by dog, initial encounter Qualifiers: Encounter type: subsequent encounter Qualified Code(s): S61.452D - Open bite of left hand, subsequent encounter; L08.9 - Local infection of the skin and subcutaneous tissue, unspecified; W54.0XXD - Bitten by dog, subsequent encounter Plan: Plan - Increase Ciprofloxacin dosage to 500 mg twice daily for a total of seven additional days; instruct to complete a three-day course initially, with the remainder to be used if symptoms persist. - Monitor the wound for signs of improvement, such as reduced warmth, discharge, and swelling. Advise the patient to report any lack of improvement. - Consider potential referral to an planning specialist if swelling persists following complete antibiotic course, particularly if fist formation remains impaired. - Emphasize the importance of maintaining hand hygiene, keeping the wound clean and covered, especially in communal settings, to reduce the risk of further infection. - Send the prescription to [facility] for fulfillment. Patient was informed and verbally consented to the use of an ambient scribe for clinic note documentation during this visit. Medications: New ciprofloxacin HCl 500 mg (2 x 250 mg) PO Q12H 7 days 28 tabs 0RF Coding Level of Care Code Est Pt Level 3 (68169) Diagnoses Dog bite of left hand with infection, subsequent encounter S61.452D; L08.9; W54.0XXD Encounter type: subsequent encounter
[2024-09-02 11:27] VITALS: BP 120/84; PULSE 59; O2SAT 98
== END 2024-09-02 12:14 | disposition home or self-care (01) ==
PROVIDERS: PCP Nurse Practitioner Family; Visit Provider Physician Assistant
DX: S61.452D Open bite of left hand, subsequent encounter (principal); L08.9 Local infection of the skin and subcutaneous tissue, unspecified; W54.0XXD Bitten by dog, subsequent encounter

== ENCOUNTER 2024-09-09 08:50 | Outpatient (AMB) | payer OTHER, SELFPAY ==
--- NOTE | 2024-09-09 09:13 | AM.OFFWIN_ITS ---
Intake Vital Signs 09/09/24 09:17 Weight 261 lb BP 110/78 Blood Pressure Location Rt brachial Position Sitting Pulse 62 Pulse Source Pulse Oximeter Temp 98.0 F Temp Source Oral Pulse Oximetry (%) 98 Oxygen Delivery Method Room Air Intake Visit Reasons: EP LT hand bite, re-check. Intake Note: Patient here for left hand bite that has not improved, he now has discharge and is having to change dressing more frequent. Patient Tobacco Use Status: Former Tobacco user Allergies amoxicillin [AMOXICILLIN] Allergy (Severe, Verified 09/02/24 11:26) DIFF BREATHING HPI HPI Comments History of Present Illness Details History of Present Illness - The patient is a 64-year-old male pres enting with concerns regarding a persistent bacterial infection unresponsive to previous antibiotic treatment. - The infection is undergoing treatment with Ciprofloxacin 500 mg twice a day. Today, the patient reports completing the course yet notes persisting soreness. - The patient reports improved but incom plete hand mobility, characterized by difficulty in forming a tight fist but improved overall from 09/02 visit. - Despite some drainage following minor intervention, the infection remains indurated, raising concern regarding inadequate antibiotic coverage. - Possible Methicillin-Resistant Staphyl ococcus aureus (MRSA) infection is suspected due to lack of complete response, prompting change in therapeutic strategy. - Vital signs indicate normal heart rate and absence of fever, negating systemic infection characteristics. Physical Exam General: Cooperative, healthy appearing, comfortable, no acute distress and well developed Orientation: Patient oriented x3 Limitations: Cannot make a tight fist with the right hand Head: Normal to inspection Ears: Hearing grossly normal bilaterally Nose: Normal external nose present Face and sinus: Normal facial exam Eyes: Appearance normal, both eyes and all related structures Neck: Normal visual inspection and Yes full ROM Respiratory: Normal respiratory effort and able to speak in complete sentences. Skin: No rashes or lesions noted Neuro: Patient oriented x3 Extremities: Right hand dorsal ulnar aspect has 2 small draining wounds, with some purulent drainage, indurated area with slight erythema, no warmth. [facility] Medical History Physical exam Enlarged prostate BMI 37.0-37.9, adult Muscle strain Hip pain Screening for colon cancer Right calf pain Hip pain, right Elevated bilirubin Elevated alkaline phosphatase level Obesity Anxiety Depression COPD (chronic obstructive pulmonary disease) GERD (gastroesophageal reflux disease) DDD (degenerative disc disease), cervical History of non-ST elevation myocardial infarction (NSTEMI) History of pulmonary embolism Cataract HLD (hyperlipidemia) HTN (hypertension) Cough NANCY on CPAP Sarcoidosis Asthma Surgical History History of bone marrow biopsy History of tonsillectomy History of vasectomy History of endoscopy History of hernia repair History of colonoscopy Family History Father Family history of high blood pressure Mother History of colon cancer History of abdominal aortic aneurysm (AAA) Brother Prostate cancer Social History Household Members: Spouse Housing: House Do you presently have visiting nurse or other home services: No Alcohol intake: never Patient Tobacco Use Status: Former Tobacco user Tobacco use type: Cigarette e-Cigarette/Vaping Use: Never Used Second Hand Smoke Exposure: No Advance Directives Date on File: 11/13/21 service: No Current occupational status: retired Cognitive needs: No Hearing needs: No Vision needs: No Review of Systems Const All systems reviewed & are unremarkable except as noted in HPI and below Physical Exam Vital Signs: Last Vital Signs Temp 98.0 F 09/09/24 09:17 Pulse 62 09/09/24 09:17 BP 110/78 09/09/24 09:17 Pulse Ox 98 09/09/24 09:17 Oxygen Delivery Method Room Air 09/09/24 09:17 Assessment & Plan Assessment & Plan (1) Dog bite of left hand with infection: Code(s): S61.452A - Open bite of left hand, initial encounter; L08.9 - Local infection of the skin and subcutaneous tissue, unspecified; W54.0XXA - Bitten by dog, initial encounter Qualifiers: Encounter type: subsequent encounter Qualified Code(s): S61.452D - Open bite of left hand, subsequent encounter; L08.9 - Local infection of the skin and subcutaneous tissue, unspecified; W54.0XXD - Bitten by dog, subsequent encounter Plan: Plan Given the persistent infection and suspicion of Methicillin-Resistant Staphylococcus aureus, the patient's antibiotic treatment was adjusted to add Doxycycline, taken twice daily over a seven-day period to target MRSA. Also sent culture. An unsuccessful initial response to Ciprofloxacin prompted this change. Despite an attempt to drain the site, which did yield some reduction in localized purulent material, the infection remains indurated and painful. Epsom salt soaks have been recommended to aid drainage at home. Primary vitals reveal stability with no fever, suggesting the infection remains localized. The patient is advised to self-monitor for potential changes or worsening of the condition, as further therapeutic decisions will depend on progression assessment. Patient was informed and verbally consented to the use of an ambient scribe for clinic note documentation during this visit. Orders: Orders Routine Culture w Gram Stain Today L08.9 - Local infection of the skin and subcutaneous tissue, unspecified, S61.452D - Open bite of left hand, subsequent encounter, W54.0XXD - Bitten by dog, subsequent encounter Medications: New doxycycline hyclate 100 mg PO BID 14 tabs 0RF Coding Level of Care Code Est Pt Level 3 (13650) Diagnoses Dog bite of left hand with infection, subsequent encounter S61.452D; L08.9; W54.0XXD Encounter type: subsequent encounter
[2024-09-09 09:17] VITALS: BP 110/78; PULSE 62; TEMP 36.7; O2SAT 98
== END 2024-09-09 09:38 | disposition home or self-care (01) ==
PROVIDERS: PCP Nurse Practitioner Family; Visit Provider Physician Assistant
DX: S61.452D Open bite of left hand, subsequent encounter (principal); L08.9 Local infection of the skin and subcutaneous tissue, unspecified; W54.0XXD Bitten by dog, subsequent encounter

== ENCOUNTER 2024-09-09 08:50 | Outpatient (REF) | payer OTHER, SELFPAY | END 2024-09-09 08:51 | disposition home or self-care (01) | LOC: HO.LAB 08:50 | PROVIDERS: PCP Nurse Practitioner Family; Visit Provider Physician Assistant | DX: S61.452D Open bite of left hand, subsequent encounter (principal); L08.9 Local infection of the skin and subcutaneous tissue, unspecified; W54.0XXD Bitten by dog, subsequent encounter | CPT/HCPCS: 87070; 87205 ==

== ENCOUNTER 2024-09-12 12:53 | Outpatient (AMB) | payer OTHER, SELFPAY ==
--- NOTE | 2024-09-11 20:30 | A.OFFVIS_ITS ---
Intake Visit Reasons: 6m/PSA Intake Note: Patient is present for 6M/PSA Urology Medication:NONE Antibiotic Allergy:AMOXICILLIN Blood Thinner:ASPIRIN,APIXABAN Die Casting Machine Operator Required: No Allergies amoxicillin [AMOXICILLIN] Allergy (Severe, Verified 09/12/24 13:08) DIFF BREATHING HPI Comments Details: 09/12/24--6 month fu- elevated PSA 08/29/24--2.77 Review of chart: 03/11/24--Christiano is a 64 year old male who is here for FU for elevated PSA, enlarged prostate and h/o kidney stones. Repeat PSA 02/15/24--4.18. Will continue to monitor PSA. Repeat PSA in 6 months-- 10/13/23--Christiano is a 63 year old male who is here for evaluation for elevated PSA and enlarged prostate. The patient has history of kidney stones. Family history of prostate cancer his brother is 3 years older than him was diagnosed with prostate cancer age 63. The patient feels he empties his bladder adequately. Does admit to occasional urgency, nocturia x1 AUA symptom score 19/35. Review of labs 05/19/2022 PSA--1.99 06/22/2023--PSA--2.84 I have reviewed chart, imaging CT scan August 2023 small bilateral kidney stones, I have reviewed the films with the patient. I have discussed PSA is a blood test, prostate specific antigen and is an enzyme secreted by the prostate gland. Elevated PSA may be due to multiple conditions including prostate inflammatory condition, enlarged prostate or prostate cancer. UA--negative blood negative leukocytes. Prostate Exam: Mild to moderately enlarged with mildly irregularity on the right side, no hard nodules. [facility] Medical History Physical exam Enlarged prostate BMI 37.0-37.9, adult Muscle strain Hip pain Screening for colon cancer Right calf pain Hip pain, right Elevated bilirubin Elevated alkaline phosphatase level Obesity Anxiety Depression COPD (chronic obstructive pulmonary disease) GERD (gastroesophageal reflux disease) DDD (degenerative disc disease), cervical History of non-ST elevation myocardial infarction (NSTEMI) History of pulmonary embolism Cataract HLD (hyperlipidemia) HTN (hypertension) Cough NANCY on CPAP Sarcoidosis Asthma Surgical History History of bone marrow biopsy History of tonsillectomy History of vasectomy History of endoscopy History of hernia repair History of colonoscopy Family History Father Family history of high blood pressure Mother History of colon cancer History of abdominal aortic aneurysm (AAA) Brother Prostate cancer Social History Household Members: Spouse Housing: House Do you presently have visiting nurse or other home services: No Alcohol intake: never Patient Tobacco Use Status: Former Tobacco user Tobacco use type: Cigarette e-Cigarette/Vaping Use: Never Used Second Hand Smoke Exposure: No Advance Directives Date on File: 11/13/21 service: No Current occupational status: retired Cognitive needs: No Hearing needs: No Vision needs: No Review of Systems Const All systems reviewed & are unremarkable except as noted in HPI and below Reports no additional complaints Eyes Reports no additional complaints ENT Reports no additional complaints Card Reports no additional complaints Resp Reports no additional complaints GI Reports no additional complaints Reports as per HPI Musc Reports no additional complaints Skin/Breast Reports system reviewed and no additional complaints, except as documented Neuro Reports no additional complaints Psych Reports no additional complaints Endo Reports no additional complaints Sy/Lymph Reports no additional complaints Aller/Immun Reports no additional complaints Results AMB Urinalysis, Automated UA Leukoctes 0 Danica/uL Last Edit by MARYJANE Cheng on 09/12/24 13:17 UA Nitrite Negative Last Edit by MARYJANE Cheng on 09/12/24 13:17 UA Urobilinogen 0.2 mg/dL Last Edit by MARYJANE Cheng on 09/12/24 13:1 7 UA Protein 0 mg/dL Last Edit by MARYJANE Cheng on 09/12/24 13:17 UA pH 6.0 Last Edit by MARYJANE Cheng on 09/12/24 13:17 UA Blood 0 Bong/uL Last Edit by MARYJANE Cheng on 09/12/24 13:17 UA Specific [employer] 1.010 Last Edit by MARYJANE Cheng on 09/12/24 13: 17 UA Ketone Negative Last Edit by MARYJANE Cheng on 09/12/24 13:17 UA Bilirubin 0 mg/dL Last Edit by MARYJANE Cheng on 09/12/24 13:17 UA Glucose 0 mg/dL Last Edit by MARYJANE Cheng on 09/12/24 13:17 Results Reviewed Results Reviewed: Laboratory Last Values Urine pH (Auto) 6.0 09/12/24 13:16 Specific [employer] (Auto) 1.010 09/12/24 13:16 Urine Protein (Auto) 0 mg/dL 09/12/24 13:16 Glucose (UA)(Auto) 0 mg/dL 09/12/24 13:16 Urine Ketones (Auto) Negative 09/12/24 13:16 Urine Blood (Auto) 0 Bong/uL 09/12/24 13:16 Urine Nitrite (Auto) Negative 09/12/24 13:16 Urine Bilirubin (Auto) 0 mg/dL 09/12/24 13:16 Urine Urobilinogen (Auto) 0.2 mg/dL 09/12/24 13:16 Leukocyte Esterase (Auto) 0 Danica/uL 09/12/24 13:16 Assessment & Plan Assessment & Plan (1) Bilateral kidney stones: Code(s): N20.0 - Calculus of kidney Category: Medical (2) Enlarged prostate: Code(s): N40.0 - Benign prostatic hyperplasia without lower urinary tract symptoms Category: Medical (3) Family history of prostate cancer: Code(s): Z80.42 - Family history of malignant neoplasm of prostate Category: Medical (4) Elevated PSA: Code(s): R97.20 - Elevated prostate specific antigen [PSA] Category: Medical Plan PSA in 9months Orders: Orders AMB Urinalysis Automated Today Z13.9 - Encounter for screening, unspecified Coding Diagnoses Bilateral kidney stones N20.0 Enlarged prostate N40.0 Family history of prostate cancer Z80.42 Elevated PSA R97.20
== END 2024-09-12 13:38 | disposition home or self-care (01) ==
PROVIDERS: PCP Nurse Practitioner Family; Visit Provider Urology
DX: Z13.9 Encounter for screening, unspecified (principal)

== ENCOUNTER → 2024-09-12 12:53 | Outpatient (BNVA) | payer OTHER, SELFPAY | PROVIDERS: PCP Nurse Practitioner Family; Visit Provider Urology | DX: R97.20 Elevated prostate specific antigen [PSA] (principal); N40.0 Benign prostatic hyperplasia without lower urinary tract symptoms; N20.0 Calculus of kidney; Z80.42 Family history of malignant neoplasm of prostate | CPT/HCPCS: 81003 ==

== ENCOUNTER 2024-10-07 10:50 | Outpatient (AMB) | payer OTHER, SELFPAY ==
--- NOTE | 2024-10-07 10:54 | A.OFFVIS_ITS ---
Intake Visit Reasons: New Patient - Bilateral Hip Pain Intake Note: Christiano is a 64 year old male who presents today as a new patient with complaints of bilateral hip pain. Right > Left. Patient reports that he has had ongoing right hip pain for many years now, but the left hip has onset more recently. He has history of physical therapy and MRI. Pain is felt in the buttock is worse at night, he feels better with some movement but also has increaed pain with prolonged activity. He takes Tramadol 50mg at night for his pain, which is mildly helpful. He has had injections in the right hip about 4 years ago, these injections were not helpful. Allergies amoxicillin [AMOXICILLIN] Allergy (Severe, Verified 09/12/24 13:08) DIFF BREATHING HPI HPI New Patient - Bilateral Hip Pain: Details: This is a 64-year-old gentleman with several year history of bilateral lateral hip pain. He has done physical therapy but continues to have discomfort. He has also had injections in the greater trochanter which have been only partially helpful at best. He describes pain right greater than left in the lateral aspect of the hip extending posteriorly with occasional groin pain. He has dif ficulty sleeping at night and engaging in extensive daily activities although the pain is not constant. [facility] Medical History Physical exam Enlarged prostate BMI 37.0-37.9, adult Muscle strain Hip pain Screening for colon cancer Right calf pain Hip pain, right Elevated bilirubin Elevated alkaline phosphatase level Obesity Anxiety Depression COPD (chronic obstructive pulmonary disease) GERD (gastroesophageal reflux disease) DDD (degenerative disc disease), cervical History of non-ST elevation myocardial infarction (NSTEMI) History of pulmonary embolism Cataract HLD (hyperlipidemia) HTN (hypertension) Cough NANCY on CPAP Sarcoidosis Asthma Surgical History History of bone marrow biopsy History of tonsillectomy History of vasectomy History of endoscopy History of hernia repair History of colonoscopy Family History Father Family history of high blood pressure Mother History of colon cancer History of abdominal aortic aneurysm (AAA) Brother Prostate cancer Social History Household Members: Spouse Housing: House Do you presently have visiting nurse or other home services: No Alcohol intake: never Patient Tobacco Use Status: Former Tobacco user Tobacco use type: Cigarette e-Cigarette/Vaping Use: Never Used Second Hand Smoke Exposure: No Advance Directives Date on File: 11/13/21 service: No Current occupational status: retired Cognitive needs: No Hearing needs: No Vision needs: No Physical Exam Extrem Other: On exam there is 120 degrees of flexion bilaterally. At 90 degrees I can in ternally rotate him 20 degrees bilaterally with moderate discomfort on his right that reproduces his primary pain complaint. He also has tenderness to palpation over the greater trochanter on the right greater than left. Results Reviewed Results Reviewed: I personally reviewed relevant radiographs. Moderate bilateral hip arthritis. Joint space preserved Assessment & Plan Assessment & Plan (1) Arthritis of right hip: Code(s): M16.11 - Unilateral primary osteoarthritis, right hip Category: Medical Plan: This is a 64-year-old with symptoms of arthritis plus or minus greater trochanteric bursitis. He has had bursitis injections which have not been helpful and his symptoms seem partially attributable to his intra articular arthritis. Therefore I recommend an injection in his right hip. Should this not be helpful he can return to see me. Conversely should this be helpful and has pain worsens after time he should also return to see me. Orders: Orders XR pelvis 1-2V Today M25.559 - Pain in unspecified hip Referrals Pain Management Referral M16.11 - Unilateral primary osteoarthritis, right hip Coding Level of Care Code New Pt Level 3 (03087) Diagnoses Arthritis of right hip M16.11
--- OUTSIDE RECORDS SUMMARY | 2024-10-07 15:42 | XMS_ITS | Encounter Summary ---
Author Organization [facility] Address [address] [place] [address] Care Team Providers Care Type Rolling Machine Operator Name Role Phone Amilcar Leggett MD Primary Care Provider [phone] Lazaro Chand MD Primary Care Provider [facility], Pcp [facility] Reason for Visit * Reason Onset Date Comments Testing 06/11/2019 Encounter Details Date Type Department Care Team Description 06/11/2019 Telephone Adult Medicine [address] [address] Cady Rivera PA-C Testing Social History Tobacco Use Types Packs/Day Years Used Date Smoking Tobacco: Former Cigarettes 0.5 4 0 01/26/1980 - 07/12/1998 Smokeless Tobacco: Never Comments:brief hx smoking Alcohol Use Standard Drinks/Week Comments Yes 0 (1 standard drink = 0.6 oz pur e alcohol) occasional Sex Assigned at Date Recorded Male 01/17/2022 6:12 PM E DT documented as of this encounter Miscellaneous Notes * Telephone Encounter - Jaimie Bain - 06/11/2019 7:32 PM EDT Christiano Dorado was scheduled for a CT Scan of abdomen and pelvis on 05/06/19; however Christiano Dorado did not show for his appointment. We have made several attempts by telephone on 05/07/19,as well as sent a letter on 05/07/19, and on 05/09/19 to reschedule the appointment and were unsuccessful; therefore we are removing the test from our Scheduled Orders Report. Please note that this test must be reordered if required in the future. documented in this encounter Plan of Treatment Not on file documented as of this encounter Visit Diagnoses Not on filedocumented in this encounter Care Teams Type Rolling Machine Operator Relationship Specialty Start Date End Date Amilcar Leggett MD [address] [place] [id number] PCP - General 05/09/11 05/25/21 Lazaro Chand MD [address] [place] [id number] PCP - General Internal Medicine 05/26/21 04/05/22 [facility], Pcp [address] [place] [address] PCP - General Internal Medicine 04/06/22 documented as of this encounter
--- OUTSIDE RECORDS SUMMARY | 2024-10-07 15:42 | XMS_ITS | Encounter Summary ---
Author Organization [facility] Address [address] [place] [address] Care Team Providers Care Setter Juice Packaging Machines Name Role Phone Amilcar Leggett MD Primary Care Provider [phone]- [phone] Lazaro Chand MD Primary Care Provider [facility], Pcp Primary Care Provider [facility] e Encounter Details Date Type Department Care Team Description 11/28/2019 Refill Adult Medicine [address] [address] Amilcar Leggett MD [address] [place] [address] Social History Tobacco Use Types Packs/Day Years Used Date Smoking Tobacco: Former Cigarettes 0.5 4 0 01/26/1980 - 07/12/1998 Smokeless Tobacco: Never Comments:brief hx smoking Alcohol Use Standard Drinks/Week Comments Yes 0 (1 standard drink = 0.6 oz pur e alcohol) occasional Sex Assigned at Date Recorded Male 01/17/2022 6:12 PM E DT documented as of this encounter Plan of Treatment Not on file documented as of this encounter Visit Diagnoses Not on filedocumented in this encounter Care Teams Setter Juice Packaging Machines Relationship Specialty Start Date End Date Amilcar Leggett MD [address] [place] [address] PCP - General 05/09/11 05/25/21 Lazaro Chand MD [address] [place], [place] [phone] PCP - General Internal Medicine 05/26/21 04/05/22 [facility], Pcp [address] [place] [address] PCP - General Internal Medicine 04/06/22 documented as of this encounter
--- OUTSIDE RECORDS SUMMARY | 2024-10-07 15:42 | XMS_ITS | Encounter Summary ---
Author Organization [facility] Address [address] [place] [address] Care Team Providers Care Business Continuity Strategy Director Name Role Phone Amilcar Leggett MD Primary Care Provider [phone] [phone] Lazaro Chand MD Primary Care Provider [facility], Pcp Primary Care Provider [facility] e Encounter Details Date Type Department Care Team Description 07/16/2014 Hereditary Cancer Qu iz Results Medical Records [address] [place] [address] Abstract, Provider Social History Tobacco Use Types Packs/Day Years Used Date Smoking Tobacco: Former Cigarettes 0.5 4 Q uit: 07/12/1998 Smokeless Tobacco: Never Comments:quit x 8 years Alcohol Use Standard Drinks/Week Comments Yes 0 (1 standard drink = 0.6 oz pur e alcohol) occasional Sex Assigned at Date Recorded Male 01/17/2022 6:12 PM E DT documented as of this encounter Plan of Treatment Not on file documented as of this encounter Visit Diagnoses Not on filedocumented in this encounter Care Teams Business Continuity Strategy Director Relationship Specialty Start Date End Date Amilcar Leggett MD [address] [place] [address] PCP - General 05/09/11 05/25/21 Lazaro Chand MD [address] [place] [address] PCP - General Internal Medicine 05/26/21 04/05/22 [facility], Pcp [address] [place] [address] PCP - General Internal Medicine 04/06/22 documented as of this encounter
--- OUTSIDE RECORDS SUMMARY | 2024-10-07 15:42 | XMS_ITS | Encounter Summary ---
Author Organization [facility] Address [address] [place] [address] Care Team Providers Care Manager Photography Name Role Phone Amilcar Leggett MD Primary Care Provider [phone] Lazaro Chand MD Primary Care Provider [facility], Pcp Primary Care Provider [facility] e Reason for Referral * Non CHRIS (Routine) - Authorized/Booked Specialty Diagnoses / Procedures Referred By Contac t Referred To Contact Cardiology Diagnoses Thoracic aortic aneurysm without rupture (HCC) Procedures REFERRAL TO CARDIOLOGY Amilcar Leggett MD [address] [place] [address] [place] [address] Referral ID Status Reason Start Date Expiration Date V isits Requested Visits Authorized 07/11 [id number] Authorized/ Booked 05/22/2017 05/22/2018 1 1 Reason for Visit * Reason Onset Date Comments Testing 05/21/2017 Encounter Details Date Type Department Care Team Description 05/21/2017 Pt. Non Urgent Medical [place] [address] Amilcar Leggett MD [address] [place] [address] Thoracic aortic aneurysm without rupture (HCC) (Primary Dx) Social History Tobacco Use Types Packs/Day Years Used Date Smoking Tobacco: Former Cigarettes 0.5 4 Q uit: 07/12/1998 Smokeless Tobacco: Former Comments:quit x 8 years Alcohol Use Standard Drinks/Week Comments Yes 0 (1 standard drink = 0.6 oz pur e alcohol) occasional Sex Assigned at Date Recorded Male 01/17/2022 6:12 PM E DT documented as of this encounter Progress Notes * Ade Ramos L.P.N. - 05/22/2017 9:01 AM EDTFrom: Christiano Dorado To: Amilcar Leggett MD Sent: 05/21/2017 3:06 PM EDT Subject: Aneurysm Hi Dr Leggett, It's Carla, sending a message for Anastacio. At Anastacio's last appt with Dr Vazquez, he told us the CT scan of his chest done at [facility] showed an aneurysm. He left it up to Anastacio to followup with you if he didn't hear anything from you directly. So, just wondering if there is anything we need to do about this now? I've seen people have periodic CT scans or ultrasounds to track them and wonder what you think will be best? Do you need to see Anastacio to discuss? We're in [place] on vacation this week but otherwise Anastacio is available for an appt if needed. If more testing is needed, it should be scheduled at [facility] because of our insurance. Thank you! documented in this encounter Plan of Treatment Scheduled Orders Name Type Priority Associated Diagnoses Orde r Schedule ECHO TTHRC R-T 2D -+M-MODE COMPL SPEC&COLOR DOP Cardiology Routine Thoracic aortic aneurysm without rupture (HCC) Expected: 05/22/2017, Expires: 05/22/2019 documented as of this encounter Visit Diagnoses Diagnosis Thoracic aortic aneurysm without rupture (HCC)- Primary Thoracic aneurysm without mention of rupture documented in this encounter Care Teams Manager Photography Relationship Specialty Start Date End Date Amilcar Leggett MD [address] [place] [address] PCP - General 05/09/11 05/25/21 Lazaro Chand MD [address] [place] [address] PCP - General Internal Medicine 05/26/21 04/05/22 [facility] [place] [address] [place] [address] PCP - General Internal Medicine 04/06/22 documented as of this encounter
--- OUTSIDE RECORDS SUMMARY | 2024-10-07 15:42 | XMS_ITS | Encounter Summary ---
Author Organization [facility] Address [address] [place] [address] Care Team Providers Care Stage Producer Name Role Phone Amilcar Leggett MD Primary Care Provider [phone] Lazaro Chand MD Primary Care Provider [facility], Pcp Primary Care Provider [facility] Reason for Referral * EXTERNAL (Routine) - Authorized/Booked Specialty Diagnoses / Procedures Referred By Contalberto t Referred To Contact Ophthalmology Diagnoses Cortical age-related cataract of both eyes Procedures REFERRAL TO EXTERNAL OPHTHALMOLOGY Amilcar Leggett MD [address] [place] [address] Radha Capellan Referral ID Status Reason Start Date Expiration Date V isits Requested Visits Authorized SEE NOTE Authorized/B ooked 04/30/2019 08/01/2019 1 1 Reason for Visit * Reason Onset Date Comments Inverform Machine Operator Feedback 04/30/2019 RADAH CAPELLAN [id number] Encounter Details Date Type Department Care Team Description 04/30/2019 [place] [address] Amilcar Leggett MD [address] [place] [address] Inverform Machine Operator Feedback (RADHA CAPELLAN [id number]) Social History Tobacco Use Types Packs/Day Years [...] encounter Miscellaneous Notes * Telephone Encounter - Murphy Trinidad - 04/30/2019 1:15 PM EDT Please review this patients new referral request. The referral has been pended. Please complete thefollowing: If approved> sign order If denied>please give instructions and route to your practice nursing pool. Practice nurse should inform referrals and the patient if denied. * Telephone Encounter - Hannah Dumont - 04/30/2019 12:41 PM EDT What insurance does the patient have today? [facility] Effective 06/11/09: BS will not retro referral requests over 90 days. If request is for this please instruct patient to call the 800# on their insurance card to appeal. Do not submit a request. Referrals cannot be processed if the insurance is not accurate. If the insurance listed above in red is NO BILLING INFORMATION FOUND FOR THIS ENCOUTNER The patients correct insurance must be obtained and registered in [facility] or their referral can not be processed. Is this a retro request? NO. If yes for what date of service do you need the retro referral? N/A Who is calling to request this referral? Specialist office If the caller is not the patient, what is their name? nixon Ask the patient WHO referred them to this specialty: Patient spoke to and was told theywould order a referral to this specialty FIRST and LAST NAME of SPECIALIST PATIENT is seeing: RADHA CAPELLAN [id number] What specialty is this? OPTHAMOLOGY DIAGNOSIS Patient is being seen for (Not a body part or a procedure): CATRACT Have you seen this SPECIALIST for this PROBLEM/DX before?NO If YES, when: Have you checked REVIEW or the APPT DESK to see if this referral has already been done or has visits left? YES Is this visit:Initial Visit Address of Specialist:[address] [facility] [address] [address] Phone # of Specialist:[phone] Fax #: (if applicable):[phone] Does patient have an appointment scheduled?: YES Date of appointment- (including a retro-request): 05-10-19, 6 VISITS Is this appointment related to: Not MVA, WC or Surgery related documented in this encounter Plan of Treatment Not on file documented as of this encounter Visit Diagnoses Diagnosis Cortical age-related cataract of both eyes- Primary Cortical senile cataract documented in this encounter Care Teams Stage Producer Relationship Specialty Start Date End Date Amilcar Leggett MD [address] [place], [place] [phone] PCP - General 05/09/11 05/25/21 Lazaro Chand MD [address] [place], [place] [phone] PCP - General Internal Medicine 05/26/21 04/05/22 [facility], Pcp [address] [place] [address] PCP - General Internal Medicine 04/06/22 documented as of this encounter
--- OUTSIDE RECORDS SUMMARY | 2024-10-07 15:42 | XMS_ITS | Encounter Summary ---
Author Organization [facility] Address [address] [place] [address] Care Team Providers Care Meal Temperer Name Role Phone Amilcar Leggett MD Primary Care Provider [phone] Lazaro Chand MD Primary Care Provider [facility], Pcp Primary [facility] Provider [facility] Reason for Visit * Reason Comments E-prescribe Rx Request Carvedilol 6.25 m g Encounter Details Date Type Department Care Team Description 03/11/2018 Refill Cardiology - [address] [address] Yury Louis MD E-prescribe Rx Request (Carvedilol 6.25 mg ) Social History Tobacco Use Types Packs/Day Years Used Date Smoking Tobacco: Former Cigarettes 0.5 4 0 01/26/1980 - 07/12/1998 Smokeless Tobacco: Former Comments:quit x 8 years Alcohol Use Standard Drinks/Week Comments Yes 0 (1 standard drink = 0.6 oz pur e alcohol) occasional Sex Assigned at Date Recorded Male 01/17/2022 6:12 PM E DT documented as of this encounter Miscellaneous Notes * Telephone Encounter - Valeri Cunningham L.P.N. - 03/12/2018 9:42 AM EDT Lab Results Component Value Date NA 144 03/06/2018 K 4.7 03/06/2018 CO2 25.5 03/06/2018 CL 106 03/06/2018 BUN 20 03/06/2018 CREAT 1.2 03/06/2018 GLU 89 03/06/2018 CA 9.8 03/06/2018 GFR > 60 03/06/2018 07-26-17 Dr Louis's note The patient has a small ascending aortic aneurysm which will be followed frequently enough through chest CTs for his probable lymphoma. If for any reason, no further chest CTs are pursued for that reason, he should have a repeat echocardiogram or CT to assess his aneurysm. If his aneurysmal size stays stable, would reduce the frequency of testing to about every 3 years. His blood pressure is not adequately controlled. Will reduce the forces on his aneurysm as well with adding low medium dose carvedilol. BP ASSESSMENT: Zuleyma Zaidi; Vital signs today were Blood pressure 121/87, pulse 62.. He is not at BP goal of <130/80. documented in this encounter Plan of Treatment Not on file documented as of this encounter Visit Diagnoses Not on filedocumented in this encounter Care Teams Meal Temperer Relationship Specialty Start Date End Date Amilcar Leggtet MD [address] [place] [address] PCP - General 05/09/11 05/25/21 Lazaro Chand MD [address] [place], [place] [phone] PCP - General Internal Medicine 05/26/21 04/05/22 [facility], Pcp [address] [place] [address] PCP - General Internal Medicine 04/06/22 documented as of this encounter
--- OUTSIDE RECORDS SUMMARY | 2024-10-07 15:42 | XMS_ITS | Encounter Summary ---
Author Organization [facility] Address [address] [place] [address] Care Team Providers Care Prepared Foods Team Leader Name Role Phone Amilcar Leggett MD Primary Care Provider [phone] Lazaro Chand MD Primary Care Provider [facility], Pcp Primary Care Provider [facility] e Encounter Details Date Type Department Care Team Description 09/26/2014 Release of Information Medical Records [address] [place] [address] Abstract, Provider Social History Tobacco Use Types [...] on filedocumented in this encounter Care Teams Prepared Foods Team Leader Relationship Specialty Start Date End Date Amilcar Leggett MD [address] [place], [place] [phone] PCP - General 05/09/11 05/25/21 Lazaro Chand MD [address] [place] [address] PCP - General Internal Medicine 05/26/21 04/05/22 [facility], Pcp [address] [place] [address] PCP - General Internal Medicine 04/06/22 documented as of this encounter
--- OUTSIDE RECORDS SUMMARY | 2024-10-07 15:42 | XMS_ITS | Encounter Summary ---
Author Organization [facility] Address [address] [place] [address] Care Team Providers Care Broom Builder Name Role Phone Amilcar Leggett MD Primary Care Provider [phone] Lazaro Chand MD Primary Care Provider [facility], Pcp Primary Care Provider [facility] e Encounter Details Date Type Department Care Team Description 06/03/2019 Hospital Medical Records [id number] [facility] Social History Tobacco Use Types Packs/Day Years [...] on filedocumented in this encounter Care Teams Broom Builder Relationship Specialty Start Date End Date Amilcar Leggett MD [address] [place], [place] [phone] PCP - General 05/09/11 05/25/21 Lazaro Chand MD [address] [place] [address] PCP - General Internal Medicine 05/26/21 04/05/22 [facility], Pcp [address] [place] [address] PCP - General Internal Medicine 04/06/22 documented as of this encounter
--- OUTSIDE RECORDS SUMMARY | 2024-10-07 15:42 | XMS_ITS | Encounter Summary ---
Author Organization [facility] Address [address] [place] [address] Care Team Providers Care Lead Applications Developer Name Role Phone Amilcar Leggett MD Primary Care Provider Lazaro Chand MD Primary Care Provider [facility], Pcp Primary Care Provider [facility] e Encounter Details Date Type Department Care Team Description 08/28/2017 Pt. Non Urgent Medical Question Hypertension - [place] [address] [place] [address] Zuleyma Woodward, Pharm.D Social History Tobacco Use Types Packs/Day Years Used Date Smoking Tobacco: Former Cigarettes 0.5 4 Q uit: 07/12/1998 Smokeless Tobacco: Former Comments:quit x 8 years Alcohol Use Standard Drinks/Week Comments Yes 0 (1 standard drink = 0.6 oz pur e alcohol) occasional Sex Assigned at Date Recorded Male 01/17/2022 6:12 PM E DT documented as of this encounter Progress Notes * Zuleyma Woodward, Pharm.D - 08/30/2017 2:02 PM ESTFrom: Christiano Ave To: David Hermosillo.D Sent: 08/28/2017 4:18 PM EST Subject: Weekly follow up Jared Zuleyma Here are some of my blood pressures for the past week, all are taken late afternoon before supper and evening meds. 08/28/17 119/79 pulse 79 08/27/17 129/85 pulse 65 08/26/17 147/96 pulse 63 08/25/17 145/96 pulse 62 08/24/17 142/88 pulse 71 08/23/17 143/92 pulse 64 08/22/17 142/95 pulse 66 documented in this encounter Plan of Treatment Not on file documented as of this encounter Visit Diagnoses Not on filedocumented in this encounter Care Teams Lead Applications Developer Relationship Specialty Start Date End Date Amilcar Leggett MD [address] [place] [address] PCP - General 05/09/11 05/25/21 Lazaro Chand MD [address] [place] [address] PCP - General Internal Medicine 05/26/21 04/05/22 [place] [address] PCP - General Internal Medicine 04/06/22 documented as of this encounter
--- OUTSIDE RECORDS SUMMARY | 2024-10-07 15:42 | XMS_ITS | Encounter Summary ---
Author Organization [facility] Address [address] [place] [address] Care Team Providers Care Material Distributor Name Role Phone Amilcar Leggett MD Primary Care Provider [phone] Lazaro Chand MD Primary Care Provider Antoinette herring [facility], Pcp Primary Care Provider [facility] e Encounter Details Date Type Department Care Team Description 07/02/2018 Pt. Non Urgent Medical Question Hypertension - [place] [address] [place] [address] Zuleyma Woodward, Pharm.D Social History Tobacco Use [...] on filedocumented in this encounter Care Teams Material Distributor Relationship Specialty Start Date End Date Amilcar Leggett MD [address] [place] [id number] PCP - General 05/09/11 05/25/21 Lazaro Chand MD [address] [place] [address] PCP - General Internal Medicine 05/26/21 04/05/22 [facility], [address] [place] [address] PCP - General Internal Medicine 04/06/22 documented as of this encounter
--- OUTSIDE RECORDS SUMMARY | 2024-10-07 15:43 | XMS_ITS | Encounter Summary ---
Author Organization [facility] Address [address] [place] [address] Care Team Providers Care Roll Grinder Operator Name Role Phone Amilcar Leggett MD Primary Care Provider [phone] Lazaro Chand MD Primary Care Provider [facility], Pcp [facility] Encounter Details Date Type Department Care Team Description 10/23/2018 Orders Only Pulmonology - [address] [place] [address] Hira Houston MD SOB (shortness of breath) Social History Tobacco Use Types Packs/Day Years Used Date Smoking Tobacco: Former Cigarettes 0.5 4 0 01/26/1980 - 07/12/1998 Smokeless Tobacco: Former Comments:brief hx smoking Alcohol Use Standard Drinks/Week Comments Yes 0 (1 standard drink = 0.6 oz pur e alcohol) occasional Sex Assigned at Date Recorded Male 01/17/2022 6:12 PM E DT documented as of this encounter Plan of Treatment Not on file documented as of this encounter Procedures Procedure Name Priority Date/Time Associated Diagnosis Comments CHG RADIOLOGIC EXAM CHEST 2 VIEWS Routine 10/23/2018 SOB (shortness of breath) documented in this encounter Results * RADIOLOGIC EXAM CHEST 2 VIEWS (10/23/2018) Hira Houston MD RADIOLOGY documented in this encounter Visit Diagnoses Diagnosis SOB (shortness of breath) Shortness of breath documented in this encounter Care Teams Roll Grinder Operator Relationship Specialty Start Date End Date Amilcar Leggett MD [address] [place] [address] PCP - General 05/09/11 05/25/21 Lazaro Chand MD [address] [place] [address] PCP - General Internal Medicine 05/26/21 04/05/22 [facility], Pcp [address] [place] [address] PCP - General Internal Medicine 04/06/22 documented as of this encounter
--- OUTSIDE RECORDS SUMMARY | 2024-10-07 15:43 | XMS_ITS | Clinical Summary ---
Author Organization Formerly [facility] Address [address] [place] [address] Care Team Providers Care Roto Mixer Operator Name Role Phone Community, Pcp Primary Care Provider Unavailabl e Allergies Active Allergy Reactions Severity Noted Date Comments Amoxicillin Trihydrate Swelling/Edema 6 Medications Medication Sig Dispensed Refills Start Date End Date Status ASPIRIN 81 MG OR TABS 1 TABLET DAILY 0 Active CALCIUM + D OR 1 po qd 0 Active MULTIVITAMIN OR 1 poq d 0 Active VIAGRA 100 MG OR TABS TAKE ONE TABLET(S) 1 HOUR PRIO R TO INTERCOURSE 12 Tab 1 07/24/2009 Active Probiotic Product (PROBIOTIC FORMULA) Cap Take 1 Cap by mouth daily. 0 Active albuterol (PROVENTIL) (2.5 MG/3ML) 0.083% nebulizer solution Take 1 Vial by nebulization every 4 hours as needed for Wheezing or Shortness of Breath for up to 180 days. 50 Vial 3 10/23/2018 Active fluticasone (FLOVENT HFA) 110 MCG/ACT inhaler Inhale 2 Puffs into the lungs 2 times daily for 30 days. 120 Act 4 04/03/2019 Active ALBUTEROL SULFATE (PROAIR HFA) 108 (90 BASE) MCG/ACT Aero SolnIndications:Sa rcoid Inhale 2 Puffs into the lungs 4 times daily as needed for Cough or Wheezing. 1 Inhaler 11 04/03/2019 Active atorvastatin (LIPITOR) 40 MG tablet Take 1 Tablet by mouth daily. 90 Tablet 1 12/20/2021 Active lisinopril (PRINIVIL,ZESTRIL) 40 MG tablet TAKE 1 TABLET DAILY 90 Tablet 0 02/01/2022 Active citalopram (CELEXA) 20 MG tablet TAKE ONE AND ONE-HALF TABLETS DAILY 135 Tablet 0 02/01/2022 Active carvedilol (COREG) 6.25 MG tablet TAKE 1 TABLET TWICE A DAY WITH MEALS 180 Tablet 0 02/01/2022 Active spironolactone (ALDACTONE) 25 MG tablet TAKE 1 TABLET DAILY 90 Tablet 0 02/01/2022 Active Active Problems Problem Noted Date Ascending aorta dilatation 12/20/2021 Overview: 4. 2 cm seen on ECHO 11/2021 NSTEMI (non-ST elevated myocardial infar ction) 12/20/2021 Severe obesity (BMI 35.0-39.9) with jaxson rbidity 07/08/2020 GERD (gastroesophageal reflux disease) 1 Renal mass 10/10/2019 History of pulmonary embolism 06/05/2019 Overview: 2017 ? Provoked had driven to [place] Moderate persistent asthma without compl ication 04/03/2019 Sarcoidosis of lymph nodes 10/02/2017 Overview: 2018 Obstructive sleep apnea severe AHI 39 wi th sleep related hypoxia 08/30/2017 Overview: [facility] Home Polysomnogram: Date 08/25/2017; AHI 39, Unclassified apneas 0; Obstructive apneas 91; Central apneas 5; Mixed apneas 5; hypopneas 37; average oxygen saturation 89% (lowest 67% with saturations <88% for 5% or more of study) [facility] Polysomnogram treatment study. Date 11/13/2017. SE 51 % SM 65 %; spent 10 % of the study in REM. At the optimal pressure of CPAP @ 17; RDI 0.8 (AHI 0.8), Central apneas 2; Obstructive apneas 0; Mixed apneas 0; hypopneas 0; RERAs 0; and, average oxygen saturation was 93%. For the entire study, PLMs ~30. Nocturnal hypoxemia 08/30/2017 Hyperlipidemia 04/07/2016 Family hx AAA - mother 03/23/2016 Lung Nodules w mediastinal adenopathy Diverticulitis large intestine w/o perfo ration or abscess w/o bleeding 12/22/2008 Overview: About 4 episodes as of 04/07/2017, hosp once, no complications. Family history of colon cancer 9 Overview: Mother, dx at age 74. Negative colonoscopy 12/22/2008,and 05/17/2017 no colon cancer screening needed for 10 years. Hypertension 08/23/2007 allergic rhinitis 12/30/2005 depression 12/30/2005 Resolved Problems Problem Noted Date Resolved Date Thoracic aortic aneurysm without rupture 017 07/08/2020 Insomnia 05/06/2008 07/16/2008 left inguinal hernia repair 12/30/200512/10 Overview: IMO update left shoulder impingement 12/30/20052019 Overview: rotator cuff tendinitis/injection 03/15, 12/15 Immunizations Name Administration Dates Next Due COVID-19 (Pfizer) Pt Reported 06/29/2021, 021,11/09/2020 Hepatitis B > 19yrs 09/21/2016 Influenza (> 6 Months) 05/22/2020,2018,06/11/2018, 013,09/13/2012,06/21/2011,07/06/2010,01/2008 Influenza Flu (PT Reported) 07/04/2017 MMR (Nxjshza-Qtqii-Ufzwilz) 09/21/2016 PPD-[facility] 07/26/2016 Shingrix (Recombinant zoster vaccine) 07/02/2020,04/22/2020 TD (STATE SUPPLIED FOR ADULT S AND CHILDREN) 09/21/2016 Tdap 08/23/2007 Family History Medical History Relation Name Comments AML Brother 1 ?heart dz Brother 2 smoker, obesity Diabetes Brother 2 Glaucoma Father CA Colon Mother Relation Name Status Comments Brother 1 Alive hypertension Brother 2 (Age 64) dm obese s moker Brother 3 Alive Father (Age 83) hypertensi on, prediabetes Mother (Age 86) AAA, colon cancer, hypertension Sister Alive Social History Tobacco Use Types Packs/Day Years Used Date Smoking Tobacco: Former Cigarettes 0.5 4 0 01/26/1980 - 07/12/1998 Smokeless Tobacco: Never Comments:brief hx smoking Alcohol Use Standard Drinks/Week Comments Yes 0 (1 standard drink = 0.6 oz pur e alcohol) occasional Sex Assigned at Date Recorded Male 01/17/2022 6:12 PM E DT Last Filed Vital Signs Vital Sign Reading Time Taken Comments Blood Pressure 102/64 12/20/2021 1:32 PM EDT Pulse 74 12/20/2021 1:32 PM EDT Temperature 36.2 ??C (97.2 ??F) 12/20/2021 1:32 PM ED T Respiratory Rate 14 12/20/2021 1:32 PM EDT Oxygen Saturation 97% 08/09/2021 9:44 AM EST Inhaled Oxygen Concentration - - Weight 124.7 kg (275 lb) 12/20/2021 1:32 PM EDT Height 177.8 cm (5' 10 ) 12/20/2021 1:32 PM EDT Body Mass Index 39.46 12/20/2021 1:32 PM EDT Plan of Treatment Health Maintenance Due Date Last Done Comments BASELINE HEALTH EXAM 40-64 08/28/202108/28, 03/19/2019, 09/27/2018, Additional history exists Covid-19 Vaccine ( season) 2024 06/29/2021, 12/11/2020, 11/09/2020 INFLUENZA (#1) 2024 06/01/2021, 05/12, 05/22/2020, Additional history exists BMI CHECK/ADVISE 09/11/2024 08/09/2021, , 08/09/2021 (Completed), Additional history exists CHOLESTEROL SCREENING 08/09/2026 08/09/2021 , 07/06/2020, 06/19/2019, Additional history exists DTAP/TDAP/TD (3 - Td or Tdap) 09/21/2026 09/21/2016, 08/23/2007 PNEUMOCOCCAL VACCINE FOR HIGH RISK PATIENTS (#2) 2027 03/26/2018 (Exception) COLON CANCER SCREENING 06/06/2027 06/06/2017, 2008 HEPATITIS C SCREENING Completed 12/29/2014 SHINGLES VACCINE Addressed 07/03/2020 (Ext ernal Completion), 07/02/2020, 04/22/2020 Overridden with the intention of not completing the topic Care Teams Roto Mixer Operator Relationship Specialty Start Date End Date Community, Pcp PCP - General Internal Medicine 04/06/22
--- OUTSIDE RECORDS SUMMARY | 2024-10-07 15:43 | XMS_ITS | Encounter Summary ---
Author Organization [facility] Address [address] [place] [address] Care Team Providers Care Magnetic Resonance Technologist Name Role Phone Lazaro Chand MD Primary Care Provider Antoinette Kunz, Pcp Primary Care Provider Filiberto ibarra Encounter Details Date Type Department Care Team Description 11/15/2021 Hospital Medical Records [address] [place] [id number] Andrei Werner MD Social History Tobacco Use Types Packs/Day Years [...] on filedocumented in this encounter Care Teams Magnetic Resonance Technologist Relationship Specialty Start Date End Date Lazaro Chand MD PCP - General Internal Medicine 05/26/21 04/05/22 [facility], Pcp PCP - General Internal Medicine 04/06/22 documented as of this encounter
--- OUTSIDE RECORDS SUMMARY | 2024-10-07 15:43 | XMS_ITS | Encounter Summary ---
Author Organization [facility] Address [address] [place] [address] Care Team Providers Care Food Service Clerk Name Role Phone Amilcar Leggett MD Primary Care Provider [phone] Lazaro Chand MD Primary Care Provider [facility], Pcp Primary Care Provider [facility] Encounter Details Date Type Department Care Team Description 03/31/2020 Broadcast Transmitter Operator Report Medical Records [address] [place] [phone] Corby Dumont MD Social History Tobacco Use Types Packs/Day [...] on filedocumented in this encounter Care Teams Food Service Clerk Relationship Specialty Start Date End Date Amilcar Leggett MD [address] [place] [phone] PCP - General 05/09/11 05/25/21 Lazaro Chand MD [address] [place] [phone] PCP - General Internal Medicine 05/26/21 04/05/22 [facility], Pcp [address] [place], [place] [phone] PCP - General Internal Medicine 04/06/22 documented as of this encounter
--- OUTSIDE RECORDS SUMMARY | 2024-10-07 15:43 | XMS_ITS | Encounter Summary ---
Author Organization [facility] Address [address] [place] [address] Care Team Providers Care Death Clearance Coordinator Name Role Phone Amilcar Leggett MD Primary Care Provider [phone] Lazaro Chand MD Primary Care Provider [facility], Pcp Primary Care Provider [facility] Encounter Details Date Type Department Care Team Description 10/04/2017 Hospital Medical Records [address] [place] [phone] Hira Houston MD Social History Tobacco Use Types Packs/Day [...] on filedocumented in this encounter Care Teams Death Clearance Coordinator Relationship Specialty Start Date End Date Amilcar Leggett MD [address] [place], [place] [phone] PCP - General 05/09/11 05/25/21 Lazaro Chand MD [address] [place] [phone] PCP - General Internal Medicine 05/26/21 04/05/22 [facility], Pcp [address] [place], [place] [phone] PCP - General Internal Medicine 04/06/22 documented as of this encounter
--- OUTSIDE RECORDS SUMMARY | 2024-10-07 15:43 | XMS_ITS | Encounter Summary ---
Author Organization [facility] Address [address] [place] [address] Care Team Providers Care Returned Goods Receiving Clerk Name Role Phone Amilcar Leggett MD Primary Care Provider [phone] Lazaro Chand MD Primary Care Provider [facility], Pcp Primary Care Provider [facility] e Encounter Details Date Type Department Care Team Description 10/03/2017 Pt. Non Urgent Medical Question Hypertension - [place] [address] [place] [address] Zuleyma Woodward, Pharm.D Social History Tobacco Use [...] of this encounter Progress Notes * Zuleyma Woodward Pharm.D - 10/04/2017 9:06 AM ESTFrom: Christiano Dorado To: David Hermosillo.D Sent: 10/03/2017 7:30 AM EST Subject: October 03, 2017 AM blood pressure reading Bridget Syed morning blood pressure before meds 112/77 documented in this encounter Plan of Treatment Not on file documented as of this encounter Visit Diagnoses Not on filedocumented in this encounter Care Teams Returned Goods Receiving Clerk Relationship Specialty Start Date End Date Amilcar Leggett MD [address] [place] [phone] PCP - General 05/09/11 05/25/21 Lazaro Chand MD [address] [place] [id number] PCP - General Internal Medicine 05/26/21 04/05/22 [facility], [place] [address] PCP - General Internal Medicine 04/06/22 documented as of this encounter
--- OUTSIDE RECORDS SUMMARY | 2024-10-07 15:43 | XMS_ITS | Encounter Summary ---
Author Organization [facility] Address [address] [place] [address] Care Team Providers Care Mid Wife Name Role Phone Amilcar Leggett MD Primary Care Provider [phone] Lazaro Chand MD Primary Care Provider [facility], Pcp Primary Care Provider [facility] Encounter Details Date Type Department Care Team Description 04/24/2020 Scale Clerk Report Medical Records [address] [id number] Herminio Hwang MD Social History Tobacco Use Types Packs/Day [...] on filedocumented in this encounter Care Teams Mid Wife Relationship Specialty Start Date End Date Amilcar Leggett MD [address] [place] [phone] PCP - General 05/09/11 05/25/21 Lazaro Chand MD [address] [place] [phone] PCP - General Internal Medicine 05/26/21 04/05/22 [facility], [place] [phone] PCP - General Internal Medicine 04/06/22 documented as of this encounter
--- OUTSIDE RECORDS SUMMARY | 2024-10-07 15:43 | XMS_ITS | Encounter Summary ---
Author Organization [facility] Address [address] [place] [address] Care Team Providers Care Manager Product Marketing Name Role Phone Amilcar Leggett MD Primary Care Provider [phone] Emmy Springer MD Primary Care Provider Murphy Parker MD Primary Care Provider Lazaro Morales MD Primary Care Provider Antoinette Kunz, Pcp Primary Care Provider Unavailabl e Encounter Details Date Type Department Care Team Description 07/06/2009 Hospital Medical Records [address] [place] [address] Abel Wright MD [address] [place] [phone] Social History Tobacco Use Types Packs/Day Years [...] on filedocumented in this encounter Care Teams Manager Product Marketing Relationship Specialty Start Date End Date Amilcar Leggett MD [address] [place], [place] [phone] PCP - General 05/09/11 05/25/21 Emmy Springer MD [address] [place] [address] PCP - General 04/06/11 05/08/11 Murphy Alvarez MD PCP - General 02/18/03 04/05/11 Lazaro Chand MD PCP - General Internal Medicine 05/26/21 04/05/22 [facility], Pcp PCP - General Internal Medicine 04/06/22 documented as of this encounter
--- OUTSIDE RECORDS SUMMARY | 2024-10-07 15:43 | XMS_ITS | Clinical Summary ---
Author Organization [facility] Address [address] [place] [address] Phone Care Team Providers Care Muleser Name Role Phone Yury Menchaca NP Primary Care Provider [phone] Allergies Active Allergy Reactions Criticality Noted Date Comments Amoxicillin Swelling 05/23/2006 Medications Medication Sig Dispensed Refills Start Date End Date Status albuterol HFA (PROAIR HFA ; PROVENTIL HFA ; VENTOLIN HFA) 90 mcg/actuation inhaler Inhale 2 puffs by mouth. 04/03/2019 Active apixaban (ELIQUIS) 5 mg tablet Take 1 tablet (5 mg total) by mouth. Active atorvastatin (LIPITOR) 40 mg tablet Take 1 tablet (40 mg total) by mouth 1 (one) time each day. 12/20/2021 Active carvediloL (COREG) 6.25 mg tablet Take 1 tablet (6.25 mg total) by mouth 2 (two) times a day with meals. 02/01/2022 Active citalopram (CeleXA) 20 mg tablet Take 1.5 tablets (30 mg total) by mouth 1 (one) time each day. 02/01/2022 Active fluticasone HFA (FLOVENT HFA) 110 mcg/actuation inhaler Inhale 2 puffs by mouth. 04/03/2019 Active lisinopriL (PRINIVIL,ZESTRIL ) 20 mg tablet 06/17/2024 Active mycophenolate (CELLCEPT) 500 mg tablet 1 tablet (500 mg total). 07/31/2024 Active spironolactone (ALDACTONE) 25 mg tablet Take 1 tablet (25 mg total) by mouth 1 (one) time each day. 02/01/2022 Active traMADoL (ULTRAM) 50 mg tablet 08/30/2024 Active traZODone (DESYREL) 50 mg tablet 1 tablet (50 mg total). 05/14/2024 Active doxycycline hyclate (VIBRA-TABS) 100 mg tablet 09/09/2024 09/27/2024 Discontinued(D iscontinued by another clinician) clindamycin (CLEOCIN) 300 mg capsule 09/10/2024 09/27/2024 Discontinued(D iscontinued by another clinician) Active Problems Problem Noted Date Diagnosed Date Bitten by dog, subsequent encounter 09/27/2024 Ascending aorta dilatation 12/20/2021 Overview (09/13/2024): 4. 2 cm seen on ECHO 11/2021 NSTEMI (non-ST elevated myocardial infarction) 0 12/20/2021 GERD (gastroesophageal reflux disease) 0 Severe obesity (BMI 35.0-39.9) with comorbidity 07/08/2020 Other pulmonary embolism with acute cor pulmonal e 06/05/2019 Overview (09/13/2024): ? Provoked had driven to [place] Moderate persistent asthma without complication 04/03/2019 Sarcoidosis of lymph nodes 10/02/2017 Overview (09/13/2024): 2018 Obstructive sleep apnea 08/30/2017 Overview (09/13/2024): [facility] Home Polysomnogram: Date 08/25/2017; AHI 39, Unclassified apneas 0; Obstructive apneas 91; Central apneas 5; Mixed apneas 5; hypopneas 37; average oxygen saturation 89% (lowest 67% with saturations <88% for 5% or more of study) [facility] Polysomnogram treatment study. Date 11/13/2017. SE 51 % SM 65 %; spent 10 % of the study in REM. At the optimal pressure of CPAP @ 17; RDI 0.8 (AHI 0.8), Central apneas 2; Obstructive apneas 0; Mixed apneas 0; hypopneas 0; RERAs 0; and, average oxygen saturation was 93%. For the entire study, PLMs ~30. Hyperlipidemia 04/07/2016 Lung nodules 09/10/2009 Diverticulitis large intesti ne w/o perforation or abscess w/o bleeding 12/22/2008 Overview (09/13/2024): About 4 episodes as of 04/07/2017, hosp once, no complications. Hypertension 08/23/2007 Depression 12/30/2005 Encounters Date Type Department Care Team Description 09/27/2024 11:00 AM EST Office Visit Orthopedic Surgery - [address] [phone] Sandra Augustine MD Bitten by dog, subsequent encounter (Primary Dx) 09/13/2024 10:15 AM EST Consult Orthopedic Surgery [address] [phone] Sandra Augustine MD Open bite of left hand, subsequent encounter; Local infection of the skin and subcutaneous tissue, unspecified; Bitten by dog, subsequent encounter; Cellulitis, unspecified from Last 3 Months Surgical History Surgery Date Site/Laterality Comments HERNIA REPAIR Left PROCEDURE: HISTORICAL HERNIA REPAIR/ING; COMMENT: x 2 surgeries TONSILLECTOMY PROCEDURE: HISTORICAL TONSILLECTOMY COLONOSCOPY 12/2008 PROCEDURE: HISTORICAL COLONOSCOPY; COMMENT: Negative screening examination. COLONOSCOPY 06/06/2017 PROCEDURE: HISTORICAL COLONOSCOPY; COMMENT: Diverticulosis; otherwise negative examination. VASECTOMY PROCEDURE: HISTORICAL VASECTOMY UPPER GASTROINTESTINAL ENDOSCOPY 04/30/2020 PROCEDURE: ID UPPER GI ENDOSCOPY PERFORMED; COMMENT: rosmery,esophagitis, mild reflux, moderate gastritis Medical History Medical History Date Comments Allergic rhinitis, cause unspecified 12/30/2005 DX:Allergic rhinitis, cause unspecified Family history of colon cancer 10/23/2008 D X:Family history of colon cancer; COMMENT: Mother, dx at age 74. Negative colonoscopy 12/22/2008, no colon cancer screening needed for 10 years. Depressive disorder 12/30/2005 DX:Depressiv e disorder Hypertension 08/23/2007 DX:Hypertension Lung nodules 09/10/2009 DX:Lung nodules History of pulmonary embolism 06/05/2019 DX :History of pulmonary embolism; COMMENT: 2016 ? Provoked had driven to [place] Sarcoidosis of lymph nodes 10/02/2017 DX:Sa rcoidosis of lymph nodes; COMMENT: 2017 Severe obesity (BMI 35.0-39. 9) with comorbidity (CMS/HCC) 07/08/2020 DX:Severe obesity (BMI 35.0- 39.9) with comorbidity (HCC) Diverticulitis large intesti ne w/o perforation or abscess w/o bleeding 12/22/2008 DX:Diverticulitis large intestine w/o perforation or abscess w/o bleeding; COMMENT: About 4 episodes as of 04/07/2017, hosp once, no complications. Screening for AAA (abdominal aortic aneurysm) 03/23/2016 DX:Screening for AAA (abdomi nal aortic aneurysm) Hyperlipidemia 04/07/2016 DX:Hyperlipidemi a Moderate persistent asthma w ithout complication 04/03/2019 DX:Moderate persistent asthm a without complication Nocturnal hypoxemia 08/30/2017 DX:Nocturnal hypoxemia Obstructive sleep apnea 08/30/2017 DX:Obstr uctive sleep apnea; COMMENT: [facility] Home Polysomnogram: Date 08/25/2017; AHI 39, Unclassified apneas 0; Obstructive apneas 91; Central apneas 5; Mixed apneas 5; hypopneas 37; average oxygen saturation 89% (lowest 67% with saturations <88% for 5% or more of study) [facility] Polysomnogram treatment study. Date 11/13/2017. SE 51 % SM 65 %; spent 10 % of the study in REM. At the optimal pressure of CPAP* Renal mass 10/10/2019 DX:Renal mass GERD (gastroesophageal reflux disease) 0 DX:GERD (gastroesophageal reflux disease) Family History Medical History Relation Name Comments Other: AML Brother 1 Diabetes Brother 2 Other: ?heart dz Brother 2 smoker, obe sity Glaucoma Father Colon cancer Mother Relation Name Status Comments Brother 1 Alive hypertension Brother 2 (Age 64) dm obese s moker Brother 3 Alive Father (Age 83) hypertensi on, prediabetes Mother (Age 86) AAA, colon cancer, hypertension Sister Alive Social History Tobacco Use Types Packs/Day Years Used Date Smoking Tobacco: Former Cigarettes 0.5 18.5 0 01/26/1980 - 07/12/1998 Smokeless Tobacco: Never Alcohol Use Standard Drinks/Week Comments Yes 0 (1 standard drink = 0.6 oz pur e alcohol) Sex and Gender Information Value Date Recorded Sex Assigned at Not on file Gender Identity Not on file Sexual Orientation Not on file Job Start Date Occupation Industry Not on file Not on file Not on file Obstetrics History Last Filed Vital Signs Vital Sign Reading Time Taken Comments Blood Pressure 102/64 12/20/2021 1:32 PM EDT Pulse 74 12/20/2021 1:32 PM EDT Temperature - - Respiratory Rate - - Oxygen Saturation - - Inhaled Oxygen Concentration - - Weight 118 kg (260 lb) 09/27/2024 11:06 AM EST Height 177.8 cm (5' 10 ) 09/27/2024 11:06 AM EST Body Mass Index 37.31 09/27/2024 11:06 AM EST Plan of Treatment Health Maintenance Due Date Last Done Comments Hepatitis B Vaccines (2 of 3 - 19+ 3-dose series) 10/19/2016 09/21/2016 RSV Immunization Patients 60+ Years Old (1 - Risk 60-74 years 1-dose series) 2022 Cholesterol Screening (Lipid Panel) 08/18/2022 Colorectal Cancer Screening: Colonoscopy 08/18/2022 Depression Screening 08/18/2022 HIV Screening 08/18/2022 Hepatitis C Screening 08/18/2022 Hypertension/CHF/CAD Annual BMP Blood Test 08/18/2022 Social Influencers of Health Screening 08/18/2022 COVID-19 Vaccine ( season) 2024 09/13/2023, 05/19/2022, 01/20/2022, Additional history exists DTaP,Tdap,and Td Vaccines (3 - Td or Tdap) 09/21/2026 09/21/2016, 08/23/2007 MMR Vaccines Aged Out 09/21/2016 No longer eligi ble based on patient's age to complete this topic Zoster Vaccines Completed 07/02/2020, 04/22/2020 Pneumococcal Vaccine: Pediatrics (0 to 5 Years) and At-Risk Patients (6 to 64 Years) Completed 07/21/2023 Influenza Vaccine Completed 06/17/2024, , 05/19/2022, Additional history exists HIB Vaccines Aged Out No longer eligi ble based on patient's age to complete this topic HPV Vaccines Aged Out No longer eligi ble based on patient's age to complete this topic Hepatitis A Vaccines Aged Out No long er eligible based on patient's age to complete this topic IPV Vaccines Aged Out No longer eligi ble based on patient's age to complete this topic Meningococcal ACWY Vaccine Aged Out N o longer eligible based on patient's age to complete this topic RSV Immunization Patients Under 20 months Aged Out No longer eligible based on patient's age to complete this topic Varicella Vaccines Aged Out No longer eligible based on patient's age to complete this topic Procedures Procedure Name Priority Date/Time Associated Diagnosis Comments XR HAND 3+ VIEWS LEFT Routine 09/13/2024 10:45 AM EST Open bite of left hand, subsequent encounter from Last 3 Months Results * XR Hand 3+ Views Left (09/13/2024 10:45 AM EST) Anatomical Region Laterality Modality Upper Extremities, Hand Left Computed Radiography Narrative 09/13/2024 3:40 PM EST AP, lateral, oblique of the left wrist and hand were obtained on 09/13/2024. There are no comparison views available. ??Patient has some generalized osteopenia. ??Joint spaces are maintained. ??There is some soft tissue swelling noted dorsal ulnarly. ??There are no fractures or lytic lesions. Sandra Augustine MD IMG XR PROCEDURES from Last 3 Months Care Teams Muleser Relationship Specialty Start Date End Date Yury Menchaca NP [address] [place] [phone] PCP - General Family Medicine 09/20/24
--- OUTSIDE RECORDS SUMMARY | 2024-10-07 15:43 | XMS_ITS | Clinical Summary ---
Author Organization [facility] Address [address] [place] [address] Care Team Providers Care Proc Tech Name Role Phone Amilcar Leggett MD Primary Care Provider [phone] Allergies Active Allergy Reactions Criticality Noted Date Comments Amoxicillin 04/24/2020 Medications Medication Sig Dispensed Refills Start Date End Date Status citalopram (CeleXA) 20 MG tablet Take 30 mg by mouth daily. 0 Active lisinopril (PRINIVIL,ZESTRIL) tablet 40 mg Take 40 mg by mouth daily. 0 Active apixaban (ELIQUIS) 5 MG TABS tablet Take 5 mg by mouth every 12 (twelve) hours. 0 Active fluticasone (FLONASE) 50 MCG/ACT nasal spray spray/apply 1 spray in each nostril daily. 0 Active albuterol (PROVENTIL HFA;VENTOLIN HFA) 108 (90 Base) MCG/ACT inhaler Inhale 2 puffs into the lungs every 6 (six) hours as needed for wheezing. 0 Active atorvastatin (LIPITOR) tablet 20 mg Take 20 mg by mouth daily. 0 Active spironolactone (ALDACTONE) tablet 25 mg Take 25 mg by mouth daily. 0 Active albuterol (PROVENTIL) (2.5 MG/3ML) 0.083% nebulizer solution Take 2.5 mg by nebulization every 6 (six) hours as needed for wheezing. 0 Active carvedilol (COREG) 6.25 MG tablet Take 6.25 mg by mouth 2 (two) times a day with meals. 0 Active Probiotic Product (PROBIOTIC-10 PO) Take by mouth. 0 Act michael Calcium Carb-Cholecalcifero l (CALCIUM-VITAMIN D3) 600-400 MG-UNIT CAPS Take by mouth. 0 Active sildenafil (VIAGRA) 100 MG tablet Take 100 mg by mouth daily as needed for erectile dysfunction. 0 Active Multiple Vitamins-Minerals (MULTIVITAMIN ADULT PO) Take by mouth. 0 Active [place]-3 Fatty Acids (FISH OIL) 1000 MG CAPS Take by mouth. 0 Active aspirin EC 81 MG tablet Take 81 mg by mouth daily. 0 Active Active Problems Problem Noted Date Diagnosed Date Other pulmonary embolism with acute cor pulmonal e 06/05/2019 Overview: Overview: ? Provoked had driven to [place] Sarcoidosis of lymph nodes 10/02/2017 Obstructive sleep apnea 08/30/2017 Overview: Overview: SMS Home Polysomnogram: Date 08/25/2017; AHI 39, Unclassified apneas 0; Obstructive apneas 91; Central apneas 5; Mixed apneas 5; hypopneas 37; average oxygen saturation 89% (lowest 67% with saturations <88% for 5% or more of study) [facility] Polysomnogram treatment study. Date 11/13/2017. SE 51 % SM 65 %; spent 10 % of the study in REM. At the optimal pressure of CPAP @ 17; RDI 0.8 (AHI 0.8), Central apneas 2; Obstructive apneas 0; Mixed apneas 0; hypopneas 0; RERAs 0; and, average oxygen saturation was 93%. For the entire study, PLMs ~30. Lung nodules 09/10/2009 Depression 12/30/2005 Social History Tobacco Use Types Packs/Day Years Used Date Smoking Tobacco: Never Assessed Sex and Gender Information Value Date Recorded Sex Assigned at Not on file Gender Identity Not on file Sexual Orientation Not on file Last Filed Vital Signs Vital Sign Reading Time Taken Comments Blood Pressure 115/70 04/24/2020 10:32 AM EDT Pulse 76 04/24/2020 10:32 AM EDT Temperature 36.1 ??C (97 ??F) 04/24/2020 10:32 AM EDT Respiratory Rate - - Oxygen Saturation - - Inhaled Oxygen Concentration - - Weight 120.7 kg (266 lb) 04/24/2020 10:32 AM EDT Height 177.8 cm (5' 10 ) 04/24/2020 10:32 AM EDT Body Mass Index 38.17 04/24/2020 10:32 AM EDT Plan of Treatment Health Maintenance Due Date Last Done Comments Hepatitis C Screening 1960 COVID-19 Vaccine (#1) 1960 Pneumococcal Vaccine (1 of 2 - PCV) 02/26/1968 Depression Screening 1974 Preventative Health Evaluation 02/26/1980 Colon Cancer Screening (Colonoscopy) 2007 Shingrix-Zoster Vaccine (1 of 2) 02/26/2012 DTap / Tdap / Td (2 - Td or Tdap) 08/23/2017 08/23/2007 Influenza Vaccine (#1) 2024 9, 06/11/2018, 06/19/2013, Additional history exists RSV Adult > 60+ Yrs or (1 - 1-dose 75+ series) 2037 Hepatitis B Vaccines Aged Out No long er eligible based on patient's age to complete this topic RSV Ped < 20 months Aged Out No longe r eligible based on patient's age to complete this topic Care Teams Proc Tech Relationship Specialty Start Date End Date Amilcar Leggett MD PCP - General Wireline Operator 04/24/20
--- OUTSIDE RECORDS SUMMARY | 2024-10-07 15:43 | XMS_ITS | Encounter Summary ---
Author Organization [facility] Address [address] [place] [address] Care Team Providers Care Binding Nicker Name Role Phone Yury Menchaca NP Primary Care Provider Reason for Visit * Reason Comments Consult Dog bite on 08/27/24 Follow-up Dog bite on 08/27/24 Encounter Details Date Type Department Care Team ([facility] st Contact Info) Description 09/27/2024 11:00 AM EST Office Visit Orthopedic Surgery - [place] [facility] [address] [place] [address] Sandra Augustine MD 175 [facility] [address] [place] [address] Bitten by dog, subsequent encounter (Primary Dx) Social History Tobacco Use Types [...] file Not on file Not on file documented as of this encounter Last Filed Vital Signs Vital Sign Reading Time Taken Comments Blood Pressure - - Pulse - - Temperature - - Respiratory Rate - - Oxygen Saturation - - Inhaled Oxygen Concentration - - Weight 118 kg (260 lb) 09/27/2024 11:06 AM EST Height 177.8 cm (5' 10 ) 09/27/2024 11:06 AM EST Body Mass Index 37.31 09/27/2024 11:06 AM EST documented in this encounter Progress Notes * Sandra Augustine MD - 09/27/2024 11:00 AM EST CHIEF COMPLAINT/REASON FOR VISIT: Follow-up for dog bite to left hand SUBJECTIVE: Date of injury 08/27/2024. Gsgmj-evsn-dyqqjluj gentleman who unfortunate got bit on the left hand. It got pretty swollen there was some drainage. He had some wound care and antibiotics. It seemed slow to heal. I saw him on September 13. At that time he had a little bit of inflammation around the woundand I was little concerned that there might still be something there to drain. We had him continue with his last round of antibiotics and to do warm compresses. With tincture of time patient thinks has gotten better and I would agree. OBJECTIVE: The area over the dorsal ulnar aspect of the left hand has the scabs and they are dry they are not erythematous. The skin around the area is a little firm as to be expected but not fluctuant. He can straighten his fingers out and he can make a fist and can abduct and adduct them. He can feel the back of the ring and small finger. The area right over the bites feels a bit sore is to be expected. ASSESSMENT: 1. Bitten by dog, subsequent encounter Resolved dog bite I recommend he discontinue to do the soft tissue massage to the area No need for any further antibiotics PLAN: Follow-up on a as needed basis if there are any concerns Sandra Augustine MD documented in this encounter Plan of Treatment Not on file documented as of this encounter Visit Diagnoses Diagnosis Bitten by dog, subsequent encounter- Primary documented in this encounter Discontinued Medications Medication Sig Discontinue Reason Start Date End Da te clindamycin (CLEOCIN) 300 mg capsule Discontinued by another clinician 09/10/2024 09/27/2024 doxycycline hyclate (VIBRA-TABS) 100 mg tablet Discontinued by another clinician 09/09/2024 09/27/2024 documented as of this encounter Care Teams Binding Nicker Relationship Specialty Start Date End Date Yury Menchaca NP [address] [place] [address] PCP - General Family Medicine 09/20/24 documented as of this encounter
--- OUTSIDE RECORDS SUMMARY | 2024-10-07 15:43 | XMS_ITS | Encounter Summary ---
Author Organization [facility] Address [address] [place] [address] Care Team Providers Care Medical Record Coder Name Role Phone Amilcar Leggett MD Primary Care Provider [phone] Lazaro Chand MD Primary Care Provider [facility], Pcp Primary Care Provider [facility] Encounter Details Date Type Department Care Team Description 03/20/2020 Orders Only Medical Records [address] [place] [address] Abstract, Provider Social History Tobacco Use Types [...] Procedure Name Priority Date/Time Associated Diagnosis Comments OUTSIDE CT Routine 03/19/2020 documented in this encounter Results * OUTSIDE CT (03/19/2020) Corby Dumont MD RADIOLOGY documented in this encounter Visit Diagnoses Not on filedocumented in this encounter Care Teams Medical Record Coder Relationship Specialty Start Date End Date Amilcar Leggett MD [address] [place] [address] PCP - General 05/09/11 05/25/21 Lazaro Chand MD [address] [place] [address] PCP - General Internal Medicine 05/26/21 04/05/22 [facility], Pcp [address] [place] [address] PCP - General Internal Medicine 04/06/22 documented as of this encounter
--- OUTSIDE RECORDS SUMMARY | 2024-10-07 15:43 | XMS_ITS | Encounter Summary ---
Author Organization [facility] Address [address] [place] [address] Care Team Providers Care Artist And Repertoire Manager Name Role Phone Amilcar Leggett MD Primary Care Provider [phone] Lazaro Chand MD Primary Care Provider [facility], Pcp [facility] Reason for Visit * Reason Comments E-prescribe Rx Request Encounter Details Date Type Department Care Team Description 10/08/2018 Refill Adult Medicine [address] [address] Amilcar Leggett MD [address] [place] [address] E-prescribe Rx Request Social History Tobacco Use Types Packs/Day Years [...] encounter Miscellaneous Notes * Telephone Encounter - China Schulte M.A. - 10/09/2018 2:40 PM EST Lab Results Component Value Date NA 142 07/02/2018 K 4.9 07/02/2018 CO2 21.6 07/02/2018 CL 104 07/02/2018 BUN 13 07/02/2018 CREAT 1.4 07/02/2018 GLU 90 07/02/2018 CA 10.0 07/02/2018 GFR 56 07/02/2018 * Telephone Encounter - Hemalatha Estevez - 10/08/2018 1:51 PM EST Patient would like script to be: E-PRESCRIBED/FAXED TO PHARMACY WHEN WAS THE PATIENT'S LAST APPOINTMENT IN ADULT MEDICINE? 09/27/18 WHEN WAS THE LAST TIME THE PATIENT SAW THEIR PCP? 09/07/18 Does patient have an upcoming appointment? Yes 04/02/19 (THE MEDICATION REQUESTED IS ON THE MED LIST ABOVE) All of the medications requested were on the CURRENT MEDS list Did you check the Pharmacy information above?: YES Patient wants: 30 -day supply Is this a mail order prescription request ? NO If the refill is from a FAXED refill request what is the RX # listed on the fax? N/A Patients current insurance carrier is: Payor: -PA/PPO POS / Plan: PPO $20 TOWANDA [id number] / ProductType: PPO [id number] documented in this encounter Plan of Treatment Not on file documented as of this encounter Visit Diagnoses Not on filedocumented in this encounter Care Teams Artist And Repertoire Manager Relationship Specialty Start Date End Date Amilcar Leggett MD [address] [place] [address] PCP - General 05/09/11 05/25/21 Lazaro Chand MD [address] [place] [address] PCP - General Internal Medicine 05/26/21 04/05/22 [facility], Pcp [facility] S[place] K[place]ki [address] PCP - General Internal Medicine 04/06/22 documented as of this encounter
--- OUTSIDE RECORDS SUMMARY | 2024-10-07 15:43 | XMS_ITS | Encounter Summary ---
Author Organization [facility] Address [address] [place] [address] Care Team Providers Care Meat Stock Clerk Name Role Phone Amilcar Leggett MD Primary Care Provider [phone] Emmy Springer MD Primary Care Provider Murphy Parker MD Primary Care Provider Lazaro Morales MD Primary Care Provider Antoinette Kunz, Pcp Primary Care Provider Unavailabl e Encounter Details Date Type Department Care Team Description 03/24/2005 Orders Only Medical [address] [place], [place] [id number] Nemo Carrillo [address] [place] [phone] LONG-TERM (CURRENT) USE OF OTHER MEDICATIONS (Primary Dx) Social History Tobacco Use Types Packs/Day Years Used Date Smoking Tobacco: Never Assessed Sex Assigned at Date Recorded Male 01/17/2022 6:12 PM E DT documented as of this encounter Plan of Treatment Scheduled Orders Name Type Priority Associated Diagnoses Orde r Schedule VENIPUNCTURE Lab Routine Long-Term (Current) Use Of Other Medications Ordered: 03/24/2005 documented as of this encounter Procedures Procedure Name Priority Date/Time Associated Diagnosis Comments CHG BASIC METABOLIC PANEL CALCIUM TOTAL Routine 03/24/2005 9:00 AM EDT Long-Term (Current) Use Of Other Medications documented in this encounter Results * BASIC METABOLIC PANEL (03/24/2005 9:00 AM EDT) [facility] [address] GLUCOSE 89 70 - 110 mg/dL [facility] Blood Urea Nitrogen 21 5 - 25 mg/dL [facility] creatinine 1.0 0.7 - 1.5 mg/dL [facility] Sodium 142 133 - 145 mEq/L [facility] Potassium 4.5 3.5 - 5.2 mEq/L [facility] Chloride 107 96 - 108 mEq/L [facility] CARBON DIOXIDE (CO2) 27.1 21.0 - 32.0 mEq/L [facility] CALCIUM 9.4 8.5 - 10.5 mg/dL [facility] 03/24/2005 9:00 AM EDT 03/24/2005 9:01 AM EDT Nemo Carrillo LAB [facility] documented in this encounter Visit Diagnoses Diagnosis Encounter for long-term (current) use of other medications- Primary documented in this encounter Care Teams Meat Stock Clerk Relationship Specialty Start Date End Date Amilcar Leggett MD [address] [place] [address] PCP - General 05/09/11 05/25/21 Emmy Springer MD [address] [place] [address] PCP - General 04/06/11 05/08/11 Murphy Alvarez MD PCP - General 02/18/03 04/05/11 Lazaro Chand MD PCP - General Internal Medicine 05/26/21 04/05/22 [facility], [facility]cp PCP - General Internal Medicine 04/06/22 documented as of this encounter
--- OUTSIDE RECORDS SUMMARY | 2024-10-07 15:43 | XMS_ITS | Encounter Summary ---
Author Organization [facility] Address [address] [place] [address] Care Team Providers Care Living Advisor Name Role Phone Yury Menchaca NP Primary Care Provider Reason for Visit * Reason Comments Consult Dog bite on 08/27/24 ; pain, swelling * Consultation (Routine) - Closed Specialty Diagnoses / Procedures Referred By Contac t Referred To Contact Hand Surgery / Orthopaedic Surgery Diagnoses Open bite of left hand, subsequent encounter Local infection of the skin and subcutaneous tissue, unspecified Bitten by dog, subsequent encounter Cellulitis, unspecified Stephanie Garcia MD [address] [place] [address] Sandra Augustine MD [address] [place] [phone] Referral ID Status Reason Start Date Expiration Date V isits Requested Visits Authorized [id number] Closed Specialty Services Required 09/13/2024 09/13/2025 1 1 Encounter Details Date Type Department Care Team ([facility] Contact Info) Description 09/13/2024 10:15 AM EST Consult Orthopedic Surgery - [place] [address] [address] Sandra Augustine MD [address] [address] Open bite of left hand, subsequent encounter; Local infection of the skin and subcutaneous tissue, unspecified; Bitten by dog, subsequent encounter; Cellulitis, unspecified Social History Tobacco Use Types Packs/Day Years [...] - - Weight 118 kg (260 lb) 09/13/2024 10:12 AM EST Height 177.8 cm (5' 10 ) 09/13/2024 10:12 AM EST Body Mass Index 37.31 09/13/2024 10:12 AM EST documented in this encounter Progress Notes * Sandra Augustine MD - 09/13/2024 10:15 AM EST CHIEF COMPLAINT/REASON FOR VISIT: Evaluation of left hand secondary to dog bite SUBJECTIVE: Patient is here today with his . Unfortunately he sustained a dog bite on August 27. He is a gtnay-geyr-bfcdrxba gentleman. He was trying to get an earbud away from his dog that was about to chew on it. Unfortunately in the process he got bit on the left hand. It was pretty swollen they had it looked at at a walk-in clinic and he was put on some Cipro. Later it started draining so he went back to the walk-in clinic on September 02. He was given increased dose of Cipro. Over the ensuing week there was further drainage and now it was purulent. He went back on the . Cultures were reportedly done. I do not have those readily available. Patient was started on doxycycline and clindamycindue to a clinical concern for MRSA. Since then it has settled down somewhat but it is still somewhat achy and sore. OBJECTIVE: On examination the patient's left hand has some puffiness to it although there is not tension of the skin. He has evidence of a wound on the dorsal ulnar aspect of the hand. It is a little erythematous and there are 2 dry scabs. It is a little tender and firm around the area but not fluctuant. WhenI gently palpate nothing is expressed. He has 2 smaller wounds on the volar thenar aspect of his hand which have healed and are nontender. He is able to straighten his fingers and he can make a fist and he can abduct and adduct the fingers. It is sore if he extends the small and ring finger againstresistance. He can move the wrist. XR Hand 3+ Views Left AP, lateral, oblique of the left wrist and hand were obtained on 09/13/2024. There are no comparison views available. Patient has some generalized osteopenia. Joint spaces are maintained. There is some soft tissue swelling noted dorsal ulnarly. There are no fractures or lytic lesions. ASSESSMENT: 1. Open bite of left hand, subsequent encounter Ambulatory referral to Hand Surgery XR Hand 3+ Views Left 2. Local infection of the skin and subcutaneous tissue, unspecified Ambulatory referral to Hand Surgery 3. Bitten by dog, subsequent encounter Ambulatory referral to Hand Surgery 4. Cellulitis, unspecified Ambulatory referral to Hand Surgery Patient had a dog bite and what looks to be a subcutaneous abscess which has drained. Right now looks pretty dry and there is no fluctuance. I did explain to the patient and his that it may drain again. He should finish his antibiotics. I would apply heat to the area 2-3 times a day for comfort and to help encourage blood flow to the area. I do not think he needs formal therapy as he can actually move the fingers reasonably well. I would like to check him back in 12 to 14 days to make surethat he is doing okay once off the antibiotics. If there is any worsening of symptoms or escalationthey were informed to let us know immediately. There is a remote possibility that some of the tendons may have been affected. Right now they are working fine but late rupture following infection can occur. Right now there is nothing to do differently other than let it continue to settle down. PLAN: Follow-up for repeat exam in 12 to 14 days. Finish off antibiotics. Sandra Augustine MD Patient Active Problem List Diagnosis Ascending aorta dilatation (CMS/HCC) Depression Diverticulitis large intestine w/o perforation or abscess w/o bleeding GERD (gastroesophageal reflux disease) Hyperlipidemia Hypertension Lung nodules Moderate persistent asthma without complication NSTEMI (non-ST elevated myocardial infarction) (CMS/HCC) Obstructive sleep apnea Other pulmonary embolism with acute cor pulmonale (CMS/HCC) Sarcoidosis of lymph nodes Severe obesity (BMI 35.0-39.9) with comorbidity (CMS/[facility]) Current Outpatient Medications: albuterol HFA (PROAIR HFA ; PROVENTIL HFA ; VENTOLIN HFA) 90 mcg/actuation inhaler, Inhale 2 puffs by mouth., Disp: , Rfl: atorvastatin (LIPITOR) 40 mg tablet, Take 1 tablet (40 mg total) by mouth 1 (one) time each day., Disp: , Rfl: carvediloL (COREG) 6.25 mg tablet, Take 1 tablet (6.25 mg total) by mouth 2 (two) times a day with meals., Disp: , Rfl: citalopram (CeleXA) 20 mg tablet, Take 1.5 tablets (30 mg total) by mouth 1 (one) time each day., Disp: , Rfl: clindamycin (CLEOCIN) 300 mg capsule, , Disp: , Rfl: doxycycline hyclate (VIBRA-TABS) 100 mg tablet, , Disp: , Rfl: fluticasone HFA (FLOVENT HFA) 110 mcg/actuation inhaler, Inhale 2 puffs by mouth., Disp: , Rfl: lisinopriL (PRINIVIL,ZESTRIL) 20 mg tablet, , Disp: , Rfl: mycophenolate (CELLCEPT) 500 mg tablet, 1 tablet (500 mg total)., Disp: , Rfl: spironolactone (ALDACTONE) 25 mg tablet, Take 1 tablet (25 mg total) by mouth 1 (one) time each day., Disp: , Rfl: traMADoL (ULTRAM) 50 mg tablet, , Disp: , Rfl: traZODone (DESYREL) 50 mg tablet, 1 tablet (50 mg total)., Disp: , Rfl: apixaban (ELIQUIS) 5 mg tablet, Take 1 tablet (5 mg total) by mouth., Disp: , Rfl: documented in this encounter Plan of Treatment Not on file documented as of this encounter Results * XR Hand 3+ Views Left [...] lesions. Sandra Augustine MD IMG XR PROCEDURES documented in this encounter Visit Diagnoses Diagnosis Open bite of left hand, subsequent encounter Local infection of the skin and subcutaneous tissue, unspecified Bitten by dog, subsequent encounter Cellulitis, unspecified documented in this encounter Historical Medications * This list may reflect changes made after this encounter. Medication Sig Dispensed Refills Start Date End Date traZODone (DESYREL) 50 mg tablet 1 tablet (50 mg total). 05/14/2024 traMADoL (ULTRAM) 50 mg tablet 08/30/2024 spironolactone (ALDACTONE) 25 mg tablet Take 1 tablet (25 mg total) by mouth 1 (one) time each day. 02/01/2022 mycophenolate (CELLCEPT) 500 mg tablet 1 tablet (500 mg total). 07/31/2024 lisinopriL (PRINIVIL,ZESTRIL) 20 mg tablet 06/17/2024 fluticasone HFA (FLOVENT HFA) 110 mcg/actuation inhaler Inhale 2 puffs by mouth. 04/03/2019 citalopram (CeleXA) 20 mg tablet Take 1.5 tablets (30 mg total) by mouth 1 (one) time each day. 02/01/2022 carvediloL (COREG) 6.25 mg tablet Take 1 tablet (6.25 mg total) by mouth 2 (two) times a day with meals. 02/01/2022 atorvastatin (LIPITOR) 40 mg tablet Take 1 tablet (40 mg total) by mouth 1 (one) time each day. 12/20/2021 apixaban (ELIQUIS) 5 mg tablet Take 1 tablet (5 mg total) by mouth. albuterol HFA (PROAIR HFA ; PROVENTIL HFA ; VENTOLIN HFA) 90 mcg/actuation inhaler Inhale 2 puffs by mouth. 04/03/2019 clindamycin (CLEOCIN) 300 mg capsule 09/10/2024 09/27/2024 doxycycline hyclate (VIBRA-TABS) 100 mg tablet 09/09/2024 09/27/2024 added in this encounter Orders Outpatient Referral Count Last Ordered Date Fir st Ordered Date AMB REFERRAL TO HAND SURGERY 1 09/13/2024 documented in this encounter Care Teams Living Advisor Relationship Specialty Start Date End Date Yury Menchaca NP PCP - General Family Medicine 09/13/24 09/19/24 documented as of this encounter
== END 2024-10-07 11:30 | disposition home or self-care (01) ==
PROVIDERS: PCP Nurse Practitioner Family; Visit Provider Orthopaedic Surgery
DX: M16.11 Unilateral primary osteoarthritis, right hip (principal)
CPT/HCPCS: 99203

== ENCOUNTER 2024-10-07 10:50 | Outpatient (REF) | payer OTHER, SELFPAY ==
--- NOTE | ~2024-10-07 | XR_ITS ---
CLINICAL HISTORY: M25.559 - Pain in unspecified hip 1 view pelvis Comparison: CT/RI - CT ABDOMEN PELVIS W IV CON - 02/09/24 09:30 EDT Findings: Bony alignment of the hip joints is anatomic. No fracture or erosion. Moderate bilateral hip DJD, [id number]-[id number]-[id number]-left. Joint space narrowing and osteophyte formation is identified bilaterally. Sacroiliac joints and pubic symphysis are anatomically aligned. IMPRESSION: Moderate bilateral hip DJD. This document has been electronically signed by: eSrgio France MD on 10/07/2024 17:33:45
--- OUTSIDE RECORDS SUMMARY | 2024-10-07 16:09 | XMS_ITS | Clinical Summary ---
Author Organization [facility] Address [address] [place] [address] Phone Care Team Providers Care Special Police Officer Name Role Phone Yury Menchaca NP Primary Care Provider Allergies Active Allergy Reactions Criticality Noted Date [...] Overview (09/13/2024): ? Provoked had driven to [place] Moderate persistent asthma without complication 04/03/2019 Sarcoidosis [...] AM EST Office Visit Orthopedic Surgery - [address] [address] Sandra Augustine MD Bitten by dog, subsequent encounter (Primary Dx) 09/13/2024 10:15 AM EST Consult Orthopedic Surgery [address] [address] Sandra Augustine MD Open bite of left [...] HISTORICAL VASECTOMY UPPER GASTROINTESTINAL ENDOSCOPY 04/30/2020 PROCEDURE: [place] UPPER GI ENDOSCOPY PERFORMED; COMMENT: rosmery,esophagitis, mild [...] COMMENT: 2016 ? Provoked had driven to [place] Sarcoidosis of lymph nodes 10/02/2017 DX:Sa rcoidosis [...] apnea 08/30/2017 DX:Obstr uctive sleep apnea; COMMENT: [facility] Home Polysomnogram: Date 08/25/2017; AHI [...] PROCEDURES from Last 3 Months Care Teams Special Police Officer Relationship Specialty Start Date End Date Yury Menchaca NP [address] [place] [address] PCP - General Family Medicine 09/20/24
--- OUTSIDE RECORDS SUMMARY | 2024-10-07 16:09 | XMS_ITS | Encounter Summary ---
Author Organization [facility] Address [address] [place] [address] Care Team Providers Care Life Skills Worker Name Role Phone Yury Menchaca NP Primary [...] encounter Cellulitis, unspecified Stephanie Garcia MD [address] [place] [address] Sandra Augustine MD [address] [place] [phone] Referral ID Status Reason Start Date Expiration Date V isits Requested Visits Authorized [id number] Closed Specialty Services Required 09/13/2024 09/13/2025 1 1 Encounter Details Date Type Department Care Team ([facility] Contact Info) Description 09/13/2024 10:15 AM EST Consult Orthopedic Surgery - [place] [address] [address] Sandra Augustine MD [address] [address] Open bite of left hand, [...] bite on August 27. He is a ezvuz-ihfl-sbolmgne gentleman. He was trying to get an [...] nodes Severe obesity (BMI 35.0-39.9) with comorbidity (CMS/[facility]) Current Outpatient Medications: albuterol HFA (PROAIR HFA [...] 09/13/2024 documented in this encounter Care Teams Life Skills Worker Relationship Specialty Start Date End Date Yury Menchaca NP PCP - General Family Medicine 09/13/24 09/19/24 documented as of this encounter
--- OUTSIDE RECORDS SUMMARY | 2024-10-07 16:10 | XMS_ITS | Encounter Summary ---
Author Organization [facility] Address [address] [place] [address] Care Team Providers Care Correctional Officer Captain Name Role Phone Yury Menchaca NP Primary Care Provider Reason for Visit * Reason Comments Consult Dog bite on 08/27/24 Follow-up Dog bite on 08/27/24 Encounter Details Date Type Department Care Team ([facility] st Contact Info) Description 09/27/2024 11:00 AM EST Office Visit Orthopedic Surgery - [place] 175 [facility] [address] [place] [address] Sandra Augustine MD 175 [facility] [address] [place] [address] Bitten by dog, subsequent encounter [...] left hand SUBJECTIVE: Date of injury 08/27/2024. Atqne-rlxt-dodamupb gentleman who unfortunate got bit on the [...] documented as of this encounter Care Teams Correctional Officer Captain Relationship Specialty Start Date End Date Yury Menchaca NP [address] [place] [address] PCP - General Family Medicine 09/20/24 documented as of this encounter
== END 2024-10-07 10:51 | disposition home or self-care (01) ==
LOC: HO.HOSX 10:50
PROVIDERS: PCP Nurse Practitioner Family; Visit Provider Orthopaedic Surgery
DX: M25.559 Pain in unspecified hip (principal)
CPT/HCPCS: 72170

== ENCOUNTER → 2024-10-07 11:23 | Outpatient (BNV) | payer OTHER, SELFPAY | PROVIDERS: PCP Nurse Practitioner Family; Visit Provider Radiology Diagnostic Radiology | DX: M25.559 Pain in unspecified hip (principal) | CPT/HCPCS: 72170 ==

== ENCOUNTER 2024-10-18 11:38 | Outpatient (AMB) | payer OTHER, SELFPAY ==
[2024-10-18 11:42] VITALS: BP 131/71; PULSE 66; RESP 16; O2SAT 95; BMI 38.0
--- NOTE | 2024-10-18 11:42 | MHC.OFFVIS ---
Vital Signs 10/18/24 11:42 Height 5 ft 10 in Weight 265 lb BMI 38.0 BP 131/71 Blood Pressure Location Lt brachial Position Sitting Respiration 16 Pulse 66 Pulse Source Pulse Oximeter Pulse Oximetry (%) 95 Oxygen Delivery Method Room Air Intake Visit Reasons: Unilateral primary osteoarthritis, right hip Medical Instrument Technician Required: No Allergies amoxicillin [AMOXICILLIN] Allergy (Severe, Verified 10/24/24 13:19) DIFF BREATHING Medication List - Last Reconciled 10/18/24 by Patito Marrero LPN albuterol sulfate 90 mcg/actuation (ProAir RespiClick) 2 inhalations inhalation Q6H PRN 30 days albuterol sulfate 2.5 mg (3 mL) inhalation Q6H PRN 30 days apixaban (Eliquis) 5 mg PO BID atorvastatin 40 mg PO DAILY 90 days carvedilol 6.25 mg PO BID cetirizine (All Day Allergy (cetirizine)) 10 mg PO DAILY PRN cholecalciferol (vitamin D3) (Vitamin D3) 25 mcg PO DAILY citalopram 20 mg PO BEDTIME 90 days CPAP (CPAP Machine/Device) As directed famotidine (Pepcid) 20 mg PO DAILY fluticasone propion-salmeterol 115-21 mcg/actuation (Advair HFA) 2 puffs inhalation Q12H 30 days lisinopril 20 mg PO BEDTIME 90 days multivitamin 1 tab PO DAILY mycophenolate mofetil (CellCept) 500 mg PO BID 30 days nebulizers As directed spironolactone 25 mg PO BEDTIME 90 days tramadol 50 mg PO BID PRN 20 days HPI HPI Unilateral primary osteoarthritis, right hip: Details: History of Present Illness The patient is a 64-year-old male presenting with bilateral hip pain. The symptoms have been more acute on the right side and have been ongoing for a significant, unspecified period. The pain is assessed at 5/10 during static postures and intensifies to 8/10 with dynamic activities or while laying down. The right buttock area is identified as the primary site of pain, which severely disrupts his sleep and daily routines, notably worsening at nights and early mornings. He experiences relief by sitting with legs elevated. He is on Eliquis 5 mg twice a day with no prominent side effects related to pain management. His recent course of physical therapy yielded no benefit, and nightly Tramadol intake offers minimal pain relief. Having taken cortisone shots previously without significant relief, the treatment history suggests chronicity, potentially linked to his former active cycling lifestyle. Current physical examination indicates tenderness in the right ischial bursa, with the pain being exacerbated by palpation, fitting the criteria for overuse tendinopathy. Pain Description - Onset: Unspecified duration - Quality: Aching - Primary Location: Right buttock area - Radiation: Not mentioned - Aggravating factors: Movement, lying down, night and early mornings - Relieving factors: Seated position with feet elevated - Interference: Sleep, daily activities - Severity: 5/10 when static, 8/10 with movement Physical Exam - Musculoskeletal- Pronounced tenderness to palpation at the right ischial bursa Results Pain Management - Affect: Pain interferes with sleep and daily activities. - Analgesia: Currently taking Tramadol 50 mg nightly with mild benefit; past cortisone injections were ineffective. - Adverse Effects: No significant adverse effects mentioned. - Activities of Daily Living: Pain limits functional capacity, significantly affecting sleep and routine activities. - Aberrant Drug Related Behaviors: None reported or observed. [facility] Medical History Physical exam Enlarged prostate BMI 37.0-37.9, adult Muscle strain Hip pain Screening for colon cancer Right calf pain Hip pain, right Elevated bilirubin Elevated alkaline phosphatase level Obesity Anxiety Depression COPD (chronic obstructive pulmonary disease) GERD (gastroesophageal reflux disease) DDD (degenerative disc disease), cervical History of non-ST elevation myocardial infarction (NSTEMI) History of pulmonary embolism Cataract HLD (hyperlipidemia) HTN (hypertension) Cough NANCY on CPAP Sarcoidosis Asthma Surgical History History of bone marrow biopsy History of tonsillectomy History of vasectomy History of endoscopy History of hernia repair History of colonoscopy Family History Father Family history of high blood pressure Mother History of colon cancer History of abdominal aortic aneurysm (AAA) Brother Prostate cancer Social History Household Members: Spouse Housing: House Do you presently have visiting nurse or other home services: No Alcohol intake: never Patient Tobacco Use Status: Former Tobacco user Tobacco use type: Cigarette e-Cigarette/Vaping Use: Never Used Second Hand Smoke Exposure: No Advance Directives Date on File: 11/13/21 service: No Current occupational status: retired Cognitive needs: No Hearing needs: No Vision needs: No Physical Exam Vital Signs: Last Vital Signs Pulse 66 10/18/24 11:42 Resp 16 10/18/24 11:42 BP 131/71 10/18/24 11:42 Pulse Ox 95 10/18/24 11:42 Oxygen Delivery Method Room Air 10/18/24 11:42 BMI result Body Mass Index 38.0 Assessment & Plan Assessment & Plan (1) Arthritis of right hip: Code(s): M16.11 - Unilateral primary osteoarthritis, right hip Category: Medical (2) Myofascial pain on right side: Code(s): M79.18 - Myalgia, other site Category: Medical Plan Plan The plan involves managing the patient's bilateral hip pain, with a focus on the right ischial bursitis and potential tendinopathy. A corticosteroid injection into the affected bursa under fluoroscopic guidance is planned to provide temporary relief and facilitate further rehabilitation efforts. Should the injection prove insufficient, further diagnostic evaluation with MRI may be pursued, followed by platelet-rich plasma injection as a self-funded option. The patient agrees with proceeding with the cortisone treatment and has been advised to arrange transportation for the procedure. Patient was informed and verbally consented to the use of an ambient scribe for clinic note documentation during this visit. Discussion Notes I discussed with the patient the likely diagnosis of right ischial bursitis and tendinopathy contributing to his bilateral hip pain. We reviewed treatment options, emphasizing a corticosteroid injection into the right ischial bursa under x-ray guidance as the initial approach. The benefits of temporary pain relief to aid in rehabilitation were highlighted, alongside potential alternative treatments like platelet rich plasma injections. The latter was noted as a non-insurance covered option, requiring [id number] payment, with the patient acknowledging this aspect. We discussed the varied responses to cortisone injections, and the need for an escort post-procedure was recommended due to discomfort associated with driving post-injection. The patient understands the plan and agreed to proceed. Patient Instructions - Schedule and attend the cortisone injection procedure. - Arrange for a driver/refuse collector or escort on the day of the injection. - Continue daily activities as usual, as this condition has persisted over time. - Anticipate a call from the office to finalize scheduling for the procedure. - Monitor condition and notify the office if there are any significant changes in symptoms or concerns regarding medication. Orders: Orders [place] guidance in treatment room 10/24/24 M16.11 - Unilateral primary osteoarthritis, right hip Coding Level of Care Code New Pt Level 4 (24302) Diagnoses Arthritis of right hip M16.11 Myofascial pain on right side M79.18
--- OUTSIDE RECORDS SUMMARY | 2024-10-18 12:40 | XMS_ITS | Encounter Summary ---
Author Organization [facility] Address [address] [place] [address] Care Team Providers Care Lightout Examiner Name Role Phone Amilcar Leggett MD Primary Care Provider [phone] Lazaro Chand MD Primary Care Provider [facility], Pcp [facility] Reason for Visit * Reason Onset Date Comments Diesel Engine Assembler Feedback 06/09/2017 ECHO at [facility] Encounter Details Date Type Department Care Team Description 06/09/2017 Telephone Adult Medicine [address] [address] Amilcar Leggett MD [address] [place] [address] [phone] Diesel Engine Assembler Feedback (ECHO at [facility]) Social History Tobacco Use Types Packs/Day Years [...] * Telephone Encounter - Murphy Trinidad - 06/09/2017 10:53 AM EDT Order faxed to [facility] at [phone], notification letter mailed to patient. documented in this encounter Plan of Treatment Not on file documented as of this encounter Visit Diagnoses Not on filedocumented in this encounter Care Teams Lightout Examiner Relationship Specialty Start Date End Date Amilcar Leggett MD [address] [place] [address] PCP - General 05/09/11 05/25/21 Lazaro Chand MD [address] [place] [address] PCP - General Internal Medicine 05/26/21 04/05/[address] [address] PCP - General Internal Medicine 04/06/22 documented as of this encounter
--- OUTSIDE RECORDS SUMMARY | 2024-10-18 12:40 | XMS_ITS | Encounter Summary ---
Author Organization [facility] Address [address] [place] [address] Care Team Providers Care Business Control Manager Name Role Phone Amilcar Leggett MD Primary Care Provider [phone] Lazaro Chand MD Primary Care Provider [facility], Pcp Primary Care Provider [facility] e Encounter Details Date Type Department Care Team Description 08/30/2017 Orders Only Medical Records [address] [place] [address] Amilcar Leggett MD [address] [place] [address] Social History Tobacco Use Types Packs/Day Years [...] Name Priority Date/Time Associated Diagnosis Comments OUTSIDE SLEEP STUDY Routine 08/25/2017 documented in this encounter Results * OUTSIDE SLEEP STUDY (08/25/2017) Amilcar Leggett MD PULMONOLOGY documented in this encounter Visit Diagnoses Not on filedocumented in this encounter Care Teams Business Control Manager Relationship Specialty Start Date End Date Amilcar Leggett MD [address] [place] [address] PCP - General 05/09/11 05/25/21 Lazaro Chand MD [address] [place] [address] PCP - General Internal Medicine 05/26/21 04/05/22 [facility], Pcp [address] [place] [address] PCP - General Internal Medicine 04/06/22 documented as of this encounter
--- OUTSIDE RECORDS SUMMARY | 2024-10-18 12:40 | XMS_ITS | Encounter Summary ---
Author Organization [facility] Address [address] [place] [address] Care Team Providers Care Coding Specialist Name Role Phone Amilcar Leggett MD Primary Care Provider [phone] Lazaro Chand MD Primary Care Provider [facility], Pcp Primary Care Provider [facility] e Encounter Details Date Type Department Care Team Description 07/10/2020 Transfer Records Medical Records [address] [place] [address] Abstract, Provider Social History Tobacco Use Types Packs/Day Years Used Date Smoking Tobacco: Former Cigarettes 0.5 4 0 01/26/1980 - 07/12/1998 Smokeless Tobacco: Never Comments:brief hx smoking Alcohol Use Standard Drinks/Week Comments Yes 0 (1 standard drink = 0.6 oz pur e alcohol) occasional Sex Assigned at Date Recorded Male 01/17/2022 6:12 PM E DT COVID-19 Exposure Response Date Recorded In the last month, have you been in contact with someone who was confirmed or suspected to have Coronavirus / COVID-19? No / Unsure 07/06/2020 2:41 PM EDT documented as of this encounter Plan of Treatment Not on file documented as of this encounter Visit Diagnoses Not on filedocumented in this encounter Care Teams Coding Specialist Relationship Specialty Start Date End Date Amilcar Leggett MD [address] [place] [address] PCP - General 05/09/11 05/25/21 Lazaro Chand MD [address] [place] [address] PCP - General Internal Medicine 05/26/21 04/05/22 [facility], Pcp [address] [place] [address] PCP - General Internal Medicine 04/06/22 documented as of this encounter
--- OUTSIDE RECORDS SUMMARY | 2024-10-18 12:40 | XMS_ITS | Encounter Summary ---
Author Organization [facility] Address [address] [place] [address] Care Team Providers Care Tailing Machine Operator Name Role Phone Amilcar Leggett MD Primary Care Provider [phone] Lazaro Chand MD Primary Care Provider [facility], Pcp Primary [facility] Reason for Visit * Reason Comments E-prescribe Rx Request Encounter Details Date Type Department Care Team Description 10/08/2018 Refill Adult Medicine [address] [address] Amilcar Leggett MD [address] [place] [address] E-prescribe Rx Request Social History Tobacco Use [...] N/A Patients current insurance carrier is: Payor: -[place]/PP[place] POS / Plan: PPO $20 MCKINNEY [id number] / ProductType: PPO [id number] documented in this encounter Plan of Treatment Not on file documented as of this encounter Visit Diagnoses Not on filedocumented in this encounter Care Teams Tailing Machine Operator Relationship Specialty Start Date End Date Amilcar Leggett MD [address] [place] [address] PCP - General 05/09/11 05/25/21 Lazaro Chand MD [address] [place] [address] PCP - General Internal Medicine 05/26/21 04/05/22 [facility], Pcp [facility] [place] [address] PCP - General Internal Medicine 04/06/22 documented as of this encounter
--- OUTSIDE RECORDS SUMMARY | 2024-10-18 12:40 | XMS_ITS | Encounter Summary ---
Author Organization [facility] Address [address] [place] [address] Care Team Providers Care Manager Golf Name Role Phone Lazaro Chand MD Primary Care Provider Antoinette Kunz, Pcp Primary Care Provider Filiberto ibarra Encounter Details Date Type Department Care Team Description 01/12/2022 Grain Ii Farmworker Report Medical Records [address] [place] [address] Sabrina Shabazz FNP Social History Tobacco Use Types Packs/Day Years Used Date Smoking Tobacco: Former Cigarettes 0.5 4 0 01/26/1980 - 07/12/1998 Smokeless Tobacco: Never Comments:brief hx smoking Alcohol Use Standard Drinks/Week Comments Yes 0 (1 standard drink = 0.6 oz pur e alcohol) occasional Sex Assigned at Date Recorded Male 01/17/2022 6:12 PM E DT COVID-19 Exposure Response Date Recorded In the last 10 days, have yo u been in contact with someone who was confirmed or suspected to have Coronavirus/COVID-19? No / Unsure 12/20/2021 1:19 PM EDT documented as of this encounter Plan of Treatment Not on file documented as of this encounter Visit Diagnoses Not on filedocumented in this encounter Care Teams Manager Golf Relationship Specialty Start Date End Date Lazaro Chand MD PCP - General Internal Medicine 05/26/21 04/05/22 Jo[facility], Pcp PCP - General Internal Medicine 04/06/22 documented as of this encounter
--- OUTSIDE RECORDS SUMMARY | 2024-10-18 12:40 | XMS_ITS | Encounter Summary ---
Author Organization [facility] Address [address] [place] [address] Care Team Providers Care Rose Grader Name Role Phone Amilcar Leggett MD Primary Care Provider [phone] Lazaro Chand MD Primary Care Provider [facility], Pcp Primary Care Provider [facility] e Encounter Details Date Type Department Care Team Description 10/03/2017 Pt. Non Urgent Medical Question Hypertension - [place] [address] [place] [address] Zuleyma Woodward, Pharm.D Social History Tobacco Use [...] on filedocumented in this encounter Care Teams Rose Grader Relationship Specialty Start Date End Date Amilcar Leggett MD [address] [place] [address] PCP - General 05/09/11 05/25/21 Lazaro hCand MD [address] [place] [address] PCP - General Internal Medicine 05/26/21 04/05/22 [facility], [place] [address] PCP - General Internal Medicine 04/06/22 documented as of this encounter
--- OUTSIDE RECORDS SUMMARY | 2024-10-18 12:40 | XMS_ITS | Encounter Summary ---
Author Organization [facility] Address [address] [place] [address] Care Team Providers Care Athletic Team Physician Name Role Phone Amilcar Leggett MD Primary Care Provider [phone] Emmy Springer MD Primary Care Provider Murphy Parker MD Primary Care Provider Lazaro Morales MD Primary Care Provider Antoinette Kunz, Pcp Primary Care Provider Unavail[facility] e Encounter Details Date Type Department Care Team Description 07/06/2009 Hospital Medical Records [address] [place] [address] Abel Wright MD [address] [place] [phone] Social History Tobacco Use Types Packs/Day [...] on filedocumented in this encounter Care Teams Athletic Team Physician Relationship Specialty Start Date End Date Amilcar Leggett MD [address] [place], [place] [phone] PCP - General 05/09/11 05/25/21 Emmy Springer MD [address] [place] [address] PCP - General 04/06/11 05/08/11 Murphy Alvarez MD PCP - General 02/18/03 04/05/11 Lazaro Chand MD PCP - General Internal Medicine 05/26/21 04/05/22 [facility], Pcp PCP - General Internal Medicine 04/06/22 documented as of this encounter
--- OUTSIDE RECORDS SUMMARY | 2024-10-18 12:40 | XMS_ITS | Encounter Summary ---
Author Organization [facility] Address [address] [place] [address] Care Team Providers Care Nut Packer Name Role Phone Amilcar Leggett MD Primary Care Provider [phone] Lazaro Chand MD Primary Care Provider [facility], Pcp Primary Care Provider [facility] Encounter Details Date Type Department Care Team Description 10/07/2020 Pt. Non Urgent Medical Question Adult Medicine [address] [address] Amilcar Leggett MD [address] [place] [address] Social History Tobacco Use Types Packs/Day Years [...] encounter Miscellaneous Notes * Telephone Encounter - Ivanna Kelly M.A. - 10/08/2020 8:22 AM ESTFrom: Christiano Dorado To: Amilcar Leggett MD Sent: 10/07/2020 1:40 PM EST Subject: Appointment 12/25/2020 Jared, I have an appointment scheduled with Dr Leggett for Friday December 25, 2020 11:15 AM , unfortunatelyI am going to be out of town December 25 through January 03, in knowing that Dr Leggett is planning on retiring should I try to reschedule or cancel this appointment, it is just a follow up nothing u rgent. Also if I could request a list of PCPs who are currently accepting new patients Thank you documented in this encounter Plan of Treatment Not on file documented as of this encounter Visit Diagnoses Not on filedocumented in this encounter Care Teams Nut Packer Relationship Specialty Start Date End Date Amilcar Leggett MD [address] [place] [address] PCP - General 05/09/11 05/25/21 Lazaro Chand MD [address] [place] [address] PCP - General Internal Medicine 05/26/21 04/05/22 [facility], [address] [address] PCP - General Internal Medicine 04/06/22 documented as of this encounter
--- OUTSIDE RECORDS SUMMARY | 2024-10-18 12:40 | XMS_ITS | Encounter Summary ---
Author Organization [facility] Address [address] [place] [address] Care Team Providers Care Deputy Director Of Nursing Name Role Phone Amilcar Leggett MD Primary Care Provider [phone] Lazaro Chand MD Primary Care Provider [facility], Pcp Primary Care Provider [facility] Encounter Details Date Type Department Care Team Description 03/31/2020 Inker Machine Report Medical Records [address] [place] [address] Corby Dumont MD Social History Tobacco Use [...] on filedocumented in this encounter Care Teams Deputy Director Of Nursing Relationship Specialty Start Date End Date Amilcar Leggett MD [address] [place] [address] PCP - General 05/09/11 05/25/21 Lazaro Chand MD [address] [place] [address] PCP - General Internal Medicine 05/26/21 04/05/22 [facility], Pcp [address] [place], [place] [phone] PCP - General Internal Medicine 04/06/22 documented as of this encounter
--- OUTSIDE RECORDS SUMMARY | 2024-10-18 12:40 | XMS_ITS | Encounter Summary ---
Author Organization [facility] Address [address] [place] [address] Care Team Providers Care Casting Technician Name Role Phone Amilcar Leggett MD Primary Care Provider [phone] Lazaro Chand MD Primary Care Provider [facility], Pcp Primary Care Provider [facility] e Encounter Details Date Type Department Care Team Description 11/28/2019 Refill Adult Medicine [address] [address] Amilcar Leggett MD [address] [place] [address] Social History Tobacco Use Types Packs/Day Years [...] on filedocumented in this encounter Care Teams Casting Technician Relationship Specialty Start Date End Date Amilcar Leggett MD [address] [place] [address] PCP - General 05/09/11 05/25/21 Lazaro Chand MD [address] [place], [place] [phone] PCP - General Internal Medicine 05/26/21 04/05/22 [facility], Pcp [address] [place] [address] PCP - General Internal Medicine 04/06/22 documented as of this encounter
--- OUTSIDE RECORDS SUMMARY | 2024-10-18 12:40 | XMS_ITS | Encounter Summary ---
Author Organization [facility] Address [address] [place] [address] Care Team Providers Care V Belt Mold Assembler And Curer Name Role Phone Amilcar Leggett MD Primary Care Provider [phone] Lazaro Chand MD Primary Care Provider [facility], Pcp Primary Care Provider [facility] Encounter Details Date Type Department Care Team Description 04/24/2020 Qc Tech Report Medical Records [address] [place] [id number] Herminio Hwang MD Social History Tobacco Use [...] on filedocumented in this encounter Care Teams V Belt Mold Assembler And Curer Relationship Specialty Start Date End Date Amilcar Leggett MD [address] [place] [address] [phone] PCP - General 05/09/11 05/25/21 Lazaro Chand MD [address] [place] [address] 618[address] PCP - General Internal Medicine 05/26/21 04/05/22 [facility] [place] [phone] PCP - General Internal Medicine 04/06/22 documented as of this encounter
--- OUTSIDE RECORDS SUMMARY | 2024-10-18 12:40 | XMS_ITS | Clinical Summary ---
Author Organization [facility] Address [address] [place] [address] Care Team Providers Care Analytical Lead Name Role Phone Community, Pcp Primary Care [...] Overview: 2017 ? Provoked had driven to [place] Moderate persistent asthma without compl ication 04/03/2019 Sarcoidosis of lymph nodes 10/02/2017 Overview: 2018 Obstructive sleep apnea severe AHI 39 wi th sleep related hypoxia 08/30/2017 Overview: [facility] Home Polysomnogram: Date 08/25/2017; AHI 39, Unclassified apneas 0; Obstructive apneas 91; Central apneas 5; Mixed apneas 5; hypopneas 37; average oxygen saturation 89% (lowest 67% with saturations <88% for 5% or more of study) [facility] Polysomnogram treatment study. Date 11/13/2017. SE 51 [...] 013,09/13/2012,06/21/2011,07/06/2010,01/2008 Influenza Flu (PT Reported) 07/04/2017 MMR (Mkjxlfx-Payco-Luparnp) 09/21/2016 PPD-RBMG 07/26/2016 Shingrix (Recombinant zoster vaccine) [...] of not completing the topic Care Teams Analytical Lead Relationship Specialty Start Date End Date Community, Pcp PCP - General Internal Medicine 04/06/22
--- OUTSIDE RECORDS SUMMARY | 2024-10-18 12:40 | XMS_ITS | Clinical Summary ---
Author Organization [facility] Address [address] [place] [address] Care Team Providers Care Meteorologist Liaison Name Role Phone Amilcar Leggett MD Primary Care Provider [phone] Allergies Active Allergy Reactions Criticality Noted Date [...] ADULT PO) Take by mouth. 0 Active Woodland-3 Fatty Acids (FISH OIL) 1000 MG CAPS Take by mouth. 0 Active aspirin EC 81 MG tablet Take 81 mg by mouth daily. 0 Active Active Problems Problem Noted Date Diagnosed Date Other pulmonary embolism with acute cor pulmonal e 06/05/2019 Overview: Overview: ? Provoked had driven to [place] Sarcoidosis of lymph nodes 10/02/2017 Obstructive sleep apnea 08/30/2017 Overview: Overview: [facility] Home Polysomnogram: Date 08/25/2017; AHI 39, Unclassified apneas 0; Obstructive apneas 91; Central apneas 5; Mixed apneas 5; hypopneas 37; average oxygen saturation 89% (lowest 67% with saturations <88% for 5% or more of study) [facility] Polysomnogram treatment study. Date 11/13/2017. SE 51 [...] age to complete this topic Care Teams Meteorologist Liaison Relationship Specialty Start Date End Date Amilcar Leggett MD PCP - General Development Spec 04/24/20
--- OUTSIDE RECORDS SUMMARY | 2024-10-18 12:40 | XMS_ITS | Encounter Summary ---
Author Organization [facility] Address [address] [place] [address] Care Team Providers Care Hydro Station Supervisor Name Role Phone Amilcar Leggett MD Primary Care Provider [phone] Lazaro Chand MD Primary Care Provider [facility], Pcp Primary Care Provider [facility] Encounter Details Date Type Department Care Team Description 02/27/2018 Medical Research Scientist Report Medical Records [address] [place], [place] [id number] InstrumWojciech Social History Tobacco Use Types Packs/Day Years [...] on filedocumented in this encounter Care Teams Hydro Station Supervisor Relationship Specialty Start Date End Date Amilcar Leggett MD [address] [place], [place] [phone] PCP - General 05/09/11 05/25/21 Lazaro Chand MD [address] [place] [address] PCP - General Internal Medicine 05/26/21 04/05/22 [facility], [place] [phone] PCP - General Internal Medicine 04/06/22 documented as of this encounter
--- OUTSIDE RECORDS SUMMARY | 2024-10-18 12:40 | XMS_ITS | Encounter Summary ---
Author Organization [facility] Address [address] [place] [address] Care Team Providers Care Hooker Inspector Name Role Phone Lazaro Chand MD Primary Care Provider Antoinette Kunz, Pcp Primary [facility] Provider [facility] Encounter Details Date Type Department Care Team Description 12/02/2021 Die Operator Report Medical Records [address] [place] [address] Sabrina Shabazz FNP Social History Tobacco Use [...] on filedocumented in this encounter Care Teams Hooker Inspector Relationship Specialty Start Date End Date Lazaro Chand MD PCP - General Internal Medicine 05/26/21 04/05/22 [facility], Pcp PCP - General Internal Medicine 04/06/22 documented as of this encounter
--- OUTSIDE RECORDS SUMMARY | 2024-10-18 12:40 | XMS_ITS | Encounter Summary ---
Author Organization [facility] Address [address] [place] [address] Care Team Providers Care Smoke Eater Name Role Phone Lazaro Chand MD Primary Care Provider Antoinette Kunz, Pcp Primary Care Provider Filiberto ibarra Encounter Details Date Type Department Care Team Description 11/15/2021 Hospital Medical Records [address] [place] [address] Andrei Werner MD Social History Tobacco Use [...] on filedocumented in this encounter Care Teams Smoke Eater Relationship Specialty Start Date End Date Lazaro Chand MD PCP - General Internal Medicine 05/26/21 04/05/22 [facility], Pcp PCP - General Internal Medicine 04/06/22 documented as of this encounter
--- OUTSIDE RECORDS SUMMARY | 2024-10-18 12:40 | XMS_ITS | Encounter Summary ---
Author Organization [facility] Address [address] [place] [address] Care Team Providers Care Swaging Machine Operator Name Role Phone Amilcar Leggett MD Primary Care Provider [phone] Lazaro Chand MD Primary Care Provider [facility], Pcp Primary Care Provider [facility] Encounter Details Date Type Department Care Team Description 06/19/2018 Imaging Nurse Report Medical Records [address] [place] [address] Radha Benedict Social History Tobacco Use Types Packs/Day Years [...] on filedocumented in this encounter Care Teams Swaging Machine Operator Relationship Specialty Start Date End Date Amilcar Leggett MD [address] [place] [address] PCP - General 05/09/11 05/25/21 Lazaro Chand MD [address] [place] [address] PCP - General Internal Medicine 05/26/21 04/05/22 [facility], Pcp [address] [place], [place] [phone] PCP - General Internal Medicine 04/06/22 documented as of this encounter
--- OUTSIDE RECORDS SUMMARY | 2024-10-18 12:40 | XMS_ITS | Encounter Summary ---
Author Organization [facility] Address [address] [place] [address] Care Team Providers Care Galley Cook Name Role Phone Amilcar Leggett MD Primary Care Provider [phone] Lazaro Chand MD Primary Care Provider [facility], Pcp Primary Care [facility] Encounter Details Date Type Department Care Team Description 03/20/2020 Orders Only Medical Records [address] [place] [address] Abstract, Provider Social History Tobacco Use Types [...] on filedocumented in this encounter Care Teams Galley Cook Relationship Specialty Start Date End Date Amilcar Leggett MD [address] [place] [address] PCP - General 05/09/11 05/25/21 Lazaro Chand MD [address] [place] [address] PCP - General Internal Medicine 05/26/21 04/05/22 [facility], Pcp [address] [place] [address] PCP - General Internal Medicine 04/06/22 documented as of this encounter
--- OUTSIDE RECORDS SUMMARY | 2024-10-18 12:40 | XMS_ITS | Encounter Summary ---
Author Organization [facility] Address [address] [place] [address] Care Team Providers Care Dietetics Teacher Name Role Phone Amilcar Leggett MD Primary Care Provider [phone] Lazaro Chand MD Primary Care Provider [facility], Pcp Primary Care [facility] Reason for Visit * Reason Comments E-prescribe Rx Request Carvedilol 6.25 m g Encounter Details Date Type Department Care Team Description 03/11/2018 Refill Cardiology - [address] [address] Yury Louis MD E-prescribe Rx Request (Carvedilol [...] on filedocumented in this encounter Care Teams Dietetics Teacher Relationship Specialty Start Date End Date Amilcar Leggett MD [address] [place] [address] PCP - General 05/09/11 05/25/21 Lazaro Chand MD [address] [place], [place] [phone] PCP - General Internal Medicine 05/26/21 04/05/22 [facility], Pcp [address] [place] [address] PCP - General Internal Medicine 04/06/22 documented as of this encounter
--- OUTSIDE RECORDS SUMMARY | 2024-10-18 12:40 | XMS_ITS | Encounter Summary ---
Author Organization [facility] Address [address] [place] [address] Care Team Providers Care Nanotechnician Name Role Phone Amilcar Leggett MD Primary Care Provider [phone] Lazaro Chand MD Primary Care Provider [facility], Pcp Primary Care Provider [facility] e Encounter Details Date Type Department Care Team Description 09/26/2014 Release of Information Medical Records [address] [place] [address] Abstract, Provider Social History Tobacco Use Types [...] on filedocumented in this encounter Care Teams Nanotechnician Relationship Specialty Start Date End Date Amilcar Leggett MD [address] [place], [place] [phone] PCP - General 05/09/11 05/25/21 Lazaro Chand MD [address] [place] [address] PCP - General Internal Medicine 05/26/21 04/05/22 [facility] [address] [place] [address] PCP - General Internal Medicine 04/06/22 documented as of this encounter
--- OUTSIDE RECORDS SUMMARY | 2024-10-18 12:40 | XMS_ITS | Clinical Summary ---
Author Organization [facility] Address [address] [place] [address] Phone Care Team Providers Care Hydro Electric Station Operator Name Role Phone Yury Menchaca NP Primary [...] Overview (09/13/2024): ? Provoked had driven to [place] Moderate persistent asthma without complication 04/03/2019 Sarcoidosis [...] AM EST Office Visit Orthopedic Surgery - [address] [address] Sandra Augustine MD Bitten by dog, subsequent encounter (Primary Dx) 09/13/2024 10:15 AM EST Consult Orthopedic Surgery [address] [address] Sandra Augustine MD Open bite of left [...] COMMENT: 2016 ? Provoked had driven to [place] Sarcoidosis of lymph nodes 10/02/2017 DX:Sa rcoidosis [...] apnea 08/30/2017 DX:Obstr uctive sleep apnea; COMMENT: [facility] Home Polysomnogram: Date 08/25/2017; AHI 39, [...] PROCEDURES from Last 3 Months Care Teams Hydro Electric Station Operator Relationship Specialty Start Date End Date Yury Menchaca NP [address] [place] [address] PCP - General Family Medicine 09/20/24
--- OUTSIDE RECORDS SUMMARY | 2024-10-18 12:40 | XMS_ITS | Encounter Summary ---
Author Organization [facility] Address [address] [place] [address] Care Team Providers Care Slab Tripper Name Role Phone Amilcar Leggett MD Primary Care Provider [phone] Lazaro Chand MD Primary Care Provider [facility], Pcp Primary Care Provider [facility] e Encounter Details Date Type Department Care Team Description 03/05/2018 Release of Information Medical Records [address] [place] [address] Abstract, Provider Social History Tobacco Use Types [...] on filedocumented in this encounter Care Teams Slab Tripper Relationship Specialty Start Date End Date Amilcar Leggett MD [address] [place] [address] PCP - General 05/09/11 05/25/21 Lazaro Chand MD [address] [place] [address] PCP - General Internal Medicine 05/26/21 04/05/22 [facility], Pcp [address] [place] [address] PCP - General Internal Medicine 04/06/22 documented as of this encounter
--- OUTSIDE RECORDS SUMMARY | 2024-10-18 12:40 | XMS_ITS | Encounter Summary ---
Author Organization [facility] Address [address] [place] [address] Care Team Providers Care Lithopress Operator Name Role Phone Yury Menchaca NP Primary Care Provider Reason for Visit * Reason Comments Consult Dog bite on 08/27/24 Follow-up Dog bite on 08/27/24 Encounter Details Date Type Department Care Team ([facility] st Contact Info) Description 09/27/2024 11:00 AM EST Office Visit Orthopedic Surgery - [place] [facility] [address] [place] [address] Sandra Augustine MD [address] [facility] [address] [place] [address] Bitten by dog, subsequent encounter [...] left hand SUBJECTIVE: Date of injury 08/27/2024. [id number] gentleman who unfortunate got bit on the [...] documented as of this encounter Care Teams Lithopress Operator Relationship Specialty Start Date End Date Yury Menchaca NP [address] [place] [address] PCP - General Family Medicine 09/20/24 documented as of this encounter
--- OUTSIDE RECORDS SUMMARY | 2024-10-18 12:40 | XMS_ITS | Encounter Summary ---
Author Organization [facility] Address [address] [place] [address] Care Team Providers Care Puddler Helper Name Role Phone Amilcar Leggett MD Primary Care Provider [phone] Lazaro Chand MD Primary Care Provider [facility], Pcp Primary [facility] Reason for Referral * EXTERNAL (Routine) - Authorized/Booked Specialty Diagnoses / Procedures Referred By Contac t Referred To Contact CLINICAL HYPERTENSION SPECIALIST / hypertension Diagnoses Essential hypertension Procedures REFERRAL TO HYPERTENSION SPECIALIST Amilcar Leggett MD [address] [place] [address] Hypert[address] [place] [address] Referral ID Status Reason Start Date Expiration Date V isits Requested Visits Authorized [id number] Authorized/B ooked 07/28/2017 07/28/2018 1 1 Reason for Visit * Reason Onset Date Comments hypertension 07/28/2017 Encounter Details Date Type Department Care Team Description 07/28/2017 Pt. Non Urgent Medical [place] [address] Amilcar Leggett MD [address] [place] [address] Essential hypertension (Primary Dx) Social History Tobacco Use Types [...] Progress Notes * Ade Ramos L.P.N. - 07/28/2017 3:04 PM ESTFrom: Christiano Dorado To: Amilcar Leggett MD Sent: 07/28/2017 1:53 PM EST Subject: BP followup Hi Anastacio Uribe allowed me to hijack his [employer] account so I could send this message. Dr Louis added carvedilol to his meds. We did get some good information about how to reduce therisk of the aneurysm getting worse including really good control of the blood pressure. We're goingto keep a close watch on it now, especially with the new med. This leads me to wonder if Anastacio would be a good candidate to see Zuleyma Woodward for a short while to make sure this is the right med with the right effect. Also, I think he would benefit from the education she might be able to offer regarding diet and weight control as another way to helplower the blood pressure. I mentioned it to him and he's open to the idea if you think it would be helpful. I'll leave it up to you since I don't know what the parameters are for her to be getting referrals. Thank you and happy holidays! Carla documented in this encounter Plan of Treatment Not on file documented as of this encounter Visit Diagnoses Diagnosis Essential hypertension- Primary Unspecified essential hypertension documented in this encounter Care Teams Puddler Helper Relationship Specialty Start Date End Date Amilcar Leggett MD [address] [place] [address] PCP - General 05/09/11 05/25/21 Lazaro Chand MD [address] [place] [address] PCP - General Internal Medicine 05/26/21 04/05/22 [facility], Pcp [address] [facility] [address] PCP - General Internal Medicine 04/06/22 documented as of this encounter
--- OUTSIDE RECORDS SUMMARY | 2024-10-18 12:40 | XMS_ITS | Encounter Summary ---
Author Organization [facility] [place] [facility] Address [address] [place] [address] Care Team Providers Care Typing Pool Supervisor Name Role Phone Amilcar Leggett MD Primary Care Provider [phone] Lazaro Chand MD Primary Care Provider [facility], Pcp Primary Care Provider [facility] e Encounter Details Date Type Department Care Team Description 06/03/2019 Hospital Medical Records [address] [place] [id number] [facility] Social History Tobacco Use Types Packs/Day Years [...] on filedocumented in this encounter Care Teams Typing Pool Supervisor Relationship Specialty Start Date End Date Amilcar Leggett MD [address] [place], [place] [phone] PCP - General 05/09/11 05/25/21 Lazaro Chand MD [address] [place] [address] PCP - General Internal Medicine 05/26/21 04/05/22 [facility], Pcp [address] [place] [address] PCP - General Internal Medicine 04/06/22 documented as of this encounter
--- OUTSIDE RECORDS SUMMARY | 2024-10-18 12:40 | XMS_ITS | Encounter Summary ---
Author Organization [facility] Address [address] [place] [address] Care Team Providers Care Office Automation Clerk Name Role Phone Amilcar Leggett MD Primary Care Provider [phone] Lazaro Chand MD Primary Care Provider [facility], Pcp Primary Care Provider [facility] Reason for Referral * EXTERNAL (Routine) - Authorized/Booked Specialty Diagnoses / Procedures Referred By Contalberto t Referred To Contact Ophthalmology Diagnoses Cortical age-related cataract of both eyes Procedures REFERRAL TO EXTERNAL OPHTHALMOLOGY Amilcar Leggett MD [address] [place] [address] Radha Capellan Referral ID Status Reason Start Date Expiration Date V isits Requested Visits Authorized SEE NOTE Authorized/B ooked 04/30/2019 08/01/2019 1 1 Reason for Visit * Reason Onset Date Comments Rn Ambulatory Feedback 04/30/2019 RADHA CAPELLAN [id number] Encounter Details Date Type Department Care Team Description 04/30/2019 [place] [address] Amilcar Leggett MD [address] [place] [address] Rn Ambulatory Feedback (RADHA CAPELLAN [id number]) Social History Tobacco Use Types Packs/Day Years [...] What insurance does the patient have today? [facility] Effective 06/11/09: BS will not retro referral [...] insurance must be obtained and registered in [facility] or their referral can not be [...] of SPECIALIST PATIENT is seeing: RADHA CAPELLAN [id number] What specialty is this? OPTHAMOLOGY DIAGNOSIS Patient is being seen for (Not a body part or a procedure): CATRACT Have you seen this SPECIALIST for this PROBLEM/DX before?NO If YES, when: Have you checked REVIEW or the APPT DESK to see if this referral has already been done or has visits left? YES Is this visit:Initial Visit Address of Specialist:Ghada PAEZ [facility] [address] [address] Phone # of Specialist:[phone] Fax #: (if applicable):[phone] Does patient have an appointment scheduled?: YES Date of appointment- (including a retro-request): 05-10-19, 6 VISITS Is this appointment related to: Not MVA, WC or Surgery related documented in this encounter Plan of Treatment Not on file documented as of this encounter Visit Diagnoses Diagnosis Cortical age-related cataract of both eyes- Primary Cortical senile cataract documented in this encounter Care Teams Office Automation Clerk Relationship Specialty Start Date End Date Amilcar Leggett MD [address] [place], [place] [phone] PCP - General 05/09/11 05/25/21 Lazaro Chand MD [address] [place], [place] [phone] PCP - General Internal Medicine 05/26/21 04/05/22 [facility], Pcp [address] [place] [address] PCP - General Internal Medicine 04/06/22 documented as of this encounter
--- OUTSIDE RECORDS SUMMARY | 2024-10-18 12:40 | XMS_ITS | Encounter Summary ---
Author Organization [facility] Address [address] [place] [address] Care Team Providers Care Garbage Depot Worker Name Role Phone Amilcar Leggett MD Primary Care Provider Lazaro Chand MD Primary Care Provider [facility], Pcp Primary Care Provider [facility] e Encounter Details Date Type Department Care Team Description 03/06/[address] [facility] [address] [place] [address] Jose Luis Walsh PA-C [address] [place] [address] [id number] Social History Tobacco Use Types Packs/Day Years [...] encounter Miscellaneous Notes * Telephone Encounter - Shannon Alonzo M.A. - 03/07/2016 9:35 AM EDT Component Value Date NA 144 09/24/2015 K 4.7 09/24/2015 CO2 26.1 09/24/2015 CL 103 09/24/2015 BUN 16 09/24/2015 CREAT 1.2 09/24/2015 GLU 99 09/24/2015 CA 9.8 09/24/2015 GFR > 60 09/24/2015 * Telephone Encounter - Shannon Alonzo M.A. - 03/07/2016 9:35 AM EDTFrom: Christiano Dorado To: Jose Luis Walsh PA-C Sent: 03/06/2016 5:16 PM EDT Subject: Medication Renewal Request Original authorizing provider: MARCO ANTONIO Tubbs would like a refill of the following medications: lisinopril (PRINIVIL,ZESTRIL) 20 MG tablet [Jose Luis Walsh PA-C] Preferred pharmacy: [facility] [address] Comment: documented in this encounter Plan of Treatment Not on file documented as of this encounter Visit Diagnoses Diagnosis Hypertension Unspecified essential hypertension documented in this encounter Care Teams Garbage Depot Worker Relationship Specialty Start Date End Date Amilcar Leggett MD [address] [place] [address] PCP - General 05/09/11 05/25/21 Lazaro Chand MD [address] [place] [address] PCP - General Internal Medicine 05/26/21 04/05/22 [facility], Pcp [address] [place], [place] [phone] PCP - General Internal Medicine 04/06/22 documented as of this encounter
--- OUTSIDE RECORDS SUMMARY | 2024-10-18 12:40 | XMS_ITS | Encounter Summary ---
Author Organization [facility] Address [address] [place] [address] Care Team Providers Care Industrial Waste Treatment Technician Name Role Phone Amilcar Leggett MD Primary Care Provider [phone] Lazaro Chand MD Primary Care Provider [facility], Pcp [facility] Encounter Details Date Type Department Care Team Description 06/03/2019 Orders Only Medical Records [address] [place] [address] Abstract, Provider Social History Tobacco Use Types [...] Date/Time Associated Diagnosis Comments OUTSIDE CT Routine 06/03/2019 documented in this encounter Results * OUTSIDE CT (06/03/2019) Provider Abstract RADIOLOGY documented in this encounter Visit Diagnoses Not on filedocumented in this encounter Care Teams Industrial Waste Treatment Technician Relationship Specialty Start Date End Date Amilcar Leggett MD [address] [place] [address] PCP - General 05/09/11 05/25/21 Lazaro Chand MD [address] [place] [address] PCP - General Internal Medicine 05/26/21 04/05/22 [facility], Pcp [address] [place] [address] PCP - General Internal Medicine 04/06/22 documented as of this encounter
== END 2024-10-18 11:54 | disposition home or self-care (01) ==
PROVIDERS: PCP Nurse Practitioner Family; Referring Provider Orthopaedic Surgery; Visit Provider Internal Medicine
DX: M16.11 Unilateral primary osteoarthritis, right hip (principal); M79.18 Myalgia, other site
CPT/HCPCS: 99204

== ENCOUNTER 2024-10-24 07:43 | Outpatient (REF) | payer OTHER, SELFPAY ==
--- NOTE | ~2024-10-24 | FL_ITS ---
EXAMINATION: XR FLUOROSCOPY WITH IMAGES CLINICAL INFORMATION: Unilateral primary osteoarthritis right hip. COMPARISON: 10/07/2024 x-ray. TECHNIQUE: Fluoroscopy provided to: Dr. Rao Fluoroscopy time: 0.1 minutes DAP: 0.0204 mGycm2 Images: 2 FINDINGS: 2 images obtained of the right hip/gluteal region during pain management/injection procedure. Refer to the full report for detail. FL/FL guidance in treatment room IMPRESSION: Fluoroscopic guidance. Electronically signed by: Pavan Luther MD 10/24/2024 02:58 PM GABRIELE BORJA
--- OUTSIDE RECORDS SUMMARY | 2024-10-24 07:45 | XMS_ITS | Encounter Summary ---
Author Organization [facility] Address [address] [place] [address] Care Team Providers Care Mixing Pan Tender Name Role Phone Yury Menchaca NP Primary Care Provider [phone] Reason for Visit * Reason Comments Consult Dog bite on 08/27/24 Follow-up Dog bite on 08/27/24 Encounter Details Date Type Department Care Team ([facility] st Contact Info) Description 09/27/2024 11:00 AM EST Office Visit Orthopedic Surgery - [place] 175 [facility] [address] [place] [address] Sandra Augustine MD 175 [facility] [address] [place] [address] Bitten by dog, subsequent encounter (Primary Dx) Social History Tobacco Use Types Packs/Day Years Used Date Smoking Tobacco: Former Cigarettes 0.5 18.5 0 01/26/1980 - 07/12/1998 Smokeless Tobacco: Never Alcohol Use Standard Drinks/Week Comments Yes 0 (1 standard drink = 0.6 oz pur e alcohol) Sex and Gender Information Value Date Recorded Sex Assigned at Not on file Legal Sex Male 6:59 PM EST Gender Identity Not on file Sexual Orientation Not on file documented as of this [...] left hand SUBJECTIVE: Date of injury 08/27/2024. [id number] gentleman who unfortunate got bit on the [...] documented as of this encounter Care Teams Mixing Pan Tender Relationship Specialty Start Date End Date Yury Menchaca NP [address] [place] [id number] PCP - General Family Medicine 09/20/24 documented as of this encounter
--- OUTSIDE RECORDS SUMMARY | 2024-10-24 07:45 | XMS_ITS | Clinical Summary ---
Author Organization [facility] Address [address] [place] [address] Care Team Providers Care Candy Maker Name Role Phone Amilcar Leggett MD Primary Care Provider [phone] Allergies Active Allergy Reactions Criticality Noted Date [...] ADULT PO) Take by mouth. 0 Active [place]-3 Fatty Acids (FISH OIL) 1000 MG CAPS Take by mouth. 0 Active aspirin EC 81 MG tablet Take 81 mg by mouth daily. 0 Active Active Problems Problem Noted Date Diagnosed Date Other pulmonary embolism with acute cor pulmonal e 06/05/2019 Overview: Overview: ? Provoked had driven to [place] Sarcoidosis of lymph nodes 10/02/2017 Obstructive sleep apnea 08/30/2017 Overview: Overview: SMS Home Polysomnogram: Date 08/25/2017; AHI 39, Unclassified apneas 0; Obstructive apneas 91; Central apneas 5; Mixed apneas 5; hypopneas 37; average oxygen saturation 89% (lowest 67% with saturations <88% for 5% or more of study) [facility] Polysomnogram treatment study. Date 11/13/2017. SE 51 [...] age to complete this topic Care Teams Candy Maker Relationship Specialty Start Date End Date Amilcar Leggett MD PCP - General Abrasive Grader Helper 04/24/20
--- OUTSIDE RECORDS SUMMARY | 2024-10-24 07:45 | XMS_ITS | Clinical Summary ---
Author Organization 175 [facility] Address [address] [place] [address] Phone Care Team Providers Care Skeet Operator Name Role Phone Yury Menchaca NP Primary Care Provider Allergies Active Allergy Reactions Criticality Noted Date Comments Amoxicillin Swelling 05/23/2006 Medications albuterol HFA (PROAIR HFA ; PROVENTIL HFA ; VENTOLIN HFA) 90 mcg/actuation inhaler Inhale 2 puffs by mouth. 9 Active apixaban (ELIQUIS) 5 mg tablet Take 1 tablet (5 mg total) by mouth. Active atorvastatin (LIPITOR) 40 mg tablet Take 1 tablet (40 mg total) by mouth 1 (one) time each day. 2 Active carvediloL (COREG) 6.25 mg tablet Take 1 tablet (6.25 mg total) by mouth 2 (two) times a day with meals. 2 Active citalopram (CeleXA) 20 mg tablet Take 1.5 tablets (30 mg total) by mouth 1 (one) time each day. 2 Active fluticasone HFA (FLOVENT HFA) 110 mcg/actuation inhaler Inhale 2 puffs by mouth. 9 Active lisinopriL (PRINIVIL,ZESTR IL) 20 mg tablet 4 Active mycophenolate (CELLCEPT) 500 mg tablet 1 tablet (500 mg total). 4 Active spironolactone (ALDACTONE) 25 mg tablet Take 1 tablet (25 mg total) by mouth 1 (one) time each day. 2 Active traMADoL (ULTRAM) 50 mg tablet 4 Active traZODone (DESYREL) 50 mg tablet 1 tablet (50 mg total). 4 Active doxycycline hyclate (VIBRA-TABS) 100 mg tablet 4 09/27/19 25 Discontinue d(Discontin ued by another clinician) clindamycin (CLEOCIN) 300 mg capsule 4 09/27/19 25 Discontinue d(Discontin ued by another clinician) Active Problems Problem Noted [...] Overview (09/13/2024): ? Provoked had driven to [place] Moderate persistent asthma without complication 04/03/2019 Sarcoidosis of lymph nodes 10/02/2017 Overview (09/13/2024): 2018 Obstructive sleep apnea 08/30/2017 Overview (09/13/2024): [facility] Home Polysomnogram: Date 08/25/2017; AHI 39, [...] AM EST Office Visit Orthopedic Surgery - [address] [address] Sandra Augustine MD Bitten by dog, subsequent encounter (Primary Dx) 09/13/2024 10:15 AM EST Consult Orthopedic Surgery - [address] [address] Sandra Augustine MD Open bite of left [...] HISTORICAL VASECTOMY UPPER GASTROINTESTINAL ENDOSCOPY 04/30/2020 PROCEDURE: [place] UPPER GI ENDOSCOPY PERFORMED; COMMENT: rosmery,esophagitis, mild [...] COMMENT: 2016 ? Provoked had driven to [place] Sarcoidosis of lymph nodes 10/02/2017 DX:Sa rcoidosis of lymph nodes; COMMENT: 2018 Severe obesity (BMI 35.0-39. 9) with comorbidity [...] apnea 08/30/2017 DX:Obstr uctive sleep apnea; COMMENT: SMS Home Polysomnogram: Date 08/25/2017; AHI 39, [...] on file Sexual Orientation Not on file Obstetrics History Last Filed [...] lesions. Sandra Augustine MD IMG XR PROCEDURES Final Resul t from Last 3 Months Insurance [facility] Care Teams Skeet Operator Relationship Specialty Start Date End Date Yury Menchaca NP [address] [place] [address] PCP - General Family Medicine 09/20/24
== END 2024-10-24 07:44 | disposition home or self-care (01) ==
LOC: CF 07:43
PROVIDERS: Visit Provider Internal Medicine
DX: M16.11 Unilateral primary osteoarthritis, right hip (principal); M79.18 Myalgia, other site
CPT/HCPCS: 20552; J2003; J2795; J3301; Q9967

== ENCOUNTER 2024-10-24 13:00 | Outpatient (AMB) | payer OTHER, SELFPAY ==
--- OUTSIDE RECORDS SUMMARY | 2024-10-24 13:09 | XMS_ITS | Encounter Summary ---
Author Organization [facility] Address [address] [place] [address] Care Team Providers Care Utilities And Maintenance Supervisor Name Role Phone Yury Menchaca NP Primary Care Provider Reason for Visit * Reason Comments Consult Dog bite on 08/27/24 Follow-up Dog bite on 08/27/24 Encounter Details Date Type Department Care Team ([facility] st Contact Info) Description 09/27/2024 11:00 AM EST Office Visit Orthopedic Surgery - [place] 175 [facility] [address] [place] [address] Sandra Augustine MD 175 [facility] [address] [place] [address] Bitten by dog, subsequent encounter [...] left hand SUBJECTIVE: Date of injury 08/27/2024. [id number] gentleman who unfortunate got bit on the [...] documented as of this encounter Care Teams Utilities And Maintenance Supervisor Relationship Specialty Start Date End Date Yury Menchaca NP [address] [place] [phone] PCP - General Family Medicine 09/20/24 documented as of this encounter
--- OUTSIDE RECORDS SUMMARY | 2024-10-24 13:09 | XMS_ITS | Clinical Summary ---
Author Organization [facility] Address [address] [place] [address] Care Team Providers Care Ball Points Inspector Name Role Phone Amilcar Leggett MD Primary Care Provider [phone] Allergies Active Allergy Reactions Criticality Noted Date [...] ADULT PO) Take by mouth. 0 Active [place]-3 Fatty Acids (FISH OIL) 1000 MG CAPS Take by mouth. 0 Active aspirin EC 81 MG tablet Take 81 mg by mouth daily. 0 Active Active Problems Problem Noted Date Diagnosed Date Other pulmonary embolism with acute cor pulmonal e 06/05/2019 Overview: Overview: ? Provoked had driven to [place] Sarcoidosis of lymph nodes 10/02/2017 Obstructive sleep apnea 08/30/2017 Overview: Overview: SMS Home Polysomnogram: Date 08/25/2017; AHI 39, Unclassified apneas 0; Obstructive apneas 91; Central apneas 5; Mixed apneas 5; hypopneas 37; average oxygen saturation 89% (lowest 67% with saturations <88% for 5% or more of study) [facility] [place] Polysomnogram treatment study. [...] age to complete this topic Care Teams Ball Points Inspector Relationship Specialty Start Date End Date Amilcar Leggett MD PCP - General Doorperson 04/24/20
--- OUTSIDE RECORDS SUMMARY | 2024-10-24 13:09 | XMS_ITS | Clinical Summary ---
Author Organization 175 [facility] Address [address] [place] [address] Phone Care Team Providers Care Marine Insurance Claim Examiner Name Role Phone Yury Menchaca NP Primary [...] Overview (09/13/2024): ? Provoked had driven to [place] Moderate persistent asthma without complication 04/03/2019 Sarcoidosis of lymph nodes 10/02/2017 Overview (09/13/2024): 2018 Obstructive sleep apnea 08/30/2017 Overview (09/13/2024): [facility] Home Polysomnogram: Date 08/25/2017; AHI 39, Unclassified apneas 0; Obstructive apneas 91; Central apneas 5; Mixed apneas 5; hypopneas 37; average oxygen saturation 89% (lowest 67% with saturations <88% for 5% or more of study) [facility] Polysomnogram treatment study. Date 11/13/2017. SE 51 [...] AM EST Office Visit Orthopedic Surgery - [address] [address] Sandra Augustine MD Bitten by dog, subsequent encounter (Primary Dx) 09/13/2024 10:15 AM EST Consult Orthopedic Surgery - [address] [address] Sandra Augustine MD Open bite of left [...] HISTORICAL VASECTOMY UPPER GASTROINTESTINAL ENDOSCOPY 04/30/2020 PROCEDURE: [place] UPPER GI ENDOSCOPY PERFORMED; COMMENT: rosmery,esophagitis, mild [...] COMMENT: 2016 ? Provoked had driven to [place] Sarcoidosis of lymph nodes 10/02/2017 DX:Sa rcoidosis [...] Zoster Vaccines Completed 07/02/2020, 04/22/2020 Pneumococcal Vaccine: 50+ Years Completed 07/21/2023 Pneumococcal Vaccine: Pediatrics (0 to 5 Years) [...] patient's age to complete this topic Meningococcal B Vacine Aged Out No lo nger eligible based on patient's age to complete [...] Resul t from Last 3 Months Insurance [facility] [facility] Care Teams Marine Insurance Claim Examiner Relationship Specialty Start Date End Date Yury Menchaca NP [address] [place] [address] PCP - General Family Medicine 09/20/24
--- NOTE | 2024-10-24 13:18 | MHC.OFFVIS ---
Vital Signs 10/24/24 13:19 Height 5 ft 10 in Weight 265 lb BMI 38.0 BP 135/88 Pulse 63 Pulse Source Pulse Oximeter Pulse Oximetry (%) 95 Oxygen Delivery Method Room Air Intake Visit Reasons: Right ischial bursa inj w/ fluoro Basket Bottom Machine Operator Required: No Allergies amoxicillin [AMOXICILLIN] Allergy (Severe, Verified 10/24/24 13:19) DIFF BREATHING Medication List - Last Reconciled 10/24/24 by Mervat Ibanez, ADMISSIONS ADVISOR albuterol sulfate 90 mcg/actuation (ProAir RespiClick) 2 inhalations inhalation Q6H PRN 30 days albuterol sulfate 2.5 mg (3 mL) inhalation Q6H PRN 30 days apixaban (Eliquis) 5 mg PO BID atorvastatin 40 mg PO DAILY 90 days carvedilol 6.25 mg PO BID cetirizine (All Day Allergy (cetirizine)) 10 mg PO DAILY PRN cholecalciferol (vitamin D3) (Vitamin D3) 25 mcg PO DAILY citalopram 20 mg PO BEDTIME 90 days CPAP (CPAP Machine/Device) As directed famotidine (Pepcid) 20 mg PO DAILY fluticasone propion-salmeterol 115-21 mcg/actuation (Advair HFA) 2 puffs inhalation Q12H 30 days lisinopril 20 mg PO BEDTIME 90 days multivitamin 1 tab PO DAILY mycophenolate mofetil (CellCept) 500 mg PO BID 30 days nebulizers As directed spironolactone 25 mg PO BEDTIME 90 days tramadol 50 mg PO BID PRN 20 days HPI HPI Right ischial bursa inj w/ fluoro: Details: Patient presents for scheduled procedure. Denies any recent cough, cold, infection, fever or other significant changes in medical history since last office visit. [facility] Medical History Physical exam Enlarged prostate BMI 37.0-37.9, adult Muscle strain Hip pain Screening for colon cancer Right calf pain Hip pain, right Elevated bilirubin Elevated alkaline phosphatase level Obesity Anxiety Depression COPD (chronic obstructive pulmonary disease) GERD (gastroesophageal reflux disease) DDD (degenerative disc disease), cervical History of non-ST elevation myocardial infarction (NSTEMI) History of pulmonary embolism Cataract HLD (hyperlipidemia) HTN (hypertension) Cough NANCY on CPAP Sarcoidosis Asthma Surgical History History of bone marrow biopsy History of tonsillectomy History of vasectomy History of endoscopy History of hernia repair History of colonoscopy Family History Father Family history of high blood pressure Mother History of colon cancer History of abdominal aortic aneurysm (AAA) Brother Prostate cancer Social History Household Members: Spouse Housing: House Do you presently have visiting nurse or other home services: No Alcohol intake: never Patient Tobacco Use Status: Former Tobacco user Tobacco use type: Cigarette e-Cigarette/Vaping Use: Never Used Second Hand Smoke Exposure: No Advance Directives Date on File: 11/13/21 service: No Current occupational status: retired Cognitive needs: No Hearing needs: No Vision needs: No Physical Exam Vital Signs: Last Vital Signs Pulse 63 10/24/24 13:19 BP 135/88 10/24/24 13:19 Pulse Ox 95 10/24/24 13:19 Oxygen Delivery Method Room Air 10/24/24 13:19 BMI result Body Mass Index 38.0 Office Procedures Injection-Therapetic Trigger Single Point: 47865-[id number] point injection, 1 or 2 Trigger Point Injection, Fluoroscopy guided Pre-procedure diagnosis: Myofascial pain Post-procedure diagnosis: Myofascial pain Site and number of trigger points: Biceps femoris, right Solution: Total volume administered 5 mL ml (1 ml lidocaine 1% + 2 ml rupivacaine 0.25% + Kenalog 40mg) The procedure, its benefits, and its risks were explained to the patient and all questions were answered. Trigger points were identified by manual palpation and marked. The skin was cleaned with Chloraprep. The painful area was noted to be in the vicinity of the right biceps femoris muscle. A 25 gauge spinal needle was advanced to the muscle and contrast was used to outline the muscle fibers. No intravascular contrast spread was seen. The injectate was then injected with minimal pain on injection. The patient tolerated the procedure well, without complication. The patient denied any numbness, paresthesias, or weakness. Post-procedure vitals were recorded as part of the nursing discharge note in electronic medical record. Following a period of observation, the patient was discharged in stable condition with written discharge instructions. Assessment & Plan Assessment & Plan (1) Myofascial pain on right side: Code(s): M79.18 - Myalgia, other site Category: Medical Plan Patient is status post right biceps femoris TPI under fluoro guidance. Patient tolerated procedure well and was discharged home in stable condition with discharge instructions. All questions were answered. We will follow-up via telephone or in clinic to assess response to therapy. A follow-up appointment was made during today's visit. Coding Level of Care Code Procedure Only Diagnoses Myofascial pain on right side M79.18 CPT Codes Details - Trigger Single Point: [id number]-[id number] point injection, 1 or 2 ([id number])
[2024-10-24 13:19] VITALS: BP 135/88; PULSE 63; O2SAT 95; BMI 38.0
== END 2024-10-24 13:31 | disposition home or self-care (01) ==
LOC: HO.PMCPRC 13:00
PROVIDERS: PCP Nurse Practitioner Family; Visit Provider Internal Medicine
DX: M79.18 Myalgia, other site (principal)
CPT/HCPCS: 20552

== ENCOUNTER 2024-11-18 09:02 | Outpatient (AMB) | payer OTHER, SELFPAY ==
--- NOTE | 2024-11-18 09:08 | A.OFFVIS_ITS ---
Vital Signs 11/18/24 09:09 Height 5 ft 10 in Weight 260 lb BMI 37.3 BP 127/78 Blood Pressure Location Lt brachial Position Sitting Respiration 16 Pulse 61 Pulse Source Pulse Oximeter Pulse Oximetry (%) 98 Oxygen Delivery Method Room Air Intake Visit Reasons: s/p right ischial bursa inj Patent Clerk Required: No Allergies amoxicillin [AMOXICILLIN] Allergy (Severe, Verified 11/18/24 09:10) DIFF BREATHING Medication List - Last Reconciled 11/18/24 by Patito Marrero LPN albuterol sulfate 90 mcg/actuation (ProAir RespiClick) 2 inhalations inhalation Q6H PRN 30 days albuterol sulfate 2.5 mg (3 mL) inhalation Q6H PRN 30 days apixaban (Eliquis) 5 mg PO BID atorvastatin 40 mg PO DAILY 90 days carvedilol 6.25 mg PO BID cetirizine (All Day Allergy (cetirizine)) 10 mg PO DAILY PRN cholecalciferol (vitamin D3) (Vitamin D3) 25 mcg PO DAILY citalopram 20 mg PO BEDTIME 90 days CPAP (CPAP Machine/Device) As directed famotidine (Pepcid) 20 mg PO DAILY fluticasone propion-salmeterol 115-21 mcg/actuation (Advair HFA) 2 puffs inhalation Q12H 30 days lisinopril 20 mg PO BEDTIME 90 days multivitamin 1 tab PO DAILY mycophenolate mofetil (CellCept) 500 mg PO BID 30 days nebulizers As directed spironolactone 25 mg PO BEDTIME 90 days tramadol 50 mg PO BID PRN 20 days HPI HPI s/p right ischial bursa inj: Details: History of Present Illness The patient is a 64-year-old male presenting with posterior thigh pain. Initially treated with a fluoroscopic-guided tendon injection in the right thigh, the patient reports no significant improvement post-procedure. The pain persists primarily in the tendon insertion area, rather than the bursa, which was confirmed by live imaging. Chronicity of pain led to a shift towards non- pharmacological approaches including regular exercise and stretching. The patient understands the limitations of current treatment options and is exploring additional therapies like shockwave therapy, with an emphasis on maintaining a positive outlook. Pain Description - Onset: Pain originated prior to last month's visit - Quality and Character: Described as persistent soreness - Primary Location: Right posterior thigh, tendon insertion point - Exacerbating Factors: Activities involving the thigh - Relieving Factors: Exercise and stretching activities - Impact on Activities: Influences lifestyle but managed through exercise Physical Exam - Appears afebrile. - Alert and oriented. - Mood and affect appropriate. - Follows and participates in conversation appropriately. - Respiratory effort is unlabored. - Able to transition from sit to stand unassisted. - Ambulates with bilaterally normal heel strike and toe off. - Able to stand and walk on toes and heels. Results - Imaging revealed pain location lower than bursa at tendon insertion point Pain Management - Affect: Adjusted perspective on managing pain - Analgesia: Fluoroscopic-guided tendon injection attempted with no significant analgesi - Activities of Daily Living: Engages in daily exercises and stretching routines - Adverse Effects: None reported from current management - Aberrant Drug-Related Behaviors: None reported as patient is not on analgesics currently [facility] Medical History Physical exam Enlarged prostate BMI 37.0-37.9, adult Muscle strain Hip pain Screening for colon cancer Right calf pain Hip pain, right Elevated bilirubin Elevated alkaline phosphatase level Obesity Anxiety Depression COPD (chronic obstructive pulmonary disease) GERD (gastroesophageal reflux disease) DDD (degenerative disc disease), cervical History of non-ST elevation myocardial infarction (NSTEMI) History of pulmonary embolism Cataract HLD (hyperlipidemia) HTN (hypertension) Cough NANCY on CPAP Sarcoidosis Asthma Surgical History History of bone marrow biopsy History of tonsillectomy History of vasectomy History of endoscopy History of hernia repair History of colonoscopy Family History Father Family history of high blood pressure Mother History of colon cancer History of abdominal aortic aneurysm (AAA) Brother Prostate cancer Social History Household Members: Spouse Housing: House Do you presently have visiting nurse or other home services: No Alcohol intake: never Patient Tobacco Use Status: Former Tobacco user Tobacco use type: Cigarette e-Cigarette/Vaping Use: Never Used Second Hand Smoke Exposure: No Advance Directives Date on File: 11/13/21 service: No Current occupational status: retired Cognitive needs: No Hearing needs: No Vision needs: No Physical Exam Vital Signs: Last Vital Signs Pulse 61 11/18/24 09:09 Resp 16 11/18/24 09:09 BP 127/78 11/18/24 09:09 Pulse Ox 98 11/18/24 09:09 Oxygen Delivery Method Room Air 11/18/24 09:09 BMI result Body Mass Index 37.3 Assessment & Plan Assessment & Plan (1) Myofascial pain on right side: Code(s): M79.18 - Myalgia, other site Category: Medical Plan Plan The strategy for managing the patient's posterior thigh pain centers on non- invasive techniques, including routine stretching and exercise. Shockwave therapy is an option for future consideration should symptoms persist or worsen, yet the patient understands insurance constraints. Positive mental adjustments contribute to current management strategies, and ongoing monitoring of symptoms will guide future interventions. Patient was informed and verbally consented to the use of an ambient scribe for clinic note documentation during this visit. Discussion Notes I discussed with the patient that his pain, due to tendon insertion issues, is best managed through consistent physical therapy focusing on stretching and exercises. While injections were not beneficial and further ones are unwarranted due to localization issues, I explained the nature of the pain and possible treatments such as shockwave therapy, albeit without insurance coverage. The patient agreed to continue his current regimen and was advised of supportive, non-pharmacological measures to alleviate symptoms. Future considerations were addressed in the context of persistent or worsening pain, reinforcing an emphasis on vigilant self-monitoring and exercise. Patient Instructions - Continue with daily stretching and exercise routines aimed at reducing thigh discomfort - Maintain a positive attitude towards managing chronic pain - Consider shockwave therapy for further management if pain persists or worsens, but be aware it may not be covered by insurance - Monitor symptoms and maintain open communication regarding any changes in pain or functionality Coding Level of Care Code Est Pt Level 3 (55914) Diagnoses Myofascial pain on right side M79.18
[2024-11-18 09:09] VITALS: BP 127/78; PULSE 61; RESP 16; O2SAT 98; BMI 37.3
--- OUTSIDE RECORDS SUMMARY | 2024-11-18 09:31 | XMS_ITS | Clinical Summary ---
Author Organization [facility] Address [address] [place] [address] Care Team Providers Care Hand Glass Cutter Name Role Phone Amilcar Leggett MD Primary Care Provider [phone] Allergies Active Allergy Reactions Criticality Noted Date [...] ADULT PO) Take by mouth. 0 Active [place]-3 Fatty Acids (FISH OIL) 1000 MG CAPS Take by mouth. 0 Active aspirin EC 81 MG tablet Take 81 mg by mouth daily. 0 Active Active Problems Problem Noted Date Diagnosed Date Other pulmonary embolism with acute cor pulmonal e 06/05/2019 Overview: Overview: ? Provoked had driven to [place] Sarcoidosis of lymph nodes 10/02/2017 Obstructive sleep apnea 08/30/2017 Overview: Overview: SMS Home Polysomnogram: Date 08/25/2017; AHI 39, Unclassified apneas 0; Obstructive apneas 91; Central apneas 5; Mixed apneas 5; hypopneas 37; average oxygen saturation 89% (lowest 67% with saturations <88% for 5% or more of study) [facility] Polysomnogram treatment study. Date 11/13/2017. SE 51 [...] age to complete this topic Care Teams Hand Glass Cutter Relationship Specialty Start Date End Date Amilcar Leggett MD PCP - General Car Dealer 04/24/20
--- OUTSIDE RECORDS SUMMARY | 2024-11-18 09:31 | XMS_ITS | Clinical Summary ---
Author Organization [facility] Address [address] [place] [address] Phone Care Team Providers Care Lead Cargoman Name Role Phone Yury Menchaca NP Primary [...] 2 puffs by mouth. 04/03/2019 Active lisinopriL (PRINIVIL,ZESTR IL) 20 mg tablet 06/17/2024 Active mycophenolate (CELLCEPT) 500 mg tablet 1 tablet (500 mg total). 07/31/2024 Active spironolactone (ALDACTONE) 25 mg tablet Take 1 tablet (25 mg total) by mouth 1 (one) time each day. 02/01/2022 Active traMADoL (ULTRAM) 50 mg tablet 08/30/2024 Active traZODone (DESYREL) 50 mg tablet 1 tablet (50 mg total). 05/14/2024 Active Active Problems Problem Noted Date Diagnosed Date Bitten by dog, subsequent encounter 09/27/2024 Ascending aorta dilatation 12/20/2021 Overview (09/13/2024): 4. 2 cm seen on ECHO 11/2021 NSTEMI (non-ST elevated myocardial infarction) 0 12/20/2021 GERD (gastroesophageal reflux disease) 0 Severe obesity (BMI 35.0-39.9) with comorbidity 07/08/2020 Other pulmonary embolism with acute cor pulmonal e 06/05/2019 Overview (09/13/2024): ? Provoked had driven to [place] Moderate persistent asthma without complication 04/03/2019 Sarcoidosis of lymph nodes 10/02/2017 Overview (09/13/2024): 2018 Obstructive sleep apnea 08/30/2017 Overview (09/13/2024): [facility] Home Polysomnogram: Date 08/25/2017; AHI 39, Unclassified apneas 0; Obstructive apneas 91; Central apneas 5; Mixed apneas 5; hypopneas 37; average oxygen saturation 89% (lowest 67% with saturations <88% for 5% or more of study) [facility] Polysomnogram treatment study. Date 11/13/2017. SE 51 [...] AM EST Office Visit Orthopedic Surgery - [address] [place] [address] Sandra Augustine MD Bitten by dog, subsequent encounter (Primary Dx) 09/13/2024 10:15 AM EST Consult Orthopedic Surgery - [address] [id number] Sandra Augustine MD Open bite of left [...] HISTORICAL VASECTOMY UPPER GASTROINTESTINAL ENDOSCOPY 04/30/2020 PROCEDURE: GA UPPER GI ENDOSCOPY PERFORMED; COMMENT: rosmery,esophagitis, mild [...] COMMENT: 2016 ? Provoked had driven to [place] Sarcoidosis of lymph nodes 10/02/2017 DX:Sa rcoidosis [...] apnea 08/30/2017 DX:Obstr uctive sleep apnea; COMMENT: [facility] Home Polysomnogram: Date 08/25/2017; AHI 39, Unclassified [...] Resul t from Last 3 Months Insurance [facility] [place] [address] Care Teams Lead Cargoman Relationship Specialty Start Date End Date Yury Menchaca NP [address] [place] [address] PCP - General Family Medicine 09/20/24
== END 2024-11-18 09:28 | disposition home or self-care (01) ==
PROVIDERS: PCP Nurse Practitioner Family; Visit Provider Internal Medicine
DX: M79.18 Myalgia, other site (principal)
CPT/HCPCS: 99213

== ENCOUNTER → 2024-11-18 09:02 | Outpatient (BNVA) | payer OTHER, SELFPAY | PROVIDERS: PCP Nurse Practitioner Family; Visit Provider Internal Medicine ==

== ENCOUNTER 2024-12-30 10:32 | Outpatient (REF) | payer OTHER, SELFPAY ==
--- OUTSIDE RECORDS SUMMARY | 2024-12-30 11:35 | XMS_ITS | Encounter Summary ---
Author Organization [facility] Address [address] [place] [address] Care Team Providers Care Data Scientist Name Role Phone Lazaro Chand MD Primary Care Provider Antoinette Kunz, Pcp Primary Care Provider Filiberto ibarra Encounter Details Date Type Department Care Team Description 11/15/2021 Hospital Medical Records [address] [place] [address] Andrei Werner MD Social History Tobacco Use [...] on filedocumented in this encounter Care Teams Data Scientist Relationship Specialty Start Date End Date Lazaro Chand MD PCP - General Internal Medicine 05/26/21 04/05/22 [facility], Pcp PCP - General Internal Medicine 04/06/22 documented as of this encounter
--- OUTSIDE RECORDS SUMMARY | 2024-12-30 11:35 | XMS_ITS | Clinical Summary ---
Author Organization [facility] Address [address] [place] [address] Care Team Providers Care Mercury Cell Cleaner Name Role Phone Community, Pcp Primary Care [...] Overview: 2017 ? Provoked had driven to [place] Moderate persistent asthma without compl ication 04/03/2019 Sarcoidosis of lymph nodes 10/02/2017 Overview: 2018 Obstructive sleep apnea severe AHI 39 wi th sleep related hypoxia 08/30/2017 Overview: [facility] Home Polysomnogram: Date 08/25/2017; AHI 39, Unclassified apneas 0; Obstructive apneas 91; Central apneas 5; Mixed apneas 5; hypopneas 37; average oxygen saturation 89% (lowest 67% with saturations <88% for 5% or more of study) [facility]ysom[place] treatment study. Date 11/13/2017. SE 51 [...] 013,09/13/2012,06/21/2011,07/06/2010,01/2008 Influenza Flu (PT Reported) 07/04/2017 MMR (Ivjhoqp-Zufnq-Vngcigr) 09/21/2016 PPD-RBMG 07/26/2016 Shingrix (Recombinant zoster vaccine) [...] of not completing the topic Care Teams Mercury Cell Cleaner Relationship Specialty Start Date End Date Community, Pcp PCP - General Internal Medicine 04/06/22
--- OUTSIDE RECORDS SUMMARY | 2024-12-30 11:35 | XMS_ITS | Encounter Summary ---
Author Organization [facility] Address [address] [place] [address] Care Team Providers Care Shot Packer Name Role Phone Amilcar Leggett MD Primary Care Provider [phone] Lazaro Chand MD Primary Care Provider [facility], Pcp Primary Care Provider [facility] Encounter Details Date Type Department Care Team Description 06/03/2019 Orders Only Medical Records [address] [place] [address] Abstract, Provider Social History Tobacco Use Types [...] on filedocumented in this encounter Care Teams Shot Packer Relationship Specialty Start Date End Date Amilcar Leggett MD [address] [place] [address] PCP - General 05/09/11 05/25/21 Lazaro Chand MD [address] [place] [address] PCP - General Internal Medicine 05/26/21 04/05/22 [facility], Pcp [address] [place] [address] PCP - General Internal Medicine 04/06/22 documented as of this encounter
--- OUTSIDE RECORDS SUMMARY | 2024-12-30 11:35 | XMS_ITS | Encounter Summary ---
Author Organization [facility] Address [address] [place] [address] Care Team Providers Care Real Estate Director Name Role Phone Amilcar Leggett MD Primary Care Provider [phone] Lazaro Chand MD Primary Care Provider [facility], Pcp Primary Care Provider [facility] e Encounter Details Date Type Department Care Team Description 09/26/2014 Release of Information Medical Records [address] [place] [address] Abstract, Provider Social History Tobacco Use Types [...] on filedocumented in this encounter Care Teams Real Estate Director Relationship Specialty Start Date End Date Amilcar Leggett MD [address] [place], [place] [phone] PCP - General 05/09/11 05/25/21 Lazaro Chand MD [address] [place] [address] PCP - General Internal Medicine 05/26/21 04/05/22 [facility], Pcp [address] [place] [address] PCP - General Internal Medicine 04/06/22 documented as of this encounter
--- OUTSIDE RECORDS SUMMARY | 2024-12-30 11:35 | XMS_ITS | Encounter Summary ---
Author Organization [facility] Address [address] [place] [address] Care Team Providers Care Staff Electrical Engineer Name Role Phone Amilcar Leggett MD Primary Care Provider [phone] Lazaro Chand MD Primary Care Provider [facility], Pcp Primary Care Provider [facility] Encounter Details Date Type Department Care Team Description 10/04/2017 Hospital Medical Records [address] [place] [phone] Hira Houston MD Social History Tobacco Use [...] on filedocumented in this encounter Care Teams Staff Electrical Engineer Relationship Specialty Start Date End Date Amilcar Leggett MD [address] [place], [place] [phone] PCP - General 05/09/11 05/25/21 Lazaro Cahnd MD [address] [place] [address] PCP - General Internal Medicine 05/26/21 04/05/22 [facility], Pcp [address] [place], [place] [phone] PCP - General Internal Medicine 04/06/22 documented as of this encounter
--- OUTSIDE RECORDS SUMMARY | 2024-12-30 11:35 | XMS_ITS | Encounter Summary ---
Author Organization [facility] Address [address] [place] [address] Care Team Providers Care Nursing Resident Name Role Phone Amilcar Leggett MD Primary Care Provider [phone] [phone] Lazaro Chand MD Primary Care Provider [facility], Pcp Primary Care Provider [facility] Encounter Details Date Type Department Care Team Description 06/19/2018 Water [employer] Sewer Systems Superintendent Report Medical Records [address] [place] [address] Radha Benedict Social History Tobacco Use Types [...] on filedocumented in this encounter Care Teams Nursing Resident Relationship Specialty Start Date End Date Amilcar Leggett MD [address] [place] [address] PCP - General 05/09/11 05/25/21 Lazaro Chand MD [address] [place] [address] 12767 PCP - General Internal Medicine 05/26/21 04/05/22 [facility], Pcp [address] [place] [address] PCP - General Internal Medicine 04/06/22 documented as of this encounter
--- OUTSIDE RECORDS SUMMARY | 2024-12-30 11:35 | XMS_ITS | Encounter Summary ---
Author Organization [facility] Address [address] [place] [address] Care Team Providers Care Vp Medical Name Role Phone Amilcar Leggett MD Primary Care Provider [phone] [phone] Lazaro Chand MD Primary Care Provider [facility], Pcp Primary Care Provider [facility] e Encounter Details Date Type Department Care Team Description 01/10/2014 Release of Information Medical Records [address] [place], [place] [id number] Abstract, Provider Social History Tobacco Use Types [...] on filedocumented in this encounter Care Teams Vp Medical Relationship Specialty Start Date End Date Amilcar Leggett MD [address] [place], [place] [phone] PCP - General 05/09/11 05/25/21 Lazaro Chand MD [address] [place] [address] PCP - General Internal Medicine 05/26/21 04/05/22 [facility], Pcp [address] [place] [address] 187[address] PCP - General Internal Medicine 04/06/22 documented as of this encounter
--- OUTSIDE RECORDS SUMMARY | 2024-12-30 11:35 | XMS_ITS | Encounter Summary ---
Author Organization [facility] Address [address] [place] [address] Care Team Providers Care Preload Supervisor Name Role Phone Amilcar Leggett MD Primary Care Provider [phone] Lazaro Chand MD Primary Care Provider [facility], Pcp Primary Care Provider [facility] Encounter Details Date Type Department Care Team Description 03/28/2017 Pt. Non Urgent Medical Question Adult Medicine [address] [address] Amilcar Leggett MD [address] [place] [address] Social History Tobacco Use Types Packs/Day Years Used Date Smoking Tobacco: Former Cigarettes 0.5 4 Q uit: 07/12/1998 Smokeless Tobacco: Never Comments:quit x 8 years Alcohol Use Standard Drinks/Week Comments Yes 0 (1 standard drink = 0.6 oz pur e alcohol) occasional Sex Assigned at Date Recorded Male 01/17/2022 6:12 PM E DT documented as of this encounter Progress Notes * Shannon Alonzo M.A. - 03/28/2017 4:22 PM EDTFrom: Christiano Pinedabia To: Amilcar Leggett MD Sent: 03/28/2017 3:53 PM EDT Subject: Following up on orders placed by Dr George Coleman, I was seen on March 23, [address] Vazquez in [place], he ordered blood work which was done that same day there, and he ordered a CT Scan that because of insurance restrictions has to be done at [facility], to date I am still waiting to hear about scheduling this scan, is this normal? Should I be contacting [facility] myself in this matter? Thank you documented in this encounter Plan of Treatment Not on file documented as of this encounter Visit Diagnoses Not on filedocumented in this encounter Care Teams Preload Supervisor Relationship Specialty Start Date End Date Amilcar Leggett MD [address] [place] [address] PCP - General 05/09/11 05/25/21 Lazaro Chand MD [address] [place] [address] 13521 PCP - General Internal Medicine 05/26/21 04/05/22 [facility], Pcp [address] [place] [address] PCP - General Internal Medicine 04/06/22 documented as of this encounter
--- OUTSIDE RECORDS SUMMARY | 2024-12-30 11:35 | XMS_ITS | Encounter Summary ---
Author Organization [facility] Address [address] [place] [address] Care Team Providers Care Camp Attendant Name Role Phone Amilcar Leggett MD Primary Care Provider [phone] Lazaro Chand MD Primary Care Provider [facility], Pcp Primary Care Provider [facility] e Reason for Referral * Non CHRIS (Routine) - Authorized/Booked Specialty Diagnoses / Procedures Referred By Contac t Referred To Contact Cardiology Diagnoses Thoracic aortic aneurysm without rupture (HCC) Procedures REFERRAL TO CARDIOLOGY Amilcar Leggett MD [address] [place] [address] [place] [address] Referral ID Status Reason Start Date Expiration Date V isits Requested Visits Authorized 07/11 [id number] Authorized/ Booked 05/22/2017 05/22/2018 1 1 Reason for Visit * Reason Onset Date Comments Testing 05/21/2017 Encounter Details Date Type Department Care Team Description 05/21/2017 Pt. Non Urgent [place] [address] Amilcar Leggett MD [address] [place] [address] Thoracic aortic aneurysm without rupture (HCC) (Primary [...] CT scan of his chest done at [facility] showed an aneurysm. He left it up [...] to see Anastacio to discuss? [place] in [place] vacation this [place] but otherwise Anastacio is available for an appt if needed. If more testing is needed, it should be scheduled at [facility] because of our insurance. Thank you! documented [...] rupture documented in this encounter Care Teams Camp Attendant Relationship Specialty Start Date End Date Amilcar Leggett MD [address] [place] [address] PCP - General 05/09/11 05/25/21 Lazaro Chand MD [address] [place] [address] PCP - General Internal Medicine 05/26/21 04/05/22 [facility], [place] [address] [place] [address] PCP - General Internal Medicine 04/06/22 documented as of this encounter
--- OUTSIDE RECORDS SUMMARY | 2024-12-30 11:35 | XMS_ITS | Encounter Summary ---
Author Organization [facility] Address [address] [place] [address] Care Team Providers Care Rolled Gold Plater Name Role Phone Amilcar Leggett MD Primary Care Provider [phone] Lazaro Chand MD Primary Care Provider [facility], Pcp Primary Care Provider [facility] Encounter Details Date Type Department Care Team Description 03/31/2020 Tap Dancer Report Medical Records [address] [place] [address] Corby Dumont MD Social History Tobacco Use [...] on filedocumented in this encounter Care Teams Rolled Gold Plater Relationship Specialty Start Date End Date Amilcar Leggett MD [address] [place] [address] PCP - General 05/09/11 05/25/21 Lazaro Chand MD [address] [place] [address] PCP - General Internal Medicine 05/26/21 04/05/22 [facility], Pcp [address] [place], [place] [phone] PCP - General Internal Medicine 04/06/22 documented as of this encounter
--- OUTSIDE RECORDS SUMMARY | 2024-12-30 11:35 | XMS_ITS | Encounter Summary ---
Author Organization [facility] Address [address] [place] [address] Care Team Providers Care Condenser Operator Name Role Phone Amilcar Leggett MD Primary Care Provider [phone] Lazaro Chand MD Primary Care Provider [facility], Pcp Primary Care Provider [facility] e Encounter Details Date Type Department Care Team Description 06/03/2019 Hospital Medical Records [address] [phone] [facility] Social History Tobacco Use Types Packs/Day [...] on filedocumented in this encounter Care Teams Condenser Operator Relationship Specialty Start Date End Date Amilcar Leggett MD [address] [place], [place] [phone] PCP - General 05/09/11 05/25/21 Lazaro Chand MD [address] [place] [address] PCP - General Internal Medicine 05/26/21 04/05/22 [facility], Pcp [address] [place] [address] PCP - General Internal Medicine 04/06/22 documented as of this encounter
--- OUTSIDE RECORDS SUMMARY | 2024-12-30 11:35 | XMS_ITS | Clinical Summary ---
Author Organization [address] [facility] Address [address] [place] [address] Phone Care Team Providers Care Automatic Data Processing Planner Name Role Phone Yury Menchaca NP Primary [...] dog, subsequent encounter 09/27/2024 Ascending aorta dilatation ([facility] V24) 022 Overview (09/13/2024): 4. 2 cm seen on ECHO 11/2021 NSTEMI (non-ST elevated myoc ardial infarction) ([facility] V24, [facility] V28) 12/20/2021 GERD (gastroesophageal reflux disease) Severe obesity (BMI 35.0-39. 9) with comorbidity ([facility] V24, [facility] V28) 07/08/2020 Other pulmonary embolism wit h acute cor pulmonale ([facility] V24, [facility] V28) 06/05/2019 Overview (09/13/2024): ? Provoked had driven to [place] Moderate persistent asthma without complication 04/03/2019 Sarcoidosis of lymph nodes 10/02/2017 Overview (09/13/2024): 2018 Obstructive sleep apnea 08/30/2017 Overview (09/13/2024): [facility] Home Polysomnogram: Date 08/25/2017; AHI [...] HISTORICAL VASECTOMY UPPER GASTROINTESTINAL ENDOSCOPY 04/30/2020 PROCEDURE: [place] UPPER GI ENDOSCOPY PERFORMED; COMMENT: rosmery,esophagitis, mild [...] COMMENT: 2016 ? Provoked had driven to [place] Sarcoidosis of lymph nodes 10/02/2017 DX:Sa rcoidosis [...] patient's age to complete this topic Insurance [employer] [place] Care Teams Automatic Data Processing Planner Relationship Specialty Start Date End Date Yury Menchaca NP PCP - General Family Medicine 09/20/24
--- OUTSIDE RECORDS SUMMARY | 2024-12-30 11:35 | XMS_ITS | Clinical Summary ---
Author Organization [facility] Address [address] [place] [address] Care Team Providers Care Ear Nose And Throat Specialist Name Role Phone Amilcar Leggett MD Primary Care Provider [phone] Allergies Active Allergy Reactions Criticality Noted Date [...] ADULT PO) Take by mouth. 0 Active Croton-3 Fatty Acids (FISH OIL) 1000 MG CAPS Take by mouth. 0 Active aspirin EC 81 MG tablet Take 81 mg by mouth daily. 0 Active Active Problems Problem Noted Date Diagnosed Date Other pulmonary embolism with acute cor pulmonal e 06/05/2019 Overview: Overview: ? Provoked had driven to [place] Sarcoidosis of lymph nodes 10/02/2017 Obstructive sleep apnea 08/30/2017 Overview: Overview: SMS Home Polysomnogram: Date 08/25/2017; AHI 39, Unclassified apneas 0; Obstructive apneas 91; Central apneas 5; Mixed apneas 5; hypopneas 37; average oxygen saturation 89% (lowest 67% with saturations <88% for 5% or more of study) [facility] Polysomnogram treatment study. Date 11/13/2017. [...] age to complete this topic Care Teams Ear Nose And Throat Specialist Relationship Specialty Start Date End Date Amilcar Leggett MD PCP - General Scullion Chief 04/24/20
--- OUTSIDE RECORDS SUMMARY | 2024-12-30 11:35 | XMS_ITS | Encounter Summary ---
Author Organization [facility] Address [address] [place] [address] Care Team Providers Care Music Orchestrator Name Role Phone Amilcar Leggett MD Primary Care Provider [phone] Lazaro Chand MD Primary Care Provider [facility], Pcp Primary Care Provider [facility] e Encounter Details Date Type Department Care Team Description 03/23/2018 Pt. Non Urgent Medical Question Hypertension - [place] [address] [place] [address] Zuleyma Woodward, David.D Social History Tobacco Use [...] on filedocumented in this encounter Care Teams Music Orchestrator Relationship Specialty Start Date End Date Amilcar Leggett MD [address] [place] [address] PCP - General 05/09/11 05/25/21 Lazaro Chand MD [address] [place] [address] PCP - General Internal Medicine 05/26/21 04/05/22 [place] [address] PCP - General Internal Medicine 04/06/22 documented as of this encounter
--- OUTSIDE RECORDS SUMMARY | 2024-12-30 11:35 | XMS_ITS | Encounter Summary ---
Author Organization [facility] Address [address] [place] [address] Care Team Providers Care Primary Grade Teacher Name Role Phone Amilcar Leggett MD Primary Care Provider [phone] Lazaro Chand MD Primary Care Provider [facility], Pcp Primary Care Provider [facility] e Encounter Details Date Type Department Care Team Description 09/16/2016 Pt. Non Urgent Medical Question Adult Medicine [address] [address] Amilcar Leggett MD [address] [place] [address] Need for prophylactic vaccination with tetanus-diphtheria (TD); Need for prophylactic vaccination and inoculation against viral hepatitis; Need for prophylactic vaccination with ujregto-dlryp-cwohfj a (MMR) vaccine; Need for prophylactic vaccination with combined bksqbubowh-dvnxwlz-p ertussis (DTP) vaccine Social History Tobacco Use Types Packs/Day Years [...] Progress Notes * Shannon Alonzo M.A. - 09/19/2016 3:04 PM ESTFrom: Christiano Dorado To: Amilcar Leggett MD Sent: 09/16/2016 8:06 PM EST Subject: Test Results from 09/16/2016 Based on my blood test results from 09/16/2016, I do wish to go ahead and proceed with getting immunizations, for Hepatitis B, measles, and update my Tdap as it does later this year. Thank you documented in this encounter Plan of Treatment Scheduled Orders Name Type Priority Associated Diagnoses Orde r Schedule HEPATITIS B VACCINE ADULT 3 DOSE IM Immunizations/ Injection Routine Need for prophylactic vaccination and inoculation against viral hepatitis 3 Occurrences starting 09/20/2016 until 04/07/2017, 1 completed MMR VIRUS IMMUNIZATION, SUBCUT Immunizations/ Injection Routine Need for prophylactic vaccination with yprqpap-xxval-ihohekw (MMR) vaccine 2 Occurrences starting 09/20/2016 until 09/19/2017, 1 completed documented as of this encounter Visit Diagnoses Diagnosis Need for prophylactic vaccination with tetanus-diphtheria (Td) Need for prophylactic vaccination and inoculation against viral hepatitis Need for prophylactic vaccination with vzfvaxb-mulxl-hmusbdc (MMR) vaccine Need for prophylactic vaccination with combined valvyszgip-mtbhrme-luxtkflbb (DTP) vaccine documented in this encounter Care Teams Primary Grade Teacher Relationship Specialty Start Date End Date Amilcar Leggett MD [address] [place], [place] [phone] PCP - General 05/09/11 05/25/21 Lazaro Chand MD [address] [place] [address] PCP - General Internal Medicine 05/26/21 04/05/22 [place] [address] PCP - General Internal Medicine 04/06/22 documented as of this encounter
--- OUTSIDE RECORDS SUMMARY | 2024-12-30 11:35 | XMS_ITS | Encounter Summary ---
Author Organization [facility] Address [address] [place] [address] Care Team Providers Care Weight Inspector Name Role Phone Amilcar Leggett MD Primary Care Provider [phone] Lazaro Chand MD Primary Care Provider [facility], Pcp Primary Care Provider [facility] Encounter Details Date Type Department Care Team Description 11/20/2018 Telephone Pulmonology - [address] [place] [phone] Hira Houston MD Social History Tobacco Use [...] encounter Miscellaneous Notes * Telephone Encounter - Hayley Healy M.A. - 11/20/2018 3:49 PM EDT Also, [facility] is requesting a different Dx code; form in Your inbox. * Telephone Encounter - Hayley Healy M.A. - 11/20/2018 3:46 PM EDT Received a faxed requeest for pateint demogrphics and faxed patient demographics to [place] at [facility]. documented in this encounter Plan of Treatment Not on file documented as of this encounter Visit Diagnoses Not on filedocumented in this encounter Care Teams Weight Inspector Relationship Specialty Start Date End Date Amilcar Leggett MD [address] [place] [address] PCP - General 05/09/11 05/25/21 Lazaro Chand MD [address] [place] [address] PCP - General Internal Medicine 05/26/21 04/05/22 [place] [address] PCP - General Internal Medicine 04/06/22 documented as of this encounter
--- OUTSIDE RECORDS SUMMARY | 2024-12-30 11:35 | XMS_ITS | Encounter Summary ---
Author Organization [facility] Address [address] [place] [address] Care Team Providers Care Gas Golf Cart Repairer Name Role Phone Amilcar Leggett MD Primary Care Provider [phone] Lazaro Chand MD Primary Care Provider [facility], Pcp Primary Care Provider [facility] Reason for Visit * Reason Onset Date Comments Overhead Crane Truck Loader Feedback 06/09/2017 ECHO at [facility] Encounter Details Date Type Department Care Team Description 06/09/2017 Telephone Adult Medicine [address] [address] Amilcar Leggett MD [address] [place] [phone] Overhead Crane Truck Loader Feedback (ECHO at [facility]) Social History Tobacco Use Types Packs/Day Years [...] AM EDT Order faxed to [facility] at [phone], notification letter mailed to patient. documented in this encounter Plan of Treatment Not on file documented as of this encounter Visit Diagnoses Not on filedocumented in this encounter Care Teams Gas Golf Cart Repairer Relationship Specialty Start Date End Date Amilcar Leggett MD [address] [place] [address] PCP - General 05/09/11 05/25/21 Lazaro Chand MD [address] [place] [address] PCP - General Internal Medicine 05/26/21 04/05/[address] [address] PCP - General Internal Medicine 04/06/22 documented as of this encounter
--- OUTSIDE RECORDS SUMMARY | 2024-12-30 11:35 | XMS_ITS | Encounter Summary ---
Author Organization [facility] Address [address] [place] [address] Care Team Providers Care Broadband Installer Name Role Phone Amilcar Leggett MD Primary Care Provider [phone] Lazaro Chand MD Primary Care Provider [facility], Pcp [facility] Reason for Visit * Reason Onset Date Comments Testing 06/11/2019 Encounter Details Date Type Department Care Team Description 06/11/2019 Telephone Adult Medicine [address] [address] Cady Rivera PA-C Testing Social History Tobacco [...] on filedocumented in this encounter Care Teams Broadband Installer Relationship Specialty Start Date End Date Amilcar Leggett MD [address] [place] [address] PCP - General 05/09/11 05/25/21 Lazaro Chand MD [address] [place] [address] PCP - General Internal Medicine 05/26/21 04/05/22 [facility], Pcp [address] [place] [address] PCP - General Internal Medicine 04/06/22 documented as of this encounter
--- OUTSIDE RECORDS SUMMARY | 2024-12-30 11:35 | XMS_ITS | Encounter Summary ---
Author Organization [facility] Address [address] [place] [address] Care Team Providers Care Perinatal Coordinator Name Role Phone Amilcar Leggett MD Primary Care Provider [phone] Lazaro Chand MD Primary Care Provider Antoinette herring [facility], Pcp Primary Care Provider [facility] e Encounter Details Date Type Department Care Team Description 07/02/2018 Pt. Non Urgent Medical Question Hypertension - [place] [address] [place] [address] Zuleyma Woodward, Pharm.D Social History Tobacco Use [...] on filedocumented in this encounter Care Teams Perinatal Coordinator Relationship Specialty Start Date End Date Amilcar Leggett MD [address] [place] [address] [phone] PCP - General 05/09/11 05/25/21 Lazaro Chand MD [address] [place] [address] PCP - General Internal Medicine 05/26/21 04/05/22 [facility], [address] [place] [address] PCP - General Internal Medicine 04/06/22 documented as of this encounter
--- OUTSIDE RECORDS SUMMARY | 2024-12-30 11:35 | XMS_ITS | Encounter Summary ---
Author Organization [facility] Address [address] [place] [address] Care Team Providers Care Toe Lining Closer Name Role Phone Amilcar Leggett MD Primary Care Provider [phone] Lazaro Chand MD Primary Care Provider [facility], Pcp Primary Care Provider [facility] Encounter Details Date Type Department Care Team Description 05/05/2020 Bottle Label Inspector Report Medical Records [address] [place], [place] [id number] InstrumWojciech Social History Tobacco Use Types Packs/Day [...] on filedocumented in this encounter Care Teams Toe Lining Closer Relationship Specialty Start Date End Date Amilcar Leggett MD [address] [place], [place] [phone] PCP - General 05/09/11 05/25/21 Lazaro Chand MD [address] [place] [address] PCP - General Internal Medicine 05/26/21 04/05/22 [facility], Pcp [address] [place], [place] [phone] PCP - General Internal Medicine 04/06/22 documented as of this encounter
--- OUTSIDE RECORDS SUMMARY | 2024-12-30 11:36 | XMS_ITS | Encounter Summary ---
Author Organization [facility] Address [address] [place] [address] Care Team Providers Care Drug Safety Specialist Name Role Phone Amilcar Leggett MD Primary Care Provider [phone] Lazaro Chand MD Primary Care Provider [facility], Pcp Primary Care Provider [facility] e Encounter Details Date Type Department Care Team Description 10/03/2017 Pt. Non Urgent Medical Question Hypertension - [place] [address] [place] [address] Zuleyma Woodward, Pharm.D Social History Tobacco Use [...] on filedocumented in this encounter Care Teams Drug Safety Specialist Relationship Specialty Start Date End Date Amilcar Leggett MD [address] [place] [address] PCP - General 05/09/11 05/25/21 Lazaro Chand MD [address] [place] [address] PCP - General Internal Medicine 05/26/21 04/05/22 [facility], [place] [address] PCP - General Internal Medicine 04/06/22 documented as of this encounter
[2024-12-30 13:08] LABS: MANUAL DIFF FLAG NO
[2024-12-30 13:13] LABS: Basophils Absolute Auto 0.1 X10*3/uL (0.0-0.2); Basophils Percent Auto 0.9 % (0-2); Eosinophils Absolute Auto 0.4 X10*3/uL (0.0-0.4); Eosinophils Percent Auto 6.4 % (0-4); Hematocrit 46.1 % (42.0-52.0); Hemoglobin 14.9 g/dl (14.0-18.0); Imm Gran Abs Auto 0.05 X10*3/uL (0.00-0.03); Imm Gran Pct Auto 0.9 % (0.0-0.4); Lymphocytes Absolute Auto 0.8 X10*3/uL (1.2-4.9); Lymphocytes Percent Auto 14.1 % (20-40); Mean Corpuscular HGB Conc 32.3 g/dl (31.0-36.0); Mean Corpuscular Hemoglobin 28.9 pg (27.0-33.0); Mean Corpuscular Volume 89.3 fL (80.0-98.0); Mean Platelet Volume 10.3 fL (9.4-12.4); Monocytes Absolute Auto 0.7 X10*3/uL (0.1-1.2); Monocytes Percent Auto 11.5 % (2-11); Neutrophils Absolute Auto 3.8 x10*3/uL (2.0-8.3); Neutrophils Percent Auto 66.2 % (45-73); Platelet Count 261 X10*3/uL (160-400); Red Blood Count 5.16 X10*6/uL (4.60-5.80); Red Cell Distribution Width 14.2 % (11.0-16.0); White Blood Count 5.7 X10*3/uL (4.8-10.8)
[2024-12-30 13:24] LABS: Appearance Urine Clear; Color Urine Yellow; Glucose Urine UA Negative (Negative); Leukocyte Esterase Urine Negative (Negative); Nitrite Urine Negative (Negative); PH 5.5 (5.0-9.0); Specific Gravity - Urine 1.015 (1.005-1.025); Urine Blood Negative (Negative); Urine Ketones Negative (Negative); Urine Protein Negative (Neg-Trace)
[2024-12-30 13:44] LABS: Alanine Aminotransferase 25 U/L (0-40); Albumin Level 4.2 g/dL (3.5-5.0); Alkaline Phosphatase 121 U/L (39-117); Anion Gap 11 (12-20); Aspartate Amino Transferase 26 U/L (5-37); Bilirubin Direct 0.3 mg/dL (0.0-0.5); Bilirubin Total 1.2 mg/dL (0.0-1.0); Blood Urea Nitrogen 16 mg/dL (9-16); Calcium 9.4 mg/dL (8.4-10.2); Carbon Dioxide 28 mmol/L (22-29); Chloride 108 mmol/L (96-108); Estimated Glomerular Filt Rate > 60; Glucose Random 108 mg/dL (60-115); Potassium 4.7 mmol/L (3.3-5.1); Sodium 142 mmol/L (135-145); Total Protein 6.8 g/dL (6.5-8.0)
[2024-12-31 07:03] LABS: Rubella IgG Antibody 7.85 Index
[2025-01-02 21:03] LABS: Angiotensin Converting Enzyme 7 U/L (9-67)
== END 2024-12-30 10:33 | disposition home or self-care (01) ==
LOC: HO.HMGCLDS 10:32
PROVIDERS: PCP Nurse Practitioner Family; Referring Provider Hospitalist; Visit Provider Nurse Practitioner Family
DX: Z00.00 Encounter for general adult medical examination without abnormal findings (principal); Z28.39 Other underimmunization status; D86.9 Sarcoidosis, unspecified
CPT/HCPCS: 36415; 80048; 80076; 81003; 82164; 84443; 85025; 86735; 86762; 86765; 96127

== ENCOUNTER 2024-12-30 10:32 | Outpatient (AMB) | payer OTHER, SELFPAY ==
[2024-12-30 10:34] VITALS: BP 110/66; PULSE 67; RESP 18; TEMP 36.8; O2SAT 95; BMI 37.6
--- NOTE | 2024-12-30 10:34 | A.OFFPC_ITS ---
Vital Signs 12/30/24 10:34 Height 5 ft 10 in Weight 262 lb BMI 37.6 BP 110/66 Blood Pressure Location Lt brachial Position Sitting Respiration 18 Pulse 67 Pulse Source Pulse Oximeter Temp 98.2 F Temp Source Oral Pulse Oximetry (%) 95 Oxygen Delivery Method Room Air Intake Visit Reasons: Annual PE Intake Note: Pt is here today for PE. Pt states that he needs a refill in Tramadol. Allergies amoxicillin [AMOXICILLIN] Allergy (Severe, Verified 12/30/24 11:30) DIFF BREATHING Medication List - Last Reconciled 12/30/24 by Yury Menchaca, [facility]- albuterol sulfate 90 mcg/actuation (ProAir RespiClick) 2 inhalations inhalation Q6H PRN 30 days albuterol sulfate 2.5 mg (3 mL) inhalation Q6H PRN 30 days apixaban (Eliquis) 5 mg PO BID atorvastatin 40 mg PO DAILY 90 days carvedilol 6.25 mg PO BID cetirizine (All Day Allergy (cetirizine)) 10 mg PO DAILY PRN cholecalciferol (vitamin D3) (Vitamin D3) 25 mcg PO DAILY citalopram 20 mg PO BEDTIME 90 days CPAP (CPAP Machine/Device) As directed famotidine (Pepcid) 20 mg PO DAILY fluticasone propion-salmeterol 115-21 mcg/actuation (Advair HFA) 2 puffs inhalation Q12H 30 days lisinopril 20 mg PO BEDTIME 90 days multivitamin 1 tab PO DAILY mycophenolate mofetil (CellCept) 500 mg PO BID 30 days nebulizers As directed ondansetron 8 mg PO Q12H PRN 10 days spironolactone 25 mg PO BEDTIME 90 days tramadol 50 mg PO BID PRN 20 days Tobacco use date assessed: 12/30/24 Dental Screening Dental Screen Date: 12/30/24 Did you have a dental visit in the last 12 months?: Yes Did you have a dental problem in the last 6 months where you did not have access to dental care?: No Was dental information given to patient?: Patient has dentist HPI Annual PE HPI Details History of Present Illness The patient is a 64-year-old male presenting for a routine physical examination and follow-up regarding a past dog bite to the left anterior brar. The injury received treatment with antibiotics at the time, and it is presently showing signs of healing, with some scabbing and slight erythema noted but no active infection apparent. Health Maintenance - Regular follow-up with urology for [facility] - Routine monitoring with hematology/onc ology - Regular visits to pulmonology -colon screen is up to date Social History Review of Systems - Skin: Reports healing lesion on the le ft anterior brar - General: Denies signs or symptoms of i nfection -denies any fevers, chills, cp, sob, con stipation, diarrhea, urinary issues, n/v, blood in stool, SI or HI. Physical Exam General: Cooperative, healthy appearing, comfortable, no acute distress and well developed Orientation: Patient oriented x3 Limitations: No limitations Head: Normal to inspection Ears: Hearing grossly normal bilaterally Nose: Normal external nose present Face and sinus: Normal facial exam Eyes: Appearance normal, both eyes and all related structures Neck: Normal visual inspection and Yes full ROM Respiratory: Lungs are fairly clear by auscultation bilaterally Cardiovascular: Regular rate and rhythm. Normal S1 and S2 GI: Normal to inspection. Soft to palpation and nontender Skin: Healing lesion on the left anterior brar with surrounding indurated tissue, slightly erythematous, not warm to touch, no active drainage. Scabbing noted in the center. Neuro: Patient oriented x3 Extremities: Positive dorsalis pedis somewhat weak to the left, no tenderness with touch around the region. Normal to inspection Results Plan Monitoring will continue for the lesion on the left anterior brar to ensure healing progresses without complications. The patient declines signs of infection, indicating the current treatment is effective. No additional PSA testing will be conducted since it is being managed by urology. Regular follow- ups will persist with the patient's current specialists to manage ongoing health concerns, and attention to weight management is advised to address obesity. Discussion Notes Patient Instructions - Keep an eye on the brar lesion for any changes like increased redness, warmth, or drainage. - Maintain regular appointments with the urologist, steward/stewardess wine, and manager public/oncologist. - Monitor weight and consider lifestyle changes for better management of obesity. - Continue antibiotics as previously pre scribed and consult if any issues arise. [facility] Medical History Physical exam Enlarged prostate BMI 37.0-37.9, adult Muscle strain Hip pain Screening for colon cancer Right calf pain Hip pain, right Elevated bilirubin Elevated alkaline phosphatase level Obesity Anxiety Depression COPD (chronic obstructive pulmonary disease) GERD (gastroesophageal reflux disease) DDD (degenerative disc disease), cervical History of non-ST elevation myocardial infarction (NSTEMI) History of pulmonary embolism Cataract HLD (hyperlipidemia) HTN (hypertension) Cough NANCY on CPAP Sarcoidosis Asthma Surgical History History of bone marrow biopsy History of tonsillectomy History of vasectomy History of endoscopy History of hernia repair History of colonoscopy Family History Father Family history of high blood pressure Mother History of colon cancer History of abdominal aortic aneurysm (AAA) Brother Prostate cancer Social History Household Members: Spouse Housing: House Do you presently have visiting nurse or other home services: No Alcohol intake: never Patient Tobacco Use Status: Former Tobacco user Tobacco use type: Cigarette e-Cigarette/Vaping Use: Never Used Second Hand Smoke Exposure: No Advance Directives Date on File: 11/13/21 service: No Current occupational status: retired Cognitive needs: No Hearing needs: No Vision needs: No Questionnaire PHQ-9 Over the last 2 weeks, how often have you been bothered by any of the following problems? 1. Little interest or pleasure in doing things: not at all 2. Feeling down, depressed, or hopeless: not at all 3. Trouble falling or staying asleep, or sleeping too much: nearly every day 4. Feeling tired or having little energy: not at all 5. Poor appetite or overeating: nearly every day 6. Feeling bad about yourself - or that you are a failure or have let yourself or your family down: not at all 7. Trouble concentrating on things, such as reading the newspaper or watching television: not at all 8. Moving or speaking so slowly that other people could have noticed. Or the opposite - being so fidgety or restless that you have been moving around a lot more than usual: not at all 9. Thoughts that you would be better off or of hurting yourself in some way: not at all Total score: 6 Depression Screening Interpretation: Negative Depression Screening Done: Yes 52438 - PHQ-9 Billing: Yes Source: Developed by Drs. Pete Carter, Tamika Corbin, Dennis Bearden and colleagues, with an educational bhargav from [employer]. Thrive Questionnaire Date Thrive assessed: 12/30/24 I am a: Patient What is your living situation today?: I have a steady place to live Within the past 12 months, did the food you bought not last and you didn't have the money to get more?: Never true Within the past 12 months, did you worry whether your food would run out before you got money to buy more?: Never true Do you have trouble paying for medicines?: No Do you have trouble getting transportation to medical appointments?: No Do you have trouble paying your heating and electricity bill?: No Do you have trouble taking care of your child, family member or friend?: No Do you have trouble with day-to-day activities such as bathing, preparing meals, shopping, managing finances, etc.?: No Are you currently unemployed and looking for a job?: No Are you interested in more education?: No Please select the resources that you would like help with: None Currently or been in a relationship where the following occur: No concerns reported THRIVE Score: 0 AUDIT C Alcohol Use Questionnaire (AUDIT-C) 1. How often do you have a drink containing alcohol?: Monthly or less 2. How many drinks containing alcohol do you have on a typical day when you are drinking?: 1 or 2 3. How often do you have six or more drinks on one occasion?: Never Total Score: 1 SILVANA-7 AMB Questionnaire SILVANA-7 Date SILVANA - 7 assessed: 12/30/24 Feeling nervous, anxious, or on edge: 0 = Not at all Not being able to stop or control worryin = Not at all Worrying too much about different things: 0 = Not at all Trouble relaxin = Nearly every day Being so restless that it is hard to sit still: 0 = Not at all Becoming easily annoyed or irritable: 0 = Not at all Feeling afraid as if something awful might happen: 0 = Not at all Total SILVANA-7 score (0-4 normal; 5-9 mild; 10-14 moderate; 15-21 severe): 3 Source: Developed by Drs. Pete Carter, Tamika Corbin, Dennis Bearden and colleagues, with an educational bhargav from [employer]. SILVANA-7 Assessment Billing SILVANA-7 Assessment Tool: SILVANA-7 Assessment 97212 Physical exam (Primary Care) Vital Signs: Last Vital Signs Temp 98.2 F 12/30/24 10:34 Pulse 67 12/30/24 10:34 Resp 18 12/30/24 10:34 BP 110/66 12/30/24 10:34 Pulse Ox 95 12/30/24 10:34 Oxygen Delivery Method Room Air 12/30/24 10:34 BMI result Body Mass Index 37.6 Tobacco/Smoking Status: Tobacco use Status Tobacco use date assessed 12/30/24 12/30/24 10:35 Patient Tobacco Use Status Former Tobacco user 12/30/24 10:35 Tobacco use type Cigarette 12/30/24 10:35 e-Cigarette/Vaping Use Never Used 12/30/24 10:35 PHQ-9: PHQ-9 Score PHQ-9: Total score 6 12/30/24 10:35 Depression Screening Interpretation: Negative Thrive Assessment: Date of Thrive Assessment Date Thrive assessed 12/30/24 12/30/24 10:35 Currently or been in a relationship where the following occur: No concerns reported Coding Level of Care Code Est Pt Prev Care 40-64y(93559) Diagnoses Physical exam Z00.00 Immunizations incomplete Z28.39 Additional Codes SILVANA-7 Assessment Billing - SILVANA-7 Assessment Tool: SILVANA-7 Assessment 11040 ([id number]) PHQ-9 - 84962 - PHQ-9 Billing: Yes ([id number]) Assessment & Plan Assessment & Plan (1) Physical exam: Code(s): Z00.00 - Encounter for general adult medical examination without abnormal findings Category: Medical (2) Immunizations incomplete: Code(s): Z28.39 - Other underimmunization status Category: Medical Plan . Orders: Orders Comprehensive [place]. Panel Fast Today Z00.00 - Encounter for general adult medical examination without abnormal findings TSH reflex Free T4 Today Z00.00 - Encounter for general adult medical examination without abnormal findings UA CC w/rflx Micro + Cult Today Z00.00 - Encounter for general adult medical examination without abnormal findings Complete Blood Count Auto Diff Today Z00.00 - Encounter for general adult medical examination without abnormal findings Lipid Panel Today Z00.00 - Encounter for general adult medical examination without abnormal findings MMR IgG Measles Mumps Rubella Today Z28.39 - Other underimmunization status Medications: Refilled tramadol 50 mg PO BID PRN 40 tabs 0RF pain 20 days
--- OUTSIDE RECORDS SUMMARY | 2024-12-30 10:35 | XMS_ITS | Encounter Summary ---
Author Organization [facility] Address [address] [place] [address] Care Team Providers Care Bordereau Clerk Name Role Phone Amilcar Leggett MD Primary Care Provider [phone] Lazaro Chand MD Primary Care Provider [facility], Pcp [facility] Reason for Visit * Reason Onset Date Comments Testing 06/11/2019 Encounter Details Date Type Department Care Team Description 06/11/2019 Telephone Adult Medicine [address] [address] Cady Rivera PA-C Testing Social History Tobacco [...] on filedocumented in this encounter Care Teams Bordereau Clerk Relationship Specialty Start Date End Date Amilcar Leggett MD [address] [place] [address] PCP - General 05/09/11 05/25/21 Lazaro Chand MD [address] [place] [address] PCP - General Internal Medicine 05/26/21 04/05/22 [facility], Pcp [address] [place] [address] PCP - General Internal Medicine 04/06/22 documented as of this encounter
--- OUTSIDE RECORDS SUMMARY | 2024-12-30 10:35 | XMS_ITS | Encounter Summary ---
Author Organization [facility] Address [address] [place] [address] Care Team Providers Care Business Development Manager Name Role Phone Amilcar Leggett MD Primary Care Provider [phone] Lazaro Chand MD Primary Care Provider Antoinette herring [facility], Pcp Primary Care Provider [facility] e Encounter Details Date Type Department Care Team Description 07/02/2018 Pt. Non Urgent Medical Question Hypertension - [place] [address] [place] [address] Zuleyma Woodward, Pharm.D Social History Tobacco Use [...] filedocumented in this encounter Care Teams Business Development Manager Relationship Specialty Start Date End Date Amilcar Leggett MD [address] [place] [address] [phone] PCP - General 05/09/11 05/25/21 Lazaro Chand MD [address] [place] [address] PCP - General Internal Medicine 05/26/21 04/05/22 [facility], [address] [place] [address] PCP - General Internal Medicine 04/06/22 documented as of this encounter
--- OUTSIDE RECORDS SUMMARY | 2024-12-30 10:35 | XMS_ITS | Encounter Summary ---
Author Organization [facility] Address [address] [place] [address] Care Team Providers Care Inpatient Coder Name Role Phone Amilcar Leggett MD Primary Care Provider [phone] Lazaro Chand MD Primary Care Provider [facility], Pcp Primary Care Provider [facility] e Encounter Details Date Type Department Care Team Description 03/23/2018 Pt. Non Urgent Medical Question Hypertension - [place] [address] [place] [address] Zuleyma Woodward, David.D Social History Tobacco Use Types Packs/Day Years Used Date Smoking Tobacco: Former Cigarettes 0.5 4 0 01/26/1980 - 07/12/1998 Smokeless Tobacco: Former Comments:quit x 8 years Alcohol Use Standard Drinks/Week Comments Yes 0 (1 standard drink = 0.6 oz pur e alcohol) occasional Sex Assigned at Date Recorded Male 01/17/2022 6:12 PM E DT documented as of this encounter Progress Notes * Pharm. JaimeeD - 03/26/2018 8:42 AM EDTFrom: Christiano Sungbia To: Pharm. JaimeeD Sent: 03/23/2018 8:54 PM EDT Subject: Blood pressure creeping up Brooks Amor I've put off sending a message hoping things would improve, but I have to admit my blood pressure numbers are creeping up, examples this afternoon 141/84, this morning 142/88, yesterday afternoon 143/88, morning 136/92. Looking for your thoughts. Thank you, Anastacio Dorado documented in this encounter Plan of Treatment Not on file documented as of this encounter Visit Diagnoses Not on filedocumented in this encounter Care Teams Inpatient Coder Relationship Specialty Start Date End Date Amilcar Leggett MD [address] [place] [address] PCP - General 05/09/11 05/25/21 Lazaro Chand MD [address] [place] [address] PCP - General Internal Medicine 05/26/21 04/05/22 [place] [address] PCP - General Internal Medicine 04/06/22 documented as of this encounter
--- OUTSIDE RECORDS SUMMARY | 2024-12-30 10:35 | XMS_ITS | Encounter Summary ---
Author Organization [facility] Address [address] [place] [address] Care Team Providers Care Air And Missile Defense Crewmember Name Role Phone Amilcar Leggett MD Primary Care Provider [phone] Lazaro Chand MD Primary Care Provider [facility], Pcp Primary Care Provider [facility] Encounter Details Date Type Department Care Team Description 12/13/2019 Factory Manager Report Medical Records [address] [place] [address] Corby Dumont MD Social History Tobacco Use [...] on filedocumented in this encounter Care Teams Air And Missile Defense Crewmember Relationship Specialty Start Date End Date Amilcar Leggett MD [address] [place] [address] PCP - General 05/09/11 05/25/21 Lazaro Chand MD [address] [place] [address] PCP - General Internal Medicine 05/26/21 04/05/22 [facility], Pcp [address] [place], [place] [phone] PCP - General Internal Medicine 04/06/22 documented as of this encounter
--- OUTSIDE RECORDS SUMMARY | 2024-12-30 10:35 | XMS_ITS | Encounter Summary ---
Author Organization [facility] Address [address] [place] [address] Care Team Providers Care Bi Developer Name Role Phone Amilcar Leggett MD Primary Care Provider Lazaro Chand MD Primary Care Provider [facility], Pcp Primary Care Provider [facility] e Encounter Details Date Type Department Care Team Description 03/06/2016 Refill Adult Medicine [facility] [address] [place] [address] Jose Luis Walsh PA-C [address] [place] [address] [phone] Social History Tobacco Use Types Packs/Day Years [...] Preferred pharmacy: [facility] [address] Comment: documented in this encounter Plan of Treatment Not on file documented as of this encounter Visit Diagnoses Diagnosis Hypertension Unspecified essential hypertension documented in this encounter Care Teams Bi Developer Relationship Specialty Start Date End Date Amilcar Leggett MD [address] [place] [address] PCP - General 05/09/11 05/25/21 Lazaro Chand MD [address] [place] [address] PCP - General Internal Medicine 05/26/21 04/05/22 [facility], Pcp [address] [place], [place] [phone] PCP - General Internal Medicine 04/06/22 documented as of this encounter
--- OUTSIDE RECORDS SUMMARY | 2024-12-30 10:35 | XMS_ITS | Encounter Summary ---
Author Organization [facility] Address [address] [place] [address] Care Team Providers Care Travel Freight And Passenger Agent Name Role Phone Amilcar Leggett MD Primary Care Provider [phone] Lazaro Chand MD Primary Care Provider [facility], Pcp Primary Care [facility] Encounter Details Date Type Department Care Team Description 06/03/2019 Orders Only Medical Records [address] [place] [address] Abstract, Provider Social History Tobacco Use Types [...] on filedocumented in this encounter Care Teams Travel Freight And Passenger Agent Relationship Specialty Start Date End Date Amilcar Leggett MD [address] [place] [address] PCP - General 05/09/11 05/25/21 Lazaro Chand MD [address] [place] [address] PCP - General Internal Medicine 05/26/21 04/05/22 [facility], Pcp [address] [place] [address] PCP - General Internal Medicine 04/06/22 documented as of this encounter
--- OUTSIDE RECORDS SUMMARY | 2024-12-30 10:35 | XMS_ITS | Encounter Summary ---
Author Organization [facility] Address [address] [place] [address] Care Team Providers Care Strike Out Machine Operator Name Role Phone Amilcar Leggett MD Primary Care Provider [phone] Lazaro Chand MD Primary Care Provider [facility], Pcp Primary Care Provider [facility] e Encounter Details Date Type Department Care Team Description 09/28/2015 PLANTING MACHINE OPERATOR/[employer] Report Medical Records [address] [place] [address] Abstract, Provider Social History Tobacco Use Types [...] on filedocumented in this encounter Care Teams Strike Out Machine Operator Relationship Specialty Start Date End Date Amilcar Leggett MD [address] [place] [address] PCP - General 05/09/11 05/25/21 Lazaro Chand MD [address] [place] [address] PCP - General Internal Medicine 05/26/21 04/05/22 [facility], Pcp [address] [place] [address] PCP - General Internal Medicine 04/06/22 documented as of this encounter
--- OUTSIDE RECORDS SUMMARY | 2024-12-30 10:36 | XMS_ITS | Encounter Summary ---
Author Organization [facility] Address [address] [place] [address] Care Team Providers Care Rehab Liaison Name Role Phone Amilcar Leggett MD Primary Care Provider [phone] Lazaro Chand MD Primary Care Provider [facility], Pcp Primary Care Provider [facility] Encounter Details Date Type Department Care Team Description 10/04/2017 Hospital Medical Records [address] [place] [address] Hira Houston MD Social History Tobacco Use [...] on filedocumented in this encounter Care Teams Rehab Liaison Relationship Specialty Start Date End Date Amilcar Leggett MD [address] [place], [place] [phone] PCP - General 05/09/11 05/25/21 Lazaro Chand MD [address] [place] [address] PCP - General Internal Medicine 05/26/21 04/05/22 [facility], Pcp [address] [place], [place] [phone] PCP - General Internal Medicine 04/06/22 documented as of this encounter
--- OUTSIDE RECORDS SUMMARY | 2024-12-30 10:36 | XMS_ITS | Clinical Summary ---
Author Organization [facility] Address [address] [place] [address] Care Team Providers Care Facilities Flight Check Pilot Name Role Phone Amilcar Leggett MD Primary Care Provider [phone] Allergies Active Allergy Reactions Criticality Noted Date [...] ADULT PO) Take by mouth. 0 Active Enola-3 Fatty Acids (FISH OIL) 1000 MG CAPS Take by mouth. 0 Active aspirin EC 81 MG tablet Take 81 mg by mouth daily. 0 Active Active Problems Problem Noted Date Diagnosed Date Other pulmonary embolism with acute cor pulmonal e 06/05/2019 Overview: Overview: ? Provoked had driven to [place] Sarcoidosis of lymph nodes 10/02/2017 Obstructive sleep apnea 08/30/2017 Overview: Overview: SMS Home Polysomnogram: Date 08/25/2017; AHI 39, Unclassified apneas 0; Obstructive apneas 91; Central apneas 5; Mixed apneas 5; hypopneas 37; average oxygen saturation 89% (lowest 67% with saturations <88% for 5% or more of study) [facility] [place] study. Date [...] age to complete this topic Care Teams Facilities Flight Check Pilot Relationship Specialty Start Date End Date Amilcar Leggett MD PCP - General Plumbing Technician 04/24/20
--- OUTSIDE RECORDS SUMMARY | 2024-12-30 10:36 | XMS_ITS | Encounter Summary ---
Author Organization [facility] Address [address] [place] [address] Care Team Providers Care Polisher Sand Name Role Phone Lazaro Chand MD Primary Care Provider Antoinette Kunz, Pcp Primary Care Provider Filiberto ibarra Encounter Details Date Type Department Care Team Description 01/12/2022 Functional Director Report Medical Records [address] [place] [address] Sabrina Shabazz FNP Social History Tobacco Use [...] on filedocumented in this encounter Care Teams Polisher Sand Relationship Specialty Start Date End Date Lazaro Chand MD PCP - General Internal Medicine 05/26/21 04/05/22 Joaquina, Pcp PCP - General Internal Medicine 04/06/22 documented as of this encounter
--- OUTSIDE RECORDS SUMMARY | 2024-12-30 10:36 | XMS_ITS | Encounter Summary ---
Author Organization [facility] Address [address] [place] [address] Care Team Providers Care Meter Tester Polyphase Name Role Phone Amilcar Leggett MD Primary Care Provider [phone] Lazaro Chand MD Primary Care Provider [facility], Pcp Primary Care Provider [facility] Encounter Details Date Type Department Care Team Description 11/22/2017 Pt. Non Urgent Medical Question Adult Medicine [address] [address] Amilcar Leggett MD [address] [place] [address] Social History Tobacco Use Types Packs/Day Years Used Date Smoking Tobacco: Former Cigarettes 0.5 4 Q uit: 07/12/1998 Smokeless Tobacco: Former Comments:quit x 8 years Alcohol Use Standard Drinks/Week Comments Yes 0 (1 standard drink = 0.6 oz pur e alcohol) occasional Sex Assigned at Date Recorded Male 01/17/2022 6:12 PM E DT documented as of this encounter Progress Notes * Erika Piper M.A. - 11/23/2017 8:38 AM EDTFrom: [address] To: Amilcar Leggett MD Sent: 11/22/2017 9:11 PM EDT Subject: Sleep study results Jared, I received your message about the overnight sleep study test. What is the next step? Do I see you to get a prescription for a CPAP machine? Or do I need to see apulmonologist? And if I should see Pulmonology, do I see Dr Houston again for that? I'm looking forward to feeling better so I'd like to get this process started. Thank you, Anastacio documented in this encounter Plan of Treatment Not on file documented as of this encounter Visit Diagnoses Not on filedocumented in this encounter Care Teams Meter Tester Polyphase Relationship Specialty Start Date End Date Amilcar Leggett MD [address] [place] [address] PCP - General 05/09/11 05/25/21 Lazaro Chand MD [address] [place] [address] PCP - General Internal Medicine 05/26/21 04/05/22 [facility], Pcp [address] [place] [address] PCP - General Internal Medicine 04/06/22 documented as of this encounter
--- OUTSIDE RECORDS SUMMARY | 2024-12-30 10:36 | XMS_ITS | Encounter Summary ---
Author Organization [facility] Address [address] [place] [address] Care Team Providers Care Corsets Salesperson Name Role Phone Amilcar Leggett MD Primary Care Provider [phone] Lazaro Chand MD Primary Care Provider [facility], Pcp Primary Care Provider [facility] e Encounter Details Date Type Department Care Team Description 08/30/2017 Orders Only Medical Records [address] [place] [address] Amilcar Leggett MD [address] [place] [address] Social History Tobacco Use Types Packs/Day Years [...] on filedocumented in this encounter Care Teams Corsets Salesperson Relationship Specialty Start Date End Date Amilcar Leggett MD [address] [place] [address] PCP - General 05/09/11 05/25/21 Lazaro Chand MD [address] [place] [address] PCP - General Internal Medicine 05/26/21 04/05/22 [facility], Pcp [address] [place] [address] PCP - General Internal Medicine 04/06/22 documented as of this encounter
--- OUTSIDE RECORDS SUMMARY | 2024-12-30 10:36 | XMS_ITS | Encounter Summary ---
Author Organization [facility] Address [address] [place] [address] Care Team Providers Care Flight Test Data Acquisition Technician Name Role Phone Amilcar Leggett MD Primary Care Provider [phone] Lazaro Chand MD Primary Care Provider Antoinette herring [facility], Pcp Primary Care Provider [facility] Encounter Details Date Type Department Care Team Description 06/17/2016 Hospital Medical Records [address] [place] [address] Jay Bose Social History Tobacco Use Types Packs/Day Years [...] on filedocumented in this encounter Care Teams Flight Test Data Acquisition Technician Relationship Specialty Start Date End Date Amilcar Leggett MD [address] [place] [address] PCP - General 05/09/11 05/25/21 Lazaro Chand MD [address] [place] [address] PCP - General Internal Medicine 05/26/21 04/05/22 [facility], Pcp [address] [place] [address] PCP - General Internal Medicine 04/06/22 documented as of this encounter
--- OUTSIDE RECORDS SUMMARY | 2024-12-30 10:36 | XMS_ITS | Encounter Summary ---
Author Organization [facility] Address [address] [place] [address] Care Team Providers Care Surgery Consultant Name Role Phone Lazaro Cahnd MD Primary Care Provider Antoinette Kunz, Pcp Primary [facility] Encounter Details Date Type Department Care Team Description 12/02/2021 Steam Distribution Supervisor Report Medical Records [address] [place] [address] Sabrina Shabazz FNP Social History Tobacco Use [...] on filedocumented in this encounter Care Teams Surgery Consultant Relationship Specialty Start Date End Date Lazaro Chand MD PCP - General Internal Medicine 05/26/21 04/05/22 [facility], Pcp PCP - General Internal Medicine 04/06/22 documented as of this encounter
--- OUTSIDE RECORDS SUMMARY | 2024-12-30 10:36 | XMS_ITS | Encounter Summary ---
Author Organization [facility] Address [address] [place] [address] Care Team Providers Care Jewel Bearing Facer Name Role Phone Amilcar Leggett MD Primary Care Provider [phone] Lazaro Chand MD Primary Care Provider [facility], Pcp Primary Care Provider [facility] Encounter Details Date Type Department Care Team Description 03/31/2020 Facing Cutting Machine Operator Report Medical Records [address] [place] [address] Corby Dumont MD Social History Tobacco Use [...] on filedocumented in this encounter Care Teams Jewel Bearing Facer Relationship Specialty Start Date End Date Amilcar Leggett MD [address] [place] [address] PCP - General 05/09/11 05/25/21 Lazaro Chand MD [address] [place] [address] PCP - General Internal Medicine 05/26/21 04/05/22 [facility], Pcp [address] [place], [place] [phone] PCP - General Internal Medicine 04/06/22 documented as of this encounter
--- OUTSIDE RECORDS SUMMARY | 2024-12-30 10:36 | XMS_ITS | Encounter Summary ---
Author Organization [facility] Address [address] [place] [address] Care Team Providers Care Quality And Reliability Engineer Name Role Phone Amilcar Leggett MD Primary Care Provider [phone] Lazaro Chand MD Primary Care Provider [facility], Pcp Primary Care Provider [facility] Encounter Details Date Type Department Care Team Description 02/27/2018 Plant Maintenance Engineer Report Medical Records [address] [place], [place] [id number] InstrumWojciech Social History Tobacco Use Types Packs/Day [...] on filedocumented in this encounter Care Teams Quality And Reliability Engineer Relationship Specialty Start Date End Date Amilcar Leggett MD [address] [place], [place] [phone] PCP - General 05/09/11 05/25/21 Lazaro Chand MD [address] [place] [address] PCP - General Internal Medicine 05/26/21 04/05/22 [facility], Pcp [address] [place], [place] [phone] PCP - General Internal Medicine 04/06/22 documented as of this encounter
--- OUTSIDE RECORDS SUMMARY | 2024-12-30 10:36 | XMS_ITS | Encounter Summary ---
Author Organization [facility] Address [address] [place] [address] Care Team Providers Care Health Clinician Name Role Phone Amilcar Leggett MD Primary Care Provider [phone] Lazaro Chand MD Primary Care Provider [facility], Pcp Primary Care Provider [facility] Encounter Details Date Type Department Care Team Description 05/05/2020 Director University Report Medical Records [address] [place], [place] [id number] InstrumWojciech Social History Tobacco Use Types Packs/Day [...] on filedocumented in this encounter Care Teams Health Clinician Relationship Specialty Start Date End Date Amilcar Leggett MD [address] [place], [place] [phone] PCP - General 05/09/11 05/25/21 Lazaro Chand MD [address] [place] [address] PCP - General Internal Medicine 05/26/21 04/05/22 [facility], Pcp [address] [place], [place] [phone] PCP - General Internal Medicine 04/06/22 documented as of this encounter
--- OUTSIDE RECORDS SUMMARY | 2024-12-30 10:36 | XMS_ITS | Encounter Summary ---
Author Organization [facility] Address [address] [place] [address] Care Team Providers Care Shipping Support Name Role Phone Amilcar Leggett MD Primary Care Provider [phone] Lazaro Chand MD Primary Care Provider [facility], Pcp Primary [facility] Reason for Visit * Reason Comments E-prescribe Rx Request Encounter Details Date Type Department Care Team Description 10/08/2018 Refill Adult Medicine [address] [address] Amilcar Leggett MD [address] [place] [address] E-prescribe Rx Request Social History Tobacco Use [...] N/A Patients current insurance carrier is: Payor: -[place] / Plan: PPO $20 [place] [id number] / ProductType: PPO [id number] documented in this encounter Plan of Treatment Not on file documented as of this encounter Visit Diagnoses Not on filedocumented in this encounter Care Teams Shipping Support Relationship Specialty Start Date End Date Amilcar Leggett MD [address] [place] [address] PCP - General 05/09/11 05/25/21 Lazaro Chand MD [address] [place] [address] PCP - General Internal Medicine 05/26/21 04/05/22 [facility], Pcp [facility] SABRINA Kowalski [address] PCP - General Internal Medicine 04/06/22 documented as of this encounter
--- OUTSIDE RECORDS SUMMARY | 2024-12-30 10:36 | XMS_ITS | Encounter Summary ---
Author Organization [facility] Address [address] [place] [address] Care Team Providers Care Assistant Corporation Counsel Name Role Phone Amilcar Leggett MD Primary Care Provider [phone] Lazaro Chand MD Primary Care Provider [facility], Pcp Primary Care Provider [facility] e Encounter Details Date Type Department Care Team Description 07/10/2020 Transfer Records Medical Records [address] [place] [address] Abstract, Provider Social History Tobacco Use Types [...] on filedocumented in this encounter Care Teams Assistant Corporation Counsel Relationship Specialty Start Date End Date Amilcar Leggett MD [address] [place] [address] PCP - General 05/09/11 05/25/21 Lazaro Chand MD [address] [place] [address] PCP - General Internal Medicine 05/26/21 04/05/22 [facility], Pcp [address] [place] [address] PCP - General Internal Medicine 04/06/22 documented as of this encounter
--- OUTSIDE RECORDS SUMMARY | 2024-12-30 10:36 | XMS_ITS | Encounter Summary ---
Author Organization [facility] Address [address] [place] [address] Care Team Providers Care Clamp Forklift Operator Name Role Phone Amilcar Leggett MD Primary Care Provider [phone] Lazaro Chand MD Primary Care Provider [facility], Pcp Primary Care [facility] Encounter Details Date Type Department Care Team Description 03/20/2020 Orders Only Medical Records [address] [place] [address] Abstract, Provider Social History Tobacco Use Types [...] on filedocumented in this encounter Care Teams Clamp Forklift Operator Relationship Specialty Start Date End Date Amilcar Leggett MD [address] [place] [address] PCP - General 05/09/11 05/25/21 Lazaro Chand MD [address] [place] [address] PCP - General Internal Medicine 05/26/21 04/05/22 [facility], Pcp [address] [place] [address] PCP - General Internal Medicine 04/06/22 documented as of this encounter
--- OUTSIDE RECORDS SUMMARY | 2024-12-30 10:36 | XMS_ITS | Clinical Summary ---
Author Organization [facility] Address [address] [place] [address] Phone Care Team Providers Care Straddle Truck Operator Name Role Phone Yury Menchaca NP Primary Care Provider [phone] Allergies Active Allergy Reactions Criticality Noted Date [...] dog, subsequent encounter 09/27/2024 Ascending aorta dilatation ([facility] V24) 022 Overview (09/13/2024): 4. 2 cm seen on ECHO 11/2021 NSTEMI (non-ST elevated myoc ardial infarction) ([facility] V24, [facility] V28) 12/20/2021 GERD (gastroesophageal reflux disease) Severe obesity (BMI 35.0-39. 9) with comorbidity [place] [place], [facility] V28) 07/08/2020 Other pulmonary embolism wit h acute cor pulmonale ([facility] [place], [facility] V28) 06/05/2019 Overview (09/13/2024): ? Provoked had driven to [place] Moderate persistent asthma without complication 04/03/2019 Sarcoidosis of lymph nodes 10/02/2017 Overview (09/13/2024): 2018 Obstructive sleep apnea 08/30/2017 Overview (09/13/2024): [facility] Home Polysomnogram: Date 08/25/2017; AHI 39, [...] once, no complications. Hypertension 08/23/2007 Depression 12/30/2005 Surgical History Surgery Date Site/Laterality Comments HERNIA REPAIR Left PROCEDURE: HISTORICAL HERNIA REPAIR/ING; COMMENT: x 2 surgeries TONSILLECTOMY PROCEDURE: HISTORICAL TONSILLECTOMY COLONOSCOPY 12/2008 PROCEDURE: HISTORICAL COLONOSCOPY; COMMENT: Negative screening examination. COLONOSCOPY 06/06/2017 PROCEDURE: HISTORICAL COLONOSCOPY; COMMENT: Diverticulosis; otherwise negative examination. VASECTOMY PROCEDURE: HISTORICAL VASECTOMY UPPER GASTROINTESTINAL ENDOSCOPY 04/30/2020 PROCEDURE: CT UPPER GI ENDOSCOPY PERFORMED; COMMENT: rosmery,esophagitis, mild [...] Severe obesity (BMI 35.0-39. 9) with comorbidity (CMS/HCC V24, CMS/HCC V28) 07/08/2020 DX:Severe obesi ty (BMI 35.0- 39.9) with comorbidity (HCC) Diverticulitis [...] 19+ 3-dose series) 10/19/2016 09/21/2016 RSV Immunization Adult Patients (1 - Risk 60-74 years 1-dose series) [...] age to complete this topic Meningococcal B Vaccine Aged Out No l onger eligible based on patient's age to complete this topic RSV Immunization Patients Under 20 months Aged Out No longer eligible based on patient's age to complete this topic Varicella Vaccines Aged Out No longer eligible based on patient's age to complete this topic Insurance [employer] [facility] Care Teams Straddle Truck Operator Relationship Specialty Start Date End Date Yury Menchaca NP PCP - General Family Medicine 09/20/24
--- OUTSIDE RECORDS SUMMARY | 2024-12-30 10:36 | XMS_ITS | Clinical Summary ---
Author Organization [facility] Address [address] [place] [address] Care Team Providers Care Oriental Rug Stretcher Name Role Phone Community, Pcp Primary Care [...] Overview: 2017 ? Provoked had driven to [place] Moderate persistent asthma without compl ication 04/03/2019 Sarcoidosis of lymph nodes 10/02/2017 Overview: 2018 Obstructive sleep apnea severe AHI 39 wi th sleep related hypoxia 08/30/2017 Overview: [facility] Home Polysomnogram: Date 08/25/2017; AHI 39, Unclassified apneas 0; Obstructive apneas 91; Central apneas 5; Mixed apneas 5; hypopneas 37; average oxygen saturation 89% (lowest 67% with saturations <88% for 5% or more of study) [facility] [place]ysom[place] study. Date 11/13/2017. SE 51 [...] 013,09/13/2012,06/21/2011,07/06/2010,01/2008 Influenza Flu (PT Reported) 07/04/2017 MMR (Jhwhdzx-Jpivf-Nurvabz) 09/21/2016 PPD-RBMG 07/26/2016 Shingrix (Recombinant zoster vaccine) [...] Vaccine ( season) 2024 06/29/2021, 12/11/2020, 11/09/2020 BMI CHECK/ADVISE 09/11/2024 08/09/2021, , 08/09/2021 (Completed), Additional history exists INFLUENZA (Season Ended) 2025 021, 05/22/2020, 05/22/2020, Additional history exists CHOLESTEROL SCREENING 08/09/2026 08/09/2021 , 07/06/2020, 06/19/2019, Additional history exists DTAP/TDAP/TD (3 - Td or Tdap) 09/21/2026 09/21/2016, 08/23/2007 PNEUMOCOCCAL VACCINE FOR HIGH RISK PATIENTS (#2) 2027 03/26/2018 (Exception) COLON CANCER SCREENING 06/06/2027 06/06/2017, 2008 HEPATITIS C SCREENING Completed 12/29/2014 SHINGLES VACCINE Addressed 07/03/2020 (Ext ernal Completion), 07/02/2020, 04/22/2020 Overridden with the intention of not completing the topic Care Teams Oriental Rug Stretcher Relationship Specialty Start Date End Date Community, Pcp PCP - General Internal Medicine 04/06/22
== END 2024-12-30 11:29 | disposition home or self-care (01) ==
LOC: HO.HMCC 10:33
PROVIDERS: PCP Nurse Practitioner Family; Visit Provider Nurse Practitioner Family
DX: Z00.00 Encounter for general adult medical examination without abnormal findings (principal); Z28.39 Other underimmunization status

== ENCOUNTER 2025-01-17 15:07 | Emergency (ER) | payer OTHER, SELFPAY ==
--- NOTE | ~2025-01-17 | CT_ITS ---
CLINICAL HISTORY: LLQ pain, divertic? Exam: CT abdomen and pelvis with intravenous contrast. Comparison: February 09, 2024. Findings: CT abdomen: Minor scarring or atelectasis is seen within the lung bases. No acute bony lesions. No focal hepatic lesions. Areas of nodularity of the liver unchanged compared to prior study. Main portal vein is patent. Spleen is unremarkable. No peripancreatic inflammatory stranding is identified. Area of potential abnormal enhancement within the head of the pancreas is unchanged compared to prior study measuring 1.2 x 1.0 cm in size. No pancreatic ductal dilatation or pancreatic atrophy. Small gallstones without gallbladder wall thickening or pericholecystic fluid. Adrenal glands are unremarkable. Unchanged cyst within the interpolar region of the right kidney. A 3 mm calculus in the lower pole of the left kidney without hydronephrosis or perinephric stranding. Small bowel loops are of normal caliber. Mildly prominent lymph nodes in the holli hepatis measuring up to 15 mm in short axis. Similar retroperitoneal lymph nodes compared to prior study are also again seen measuring up to 12 mm in short axis. No free fluid or free air. CT pelvis: Moderate diverticulosis throughout the sigmoid colon. Acute diverticulitis is seen within the proximal sigmoid colon along the anterior aspect of the left lower quadrant. Focal inflammatory stranding surrounding a posterior diverticulum with wall thickening. No abscess, obstructive phenomenon, or perforation is identified. No free fluid or free air. Mildly prominent lymph nodes along the pelvic sidewall and inguinal lymph node chains are stable. Impression: 1. Acute sigmoid diverticulitis. Given the recurrent diverticulitis, correlation with the patient's colon cancer screening is suggested to exclude the possibility of a mass lesion. 2. Continued soft tissue nodule within the pancreatic head. 3. Unchanged lymph node prominence within the holli hepatis and retroperitoneum. This document has been electronically signed by: Sergio France MD on 01/17/2025 20:40:53
--- NOTE | 2025-01-17 15:25 | ED_ITS ---
HPI - Abdominal Pain General Chief Complaint: Abdominal Pain Stated Complaint: diverticulitis Time Seen by Provider: 01/17/25 19:32 Source: patient Limitations: no limitations History of Present Illness ED Provider: Beba Rod PA-C HPI narrative: 64-year-old male with a history of prior diverticulitis, hypertension, hyperlipidemia, sarcoidosis, COPD, GERD, anxiety and depression, AAA presents with the abdominal pain x3 days. Pain over left lower quadrant described as sharp, becoming severe at times is nonradiating. Associated nausea. Denies active vomiting, diarrhea, bloody stool or fever. Denies abdominal distention, inability to pass flatus or constipation. Related Data Home Medications ?Medication ?Instructions ?Recorded ?Confirmed cholecalciferol (vitamin D3) 25 25 mcg PO DAILY 11/13/21 12/30/24 mcg (1,000 unit) tablet (Vitamin D3) multivitamin 1 tab PO DAILY 11/13/21 12/30/24 cetirizine 10 mg tablet (All Day 10 mg PO DAILY PRN Allergic 05/12/22 12/30/24 Allergy (cetirizine)) Symptoms CPAP (CPAP Machine/Device) 12/13/22 12/30/24 nebulizers 12/13/22 12/30/24 famotidine 20 mg tablet (Pepcid) 20 mg PO DAILY 07/26/23 12/30/24 Previous Rx's ?Medication ?Instructions ?Recorded albuterol sulfate 90 mcg/actuation 2 inh inhalation Q6H PRN Shortness 02/16/23 breath activated powder inhaler Of Breath 30 days #1 ea (ProAir RespiClick) albuterol sulfate 2.5 mg/3 mL 2.5 mg (3 mL) inhalation Q6H PRN 03/16/23 (0.083 %) solution for nebulization shortness of breath or wheezing 30 days #180 mL fluticasone propionate 115 2 puff inhalation Q12H 30 days #12 09/19/23 mcg-salmeterol 21 mcg/actuation grams HFA inhaler (Advair HFA) mycophenolate mofetil 500 mg 500 mg PO BID 30 days #60 tabs 11/30/23 tablet (CellCept) lisinopril 20 mg tablet 20 mg PO BEDTIME 90 days #90 tabs 06/17/24 carvedilol 6.25 mg tablet 6.25 mg PO BID #180 tabs 09/12/24 citalopram 20 mg tablet 20 mg PO BEDTIME 90 days #90 tabs 09/13/24 apixaban 5 mg tablet (Eliquis) 5 mg PO BID #60 tabs 10/29/24 spironolactone 25 mg tablet 25 mg PO BEDTIME 90 days #90 tabs 11/10/24 atorvastatin 40 mg tablet 40 mg PO DAILY 90 days #90 tabs 11/15/24 ondansetron 8 mg disintegrating 8 mg PO Q12H PRN nausea and 12/14/24 tablet vomiting 10 days #20 tabs tramadol 50 mg tablet 50 mg PO BID PRN pain 20 days #40 12/30/24 tabs levofloxacin 750 mg tablet 750 mg PO Q24H #6 tabs 01/17/25 metronidazole 500 mg tablet 500 mg PO Q8H 7 days #21 tabs 01/17/25 ondansetron HCl 4 mg tablet 4 mg PO Q8H PRN nausea and 01/17/25 vomiting #10 tabs oxycodone 5 mg tablet 5 mg PO Q6H PRN pain #12 tabs 01/17/25 Allergies Allergy/AdvReac Type Severity Reaction Status Date / Time amoxicillin [AMOXICILLIN] Allergy Severe DIFF Verified 01/17/25 15:30 BREATHING Review of Systems Review of Systems Yes all other systems are reviewed and are negative Constitutional: Denies fatigue and Denies fever(s) Cardiovascular: Denies chest pain and Denies dyspnea Respiratory: Denies cough and Denies dyspnea Gastrointestinal: Reports abdominal pain, Denies hematochezia, Denies constipation, Denies diarrhea, Reports nausea and Denies vomiting Endocrine: Denies fatigue PMF Past Medical History Attestation statement: The following information was validated with the patient. Medical History (Updated 01/17/25 @ 22:26 by IVIS Rosen) Elevated alkaline phosphatase level Physical exam Enlarged prostate BMI 37.0-37.9, adult Muscle strain Hip pain Screening for colon cancer Right calf pain Hip pain, right Elevated bilirubin Obesity Anxiety Depression COPD (chronic obstructive pulmonary disease) GERD (gastroesophageal reflux disease) DDD (degenerative disc disease), cervical History of non-ST elevation myocardial infarction (NSTEMI) History of pulmonary embolism Cataract HLD (hyperlipidemia) HTN (hypertension) Cough NANCY on CPAP Sarcoidosis Asthma Surgical History History of bone marrow biopsy History of tonsillectomy History of vasectomy History of endoscopy History of hernia repair History of colonoscopy Family History Family History Father Family history of high blood pressure Mother History of colon cancer History of abdominal aortic aneurysm (AAA) Brother Prostate cancer Social History Social History Household Members: Spouse Housing: House Do you presently have visiting nurse or other home services: No Alcohol intake: never Patient Tobacco Use Status: Former Tobacco user Tobacco use type: Cigarette Smoked in Last 30 Days: No e-Cigarette/Vaping Use: Never Used Second Hand Smoke Exposure: No Use of substances other than those prescribed or required for medical reasons: No Advance Directives: No Advance Directives Information Provided: No Advance Directives Date on File: 11/13/21 service: No Current occupational status: retired Cognitive needs: No Hearing needs: No Vision needs: No Physical Exam ED Vital Signs: Vital Signs - 24 hr 01/17/25 15:29 01/17/25 19:32 01/17/25 22:05 Temperature 98.7 F 97.2 F 98.4 F Pulse Rate 66 73 71 Respiratory Rate 18 16 16 Blood Pressure 143/81 H 133/80 118/69 Pulse Oximetry 97 95 94 Oxygen Delivery Method Room Air Room Air Room Air BMI result Body Mass Index 38.1 Const Other: Alert well-appearing Orientation/consciousness: patient oriented x3 Resp Effort & Inspection: normal respiratory effort Cardio Other: Normal peripheral perfusion GI Other: Abdomen is soft, nondistended, moderate to severe focal tenderness in left lower quadrant with moderate involuntary guarding Skin Other: Warm dry no rash Neuro General: patient oriented x3, gait normal, no focal motor deficits and CN's II- XI intact bilaterally Psych Other: Cooperative Course Course Course Narrative: This is an RME performed by Akin Valdes CNP: Additional HPI, ROS, PE not included below will be deferred to primary provider. 64 yo male with PMHx of NANCY, HLD, GERD, HTN, COPD, sarcoidosis, pulm embolism, bone cancer, presents to the ED due to 3 days of LLQ abdominal pain. He states he believes this is diverticulitis, as he has had this in the past approximately 1 year ago, and pain feels similar to prior episode. He reports the pain is associated with chills, last BM was 2pm today (01/17). Denies diarrhea, black/bloody stool, nausea. vomiting PE: TTP LLQ Plan: Labs, Medical Decision Making Medical Decision Making MDM Narrative: 64-year-old male with a history of prior diverticulitis, hypertension, hyperlipidemia, sarcoidosis, COPD, GERD, anxiety and depression, AAA presents with the abdominal pain x3 days. Pain over left lower quadrant described as sharp, becoming severe at times is nonradiating. Associated nausea. Denies active vomiting, diarrhea, bloody stool or fever. Denies abdominal distention, inability to pass flatus or constipation. Patient saw his primary care provider who sent him in for further assessment. Problem: Diverticulitis, AAA History: Per patient I have considered the following differential diagnoses: Diverticulitis, bowel obstruction, dissection Plan: Patient has had symptoms for 3 days, this is not dissection, he is also not overtly hypertensive, he is neurovascularly intact, in his pain is quite focal to the left lower quadrant. This is likely diverticulitis he has had in the past. We will be obtaining a CT scan. Giving morphine Zofran and IV fluid. He has no obstructive symptoms or exam findings consistent with a SBO. I have independently reviewed the following tests: Labs: No overall leukocytosis, left shift noted, not anemic, no electrolyte abnormality, LFTs at baseline CT abdomen and pelvis:mpression: 1. Acute sigmoid diverticulitis. Given the recurrent diverticulitis, correlation with the patient's colon cancer screening is suggested to exclude the possibility of a mass lesion. 2. Continued soft tissue nodule within the pancreatic head. 3. Unchanged lymph node prominence within the holli hepatis and retroperitoneum. We will treat with Levaquin and Flagyl, the patient has had fluoroquinolones in the past Lab Data 01/17/25 15:46 01/17/25 15:46 Labs: Lab Results 01/17/25 Range/Units 15:46 WBC 9.4 (4.8-10.8) X10*3/uL RBC 4.85 (4.60-5.80) X10*6/uL Hgb 14.0 (14.0-18.0) g/dl Hct 42.6 (42.0-52.0) % MCV 87.8 (80.0-98.0) fL MCH 28.9 (27.0-33.0) pg MCHC 32.9 (31.0-36.0) g/dl RDW 13.6 (11.0-16.0) % Plt Count 215 (160-400) X10*3/uL MPV 10.0 (9.4-12.4) fL Immature Gran % (Auto) 0.3 (0.0-0.4) % Neut % (Auto) 75.7 H (45-73) % Lymph % (Auto) 10.6 L (20-40) % Maverick % (Auto) 10.1 (2-11) % Eos % (Auto) 3.0 (0-4) % Baso % (Auto) 0.3 (0-2) % Lymph # (Auto) 1.0 L (1.2-4.9) X10*3/uL Maverick # (Auto) 1.0 (0.1-1.2) X10*3/uL Eos # (Auto) 0.3 (0.0-0.4) X10*3/uL Baso # (Auto) 0.0 (0.0-0.2) X10*3/uL Abs Immat Gran (auto) 0.03 (0.00-0.03) X10*3/uL Absolute Neuts (auto) 7.1 (2.0-8.3) x10*3/uL Absolute Nucleated RBC 0.000 (0.0-0.012) X10*3/uL Nucleated RBC % (auto) 0.0 (0.0-0.2) /100WBC Sodium 141 (135-145) mmol/L Potassium 4.9 (3.3-5.1) mmol/L Chloride 105 (96-108) mmol/L Carbon Dioxide 29 (22-29) mmol/L Anion Gap 12 (12-20) BUN 13 (9-16) mg/dL Creatinine 1.05 (0.5-1.4) mg/dL Estim Creat Clear Calc 94.9 Estimated GFR > 60 Random Glucose 95 (60-115) mg/dL Calcium 9.6 (8.4-10.2) mg/dL Magnesium 1.9 (1.6-2.6) mg/dL Total Bilirubin 1.5 H (0.0-1.0) mg/dL AST 25 (5-37) U/L ALT 25 (0-40) U/L Alkaline Phosphatase 118 H (39-117) U/L Total Protein 6.6 (6.5-8.0) g/dL Albumin 4.0 (3.5-5.0) g/dL Lipase 17 (8-78) U/L Medications Administered Discontinued Medications Generic Name Dose Route Start Last Admin Trade Name Freq PRN Reason Stop Dose Admin Sodium Chloride 1,000 mls @ 999 mls/hr 01/17/25 19:45 01/17/25 21:44 Ns IV 01/17/25 20:45 Infused .Q1H1M ALEXANDREA Infusion Iohexol 100 ml 01/17/25 19:47 01/17/25 19:47 Iohexol 350 Mg/Ml 100 Ml Infus..Btl IV 01/17/25 19:48 85 ml ONCE ONE Administration Levofloxacin 750 mg 01/17/25 21:44 01/17/25 22:09 Levofloxacin 750 Mg Tablet PO 01/17/25 21:45 750 mg ONCE ONE Administration Metronidazole 500 mg 01/17/25 21:42 01/17/25 22:09 Metronidazole 500 Mg Tablet PO 01/17/25 21:43 500 mg ONCE ONE Administration Morphine Sulfate 4 mg 01/17/25 19:36 01/17/25 20:03 Morphine Sulfate 4 Mg/Ml Cartridge IVPUSH 01/17/25 19:37 4 mg ONCE ONE Administration Protocol Ondansetron HCl 4 mg 01/17/25 19:36 01/17/25 20:03 Ondansetron Hcl 4 Mg/2 Ml Vial IVPUSH 01/17/25 19:37 4 mg ONCE ONE Administration Oxycodone HCl 5 mg 01/17/25 21:42 01/17/25 22:09 Oxycodone Hcl Immed Release 5 Mg Tablet PO 01/17/25 21:43 5 mg ONCE ONE Administration Discharge Plan Discharge Clinical Impression: Diverticulitis of sigmoid colon Patient Disposition: Home, Self-Care Instructions: Diverticulitis (ED), Diverticulitis Diet (ED) Additional Instructions: You were found to have diverticulitis, you had no lab abnormalities. See home care instructions. Take the oxycodone as needed for pain. Uses Zofran as needed for nausea. Take both the Flagyl and the Levaquin as directed, these are both antibiotics to treat the infection. Make sure to complete the course of each antibiotic. Follow up with your primary care provider in 1-2 weeks. Prescriptions: New metronidazole 500 mg tablet 500 mg PO Q8H 7 Days Qty: 21 0RF levofloxacin 750 mg tablet 750 mg PO Q24H Qty: 6 0RF ondansetron HCl 4 mg tablet 4 mg PO Q8H PRN (Reason: nausea and vomiting) Qty: 10 0RF oxycodone 5 mg tablet 5 mg PO Q6H PRN (Reason: pain) Qty: 12 0RF Rx Instructions: Partial Fill upon patient request. No Action ProAir RespiClick 90 mcg/actuation aerosol powdr breath activated 2 inh inhalation Q6H PRN (Reason: Shortness Of Breath) 30 Days Qty: 1 11RF fluticasone propion-salmeterol [Advair HFA] 115-21 mcg/actuation HFA aerosol inhaler 2 puff inhalation Q12H 30 Days Qty: 12 11RF mycophenolate mofetil [CellCept] 500 mg tablet 500 mg PO BID 30 Days Qty: 60 6RF carvedilol 6.25 mg tablet 6.25 mg PO BID Qty: 180 1RF citalopram 20 mg tablet 20 mg PO BEDTIME 90 Days Qty: 90 1RF spironolactone 25 mg tablet 25 mg PO BEDTIME 90 Days Qty: 90 1RF atorvastatin 40 mg tablet 40 mg PO DAILY 90 Days Qty: 90 1RF ondansetron 8 mg tablet,disintegrating 8 mg PO Q12H PRN (Reason: nausea and vomiting) 10 Days Qty: 20 0RF multivitamin Tablet 1 tab PO DAILY cholecalciferol (vitamin D3) [Vitamin D3] 25 mcg (1,000 unit) Tablet 25 mcg PO DAILY Eliquis 5 mg Tablet 5 mg PO BID Qty: 60 3RF cetirizine [All Day Allergy (cetirizine)] 10 mg tablet 10 mg PO DAILY PRN (Reason: Allergic Symptoms) (DME) nebulizers Misc See Rx Instructions .Route Rx Instructions: As directed (DME) CPAP Machine/Device Device See Rx Instructions .Route Rx Instructions: As directed albuterol sulfate 2.5 mg /3 mL (0.083 %) solution for nebulization 2.5 mg inhalation Q6H PRN (Reason: shortness of breath or wheezing) 30 Days Qty: 180 11RF famotidine [Pepcid] 20 mg tablet 20 mg PO DAILY lisinopril 20 mg tablet 20 mg PO BEDTIME 90 Days Qty: 90 1RF tramadol 50 mg tablet 50 mg PO BID PRN (Reason: pain) 20 Days Qty: 40 0RF Print Language: Emirati
[2025-01-17 15:29] VITALS: BP 143/81; PULSE 66; RESP 18; TEMP 37.1; O2SAT 97; BMI 38.1
[2025-01-17 15:59] LABS: MANUAL DIFF FLAG NO
[2025-01-17 16:01] LABS: Basophils Percent Auto 0.3 % (0-2); Eosinophils Absolute Auto 0.3 X10*3/uL (0.0-0.4); Hematocrit 42.6 % (42.0-52.0); Imm Gran Abs Auto 0.03 X10*3/uL (0.00-0.03); Imm Gran Pct Auto 0.3 % (0.0-0.4); Lymphocytes Percent Auto 10.6 % (20-40); Mean Corpuscular HGB Conc 32.9 g/dl (31.0-36.0); Mean Corpuscular Hemoglobin 28.9 pg (27.0-33.0); Mean Corpuscular Volume 87.8 fL (80.0-98.0); Monocytes Percent Auto 10.1 % (2-11); Neutrophils Absolute Auto 7.1 x10*3/uL (2.0-8.3); Neutrophils Percent Auto 75.7 % (45-73); Platelet Count 215 X10*3/uL (160-400); Red Blood Count 4.85 X10*6/uL (4.60-5.80); Red Cell Distribution Width 13.6 % (11.0-16.0); White Blood Count 9.4 X10*3/uL (4.8-10.8)
[2025-01-17 16:53] LABS: Alanine Aminotransferase 25 U/L (0-40); Anion Gap 12 (12-20); Aspartate Amino Transferase 25 U/L (5-37); Bilirubin Total 1.5 mg/dL (0.0-1.0); Blood Urea Nitrogen 13 mg/dL (9-16); Calcium 9.6 mg/dL (8.4-10.2); Carbon Dioxide 29 mmol/L (22-29); Chloride 105 mmol/L (96-108); Creatinine Clr Calc Pharmacy 94.9; Estimated Glomerular Filt Rate > 60; Glucose Random 95 mg/dL (60-115); Lipase 17 U/L (8-78); Magnesium 1.9 mg/dL (1.6-2.6); Potassium 4.9 mmol/L (3.3-5.1); Sodium 141 mmol/L (135-145); Total Protein 6.6 g/dL (6.5-8.0)
[2025-01-17 17:22] LABS: Alkaline Phosphatase 118 U/L (39-117)
--- OUTSIDE RECORDS SUMMARY | 2025-01-17 19:24 | XMS_ITS | Clinical Summary ---
Author Organization [address] [facility] Address [address] [place] [address] Phone Care Team Providers Care Blindstitch Lapel Padder Name Role Phone Yury Menchaca NP Primary [...] dog, subsequent encounter 09/27/2024 Ascending aorta dilatation ([facility] V24) 022 Overview (09/13/2024): 4. 2 cm seen on ECHO 11/2021 NSTEMI (non-ST elevated myoc ardial infarction) ([facility] V24, [facility] V28) 12/20/2021 GERD (gastroesophageal reflux disease) Severe obesity (BMI 35.0-39. 9) with comorbidity ([facility] V24, [facility] V28) 07/08/2020 Other pulmonary embolism wit h acute cor pulmonale ([facility] V24, [facility] V28) 06/05/2019 Overview (09/13/2024): ? Provoked had driven to [place] Moderate persistent asthma without complication 04/03/2019 Sarcoidosis of lymph nodes 10/02/2017 Overview (09/13/2024): 2018 Obstructive sleep apnea 08/30/2017 Overview (09/13/2024): [facility] Home Polysomnogram: Date 08/25/2017; AHI [...] HISTORICAL VASECTOMY UPPER GASTROINTESTINAL ENDOSCOPY 04/30/2020 PROCEDURE: TN UPPER GI ENDOSCOPY PERFORMED; COMMENT: rosmrey,esophagitis, mild reflux, moderate gastritis Medical History Medical [...] COMMENT: 2016 ? Provoked had driven to [place] Sarcoidosis of lymph nodes 10/02/2017 DX:Sa rcoidosis [...] patient's age to complete this topic Insurance [facility] [employer] [facility] Care Teams Blindstitch Lapel Padder Relationship Specialty Start Date End Date Yury Menchaca NP PCP - General Family Medicine 09/20/24
--- OUTSIDE RECORDS SUMMARY | 2025-01-17 19:24 | XMS_ITS | Encounter Summary ---
Author Organization [facility] Address [address] [place] [address] Care Team Providers Care Hob Mill Operator Name Role Phone Amilcar Leggett MD Primary Care Provider [phone] Lazaro Chand MD Primary Care Provider [facility], Pcp Primary Care Provider [facility] Encounter Details Date Type Department Care Team Description 12/13/2019 Process Development Manager Report Medical Records [address] [place] [id number] Corby Dumont MD Social History Tobacco Use [...] on filedocumented in this encounter Care Teams Hob Mill Operator Relationship Specialty Start Date End Date Amilcar Leggett MD [address] [place] [phone] PCP - General 05/09/11 05/25/21 Lazaro Chand MD [address] [place] [phone] PCP - General Internal Medicine 05/26/21 04/05/22 [facility], Pcp [address] [place], [place] [phone] PCP - General Internal Medicine 04/06/22 documented as of this encounter
--- OUTSIDE RECORDS SUMMARY | 2025-01-17 19:24 | XMS_ITS | Encounter Summary ---
Author Organization [facility] Address [address] [place] [address] Care Team Providers Care Filling Machine Tender Name Role Phone Amilcar Leggett MD Primary Care Provider [phone] Lazaro Chand MD Primary Care Provider [facility], Pcp Primary Care Provider [facility] Encounter Details Date Type Department Care Team Description 06/19/2018 Heading Matcher And Assembler Report Medical Records [address] [place] [id number] Radha Benedict Social History Tobacco Use Types [...] on filedocumented in this encounter Care Teams Filling Machine Tender Relationship Specialty Start Date End Date Amilcar Leggett MD [address] [place] [id number] PCP - General 05/09/11 05/25/21 Lazaro Chand MD [address] [place] [phone] PCP - General Internal Medicine 05/26/21 04/05/22 [facility], Pcp [address] [place] [id number] PCP - General Internal Medicine 04/06/22 documented as of this encounter
--- OUTSIDE RECORDS SUMMARY | 2025-01-17 19:24 | XMS_ITS | Clinical Summary ---
Author Organization [facility] Address [address] [place] [address] Care Team Providers Care Juice Packaging Machines Setter Name Role Phone Amilcar Leggett MD Primary Care Provider Allergies Active Allergy Reactions [...] ADULT PO) Take by mouth. 0 Active Ventura-3 Fatty Acids (FISH OIL) 1000 MG CAPS [...] <88% for 5% or more of study) [facility] Polysomnogram treatment study. Date [...] age to complete this topic Care Teams Juice Packaging Machines Setter Relationship Specialty Start Date End Date Amilcar Leggett MD PCP - General Commercial Designer 04/24/20
--- OUTSIDE RECORDS SUMMARY | 2025-01-17 19:24 | XMS_ITS | Encounter Summary ---
Author Organization [facility] Address [address] [place] [address] Care Team Providers Care Associate Store Manager Name Role Phone Amilcar Leggett MD Primary Care Provider [phone] Lazaro Chand MD Primary Care Provider [facility], Pcp Primary Care Provider [facility] e Encounter Details Date Type Department Care Team Description 10/11/2017 Refill Adult Medicine [address] [address] Amilcar Leggett MD [address] [place] [address] Social History Tobacco Use Types Packs/Day Years [...] on filedocumented in this encounter Care Teams Associate Store Manager Relationship Specialty Start Date End Date Amilcar Leggett MD [address] [place] [address] PCP - General 05/09/11 05/25/21 Lazaro Chand MD [address] [place] [address] PCP - General Internal Medicine 05/26/21 04/05/22 [facility], Pcp [address] [place] [address] PCP - General Internal Medicine 04/06/22 documented as of this encounter
--- OUTSIDE RECORDS SUMMARY | 2025-01-17 19:24 | XMS_ITS | Encounter Summary ---
Author Organization [facility] Address [address] [place] [address] Care Team Providers Care Payment Poster Name Role Phone Amilcar Leggett MD Primary Care Provider [phone] Lazaro Chand MD Primary Care Provider [facility], Pcp Primary Care Provider [facility] Encounter Details Date Type Department Care Team Description 03/31/2020 Black Puller Report Medical Records [address] [place] [address] Corby Dumont MD Social History Tobacco Use [...] on filedocumented in this encounter Care Teams Payment Poster Relationship Specialty Start Date End Date Amilcar Leggett MD [address] [place] [phone] PCP - General 05/09/11 05/25/21 Lazaro Chand MD [address] [place] [address] PCP - General Internal Medicine 05/26/21 04/05/22 [facility], Pcp [address] [place], [place] [phone] PCP - General Internal Medicine 04/06/22 documented as of this encounter
--- OUTSIDE RECORDS SUMMARY | 2025-01-17 19:24 | XMS_ITS | Encounter Summary ---
Author Organization [facility] Address [address] [place] [address] Care Team Providers Care Real Estate Executive Assistant Name Role Phone Amilcar Leggett MD Primary Care Provider [phone] Lazaro Chand MD Primary Care Provider [facility], Pcp [facility] Encounter Details Date Type Department Care Team Description 03/20/2020 Orders Only Medical Records [address] [place] [address] Abstract, Provider Social History Tobacco Use Types [...] in this encounter Care Teams Real Estate Executive Assistant Relationship Specialty Start Date End Date Amilcar Leggett MD [address] [place] [address] PCP - General 05/09/11 05/25/21 Lazaro Chand MD [address] [place] [address] PCP - General Internal Medicine 05/26/21 04/05/22 [facility], Pcp [address] [place] [phone] PCP - General Internal Medicine 04/06/22 documented as of this encounter
--- OUTSIDE RECORDS SUMMARY | 2025-01-17 19:24 | XMS_ITS | Clinical Summary ---
Author Organization [facility] Address [address] [place] [address] Care Team Providers Care Yardage Tufting Machine Operator Name Role Phone Community, Pcp Primary [...] Overview: 2017 ? Provoked had driven to [place] Moderate persistent asthma without compl ication 04/03/2019 Sarcoidosis of lymph nodes 10/02/2017 Overview: 2018 Obstructive sleep apnea severe AHI 39 wi th sleep related hypoxia 08/30/2017 Overview: [facility] Home Polysomnogram: Date 08/25/2017; AHI 39, [...] 013,09/13/2012,06/21/2011,07/06/2010,01/2008 Influenza Flu (PT Reported) 07/04/2017 MMR ([id number]) 09/21/2016 PPD-RBMG 07/26/2016 Shingrix (Recombinant zoster vaccine) [...] of not completing the topic Care Teams Yardage Tufting Machine Operator Relationship Specialty Start Date End Date Community, Pcp PCP - General Internal Medicine 04/06/22
--- OUTSIDE RECORDS SUMMARY | 2025-01-17 19:24 | XMS_ITS | Encounter Summary ---
Author Organization [facility] Address [address] [place] [address] Care Team Providers Care Title Inspector Name Role Phone Amilcar Leggett MD Primary Care Provider [phone] Lazaro Chand MD Primary Care Provider [facility], Pcp Primary Care Provider Unavailabl e Encounter Details Date Type Department Care Team Description 09/20/2017 Orders Only Medical Records [address] [place] [address] Hira Houston MD Social History Tobacco Use [...] Name Priority Date/Time Associated Diagnosis Comments OUTSIDE PATHOLOGY Routine 09/15/2017 documented in this encounter Results * OUTSIDE PATHOLOGY (09/15/2017) Hira Houston MD OUTSIDE LAB documented in this encounter Visit Diagnoses Not on filedocumented in this encounter Care Teams Title Inspector Relationship Specialty Start Date End Date Amilcar Leggett MD [address] [place] [address] PCP - General 05/09/11 05/25/21 Lazaro Chand MD [address] [place] [address] PCP - General Internal Medicine 05/26/21 04/05/22 [facility], Pcp [address] [place] [phone] PCP - General Internal Medicine 04/06/22 documented as of this encounter
--- OUTSIDE RECORDS SUMMARY | 2025-01-17 19:24 | XMS_ITS | Encounter Summary ---
Author Organization [facility] Address [address] [place] [address] Care Team Providers Care Nutritional Services Cook Name Role Phone Amilcar Leggett MD Primary Care Provider [phone] Lazaro Chand MD Primary Care Provider [facility], Pcp Primary Care Provider [facility] Encounter Details Date Type Department Care Team Description 03/09/2018 Manager Home Report Medical Records [address] [place], [place] [id number] Re[facility] [place] Social History Tobacco Use Types Packs/Day Years [...] on filedocumented in this encounter Care Teams Nutritional Services Cook Relationship Specialty Start Date End Date Amilcar Leggett MD [address] [place] [address] PCP - General 05/09/11 05/25/21 Lazaro Chand MD [address] [place] [address] PCP - General Internal Medicine 05/26/21 04/05/22 [facility], Pcp [address] [place], [place] [phone] PCP - General Internal Medicine 04/06/22 documented as of this encounter
--- OUTSIDE RECORDS SUMMARY | 2025-01-17 19:24 | XMS_ITS | Encounter Summary ---
Author Organization [facility] Address [address] [place] [address] Care Team Providers Care Taxicab Starter Name Role Phone Amilcar Leggett MD Primary Care Provider +1 [phone] Lazaro Chand MD Primary Care Provider Antoinette herring [facility], Pcp Primary Care Provider [facility] Encounter Details Date Type Department Care Team Description 06/17/2016 Hospital Medical Records [address] [place] [id number] Jay Bose Social History Tobacco Use Types [...] on filedocumented in this encounter Care Teams Taxicab Starter Relationship Specialty Start Date End Date Amilcar Leggett MD [address] [place] [address] PCP - General 05/09/11 05/25/21 Lazaro Chand MD [address] [place] [address] PCP - General Internal Medicine 05/26/21 04/05/22 [facility], Pcp [address] [place] [address] PCP - General Internal Medicine 04/06/22 documented as of this encounter
--- OUTSIDE RECORDS SUMMARY | 2025-01-17 19:24 | XMS_ITS | Encounter Summary ---
Author Organization [facility] Address [address] [place] [address] Care Team Providers Care Button Tacker Name Role Phone Amilcar Leggett MD Primary Care Provider [phone]- [phone] Lazaro Chand MD Primary Care Provider [facility], Pcp Primary Care Provider [facility] e Encounter Details Date Type Department Care Team Description 09/16/2016 Pt. Non Urgent Medical Question Adult Medicine [address] [address] Amilcar Leggett MD [address] [place] [address] Need for prophylactic vaccination with tetanus-diphtheria (TD); Need for prophylactic vaccination and inoculation against viral hepatitis; Need for prophylactic vaccination with kahltbc-suzen-cdaoqg a (MMR) vaccine; Need for prophylactic vaccination with combined wabtxzwiyq-hyzrttx-n ertussis (DTP) vaccine Social History Tobacco Use [...] Injection Routine Need for prophylactic vaccination with ffdqivg-tcxik-wivckom (MMR) vaccine 2 Occurrences starting 09/20/2016 until 09/19/2017, 1 completed documented as of this encounter Visit Diagnoses Diagnosis Need for prophylactic vaccination with tetanus-diphtheria (Td) Need for prophylactic vaccination and inoculation against viral hepatitis Need for prophylactic vaccination with rzelihz-nljge-drorijt (MMR) vaccine Need for prophylactic vaccination with combined vvkpztnxrj-lkjqccc-ksrlpyxen (DTP) vaccine documented in this encounter Care Teams Button Tacker Relationship Specialty Start Date End Date Amilcar Leggett MD [address] [place], [place] [phone] PCP - General 05/09/11 05/25/21 Lazaro Chand MD [address] [place] [address] PCP - General Internal Medicine 05/26/21 04/05/22 [place] [address] PCP - General Internal Medicine 04/06/22 documented as of this encounter
--- OUTSIDE RECORDS SUMMARY | 2025-01-17 19:24 | XMS_ITS | Encounter Summary ---
Author Organization [facility] Address [address] [place] [address] Care Team Providers Care American Board Certified Orthotist Name Role Phone Lazaro Chand MD Primary Care Provider Antoinette Kunz, Pcp Primary Care Provider Filiberto ibarra Encounter Details Date Type Department Care Team Description 11/15/2021 Hospital Medical Records [address] [place] [address] Andrei Werner MD Social History Tobacco Use [...] on filedocumented in this encounter Care Teams American Board Certified Orthotist Relationship Specialty Start Date End Date Lazaro Chand MD PCP - General Internal Medicine 05/26/21 04/05/22 [facility], Pcp PCP - General Internal Medicine 04/06/22 documented as of this encounter
--- OUTSIDE RECORDS SUMMARY | 2025-01-17 19:24 | XMS_ITS | Encounter Summary ---
Author Organization [facility] Address [address] [place] [address] Care Team Providers Care Bean Picker Machine Operator Name Role Phone Amilcar Leggett MD Primary Care Provider [phone] Lazaro Chand MD Primary Care Provider [facility], Pcp Primary Care Provider [facility] e Encounter Details Date Type Department Care Team Description 03/05/2018 Release of Information Medical Records [address] [place] [address] Abstract, Provider Social History Tobacco Use Types [...] on filedocumented in this encounter Care Teams Bean Picker Machine Operator Relationship Specialty Start Date End Date Amilcar Leggett MD [address] [place] [address] PCP - General 05/09/11 05/25/21 Lazaro Chand MD [address] [place] [address] PCP - General Internal Medicine 05/26/21 04/05/22 [facility], Pcp [address] [place] [address] PCP - General Internal Medicine 04/06/22 documented as of this encounter
--- OUTSIDE RECORDS SUMMARY | 2025-01-17 19:24 | XMS_ITS | Encounter Summary ---
Author Organization [facility] Address [address] [place] [address] Care Team Providers Care Shopper Marketing Manager Name Role Phone Amilcar Leggett MD Primary Care Provider [phone] Lazaro Chand MD Primary Care Provider [facility], Pcp [facility] Reason for Referral * EXTERNAL (Routine) - Authorized/Booked Specialty Diagnoses / Procedures Referred By Contac t Referred To Contact CLINICAL HYPERTENSION SPECIALIST / hypertension Diagnoses Essential hypertension Procedures REFERRAL TO HYPERTENSION SPECIALIST Amilcar Leggett MD [address] [place] [address] [address] [place] [address] Referral ID Status Reason Start Date Expiration Date V isits Requested Visits Authorized [id number] Authorized/B ooked 07/28/2017 07/28/2018 1 1 Reason for Visit * Reason Onset Date Comments hypertension 07/28/2017 Encounter Details Date Type Department Care Team Description 07/28/2017 Pt. Non Urgent [place] [address] Amilcar Leggett MD [address] [place] [address] Essential hypertension (Primary Dx) Social History Tobacco [...] Anastacio Uribe allowed me to hijack his [employer] account so I could send this message. [...] hypertension documented in this encounter Care Teams Shopper Marketing Manager Relationship Specialty Start Date End Date Amilcar Leggett MD [address] [place] [address] PCP - General 05/09/11 05/25/21 Lazaro Chand MD [address] [place] [address] PCP - General Internal Medicine 05/26/21 04/05/22 [facility], Pcp [address] [facility] [place] [address] PCP - General Internal Medicine 04/06/22 documented as of this encounter
--- OUTSIDE RECORDS SUMMARY | 2025-01-17 19:24 | XMS_ITS | Encounter Summary ---
Author Organization [facility] Address [address] [place] [address] Care Team Providers Care Agency Sales Representative Name Role Phone Amilcar Leggett MD Primary Care Provider Lazaro Chand MD Primary Care Provider [facility], Pcp Primary Care Provider [facility] Encounter Details Date Type Department Care Team Description 11/20/2018 Telephone Pulmonology - [address] [place] [phone] Hira Houston MD Social History Tobacco [...] M.A. - 11/20/2018 3:49 PM EDT Also, [facility] is requesting a different Dx code; form in Your inbox. * Telephone Encounter - Hayley Healy M.A. - 11/20/2018 3:46 PM EDT Received a faxed requeest for pateint demogrphics and faxed patient demographics to [place] at [facility]. documented in this encounter Plan of Treatment Not on file documented as of this encounter Visit Diagnoses Not on filedocumented in this encounter Care Teams Agency Sales Representative Relationship Specialty Start Date End Date Amilcar Leggett MD [address] [place] [address] PCP - General 05/09/11 05/25/21 Lazaro Chand MD [address] [place] [address] PCP - General Internal Medicine 05/26/21 04/05/22 [place] [address] PCP - General Internal Medicine 04/06/22 documented as of this encounter
--- OUTSIDE RECORDS SUMMARY | 2025-01-17 19:24 | XMS_ITS | Encounter Summary ---
Author Organization [facility] Address [address] [place] [address] Care Team Providers Care Veterinary X Ray Operator Name Role Phone Amilcar Leggett MD Primary Care Provider [phone] Lazaro Chand MD Primary Care Provider [facility], Pcp Primary Care Provider [facility] e Encounter Details Date Type Department Care Team Description 06/03/2019 Hospital Medical Records [address] [id number] [facility] Social History Tobacco Use Types [...] on filedocumented in this encounter Care Teams Veterinary X Ray Operator Relationship Specialty Start Date End Date Amilcar Leggett MD [address] [place], [place] [phone] PCP - General 05/09/11 05/25/21 Lazaro Chand MD [address] [place] [address] PCP - General Internal Medicine 05/26/21 04/05/22 Count Includes [facility], Pcp [address] [place] [address] PCP - General Internal Medicine 04/06/22 documented as of this encounter
--- OUTSIDE RECORDS SUMMARY | 2025-01-17 19:24 | XMS_ITS | Encounter Summary ---
Author Organization [facility] Address [address] [place] [address] Care Team Providers Care Green Chain Puller Name Role Phone Amilcar Leggett MD Primary Care Provider [phone]- [phone] Lazaro Chand MD Primary Care Provider [facility], Pcp Primary Care Provider [facility] Encounter Details Date Type Department Care Team Description 03/28/2017 Pt. Non Urgent Medical Question Adult Medicine [address] [address] Amilcar Leggett MD [address] [place] [phone] Social History Tobacco Use Types Packs/Day Years [...] M.A. - 03/28/2017 4:22 PM EDTFrom: [address] To: Amilcar Leggett MD Sent: 03/28/2017 3:53 PM EDT Subject: Following up on orders placed by Dr George Coleman, I was seen on March 23, [address] Vazquez in [place], he ordered blood work which was done that same day there, and he ordered a CT Scan that because of insurance restrictions has to be done at [facility], to date I am still waiting to hear about scheduling this scan, is this normal? Should I be contacting [facility] myself in this matter? Thank you documented in this encounter Plan of Treatment Not on file documented as of this encounter Visit Diagnoses Not on filedocumented in this encounter Care Teams Green Chain Puller Relationship Specialty Start Date End Date Amilcar Leggett MD [address] [place] [address] PCP - General 05/09/11 05/25/21 Lazaro Chand MD [address] [place] [address] PCP - General Internal Medicine 05/26/21 04/05/22 [facility], Pcp [address] [place] [address] PCP - General Internal Medicine 04/06/22 documented as of this encounter
--- OUTSIDE RECORDS SUMMARY | 2025-01-17 19:24 | XMS_ITS | Encounter Summary ---
Author Organization [facility] Address [address] [place] [address] Care Team Providers Care Recycling Attendant Name Role Phone Amilcar Leggett MD Primary Care Provider [phone] Lazaro Chand MD Primary Care Provider [facility], Pcp Primary Care Provider [facility] e Encounter Details Date Type Department Care Team Description 10/04/2017 Hospital Medical Records [address] [place] [address] Hira Houston MD Social History Tobacco Use [...] on filedocumented in this encounter Care Teams Recycling Attendant Relationship Specialty Start Date End Date Amilcar Leggett MD [address] [place], [place] [phone] PCP - General 05/09/11 05/25/21 Lazaro Chand MD [address] [place] [address] PCP - General Internal Medicine 05/26/21 04/05/22 [facility], Pcp [address] [place], [place] [phone] PCP - General Internal Medicine 04/06/22 documented as of this encounter
--- OUTSIDE RECORDS SUMMARY | 2025-01-17 19:24 | XMS_ITS | Encounter Summary ---
Author Organization [facility] Address [address] [place] [address] Care Team Providers Care Deposit Clerk Name Role Phone Amilcar Leggett MD Primary Care Provider [phone] Lazaro Chand MD Primary Care Provider [facility], Pcp Primary Care Provider [facility] e Encounter Details Date Type Department Care Team Description 08/30/2017 Orders Only Medical Records [address] [place] [address] Amilcar Leggett MD [address] [place] [address] Social History Tobacco Use Types Packs/Day Years [...] on filedocumented in this encounter Care Teams Deposit Clerk Relationship Specialty Start Date End Date Amilcar Leggett MD [address] [place] [address] PCP - General 05/09/11 05/25/21 Lazaro Chand MD [address] [place] [address] PCP - General Internal Medicine 05/26/21 04/05/22 [facility], Pcp [address] [place] [address] PCP - General Internal Medicine 04/06/22 documented as of this encounter
--- OUTSIDE RECORDS SUMMARY | 2025-01-17 19:24 | XMS_ITS | Encounter Summary ---
Author Organization [facility] Address [address] [place] [address] Care Team Providers Care Kayak Maker Name Role Phone Amilcar Leggett MD Primary Care Provider [phone] Lazaro Chand MD Primary Care Provider [facility], Pcp [facility] Reason for Visit * Reason Onset Date Comments Cocoa Roaster Feedback 06/09/2017 ECHO at [facility] Encounter Details Date Type Department Care Team Description 06/09/2017 Telephone Adult Medicine [address] [address] Amilcar Leggett MD [address] [place] [address] [phone] Cocoa Roaster Feedback (ECHO at [facility]) Social History Tobacco Use Types Packs/Day Years [...] AM EDT Order faxed to [facility] at [phone], notification letter mailed to patient. documented in this encounter Plan of Treatment Not on file documented as of this encounter Visit Diagnoses Not on filedocumented in this encounter Care Teams Kayak Maker Relationship Specialty Start Date End Date Amilcar Leggett MD [address] [place] [address] PCP - General 05/09/11 05/25/21 Lazaro Chand MD [address] [place] [address] PCP - General Internal Medicine 05/26/21 04/05/[address] [address] PCP - General Internal Medicine 04/06/22 documented as of this encounter
--- OUTSIDE RECORDS SUMMARY | 2025-01-17 19:24 | XMS_ITS | Encounter Summary ---
Author Organization [facility] Address [address] [place] [address] Care Team Providers Care Cyanide Pot Hardener Name Role Phone Amilcar Leggett MD Primary Care Provider [phone] Lazaro Chand MD Primary Care Provider [facility], Pcp Primary Care Provider [facility] Encounter Details Date Type Department Care Team Description 05/01/2020 Flatwork Supervisor Report Medical Records [address] [place], [place] [phone] Hank Herbert MD Social History Tobacco Use Types Packs/Day [...] on filedocumented in this encounter Care Teams Cyanide Pot Hardener Relationship Specialty Start Date End Date Amilcar Leggett MD [address] [place], [place] [phone] PCP - General 05/09/11 05/25/21 Lazaro Chand MD [address] [place] [address] PCP - General Internal Medicine 05/26/21 04/05/22 [facility], Pcp [address] [place], [place] [phone] PCP - General Internal Medicine 04/06/22 documented as of this encounter
--- OUTSIDE RECORDS SUMMARY | 2025-01-17 19:24 | XMS_ITS | Encounter Summary ---
Author Organization [facility] Address [address] [place] [address] Care Team Providers Care Crime Analyst Name Role Phone Lazaro Chand MD Primary Care Provider Antoinette Kunz, Pcp Primary Care Provider Filiberto ibarra Encounter Details Date Type Department Care Team Description 01/12/2022 Area Supervisor Report Medical Records [address] [place] [address] Sabrina Shabazz FNP Social History Tobacco Use [...] on filedocumented in this encounter Care Teams Crime Analyst Relationship Specialty Start Date End Date Lazaro Chand MD PCP - General Internal Medicine 05/26/21 04/05/22 [facility], Pcp PCP - General Internal Medicine 04/06/22 documented as of this encounter
--- OUTSIDE RECORDS SUMMARY | 2025-01-17 19:25 | XMS_ITS | Encounter Summary ---
Author Organization [facility] Address [address] [place] [address] Care Team Providers Care Printing Plate Setter Name Role Phone Amilcar Leggett MD Primary Care Provider [phone] Emmy Springer MD Primary Care Provider Murphy Parker MD Primary Care Provider Lazaro Morales MD Primary Care Provider Antoinette Kunz, Pcp Primary Care Provider [facility]ail[facility] e Encounter Details Date Type Department Care Team Description 03/24/2005 Orders Only Medical [address] [place], [place] [phone] Nemo Carrillo [address] [place] [address] LONG-TERM (CURRENT) USE OF OTHER MEDICATIONS (Primary [...] BASIC METABOLIC PANEL (03/24/2005 9:00 AM EDT) [facility] GLUCOSE 89 70 - 110 mg/dL [facility] [...] 9:01 AM EDT Nemo Carrillo [facility] documented in this encounter Visit Diagnoses Diagnosis Encounter for long-term (current) use of other medications- Primary documented in this encounter Care Teams Printing Plate Setter Relationship Specialty Start Date End Date Amilcar Leggett MD [address] [place] [address] PCP - General 05/09/11 05/25/21 Emmy Springer MD [address] [place] [address] PCP - General 04/06/11 05/08/11 Murphy Alvarez MD PCP - General 02/18/03 04/05/11 Lazaro Chand MD PCP - General Internal Medicine 05/26/21 04/05/22 [facility], Pcp PCP - General Internal Medicine 04/06/22 documented as of this encounter
[2025-01-17 19:32] VITALS: BP 133/80; PULSE 73; RESP 16; TEMP 36.2; O2SAT 95
[2025-01-17] MEDS: iohexoL 350 MG/ML 100 ML INFUS..BTL IV (19:47)
[2025-01-17] MEDS: ondansetron HCL 4 MG/2 ML VIAL IVPUSH (20:03)
[2025-01-17] MEDS: Morphine Sulfate 4 MG/ML CARTRIDGE IVPUSH (20:03)
[2025-01-17] MEDS: 0.9 % Sodium Chloride 1,000 ML 999 ML IV (20:03)
[2025-01-17 22:05] VITALS: BP 118/69; PULSE 71; RESP 16; TEMP 36.9; O2SAT 94
[2025-01-17] MEDS: levoFLOXacin 750 MG TABLET PO (22:09)
[2025-01-17] MEDS: oxyCODONE HCl Immed Release 5 MG TABLET PO (22:09)
[2025-01-17] MEDS: metroNIDAZOLE 500 MG TABLET PO (22:09)
[2025-01-17 22:36] VITALS: BP 118/69; PULSE 71; RESP 16; TEMP 36.9; O2SAT 94
== END 2025-01-17 22:36 | disposition home or self-care (01) ==
PROVIDERS: Nurse Practitioner Family; Emergency Provider Emergency Medicine
DX: K57.32 Diverticulitis of large intestine without perforation or abscess without bleeding (principal); R10.32 Left lower quadrant pain; I10 Essential (primary) hypertension; E78.5 Hyperlipidemia, unspecified; Z87.891 Personal history of nicotine dependence; Z79.01 Long term (current) use of anticoagulants; Z79.02 Long term (current) use of antithrombotics/antiplatelets; Z79.899 Other long term (current) drug therapy
CPT/HCPCS: 36415; 74177; 80053; 83690; 83735; 85025; 96361; 96374; 96375; 99284; 99285; J2270; J2405; Q9967

== ENCOUNTER → 2025-01-17 19:36 | Outpatient (BNV) | payer OTHER, SELFPAY | PROVIDERS: Visit Provider Radiology Diagnostic Radiology | DX: K57.32 Diverticulitis of large intestine without perforation or abscess without bleeding (principal); K86.89 Other specified diseases of pancreas | CPT/HCPCS: 74177 ==

== ENCOUNTER 2025-01-20 12:02 | Outpatient (AMB) | payer OTHER, SELFPAY ==
--- NOTE | 2025-01-20 12:12 | A.OFFVIS_ITS ---
Vital Signs 01/20/25 12:13 Height 5 ft 10 in Weight 265 lb BMI 38.0 Intake Visit Reasons: OV - Bilateral Hip OA - R>L Intake Note: Christiano is a 64 year old male who presents today for a follow up of his Bilateral Hip OA. Right > Left. He has had history of trochanteric bursitis injection with no relief. Intrarticular injection for the right hip was ordered to be done with pain management - Right ischial bursa inj done 10/24/24, which was not helpful. He was called by pain management to book intra-articular injection but patient declined Allergies amoxicillin [AMOXICILLIN] Allergy (Severe, Verified 01/20/25 12:14) DIFF BREATHING HPI HPI OV - Bilateral Hip OA - R>L: Details: Christiano is a 64 year old male who presents today for a follow up of his Bilateral Hip OA. Right > Left. He has had history of trochanteric bursitis injection with no relief. Intrarticular injection for the right hip was ordered to be done with pain management - Right ischial bursa inj done 10/24/24, which was not helpful. He was called by pain management to book intra-articular injection but patient declined. He has occasional groin pain but has been improving slightly over the past several months as he has been riding a stationary bike in the morning and trying to lose weight. He wants to know if this is going to adversely affect his hip arthritis. [facility] Medical History Elevated alkaline phosphatase level Physical exam Enlarged prostate BMI 37.0-37.9, adult Muscle strain Hip pain Screening for colon cancer Right calf pain Hip pain, right Elevated bilirubin Obesity Anxiety Depression COPD (chronic obstructive pulmonary disease) GERD (gastroesophageal reflux disease) DDD (degenerative disc disease), cervical History of non-ST elevation myocardial infarction (NSTEMI) History of pulmonary embolism Cataract HLD (hyperlipidemia) HTN (hypertension) Cough NANCY on CPAP Sarcoidosis Asthma Surgical History History of bone marrow biopsy History of tonsillectomy History of vasectomy History of endoscopy History of hernia repair History of colonoscopy Family History Father Family history of high blood pressure Mother History of colon cancer History of abdominal aortic aneurysm (AAA) Brother Prostate cancer Social History Household Members: Spouse Housing: House Do you presently have visiting nurse or other home services: No Alcohol intake: never Patient Tobacco Use Status: Former Tobacco user Tobacco use type: Cigarette e-Cigarette/Vaping Use: Never Used Second Hand Smoke Exposure: No Advance Directives Date on File: 11/13/21 service: No Current occupational status: retired Cognitive needs: No Hearing needs: No Vision needs: No Physical Exam Vital Signs: BMI result Body Mass Index 38.0 Extrem Other: At 90 degrees I can internally rotate him 25 degrees bilaterally with moderate discomfort on his right that reproduces his primary pain complaint. Assessment & Plan Assessment & Plan (1) Arthritis of right hip: Code(s): M16.11 - Unilateral primary osteoarthritis, right hip Category: Medical Plan: This is a 62-year-old gentleman with right hip osteoarthritis. It has mild-to- moderate in may warrant treatment in the future but at this time I think he is on a good path with a closed-chain physical activity and weight loss. He can see me back in 12 months' time to re-evaluate if he should so desire. Coding Level of Care Code Est Pt Level 3 (94130) Diagnoses Arthritis of right hip M16.11
[2025-01-20 12:13] VITALS: BMI 38.0
--- OUTSIDE RECORDS SUMMARY | 2025-01-20 12:38 | XMS_ITS | Clinical Summary ---
Author Organization [facility]ly [facility] Address [address] [place] [address] Care Team Providers Care Head Of Product Name Role Phone Amilcar Leggett MD Primary Care Provider [phone] Allergies Active Allergy Reactions Criticality Noted Date [...] ADULT PO) Take by mouth. 0 Active [place]-3 Fatty Acids (FISH OIL) 1000 MG CAPS [...] <88% for 5% or more of study) [facility] study. Date 11/13/2017. SE 51 [...] age to complete this topic Care Teams Head Of Product Relationship Specialty Start Date End Date Amilcar Leggett MD PCP - General Reservoir Engineering Advisor 04/24/20
--- OUTSIDE RECORDS SUMMARY | 2025-01-20 12:38 | XMS_ITS | Clinical Summary ---
Author Organization [facility] Address [address] [place] [address] Phone Care Team Providers Care Auto Slip Cover Installer Name Role Phone Yury Menchaca NP Primary [...] dog, subsequent encounter 09/27/2024 Ascending aorta dilatation ([facility] V24) 022 Overview (09/13/2024): 4. 2 cm seen on ECHO 11/2021 NSTEMI (non-ST elevated myoc ardial infarction) ([facility] V24, [facility] V28) 12/20/2021 GERD (gastroesophageal reflux disease) Severe obesity (BMI 35.0-39. 9) with comorbidity [place] [place], [facility] V28) 07/08/2020 Other pulmonary embolism wit h acute cor pulmonale ([facility] [place], [facility] V28) 06/05/2019 Overview (09/13/2024): ? Provoked had driven to [place] Moderate persistent asthma without complication 04/03/2019 Sarcoidosis of lymph nodes 10/02/2017 Overview (09/13/2024): 2018 Obstructive sleep apnea 08/30/2017 Overview (09/13/2024): [facility] Home Polysomnogram: Date 08/25/2017; AHI 39, [...] HISTORICAL VASECTOMY UPPER GASTROINTESTINAL ENDOSCOPY 04/30/2020 PROCEDURE: [place] UPPER GI ENDOSCOPY PERFORMED; COMMENT: rosmery,esophagitis, mild [...] COMMENT: 2016 ? Provoked had driven to [place] Sarcoidosis of lymph nodes 10/02/2017 DX:Sa rcoidosis [...] patient's age to complete this topic Insurance [employer] Care Teams Auto Slip Cover Installer Relationship Specialty Start Date End Date Yury Menchaca NP PCP - General Family Medicine 09/20/24
== END 2025-01-20 12:40 | disposition home or self-care (01) ==
LOC: HO.HOS 12:03
PROVIDERS: PCP Nurse Practitioner Family; Visit Provider Orthopaedic Surgery
DX: M16.11 Unilateral primary osteoarthritis, right hip (principal)
CPT/HCPCS: 99213

== ENCOUNTER 2025-01-23 12:50 | Outpatient (AMB) | payer OTHER, SELFPAY ==
[2025-01-23 12:55] VITALS: BP 110/70; PULSE 68; O2SAT 94; BMI 37.5
--- NOTE | 2025-01-23 12:55 | A.OFFVIS_ITS ---
Vital Signs 01/23/25 12:55 Height 5 ft 10 in Weight 261 lb 3.964 oz BMI 37.5 BP 110/70 Blood Pressure Location Lt brachial Position Sitting Pulse 68 Pulse Source Pulse Oximeter Pulse Oximetry (%) 94 Oxygen Delivery Method Room Air Intake Visit Reasons: Sarcoidosis Hematology Technician Required: No Accompanied by: Self / Same As Patient Allergies amoxicillin [AMOXICILLIN] Allergy (Severe, Verified 01/23/25 12:57) DIFF BREATHING HPI Comments Details: The patient is a 64-year-old gentleman with a known history of sarcoidosis. Apparently I did evaluate him on back more than a year ago. In the fall of the patient did have worsening shortness of breath and he was evaluated at [facility] where he was found to have bilateral pulmonary emboli. He was placed on Eliquis. He did follow-up with bulk plant operator the in the only explanation for his blood clots with the possibility of underlying hypercoagulable state from sarcoidosis. The patient has been on Flovent up, but, he has not been on systemic cortical steroids. He also has some underlying renal insufficiency. Question if he has some potential extra pulmonary sarcoid involvement that we need additional therapy with steroids. Therefore, I will repeat his blood work and also repeat a CT scan of the chest to assess his nodular densities as well as pulmonary emboli that he had back in May 2019. Will hold off for few months as we cleared the culprit 19 virus. However, if the patient develops any worsening symptoms may have to look at it sooner. Otherwise will reassess the need for systemic cortical steroids or systemic therapy for the sarcoid at the time. He did have blood work done at [facility] back in February. His Magan level was normal. His calcium levels were also normal. No evidence of any renal involvement. The only thing is that his liver function studies were little elevated. He is following up closely with GI. In regards of the blood clots he still on the anticoagulation is tolerating that well. He did undergo a CT scan of the chest demonstrating no further blood clot burden in the vessels. He does have pulmonary nodules and slight increase in the hilar mediastinal lymphadenopathy consistent with his history of sarcoidosis. At this point however he is going to have surgery for his cataracts and he is going to have further evaluation for the thickness of the esophagus so therefore hold off on any treatment for sarcoid at this time at least systemically. He did have some evidence of bronchitis or thickening of the airways bringing up the question of endobronchial sarcoid so therefore will increase his Flovent from 110-220 mcg with the hope of decreasing some of the inflammation directly. In the meantime will hold off on any systemic therapy as he is going to be further evaluated for the issues above. In 3-4 months will have him come back in having get pulmonary function studies and repeat the blood work and decide if at that point we should treat him systemically for the sarcoidosis. 12/13/2022 the patient is here for a pulmonary follow-up visit. He was sent over from the bulk plant operator. The patient was having hip discomfort and he underwent a imaging study demonstrating what appeared to be bony lytic lesions. He also went a CT scan of the chest demonstrating hilar mediastinal lymphadenopathy along with some interstitial lung disease. Clinically for the patient is doing well from a respiratory status. She denies any coughing or shortness of breath. he did undergo a CT-guided biopsy of 1 of the lytic lesions and it did demonstrate sarcoid with positive granulomas. In view of the inflammatory lytic lesions I did recommend that he should go on immunosuppressive therapy to minimize the active sarcoid symptoms. However, the patient is reluctant to take any medications at this time. We did talk about medications assess CellCept and methotrexate which will be steroid sparing. He is okay getting blood work to assess for his Magan level and also checking other end-organ involvement. He did have his eyes checked in his auto roller told him that he did not have any evidence of sarcoid in the eyes. Therefore, the patient will continue to consider therapy in meantime he is scheduled to have a repeat CT scan sometime in January and a follow-up with Hematology. He will follow- up with me after that. 03/16/2023 the patient is here for a pulmonary follow-up visit. The patient is doing relatively well. He was exposed to sick contacts and has been having increasing cough shortness of breath chest tightness. Does have some wheezing on examination. Therefore will go ahead and start Advair HFA. The patient also has been on CellCept. Tolerating the CellCept well without any evidence of any adverse effects. He is on a lower dose at this time. He is scheduled to follow up with Hematology-Oncology. I which point he will have additional imaging studies. If he does have imaging studies scheduled by [facility] he can always call oximetry order a further imaging studies prior to the next visit. 07/21/2023 the patient is here for a pulmonary follow-up visit. Overall the patient is doing well. He is tolerating the CellCept 500 mg twice a day. This is a small dose. It is reassuring that he is responding well to the low dose. He did have a repeat CT scan of the abdomen. It appears that the bony lesions have not resolved. We contemplated decreasing the CellCept. However, has not been 6 months in since his such as low-dose will go ahead and continue the 500 mg twice a day until the spring. Which at that point will recheck the blood work and will start decreasing down the CellCept slowly. Will plan to do further imaging studies to make sure there is no recurrence of disease. In regards to the ER where he continues use it with good response. He has not required his rescue inhaler. The patient also will get the Prevnar 20 vaccine today. We did talk about the other vaccines and I did advise him that he follow through with the other vaccines since he does have underlying respiratory disease. 01/22/2024 the patient is here for pulmonary follow-up visit. Overall he is doing well from a respiratory status. He continues on the mycophenolate 500 mg twice a day. He recently was evaluated in the hospital for abdominal pain and was diagnosed with diverticulitis. No evidence of any perforation in he did have diverticula. In addition to that the bony structures were within normal limits. Therefore I am hopeful that we can start decreasing down the mycophenolate. Will go ahead and decrease down to 100 mg daily. If the patient started developing any worsening respiratory symptoms or complaints he can always call to be can readdress. His blood work is also reassuring. He is going to follow-up with Hematology soon. He will follow-up Pulmonary in 3-4 months at which time will discuss considering stopping the medication altogether. From a CPAP standpoint he continues uses CPAP every night CPAP therapy has been affecting beneficial. He does use a fullface mask. He gets supplies from his [employer] company, [employer]. Will send a prescription for for his CPAP supplies at the time. 01/23/2025 the patient is here for a pulmonary follow-up visit. Overall he is doing well from a respiratory status. Unfortunately he was diagnosed with diverticulitis. Currently taking antibiotics. The abdominal pain seems to be better. He continues on 500 mg daily. Seems to be very stable from a sarcoid standpoint. He has not had documented lesions on his bones for awhile. Will go ahead and stop the CellCept specially with the recurrent bacterial infections that have been predisposed by being on immunomodulator therapy. The patient is very agreeable to it. Will go ahead and follow-up with the bone scan in the next 3-4 months to see if he continues to do well off the immunomodulator therapy. If he does develop any worsening symptoms prior to the next visit he can always call so we can readdress that sooner. In the meantime he continues uses CPAP every night CPAP therapy has been affecting beneficial. He did change mask to a [employer] fullface mask that he had bought an local store. Therefore I will go ahead and request supplies from his [employer] company, [employer] and update the mask that he is actually using. He does continue to use the CPAP for more than 4 hours a night and his adherence is 100%. [facility] Medical History (Updated 01/23/25 @ 13:16 by Corby Dumont MD) Bone lesion Elevated alkaline phosphatase level Physical exam Enlarged prostate BMI 37.0-37.9, adult Muscle strain Hip pain Screening for colon cancer Right calf pain Hip pain, right Elevated bilirubin Obesity Anxiety Depression COPD (chronic obstructive pulmonary disease) GERD (gastroesophageal reflux disease) DDD (degenerative disc disease), cervical History of non-ST elevation myocardial infarction (NSTEMI) History of pulmonary embolism Cataract HLD (hyperlipidemia) HTN (hypertension) Cough NANCY on CPAP Sarcoidosis Asthma Surgical History History of bone marrow biopsy History of tonsillectomy History of vasectomy History of endoscopy History of hernia repair History of colonoscopy Family History Father Family history of high blood pressure Mother History of colon cancer History of abdominal aortic aneurysm (AAA) Brother Prostate cancer Social History Household Members: Spouse Housing: House Do you presently have visiting nurse or other home services: No Alcohol intake: never Patient Tobacco Use Status: Former Tobacco user Tobacco use type: Cigarette e-Cigarette/Vaping Use: Never Used Second Hand Smoke Exposure: No Advance Directives Date on File: 11/13/21 service: No Current occupational status: retired Cognitive needs: No Hearing needs: No Vision needs: No Review of Systems Const Denies chills, Denies fatigue, Denies fever(s), Denies weight gain and Denies weight loss ENT Denies dizziness, Denies lip swelling and Denies tongue swelling Card Denies chest pain, Denies leg edema, Denies lightheadedness, Denies palpitations, Denies dyspnea on exertion, Denies orthopnea and Denies other Resp Denies cough, Denies dyspnea on exertion and Denies wheezing GI Reports as per HPI, Denies hematochezia and Denies change in stool character Musc Denies abnormal gait, Denies muscle weakness, Denies numbness, Denies radiating pain into limb and Denies tingling Neuro Denies abnormal gait, Denies dizziness, Denies numbness and Denies tingling Psych Denies no additional complaints Endo Denies fatigue and Denies palpitations Sy/Lymph Denies easy bleeding and Denies lymphadenopathy Aller/Immun Denies lip swelling, Denies tongue swelling and Denies wheezing Physical Exam Vital Signs: Last Vital Signs Pulse 68 01/23/25 12:55 BP 110/70 01/23/25 12:55 Pulse Ox 94 01/23/25 12:55 Oxygen Delivery Method Room Air 01/23/25 12:55 BMI result Body Mass Index 37.5 Const General: alert HEENT General nose exam: Abnormal external nose present and Nasal discharge present Eyes Pupils: Equal, round and reactive pupils present Neck Neck: Yes normal visual inspection, Yes full ROM and Yes no lymphadenopathy Chest Chest palpation & inspection: normal inspection of the chest Resp Auscultation: clear to auscultation bilaterally and no wheezes Cardio Rate: regular rate Rhythm: regular rhythm Heart sounds: S1 normal heart sound present and S2 normal heart sound present GI Palpation (GI): Soft to palpation and nontender Auscultation: normal bowel sounds General: Yes no CVA tenderness Back/Spine/Pelvis Back: no CVA tenderness Skin General skin exam: rashes and/or lesions noted Neuro Cranial nerves: Yes Equal, round and reactive pupils present Extrem General: Yes no clubbing, cyanosis or edema Assessment & Plan Assessment & Plan (1) Sarcoidosis: Comment: with evidence of extra pulmonary sarcoidosis with active inflammation, better at this time Code(s): D86.9 - Sarcoidosis, unspecified Category: Medical Plan: ICS (2) NANCY on CPAP: Comment: (NANCY dx 2017 slepe test - AHI 39. On CPAP) Code(s): G47.33 - Obstructive sleep apnea (adult) (pediatric); Z99.89 - Dependence on other enabling machines and devices Category: Medical Plan: continue CPAP (3) Bone lesion: Code(s): M89.9 - Disorder of bone, unspecified Category: Medical Plan stop Cellcept 500mg daily Bone scan in 3-4 months Advair HFA AZUL as needed continue APAP F/U 6 months Orders: Orders NM bone scan whole body 4 Months D86.9 - Sarcoidosis, unspecified, M89.9 - Disorder of bone, unspecified Coding Level of Care Code Est Pt Level 4 (50370) Complex EM visit Add On G2211 Diagnoses Sarcoidosis D86.9 NANCY on CPAP G47.33; Z99.89 Bone lesion M89.9 Time Spent (min) 17
--- OUTSIDE RECORDS SUMMARY | 2025-01-23 13:27 | XMS_ITS | Encounter Summary ---
Author Organization [facility] Address [address] [place] [address] Care Team Providers Care Human Resources Benefits Assistant Name Role Phone Amilcar Leggett MD Primary Care Provider [phone] Lazaro Chand MD Primary Care Provider [facility], Pcp Primary Care Provider [facility] Encounter Details Date Type Department Care Team Description 12/13/2019 Hand Stoner Report Medical Records [address] [place] [id number] Corby Dumont MD Social History Tobacco Use [...] on filedocumented in this encounter Care Teams Human Resources Benefits Assistant Relationship Specialty Start Date End Date Amilcar Leggett MD [address] [phone] PCP - General 05/09/11 05/25/21 Lazaro Chand MD [address] [place] [address] PCP - General Internal Medicine 05/26/21 04/05/22 [facility], Pcp [address] [place], [place] [phone] PCP - General Internal Medicine 04/06/22 documented as of this encounter
--- OUTSIDE RECORDS SUMMARY | 2025-01-23 13:27 | XMS_ITS | Encounter Summary ---
Author Organization [facility] Address [address] [place] [address] Care Team Providers Care Analysis Reporting Developer Name Role Phone Amilcar Leggett MD Primary Care Provider [phone] Lazaro Chand MD Primary Care Provider [facility], Pcp Primary Care Provider [facility] Reason for Visit * Reason Onset Date Comments Checkering Machine Adjuster Feedback 06/09/2017 ECHO at [facility] Encounter Details Date Type Department Care Team Description 06/09/2017 Telephone Adult Medicine [address] [address] Amilcar Leggett MD [address] [place] [address] [id number] Checkering Machine Adjuster Feedback (ECHO at [facility]) Social History Tobacco Use Types Packs/Day Years [...] AM EDT Order faxed to [facility] at [phone], notification letter mailed to patient. documented in this encounter Plan of Treatment Not on file documented as of this encounter Visit Diagnoses Not on filedocumented in this encounter Care Teams Analysis Reporting Developer Relationship Specialty Start Date End Date Amilcar Leggett MD [address] [place] [id number] PCP - General 05/09/11 05/25/21 Lazaro Chand MD [address] [place] [address] PCP - General Internal Medicine 05/26/21 04/05/[address] [id number] PCP - General Internal Medicine 04/06/22 documented as of this encounter
--- OUTSIDE RECORDS SUMMARY | 2025-01-23 13:27 | XMS_ITS | Encounter Summary ---
Author Organization [facility] Address [address] [place] [address] Care Team Providers Care Mobile Developer Name Role Phone Amilcar Leggett MD Primary Care Provider [phone] Lazaro Chand MD Primary Care Provider [facility], Pcp Primary Care Provider [facility] e Encounter Details Date Type Department Care Team Description 06/03/2019 Hospital Medical Records [address] [id number] [facility] Social History Tobacco Use [...] on filedocumented in this encounter Care Teams Mobile Developer Relationship Specialty Start Date End Date Amilcar Leggett MD [address] [place], [place] [phone] PCP - General 05/09/11 05/25/21 Lazaro Chand MD [address] [place] [address] PCP - General Internal Medicine 05/26/21 04/05/22 [facility], Pcp [address] [place] [phone] PCP - General Internal Medicine 04/06/22 documented as of this encounter
--- OUTSIDE RECORDS SUMMARY | 2025-01-23 13:27 | XMS_ITS | Encounter Summary ---
Author Organization [facility] Address [address] [place] [address] Care Team Providers Care Top Former Name Role Phone Amilcar Leggett MD Primary Care Provider [phone] Lazaro Chand MD Primary Care Provider [facility], Pcp Primary Care Provider [facility] Encounter Details Date Type Department Care Team Description 06/03/2019 Orders Only Medical Records [address] [place] [phone] Abstract, Provider Social History Tobacco Use Types [...] on filedocumented in this encounter Care Teams Top Former Relationship Specialty Start Date End Date Amilcar Leggett MD [address] [place] [address] PCP - General 05/09/11 05/25/21 Lazaro Chand MD [address] [place] [address] PCP - General Internal Medicine 05/26/21 04/05/22 [facility], Pcp [address] [place] [id number] PCP - General Internal Medicine 04/06/22 documented as of this encounter
--- OUTSIDE RECORDS SUMMARY | 2025-01-23 13:27 | XMS_ITS | Encounter Summary ---
Author Organization [facility] Address [address] [place] [address] Care Team Providers Care Bag Cutter Name Role Phone Amilcar Leggett MD Primary Care Provider [phone] Lazaro Chand MD Primary Care Provider [facility], Pcp Primary Care Provider [facility] e Encounter Details Date Type Department Care Team Description 11/28/2019 Refill Adult Medicine [address] [address] Amilcar Leggett MD [address] [place] [id number] Social History Tobacco Use Types Packs/Day Years [...] on filedocumented in this encounter Care Teams Bag Cutter Relationship Specialty Start Date End Date Amilcar Leggett MD [address] [place] [address] PCP - General 05/09/11 05/25/21 Lazaro Chand MD [address] [place], [place] [phone] PCP - General Internal Medicine 05/26/21 04/05/22 [facility], Pcp [address] [place] [address] PCP - General Internal Medicine 04/06/22 documented as of this encounter
--- OUTSIDE RECORDS SUMMARY | 2025-01-23 13:27 | XMS_ITS | Encounter Summary ---
Author Organization [facility] Address [address] [place] [address] Care Team Providers Care Dyed Yarn Operator Name Role Phone Amilcar Leggett MD Primary Care Provider [phone] Lazaro Chand MD Primary Care Provider [facility], Pcp Primary Care Provider [facility] Encounter Details Date Type Department Care Team Description 06/19/2018 Hand Chain Maker Report Medical Records [address] [place] [address] Radha Benedict Social History Tobacco Use Types [...] on filedocumented in this encounter Care Teams Dyed Yarn Operator Relationship Specialty Start Date End Date Amilcar Leggett MD [address] [place] [phone] PCP - General 05/09/11 05/25/21 Lazaro Chand MD [address] [place] [address] PCP - General Internal Medicine 05/26/21 04/05/22 [facility], Pcp [address] [place] [address] PCP - General Internal Medicine 04/06/22 documented as of this encounter
--- OUTSIDE RECORDS SUMMARY | 2025-01-23 13:27 | XMS_ITS | Encounter Summary ---
Author Organization [facility] Address [address] [place] [address] Care Team Providers Care Policy And Planning Manager Name Role Phone Amilcar Leggett MD Primary Care Provider [phone] Lazaro Chand MD Primary Care Provider [facility], Pcp Primary Care Provider [facility] e Encounter Details Date Type Department Care Team Description 01/10/2014 Release of Information Medical Records [address] [place], [place] [id number] Abstract, Provider Social History Tobacco Use Types [...] on filedocumented in this encounter Care Teams Policy And Planning Manager Relationship Specialty Start Date End Date Amilcar Leggett MD [address] [place], [place] [phone] PCP - General 05/09/11 05/25/21 Lazaro Chand MD [address] [place] [address] PCP - General Internal Medicine 05/26/21 04/05/22 [facility], Pcp [address] [place] [address] PCP - General Internal Medicine 04/06/22 documented as of this encounter
--- OUTSIDE RECORDS SUMMARY | 2025-01-23 13:27 | XMS_ITS | Encounter Summary ---
Author Organization [facility] Address [address] [place] [address] Care Team Providers Care Polisher And Buffer Name Role Phone Amilcar Leggett MD Primary Care Provider [phone] Lazaro Chand MD Primary Care Provider [facility], Pcp Primary [facility] Reason for Referral * EXTERNAL (Routine) - Authorized/Booked Specialty Diagnoses / Procedures Referred By Contac t Referred To Contact CLINICAL HYPERTENSION SPECIALIST / hypertension Diagnoses Essential hypertension Procedures REFERRAL TO HYPERTENSION SPECIALIST Amilcar Leggett MD [address] [place] [address] Hypertension Clinic [address] [place] [address] Referral ID Status Reason Start Date Expiration Date V isits Requested Visits Authorized [id number] Authorized/B ooked 07/28/2017 07/28/2018 1 1 Reason for Visit * Reason Onset Date Comments hypertension 07/28/2017 Encounter Details Date Type Department Care Team Description 07/28/2017 Pt. Non Urgent [place] [address] Amilcar Leggett MD [address] [place] [address] Essential hypertension (Primary Dx) Social History Tobacco [...] Anastacio Uribe allowed me to hijack his [employer] account so I could send this message. [...] hypertension documented in this encounter Care Teams Polisher And Buffer Relationship Specialty Start Date End Date Amilcar Leggett MD [address] [place] [address] PCP - General 05/09/11 05/25/21 Lazaro Chand MD [address] [place] [address] PCP - General Internal Medicine 05/26/21 04/05/22 [facility], Pcp [address] [facility] [place] [address] PCP - General Internal Medicine 04/06/22 documented as of this encounter
--- OUTSIDE RECORDS SUMMARY | 2025-01-23 13:27 | XMS_ITS | Encounter Summary ---
Author Organization [facility] Address [address] [place] [address] Care Team Providers Care Plant Packer Name Role Phone Amilcar Leggett MD Primary Care Provider [phone] Lazaro Chand MD Primary Care Provider [facility], Pcp Primary Care Provider [facility] e Encounter Details Date Type Department Care Team Description 03/23/2018 Pt. Non Urgent Medical Question Hypertension - [place] [address] [place] [address] Zuleyma Woodward, David.D Social History Tobacco Use [...] on filedocumented in this encounter Care Teams Plant Packer Relationship Specialty Start Date End Date Amilcar Leggett MD [address] [place] [address] PCP - General 05/09/11 05/25/21 Lazaro Chand MD [address] [place] [address] PCP - General Internal Medicine 05/26/21 04/05/22 [place] [address] PCP - General Internal Medicine 04/06/22 documented as of this encounter
--- OUTSIDE RECORDS SUMMARY | 2025-01-23 13:27 | XMS_ITS | Encounter Summary ---
Author Organization [facility] Address [address] [place] [address] Care Team Providers Care Ripshear Operator Name Role Phone Amilcar Leggett MD Primary Care Provider [phone] Lazaro Chand MD Primary Care Provider Antoinette herring [facility], Pcp Primary Care Provider [facility] e Encounter Details Date Type Department Care Team Description 07/02/2018 Pt. Non Urgent Medical Question Hypertension - [place] [address] [place] [address] Zuleyma Woodward, Pharm.D Social History Tobacco Use [...] on filedocumented in this encounter Care Teams Ripshear Operator Relationship Specialty Start Date End Date Amilcar Leggett MD [address] [place] [address] [phone] PCP - General 05/09/11 05/25/21 Lazaro Chand MD [address] [place] [address] PCP - General Internal Medicine 05/26/21 04/05/22 [facility], [address] [place] [address] PCP - General Internal Medicine 04/06/22 documented as of this encounter
--- OUTSIDE RECORDS SUMMARY | 2025-01-23 13:28 | XMS_ITS | Encounter Summary ---
Author Organization [facility] Address [address] [place] [address] Care Team Providers Care Six Pack Packer Name Role Phone Amilcar Leggett MD Primary Care Provider [phone] Lazaro Chand MD Primary Care Provider [facility], Pcp Primary Care Provider Unavailabl e Encounter Details Date Type Department Care Team Description 09/20/2017 Orders Only Medical Records [address] [place] [address] Hira [place] MD Social History Tobacco Use [...] on filedocumented in this encounter Care Teams Six Pack Packer Relationship Specialty Start Date End Date Amilcar Leggett MD [address] [place] [address] PCP - General 05/09/11 05/25/21 Lazaro Chand MD [address] [place] [address] PCP - General Internal Medicine 05/26/21 04/05/22 [facility], Pcp [address] [place] [address] PCP - General Internal Medicine 04/06/22 documented as of this encounter
--- OUTSIDE RECORDS SUMMARY | 2025-01-23 13:28 | XMS_ITS | Clinical Summary ---
Author Organization [facility] Address [address] [place] [address] Phone Care Team Providers Care Senior Manager Asset Protection Name Role Phone Yury Menchaca NP Primary [...] dog, subsequent encounter 09/27/2024 Ascending aorta dilatation ([facility] V24) 022 Overview (09/13/2024): 4. 2 cm seen on ECHO 11/2021 NSTEMI (non-ST elevated myoc ardial infarction) ([facility] V24, [facility] V28) 12/20/2021 GERD (gastroesophageal reflux disease) Severe obesity (BMI 35.0-39. 9) with comorbidity ([facility] [place], [facility] V28) 07/08/2020 Other pulmonary embolism wit h acute cor pulmonale ([facility] [place], [facility] V28) 06/05/2019 Overview (09/13/2024): ? Provoked had driven to [place] Moderate persistent asthma without complication 04/03/2019 Sarcoidosis of lymph nodes 10/02/2017 Overview (09/13/2024): 2018 Obstructive sleep apnea 08/30/2017 Overview (09/13/2024): [facility] Home Polysomnogram: Date 08/25/2017; AHI 39, [...] HISTORICAL VASECTOMY UPPER GASTROINTESTINAL ENDOSCOPY 04/30/2020 PROCEDURE: [place] UPPER GI ENDOSCOPY PERFORMED; COMMENT: rosmery,esophagitis, mild [...] COMMENT: 2016 ? Provoked had driven to [place] Sarcoidosis of lymph nodes 10/02/2017 DX:Sa rcoidosis [...] patient's age to complete this topic Insurance [employer] Care Teams Senior Manager Asset Protection Relationship Specialty Start Date End Date Yury Menchaca NP PCP - General Family Medicine 09/20/24
--- OUTSIDE RECORDS SUMMARY | 2025-01-23 13:28 | XMS_ITS | Encounter Summary ---
Author Organization [facility] Address [address] [place] [address] Care Team Providers Care Commercial Drafter Name Role Phone Amilcar Leggett MD Primary Care Provider [phone] Lazaro Chand MD Primary Care Provider [facility], Pcp Primary Care Provider [facility] Encounter Details Date Type Department Care Team Description 11/22/2017 Pt. Non Urgent Medical Question Adult Medicine [address] [address] Amilcar Leggett MD [address] [place] [address] Social History Tobacco Use Types Packs/Day Years [...] M.A. - 11/23/2017 8:38 AM EDTFrom: Christiano Dorado To: Amilcar Leggett MD Sent: 11/22/2017 9:11 PM EDT Subject: Sleep study results Jaerd, I received your message about the overnight [...] on filedocumented in this encounter Care Teams Commercial Drafter Relationship Specialty Start Date End Date Amilcar Leggett MD [address] [place] [address] PCP - General 05/09/11 05/25/21 Lazaro Chand MD [address] [place] [address] PCP - General Internal Medicine 05/26/21 04/05/22 [facility], Pcp [address] [place] [address] PCP - General Internal Medicine 04/06/22 documented as of this encounter
--- OUTSIDE RECORDS SUMMARY | 2025-01-23 13:28 | XMS_ITS | Encounter Summary ---
Author Organization [facility] Address [address] [place] [address] Care Team Providers Care Administrative And Program Specialist Name Role Phone Amilcar Leggett MD Primary Care Provider [phone] Lazaro Chand MD Primary Care Provider [facility], Pcp Primary Care Provider [facility] Encounter Details Date Type Department Care Team Description 03/20/2020 Orders Only Medical Records [address] [place] [address] Abstract, Provider Social History Tobacco Use Types [...] on filedocumented in this encounter Care Teams Administrative And Program Specialist Relationship Specialty Start Date End Date Amilcar Leggett MD [address] [place] [address] PCP - General 05/09/11 05/25/21 Lazaro Chand MD [address] [place] [address] PCP - General Internal Medicine 05/26/21 04/05/22 [facility], Pcp [address] [place] [address] PCP - General Internal Medicine 04/06/22 documented as of this encounter
--- OUTSIDE RECORDS SUMMARY | 2025-01-23 13:28 | XMS_ITS | Encounter Summary ---
Author Organization [facility] Address [address] [place] [address] Care Team Providers Care Construction Consultant Name Role Phone Amilcar Leggett MD Primary Care Provider [phone] Lazaro Chand MD Primary Care Provider [facility], Pcp Primary Care Provider [facility] e Encounter Details Date Type Department Care Team Description 10/03/2017 Pt. Non Urgent Medical Question Hypertension - [place] [address] [place] [address] Zuleyma Woodward, Pharm.D Social History Tobacco Use [...] on filedocumented in this encounter Care Teams Construction Consultant Relationship Specialty Start Date End Date Amilcar Leggett MD [address] [place] [address] PCP - General 05/09/11 05/25/21 Lazaro Chand MD [address] [place] [address] PCP - General Internal Medicine 05/26/21 04/05/22 [facility], [place] [address] PCP - General Internal Medicine 04/06/22 documented as of this encounter
--- OUTSIDE RECORDS SUMMARY | 2025-01-23 13:28 | XMS_ITS | Encounter Summary ---
Author Organization [facility] Address [address] [place] [address] Care Team Providers Care Highway Worker Name Role Phone Amilcar Leggett MD Primary Care Provider [phone] Lazaro Chand MD Primary Care Provider [facility], Pcp Primary Care Provider [facility] Encounter Details Date Type Department Care Team Description 02/27/2018 Circus Rider Report Medical Records [address] [place], [place] [id number] InstrumWojciech Social History Tobacco Use Types Packs/Day [...] on filedocumented in this encounter Care Teams Highway Worker Relationship Specialty Start Date End Date Amilcar Leggett MD [address] [place], [place] [phone] PCP - General 05/09/11 05/25/21 Lazaro Chand MD [address] [place] [address] PCP - General Internal Medicine 05/26/21 04/05/22 [facility], Pcp [address] [place], [place] [phone] PCP - General Internal Medicine 04/06/22 documented as of this encounter
--- OUTSIDE RECORDS SUMMARY | 2025-01-23 13:28 | XMS_ITS | Encounter Summary ---
Author Organization [facility] Address [address] [place] [address] Care Team Providers Care Saw Edge Fuser Circular Name Role Phone Amilcar Leggett MD Primary Care Provider [phone] Lazaro Chand MD Primary Care Provider [facility], Pcp Primary Care Provider [facility] e Encounter Details Date Type Department Care Team Description 09/28/2015 ADVERTISING SALES MANAGER/[employer] Report Medical Records [address] [place] [id number] Abstract, Provider Social History Tobacco Use Types [...] on filedocumented in this encounter Care Teams Saw Edge Fuser Circular Relationship Specialty Start Date End Date Amilcar Leggett MD [address] [place] [address] PCP - General 05/09/11 05/25/21 Lazaro Chand MD [address] [place] [address] PCP - General Internal Medicine 05/26/21 04/05/22 [facility], Pcp [address] [place] [address] PCP - General Internal Medicine 04/06/22 documented as of this encounter
--- OUTSIDE RECORDS SUMMARY | 2025-01-23 13:28 | XMS_ITS | Encounter Summary ---
Author Organization [facility] Address [address] [place] [address] Care Team Providers Care Residential Designer Name Role Phone Lazaro Chand MD Primary Care Provider Antoinette Kunz, Pcp Primary Care Provider Filiberto ibarra Encounter Details Date Type Department Care Team Description 11/15/2021 Hospital Medical Records [address] [place] [address] Andrei Werner MD Social History Tobacco Use [...] on filedocumented in this encounter Care Teams Residential Designer Relationship Specialty Start Date End Date Lazaro Chand MD PCP - General Internal Medicine 05/26/21 04/05/22 [facility], Pcp PCP - General Internal Medicine 04/06/22 documented as of this encounter
--- OUTSIDE RECORDS SUMMARY | 2025-01-23 13:28 | XMS_ITS | Encounter Summary ---
Author Organization [facility] Address [address] [place] [address] Care Team Providers Care Novelty Balloon Assembler And Packer Name Role Phone Amilcar Leggett MD Primary Care Provider [phone] Lazaro Chand MD Primary Care Provider [facility], Pcp Primary Care Provider [facility] e Encounter Details Date Type Department Care Team Description 10/11/2017 Refill Adult Medicine [address] [address] Amilcar Leggett MD [address] [place] [address] Social History Tobacco Use Types Packs/Day Years [...] on filedocumented in this encounter Care Teams Novelty Balloon Assembler And Packer Relationship Specialty Start Date End Date Amilcar Leggett MD [address] [place] [address] PCP - General 05/09/11 05/25/21 Lazaro Chand MD [address] [place] [address] PCP - General Internal Medicine 05/26/21 04/05/22 [facility], Pcp [address] [place] [address] PCP - General Internal Medicine 04/06/22 documented as of this encounter
--- OUTSIDE RECORDS SUMMARY | 2025-01-23 13:28 | XMS_ITS | Clinical Summary ---
Author Organization [facility] Address [address] [place] [address] Care Team Providers Care Communications Lead Name Role Phone Amilcar Leggett MD Primary Care Provider [phone] Allergies Active Allergy Reactions Criticality Noted Date [...] ADULT PO) Take by mouth. 0 Active [place]-3 Fatty Acids (FISH OIL) 1000 MG CAPS Take by mouth. 0 Active aspirin EC 81 MG tablet Take 81 mg by mouth daily. 0 Active Active Problems Problem Noted Date Diagnosed Date Other pulmonary embolism with acute cor pulmonal e 06/05/2019 Overview: Overview: ? Provoked had driven to [place] Sarcoidosis of lymph nodes 10/02/2017 Obstructive sleep apnea 08/30/2017 Overview: Overview: SMS Home Polysomnogram: Date 08/25/2017; AHI 39, Unclassified apneas 0; Obstructive apneas 91; Central apneas 5; Mixed apneas 5; hypopneas 37; average oxygen saturation 89% (lowest 67% with saturations <88% for 5% or more of study) [facility] Polysomnogram treatment study. Date 11/13/2017. SE 51 [...] age to complete this topic Care Teams Communications Lead Relationship Specialty Start Date End Date Amilcar Leggett MD PCP - General Hoop Driving Machine Operator 04/24/20
--- OUTSIDE RECORDS SUMMARY | 2025-01-23 13:28 | XMS_ITS | Encounter Summary ---
Author Organization [facility] Address [address] [place] [address] Care Team Providers Care Supervisor Ore Dressing Name Role Phone Lazaro Chand MD Primary Care Provider Antoinette Kunz, Pcp [facility] Encounter Details Date Type Department Care Team Description 12/02/2021 Billing Analyst Report Medical Records [address] [place] [address] Sabrina Shabazz FNP Social History Tobacco Use [...] on filedocumented in this encounter Care Teams Supervisor Ore Dressing Relationship Specialty Start Date End Date Lazaro Chand MD PCP - General Internal Medicine 05/26/21 04/05/22 [facility], Pcp PCP - General Internal Medicine 04/06/22 documented as of this encounter
--- OUTSIDE RECORDS SUMMARY | 2025-01-23 13:28 | XMS_ITS | Encounter Summary ---
Author Organization [facility] Address [address] [place] [address] Care Team Providers Care Database Architect Name Role Phone Amilcar Leggett MD Primary Care Provider [phone] Lazaro Chand MD Primary Care Provider [facility], Pcp Primary Care Provider [facility] Encounter Details Date Type Department Care Team Description 10/07/2020 Pt. Non Urgent Medical Question Adult Medicine [address] [address] Amilcar Leggett MD [address] [place] [address] Social History Tobacco Use Types Packs/Day Years [...] on filedocumented in this encounter Care Teams Database Architect Relationship Specialty Start Date End Date Amilcar Leggett MD [address] [place] [address] PCP - General 05/09/11 05/25/21 Lazaro Chand MD [address] [place] [address] PCP - General Internal Medicine 05/26/21 04/05/22 [facility], [address] [address] PCP - General Internal Medicine 04/06/22 documented as of this encounter
--- OUTSIDE RECORDS SUMMARY | 2025-01-23 13:28 | XMS_ITS | Encounter Summary ---
Author Organization [facility] Address [address] [place] [address] Care Team Providers Care Assistant Restaurant General Manager Name Role Phone Amilcar Leggett MD Primary Care Provider [phone] Lazaro Chand MD Primary Care Provider [facility], Pcp Primary Care Provider [facility] e Encounter Details Date Type Department Care Team Description 07/10/2020 Transfer Records Medical Records [address] [place] [address] Abstract, Provider Social History Tobacco Use Types [...] filedocumented in this encounter Care Teams Assistant Restaurant General Manager Relationship Specialty Start Date End Date Amilcar Leggett MD [address] [place] [address] PCP - General 05/09/11 05/25/21 Lazaro Chand MD [address] [place] [address] PCP - General Internal Medicine 05/26/21 04/05/22 [facility], Pcp [address] [place] [address] PCP - General Internal Medicine 04/06/22 documented as of this encounter
--- OUTSIDE RECORDS SUMMARY | 2025-01-23 13:28 | XMS_ITS | Encounter Summary ---
Author Organization [facility] Address [address] [place] [address] Care Team Providers Care Hub Borer Name Role Phone Amilcar Leggett MD Primary Care Provider [phone] Lazaro Chand MD Primary Care Provider [facility], Pcp Primary Care Provider [facility] Reason for Visit * Reason Comments E-prescribe Rx Request Encounter Details Date Type Department Care Team Description 10/08/2018 Refill Adult Medicine [address] [address] Amilcar Leggett MD [address] [place] [address] E-prescribe Rx Request Social History Tobacco Use [...] N/A Patients current insurance carrier is: Payor: -[place] POS / Plan: PPO $20 [id number] [id number] / ProductType: PPO [id number] documented in this encounter Plan of Treatment Not on file documented as of this encounter Visit Diagnoses Not on filedocumented in this encounter Care Teams Hub Borer Relationship Specialty Start Date End Date Amilcar Leggett MD [address] [place] [address] PCP - General 05/09/11 05/25/21 Lazaro Chand MD [address] [place] [address] PCP - General Internal Medicine 05/26/21 04/05/22 [facility], Pcp [facility] SABRINA Kowalski [address] PCP - General Internal Medicine 04/06/22 documented as of this encounter
--- OUTSIDE RECORDS SUMMARY | 2025-01-23 13:28 | XMS_ITS | Encounter Summary ---
Author Organization [facility] Address [address] [place] [address] Care Team Providers Care Medical Staff Coordinator Name Role Phone Amilcar Leggett MD Primary Care Provider [phone] Lazaro Chand MD Primary Care Provider [facility], Pcp Primary Care Provider [facility] e Encounter Details Date Type Department Care Team Description 03/05/2018 Release of Information Medical Records [address] [place] [id number] Abstract, Provider Social History Tobacco Use Types [...] filedocumented in this encounter Care Teams Medical Staff Coordinator Relationship Specialty Start Date End Date Amilcar Leggett MD [address] [place] [address] PCP - General 05/09/11 05/25/21 Lazaro Chand MD [address] [place] [address] PCP - General Internal Medicine 05/26/21 04/05/22 [facility], Pcp [address] [place] [address] PCP - General Internal Medicine 04/06/22 documented as of this encounter
== END 2025-01-23 13:23 | disposition home or self-care (01) ==
LOC: HO.HPS 12:51
PROVIDERS: PCP Nurse Practitioner Family; Visit Provider Hospitalist
DX: D86.9 Sarcoidosis, unspecified (principal); G47.33 Obstructive sleep apnea (adult) (pediatric); Z99.89 Dependence on other enabling machines and devices; M89.9 Disorder of bone, unspecified
CPT/HCPCS: 99214

== ENCOUNTER → 2025-01-23 12:50 | Outpatient (BNVA) | payer OTHER, SELFPAY | PROVIDERS: PCP Nurse Practitioner Family; Visit Provider Hospitalist ==

== ENCOUNTER 2025-01-28 11:55 | Outpatient (AMB) | payer OTHER, SELFPAY ==
--- NOTE | 2025-01-28 12:10 | AM.OFFVISNUR ---
Intake Visit Reasons: MMR Allergies amoxicillin [AMOXICILLIN] Allergy (Severe, Verified 01/23/25 12:57) DIFF BREATHING Immunizations M-M-R II (PF) 1,000-12,500 TCID50/0.5 mL subcutaneous solution Performing Provider: MALGORZATA [place] Performing Location[place] [facility] Administered by: Tram Lucas CMA on 01/28/25 12:11 Dose Route Admin Location Dispensed Lot Number Expiration Date [facility] Taxation Consultant 0.5 mL subcut Left Arm 0.5 mL [id number] 10/23/25 6282-2455-36 MERCK SHARP & D VIS Given Date VIS Provided VIS Publication Date 01/28/25 Single Vaccine 24 Eligibility Eligibility Date Funding Source Not [facility] Eligible 01/28/25 Private Administration Comments: Sterile diluent Lot [id number] Ex [id number] Assessment & Plan Assessment & Plan Orders: Orders MMR Immunization Today Z23 - Encounter for immunization Medications: New M-M-R II (PF) (measles,mumps,rubella vacc(PF)) 0.5 mL subcut ONCE 1 ea 0RF NS Z23 - Encounter for immunization Coding
--- OUTSIDE RECORDS SUMMARY | 2025-01-28 13:07 | XMS_ITS | Clinical Summary ---
Author Organization [facility] Address [address] [place] [address] Care Team Providers Care Ornament Maker Hand Name Role Phone Amilcar Leggett MD Primary Care Provider [phone] Allergies Active Allergy Reactions Criticality Noted Date [...] ADULT PO) Take by mouth. 0 Active [place]-3 Fatty Acids (FISH OIL) 1000 MG CAPS Take by mouth. 0 Active aspirin EC 81 MG tablet Take 81 mg by mouth daily. 0 Active Active Problems Problem Noted Date Diagnosed Date Other pulmonary embolism with acute cor pulmonal e 06/05/2019 Overview: Overview: ? Provoked had driven to [place] Sarcoidosis of lymph nodes 10/02/2017 Obstructive sleep apnea 08/30/2017 Overview: Overview: SMS Home Polysomnogram: Date 08/25/2017; AHI 39, Unclassified apneas 0; Obstructive apneas 91; Central apneas 5; Mixed apneas 5; hypopneas 37; average oxygen saturation 89% (lowest 67% with saturations <88% for 5% or more of study) [facility] Polysomnogram treatment study. Date 11/13/2017. SE 51 [...] age to complete this topic Care Teams Ornament Maker Hand Relationship Specialty Start Date End Date Amilcar Leggett MD PCP - General Foundry Process Engineer 04/24/20
--- OUTSIDE RECORDS SUMMARY | 2025-01-28 13:07 | XMS_ITS | Clinical Summary ---
Author Organization 175 [facility] Address [address] [place] [address] Phone Care Team Providers Care Respiratory Director Name Role Phone Yury Menchaca NP Primary [...] dog, subsequent encounter 09/27/2024 Ascending aorta dilatation ([facility] V24) 022 Overview (09/13/2024): 4. 2 cm seen on ECHO 11/2021 NSTEMI (non-ST elevated myoc ardial infarction) ([facility] V24, [facility] V28) 12/20/2021 GERD (gastroesophageal reflux disease) Severe obesity (BMI 35.0-39. 9) with comorbidity [place] [place], [facility] V28) 07/08/2020 Other pulmonary embolism wit h acute cor pulmonale ([facility] [place], [facility] V28) 06/05/2019 Overview (09/13/2024): ? Provoked had driven to [place] Moderate persistent asthma without complication 04/03/2019 Sarcoidosis of lymph nodes 10/02/2017 Overview (09/13/2024): 2018 Obstructive sleep apnea 08/30/2017 Overview (09/13/2024): [facility] Home Polysomnogram: Date 08/25/2017; AHI 39, [...] HISTORICAL VASECTOMY UPPER GASTROINTESTINAL ENDOSCOPY 04/30/2020 PROCEDURE: [place] UPPER GI ENDOSCOPY PERFORMED; COMMENT: rosmery,esophagitis, mild [...] COMMENT: 2016 ? Provoked had driven to [place] Sarcoidosis of lymph nodes 10/02/2017 DX:Sa rcoidosis [...] patient's age to complete this topic Insurance [employer] [employer] [place] Care Teams Respiratory Director Relationship Specialty Start Date End Date Yury Menchaca NP PCP - General Family Medicine 09/20/24
== END 2025-01-28 12:18 | disposition home or self-care (01) ==
LOC: HO.HMCC 11:56
PROVIDERS: PCP Nurse Practitioner Family; Visit Provider Nurse Practitioner Family
DX: Z23 Encounter for immunization (principal)

== ENCOUNTER → 2025-01-28 11:55 | Outpatient (BNVA) | payer OTHER, SELFPAY | PROVIDERS: PCP Nurse Practitioner Family; Visit Provider Nurse Practitioner Family | DX: Z23 Encounter for immunization (principal) | CPT/HCPCS: 90471; 90707 ==

== ENCOUNTER → 2025-05-26 09:54 | Outpatient (REF) | payer OTHER, SELFPAY ==
--- NOTE | ~2025-05-26 | NM_ITS ---
EXAMINATION: NM BONE SCAN WHOLE BODY HISTORY: D86.9 - Sarcoidosis, unspecified. TECHNIQUE: A total body bone scan was performed following the intravenous administration of 40 mCi technetium 99m-MDP. COMPARISON: Comparison is made with the prior examination dated 04/15/2024. FINDINGS: Again seen is a focus of increased uptake involving the right frontoparietal calvarium. There is increased uptake involving the right ischium and the greater trochanter of the left femur. These findings are also unchanged from the prior study. There is also likely increased uptake at the pubic symphysis, right greater than left. Again seen is increased activity involving the right 8th costovertebral junction. This is slightly greater than on the prior study and may be degenerative in nature. Mild symmetric uptake at the knees and shoulders is likely degenerative in nature. No definite foci of new activity are identified. There is normal bilateral renal uptake. NM/NM bone scan whole body IMPRESSION: Foci of increased uptake involving the right frontoparietal calvarium, right ischium, and the left greater trochanter without change. No definite new lesions are identified. Electronically signed by: Pete Mireles MD 05/26/2025 02:21 PM EDT
--- OUTSIDE RECORDS SUMMARY | 2025-05-26 12:18 | XMS_ITS | Clinical Summary ---
Author Organization [facility] Address [address] [place] [address] Care Team Providers Care Endoscopy Technican Name Role Phone Amilcar Leggett MD Primary Care Provider [phone] Allergies Active Allergy Reactions Criticality Noted Date [...] ADULT PO) Take by mouth. 0 Active Lorenzo-3 Fatty Acids (FISH OIL) 1000 MG CAPS [...] <88% for 5% or more of study) [facility] Polysomnogram treatment study. [...] 76 04/24/2020 10:32 AM EDT Temperature 36.1 C (97 F) 04/24/2020 10:32 AM EDT Respiratory Rate - [...] or Tdap) 08/23/2017 08/23/2007 Influenza Vaccine (#1) 2025 9, 06/11/2018, 06/19/2013, Additional history exists RSV Adult > 60+ Yrs or (1 - 1-dose 75+ series) 2037 Hepatitis B Vaccines Aged Out No long er eligible based on patient's age to complete this topic RSV Ped < 20 months Aged Out No longe r eligible based on patient's age to complete this topic Care Teams Endoscopy Technican Relationship Specialty Start Date End Date Amilcar Leggett MD PCP - General Nanotechnologist 04/24/20
--- OUTSIDE RECORDS SUMMARY | 2025-05-26 12:18 | XMS_ITS | Clinical Summary ---
Author Organization 175 [facility] Address [address] [place] [address] Phone Care Team Providers Care Design Printer Balloon Name Role Phone Yury Menchaca NP Primary [...] dog, subsequent encounter 09/27/2024 Ascending aorta dilatation ([facility] V24) 022 Overview (09/13/2024): 4. 2 cm seen on ECHO 11/2021 NSTEMI (non-ST elevated myoc ardial infarction) ([facility] V24, [facility] V28) 12/20/2021 GERD (gastroesophageal reflux disease) Severe obesity (BMI 35.0-39. 9) with comorbidity [place] [place], [facility] V28) 07/08/2020 Other pulmonary embolism wit h acute cor pulmonale ([facility] [place], [facility] V28) 06/05/2019 Overview (09/13/2024): ? Provoked had driven to [place] Moderate persistent asthma without complication 04/03/2019 Sarcoidosis of lymph nodes 10/02/2017 Overview (09/13/2024): 2018 Obstructive sleep apnea 08/30/2017 Overview (09/13/2024): [facility] Home Polysomnogram: Date 08/25/2017; AHI 39, [...] HISTORICAL VASECTOMY UPPER GASTROINTESTINAL ENDOSCOPY 04/30/2020 PROCEDURE: [place] UPPER GI ENDOSCOPY PERFORMED; COMMENT: rosmery,esophagitis, mild [...] Panel) 08/18/2022 Colorectal Cancer Screening: Colonoscopy 08/18/2022 HIV Screening 08/18/2022 Hepatitis C Screening 08/18/2022 Hypertension/CHF/CAD Annual BMP Blood Test 08/18/2022 Social Influencers of Health Screening 08/18/2022 Depression Screening 09/11/2024 COVID-19 Vaccine ( season) 2025 09/13/2023, 05/19/2022, 01/20/2022, Additional history exists Influenza Vaccine (#1) 2025 , 06/20/2023, 05/19/2022, Additional history exists DTaP,Tdap,and Td Vaccines (3 - Td or Tdap) 09/21/2026 09/21/2016, 08/23/2007 MMR Vaccines Aged Out 09/21/2016 No longer eligi ble based on patient's age to complete this topic Zoster Vaccines Completed 07/02/2020, 04/22/2020 Pneumococcal Vaccine: 50+ Years Completed 07/21/2023 HIB Vaccines Aged Out No longer eligi [...] patient's age to complete this topic Insurance [employer] [facility] Care Teams Design Printer Balloon Relationship Specialty Start Date End Date Yury Menchaca NP PCP - General Family Medicine 09/20/24
== END ==
LOC: HO.NUCMED 09:54
PROVIDERS: PCP Nurse Practitioner Family; Visit Provider Hospitalist
DX: D86.9 Sarcoidosis, unspecified (principal); M89.9 Disorder of bone, unspecified
CPT/HCPCS: 78306; A9503

== ENCOUNTER → 2025-05-26 09:56 | Outpatient (BNV) | payer OTHER, SELFPAY | PROVIDERS: PCP Nurse Practitioner Family; Visit Provider Radiology Diagnostic Radiology | DX: D86.9 Sarcoidosis, unspecified (principal) | CPT/HCPCS: 78306 ==

== ENCOUNTER 2025-06-04 07:48 | Outpatient (REF) | payer OTHER, SELFPAY ==
--- OUTSIDE RECORDS SUMMARY | 2025-06-04 07:52 | XMS_ITS | Clinical Summary ---
Author Organization 175 [facility] Address [address] [place] [address] Phone Care Team Providers Care Night Warehouse Manager Name Role Phone Yury Menchaca NP Primary [...] dog, subsequent encounter 09/27/2024 Ascending aorta dilatation ([facility] V24) 022 Overview (09/13/2024): 4. 2 cm seen on ECHO 11/2021 NSTEMI (non-ST elevated myoc ardial infarction) ([facility] V24, [facility] V28) 12/20/2021 GERD (gastroesophageal reflux disease) Severe obesity (BMI 35.0-39. 9) with comorbidity ([facility] [place], [facility] V28) 07/08/2020 Other pulmonary embolism wit h acute cor pulmonale ([facility] [place], [facility] V28) 06/05/2019 Overview (09/13/2024): ? Provoked had driven to [place] Moderate persistent asthma without complication 04/03/2019 Sarcoidosis of lymph nodes 10/02/2017 Overview (09/13/2024): 2018 Obstructive sleep apnea 08/30/2017 Overview (09/13/2024): [facility] Home Polysomnogram: Date 08/25/2017; AHI 39, [...] COMMENT: 2016 ? Provoked had driven to [place] Sarcoidosis of lymph nodes 10/02/2017 DX:Sa rcoidosis [...] patient's age to complete this topic Insurance [place] [employer] [facility] Care Teams Night Warehouse Manager Relationship Specialty Start Date End Date Yury Menchaca NP PCP - General Family Medicine 09/20/24
--- OUTSIDE RECORDS SUMMARY | 2025-06-04 07:52 | XMS_ITS | Clinical Summary ---
Author Organization [facility] Address [address] [place] [address] Care Team Providers Care Scaffold Builder Name Role Phone Amilcar Leggett MD Primary Care Provider [phone] Allergies Active Allergy Reactions Criticality Noted Date [...] ADULT PO) Take by mouth. 0 Active [place]-3 Fatty Acids (FISH OIL) 1000 MG CAPS [...] <88% for 5% or more of study) [facility] Polysomnogram treatment study. [...] age to complete this topic Care Teams Scaffold Builder Relationship Specialty Start Date End Date Amilcar Leggett MD PCP - General Catering Staff Member 04/24/20
[2025-06-04 09:02] LABS: Alanine Aminotransferase 32 U/L (0-40); Albumin Level 4.2 g/dL (3.5-5.0); Alkaline Phosphatase 117 U/L (39-117); Anion Gap 10 (12-20); Aspartate Amino Transferase 30 U/L (5-37); Blood Urea Nitrogen 17 mg/dL (9-16); Calcium 8.7 mg/dL (8.4-10.2); Carbon Dioxide 25 mmol/L (22-29); Chloride 110 mmol/L (96-108); Cholesterol 108 mg/dL (<200); Estimated Glomerular Filt Rate > 60; Gamma Glutamyl Transpeptidase 39 U/L (11-51); HDL Cholesterol 30 mg/dL (>40); Potassium 4.1 mmol/L (3.3-5.1); Sodium 141 mmol/L (135-145); Total Protein 6.4 g/dL (6.5-8.0); Triglycerides 94 mg/dL (<150)
[2025-06-04 09:25] LABS: Prostate Specific Antigen 2.50 ng/mL (<0.05-4.0)
[2025-06-08 21:03] LABS: Alk.Phos Iso. Macrohepatic 0 % (<=0); Alk.Phos Isoenzymes Bone 20 % (28-66); Alk.Phos Isoenzymes Intest 7 % (1-24); Alk.Phos Isoenzymes Liver 73 % (25-69); Alk.Phos Isoenzymes Placental 0 % (<=0); Alk.Phos Isoenzymes Total 101 U/L (35-144)
== END 2025-06-04 07:49 | disposition home or self-care (01) ==
LOC: HO.LAB 07:48
PROVIDERS: Absent Provider Urology; PCP Nurse Practitioner Family; Visit Provider Nurse Practitioner Family
DX: Z00.00 Encounter for general adult medical examination without abnormal findings (principal); Z12.5 Encounter for screening for malignant neoplasm of prostate; R97.20 Elevated prostate specific antigen [PSA]; Z80.42 Family history of malignant neoplasm of prostate; N40.0 Benign prostatic hyperplasia without lower urinary tract symptoms; N20.0 Calculus of kidney; R74.8 Abnormal levels of other serum enzymes
CPT/HCPCS: 36415; 80053; 80061; 82977; 84080; 84153

== ENCOUNTER → 2025-06-12 11:56 | Outpatient (BNVA) | payer OTHER, SELFPAY | PROVIDERS: PCP Nurse Practitioner Family; Visit Provider Urology | DX: N20.0 Calculus of kidney (principal) | CPT/HCPCS: 51798 ==

== ENCOUNTER 2025-07-01 10:26 | Outpatient (AMB) | payer OTHER, SELFPAY ==
[2025-07-01 10:37] VITALS: BP 118/78; PULSE 62; RESP 16; O2SAT 95; BMI 38.4
--- NOTE | 2025-07-01 10:37 | A.OFFPC_ITS ---
Vital Signs 07/01/25 10:37 Height 5 ft 10 in Weight 268 lb BMI 38.4 BP 118/78 Blood Pressure Location Rt brachial Position Sitting Respiration 16 Pulse 62 Pulse Source Pulse Oximeter Pulse Oximetry (%) 95 Oxygen Delivery Method Room Air Intake Visit Reasons: 6m follow up Microarray Operations Vice President Required: No Accompanied by: Self / Same As Patient Allergies amoxicillin (AMOXICILLIN) Allergy (Severe, Verified 07/01/25 10:38) DIFF BREATHING Tobacco use date assessed: 07/01/25 Dental Screening Dental Screen Date: 07/01/25 Did you have a dental visit in the last 12 months?: Yes Did you have a dental problem in the last 6 months where you did not have access to dental care?: No Was dental information given to patient?: Patient has dentist HPI 6m follow up HPI Details Chief Complaint The patient presents for follow-up of hypertension and sarcoidosis management. History of Present Illness The patient is a 65-year-old male presenting with follow-up for hypertension management. Hypertension has been stable with no reported episodes of chest pain, headaches, or blurred vision. The patient denies any new symptoms and continues to manage his condition effectively. The patient has a history of sarcoidosis and continues regular follow-ups with a diesel engine erector (sarcoidosis). He also maintains regular consultations with a electrician ship and rehab department manager for comprehensive care. Social History Health Maintenance Review of Systems - Cardiovascular: Denies chest pain - Neurological: Denies headaches, blurre d vision Physical Exam General: Cooperative, healthy appearing, comfortable, no acute distress and well developed Orientation: Patient oriented x3 Limitations: No limitations Head: Normal to inspection Ears: Hearing grossly normal bilaterally Nose: Normal external nose present Face and sinus: Normal facial exam Eyes: Appearance normal, both eyes and all related structures Neck: Normal visual inspection and Yes full ROM Respiratory: Lungs were clear, normal respiratory effort and able to speak in complete sentences. Clear to auscultation bilaterally Cardiovascular: Regular rate and rhythm. Normal S1 and S2, no edema, no carotid bruits noted GI: Normal to inspection. Soft to palpation and nontender Skin: No rashes or lesions noted Neuro: Patient oriented x3 Extremities: Normal to inspection Results Plan 1. Essential Hypertension The patient's hypertension is stable, with no new symptoms reported. Regular monitoring and management will continue, with labs planned for future assessment. 2. Sarcoidosis The patient continues to follow up with a diesel engine erector for sarcoidosis darshana carmona. No new symptoms have been reported, and regular monitoring is ongoing. Discussion Notes Patient Instructions - Continue current hypertension manageme nt plan and monitor blood pressure regu larly. - Follow up with diesel engine erector for sarco idosis as scheduled. - Schedule and complete lab tests as dis cussed. [facility] Medical History Bone lesion Elevated alkaline phosphatase level Physical exam Enlarged prostate BMI 37.0-37.9, adult Muscle strain Hip pain Screening for colon cancer Right calf pain Hip pain, right Elevated bilirubin Obesity Anxiety Depression COPD (chronic obstructive pulmonary disease) GERD (gastroesophageal reflux disease) DDD (degenerative disc disease), cervical History of non-ST elevation myocardial infarction (NSTEMI) History of pulmonary embolism Cataract HLD (hyperlipidemia) HTN (hypertension) Cough NANCY on CPAP Sarcoidosis Asthma Surgical History History of bone marrow biopsy History of tonsillectomy History of vasectomy History of endoscopy History of hernia repair History of colonoscopy Family History Father Family history of high blood pressure Mother History of colon cancer History of abdominal aortic aneurysm (AAA) Brother Prostate cancer Social History Household Members: Spouse Housing: House Do you presently have visiting nurse or other home services: No Alcohol intake: never Patient Tobacco Use Status: Former Tobacco user Tobacco use type: Cigarette e-Cigarette/Vaping Use: Never Used Second Hand Smoke Exposure: No Advance Directives Date on File: 11/13/21 service: No Current occupational status: retired Cognitive needs: No Hearing needs: No Vision needs: No Questionnaire PHQ-9 Over the last 2 weeks, how often have you been bothered by any of the following problems? 1. Little interest or pleasure in doing things: not at all 2. Feeling down, depressed, or hopeless: not at all 3. Trouble falling or staying asleep, or sleeping too much: nearly every day 4. Feeling tired or having little energy: not at all 5. Poor appetite or overeating: nearly every day 6. Feeling bad about yourself - or that you are a failure or have let yourself or your family down: not at all 7. Trouble concentrating on things, such as reading the newspaper or watching television: not at all 8. Moving or speaking so slowly that other people could have noticed. Or the opp osite - being so fidgety or restless that you have been moving around a lot more than usual: not at all 9. Thoughts that you would be better off or of hurting yourself in some way: not at all Total score: 6 Depression Screening Interpretation: Negative Depression Screening Done: Yes 40254 - PHQ-9 Billing: Yes Source: Developed by Drs. Pete Carter, Tamika Corbin, Dennis Bearden and colleagues, with an educational bhargav from [employer]. Thrive Questionnaire Date Thrive assessed: 12/23/24 I am a: Patient What is your living situation today?: I have a steady place to live Within the past 12 months, did the food you bought not last and you didn't have the money to get more?: Never true Within the past 12 months, did you worry whether your food would run out before you got money to buy more?: Never true Do you have trouble paying for medicines?: No Do you have trouble getting transportation to medical appointments?: No Do you have trouble paying your heating and electricity bill?: No Do you have trouble taking care of your child, family member or friend?: No Do you have trouble with day-to-day activities such as bathing, preparing meals, shopping, managing finances, etc.?: No Are you currently unemployed and looking for a job?: No Are you interested in more education?: No Please select the resources that you would like help with: None Currently or been in a relationship where the following occur: No concerns reported THRIVE Score: 0 SILVANA-7 AMB Questionnaire SILVANA-7 Date SILVANA - 7 assessed: 07/01/25 Feeling nervous, anxious, or on edge: 0 = Not at all Not being able to stop or control worryin = Not at all Worrying too much about different things: 0 = Not at all Trouble relaxin = Nearly every day Being so restless that it is hard to sit still: 0 = Not at all Becoming easily annoyed or irritable: 0 = Not at all Feeling afraid as if something awful might happen: 0 = Not at all Total SILVANA-7 score (0-4 normal; 5-9 mild; 10-14 moderate; 15-21 severe): 3 Source: Developed by Drs. Pete Carter, Tamika Corbin, Dennis Bearden and colleagues, with an educational bhargav from [employer]. SILVANA-7 Assessment Billing SILVANA-7 Assessment Tool: SILVANA-7 Assessment 45040 Physical exam (Primary Care) Vital Signs: Last Vital Signs Pulse 62 07/01/25 10:37 Resp 16 07/01/25 10:37 BP 118/78 07/01/25 10:37 Pulse Ox 95 07/01/25 10:37 Oxygen Delivery Method Room Air 07/01/25 10:37 BMI result Body Mass Index 38.4 Tobacco/Smoking Status: Tobacco use Status Tobacco use date assessed 07/01/25 07/01/25 10:43 Patient Tobacco Use Status Former Tobacco user 07/01/25 10:43 Tobacco use type Cigarette 07/01/25 10:43 e-Cigarette/Vaping Use Never Used 07/01/25 10:43 PHQ-9: PHQ-9 Score PHQ-9: Total score 6 07/01/25 10:48 Depression Screening Interpretation: Negative Thrive Assessment: Date of Thrive Assessment Date Thrive assessed 12/23/24 07/01/25 10:43 Currently or been in a relationship where the following occur: No concerns reported Office Procedures Flu Questionnaire Does the patient have a severe egg allergy?: No Does the patient have severe life threatening allergies?: No Does the patient have a fever or illness today?: No Has the patient ever had Guillain-Glorieta Syndrome?: No Has the patient ever had any past reaction to a flu shot?: No Immunizations Fluarix [id number] (PF) 45 mcg (15 mcg x 3)/0.5 mL IM syringe Performing Provider: MALGORZATA Blanco Performing Location: [facility] Administered by: Omar Galloway CMA on 07/01/25 10:48 Dose Route Admin Location Dispensed Lot Number Expiration Date [facility] Artificial Intelligence Specialist 0.5 mL IM Right Deltoid 0.5 mL [id number] 03/10/26 [id number] [place] VIS Given Date VIS Provided VIS Publication Date 07/01/25 Single Vaccine 24 Eligibility Eligibility Date Funding Source Not VF Eligible 07/01/25 Private Coding Level of Care Code Est Pt Level 3 (84286) Diagnoses HTN (hypertension) I10 Additional Codes SILVANA-7 Assessment Billing - SILVANA-7 Assessment Tool: SILVANA-7 Assessment 53847 ([id number]) PHQ-9 - 71287 - PHQ-9 Billing: Yes ([id number]) Assessment & Plan Assessment & Plan (1) HTN (hypertension): Code(s): I10 - Essential (primary) hypertension Category: Medical Plan . Orders: Orders Complete Blood Count Auto Diff Today I10 - Essential (primary) hypertension Comprehensive [place]. Panel Fast Today I10 - Essential (primary) hypertension UA CC w/rflx Micro + Cult Today I10 - Essential (primary) hypertension Lipid Panel Today I10 - Essential (primary) hypertension Influenza [id number] Immunization Today Z23 - Encounter for immunization TSH reflex Free T4 Today I10 - Essential (primary) hypertension
--- OUTSIDE RECORDS SUMMARY | 2025-07-01 12:28 | XMS_ITS | Clinical Summary ---
Author Organization [facility] Address [address] [place] [address] Care Team Providers Care Director Of Creative Services Name Role Phone Amilcar Leggett MD Primary Care Provider [phone] Allergies Active Allergy Reactions Criticality Noted Date [...] ADULT PO) Take by mouth. 0 Active [place]-3 Fatty Acids (FISH OIL) 1000 MG CAPS [...] <88% for 5% or more of study) [facility]. Date [...] age to complete this topic Care Teams Director Of Creative Services Relationship Specialty Start Date End Date Amilcar Leggett MD PCP - General Overhauler Helper 04/24/20
== END 2025-07-01 12:43 | disposition home or self-care (01) ==
LOC: HO.HMCC 10:28
PROVIDERS: PCP Nurse Practitioner Family; Visit Provider Nurse Practitioner Family
DX: Z23 Encounter for immunization (principal); I10 Essential (primary) hypertension

== ENCOUNTER → 2025-07-01 10:26 | Outpatient (BNVA) | payer OTHER, SELFPAY | PROVIDERS: PCP Nurse Practitioner Family; Visit Provider Nurse Practitioner Family | DX: I10 Essential (primary) hypertension (principal); D86.9 Sarcoidosis, unspecified; Z23 Encounter for immunization | CPT/HCPCS: 90471; 90656; 96127 ==

== ENCOUNTER 2025-07-25 12:55 | Outpatient (AMB) | payer OTHER, SELFPAY ==
[2025-07-25 13:07] VITALS: BP 108/72; PULSE 64; O2SAT 94; BMI 37.0
--- NOTE | 2025-07-25 13:07 | MHC.OFFVIS ---
Vital Signs 07/25/25 13:07 Height 5 ft 10 in Weight 258 lb BMI 37.0 BP 108/72 Blood Pressure Location Lt brachial Position Sitting Pulse 64 Pulse Source Pulse Oximeter Pulse Oximetry (%) 94 Oxygen Delivery Method Room Air Intake Visit Reasons: Sarcoidosis Allergies amoxicillin (AMOXICILLIN) Allergy (Severe, Verified 07/01/25 10:38) DIFF BREATHING HPI Comments Details: The patient is a 65-year-old gentleman with a known history of sarcoidosis. Apparently I did evaluate him on back more than a year ago. In the fall of the patient did have worsening shortness of breath and he was evaluated at [facility] where he was found to have bilateral pulmonary emboli. He was placed on Eliquis. He did follow-up with barbed wire machine operator the in the only explanation for his blood clots with the possibility of underlying hypercoagulable state from sarcoidosis. The patient has been on Flovent up, but, he has not been on systemic cortical steroids. He also has some underlying renal insufficiency. Question if he has some potential extra pulmonary sarcoid involvement that we need additional therapy with steroids. Therefore, I will repeat his blood work and also repeat a CT scan of the chest to assess his nodular densities as well as pulmonary emboli that he had back in May 2019. Will hold off for few months as we cleared the culprit 19 virus. However, if the patient develops any worsening symptoms may have to look at it sooner. Otherwise will reassess the need for systemic cortical steroids or systemic therapy for the sarcoid at the time. He did have blood work done at [facility] back in February. His Magan level was normal. His calcium levels were also normal. No evidence of any renal involvement. The only thing is that his liver function studies were little elevated. He is following up closely with GI. In regards of the blood clots he still on the anticoagulation is tolerating that well. He did undergo a CT scan of the chest demonstrating no further blood clot burden in the vessels. He does have pulmonary nodules and slight increase in the hilar mediastinal lymphadenopathy consistent with his history of sarcoidosis. At this point however he is going to have surgery for his cataracts and he is going to have further evaluation for the thickness of the esophagus so therefore hold off on any treatment for sarcoid at this time at least systemically. He did have some evidence of bronchitis or thickening of the airways bringing up the question of endobronchial sarcoid so therefore will increase his Flovent from 110-220 mcg with the hope of decreasing some of the inflammation directly. In the meantime will hold off on any systemic therapy as he is going to be further evaluated for the issues above. In 3-4 months will have him come back in having get pulmonary function studies and repeat the blood work and decide if at that point we should treat him systemically for the sarcoidosis. 12/13/2022 the patient is here for a pulmonary follow-up visit. He was sent over from the barbed wire machine operator. The patient was having hip discomfort and he underwent a imaging study demonstrating what appeared to be bony lytic lesions. He also went a CT scan of the chest demonstrating hilar mediastinal lymphadenopathy along with some interstitial lung disease. Clinically for the patient is doing well from a respiratory status. She denies any coughing or shortness of breath. he did undergo a CT-guided biopsy of 1 of the lytic lesions and it did demonstrate sarcoid with positive granulomas. In view of the inflammatory lytic lesions I did recommend that he should go on immunosuppressive therapy to minimize the active sarcoid symptoms. However, the patient is reluctant to take any medications at this time. We did talk about medications assess CellCept and methotrexate which will be steroid sparing. He is okay getting blood work to assess for his Magan level and also checking other end-organ involvement. He did have his eyes checked in his substance abuse technician told him that he did not have any evidence of sarcoid in the eyes. Therefore, the patient will continue to consider therapy in meantime he is scheduled to have a repeat CT scan sometime in January and a follow-up with Hematology. He will follow-up with me after that. 03/16/2023 the patient is here for a pulmonary follow-up visit. The patient is doing relatively well. He was exposed to sick contacts and has been having increasing cough shortness of breath chest tightness. Does have some wheezing on examination. Therefore will go ahead and start Advair HFA. The patient also has been on CellCept. Tolerating the CellCept well without any evidence of any adverse effects. He is on a lower dose at this time. He is scheduled to follow up with Hematology-Oncology. I which point he will have additional imaging studies. If he does have imaging studies scheduled by collagen he can always call oximetry order a further imaging studies prior to the next visit. 07/21/2023 the patient is here for a pulmonary follow-up visit. Overall the patient is doing well. He is tolerating the CellCept 500 mg twice a day. This is a small dose. It is reassuring that he is responding well to the low dose. He did have a repeat CT scan of the abdomen. It appears that the bony lesions have not resolved. We contemplated decreasing the CellCept. However, has not been 6 months in since his such as low-dose will go ahead and continue the 500 mg twice a day until the spring. Which at that point will recheck the blood work and will start decreasing down the CellCept slowly. Will plan to do further imaging studies to make sure there is no recurrence of disease. In regards to the ER where he continues use it with good response. He has not required his rescue inhaler. The patient also will get the Prevnar 20 vaccine today. We did talk about the other vaccines and I did advise him that he follow through with the other vaccines since he does have underlying respiratory disease. 01/22/2024 the patient is here for pulmonary follow-up visit. Overall he is doing well from a respiratory status. He continues on the mycophenolate 500 mg twice a day. He recently was evaluated in the hospital for abdominal pain and was diagnosed with diverticulitis. No evidence of any perforation in he did have diverticula. In addition to that the bony structures were within normal limits. Therefore I am hopeful that we can start decreasing down the mycophenolate. Will go ahead and decrease down to 100 mg daily. If the patient started developing any worsening respiratory symptoms or complaints he can always call to be can readdress. His blood work is also reassuring. He is going to follow-up with Hematology soon. He will follow-up Pulmonary in 3-4 months at which time will discuss considering stopping the medication altogether. From a CPAP standpoint he continues uses CPAP every night CPAP therapy has been affecting beneficial. He does use a fullface mask. He gets supplies from his [employer] company, [employer]. Will send a prescription for for his CPAP supplies at the time. 01/23/2025 the patient is here for a pulmonary follow-up visit. Overall he is doing well from a respiratory status. Unfortunately he was diagnosed with diverticulitis. Currently taking antibiotics. The abdominal pain seems to be better. He continues on 500 mg daily. Seems to be very stable from a sarcoid standpoint. He has not had documented lesions on his bones for awhile. Will go ahead and stop the CellCept specially with the recurrent bacterial infections that have been predisposed by being on immunomodulator therapy. The patient is very agreeable to it. Will go ahead and follow-up with the bone scan in the next 3-4 months to see if he continues to do well off the immunomodulator therapy. If he does develop any worsening symptoms prior to the next visit he can always call so we can readdress that sooner. In the meantime he continues uses CPAP every night CPAP therapy has been affecting beneficial. He did change mask to a [employer] fullface mask that he had bought an local store. Therefore I will go ahead and request supplies from his [employer] company, [employer] and update the mask that he is actually using. He does continue to use the CPAP for more than 4 hours a night and his adherence is 100%. 07/25/2025 the patient is here for pulmonary follow-up visit. Overall the patient has been doing well. He has been off the CellCept which is good because he has a history of diverticulitis. Seems to have no new complaints. He did undergo the bone scan though this was back in May 2025 demonstrating some persistent areas of uptake. It is not clear if does have arthritic related or sarcoid related. He did have significant sclerotic lesions on bones on previous CAT scans. Also has underlying pulmonary nodules. I did review his last CT scan of the chest back in 2022 demonstrating multiple pulmonary nodules measuring up to 6 mm in size. He is quite now off all immunomodulator therapy for the sarcoid. Will go ahead and keep him off it but will plan to repeat a CAT scan of the chest and abdomen in September. Will follow-up after that. Hopefully he can continue often mycophenolate in view of his history of diverticulitis. [facility] Medical History (Updated 07/27/25 @ 20:57 by Corby Dumont MD) Lymphadenopathy Pulmonary nodules Bone lesion Elevated alkaline phosphatase level Physical exam Enlarged prostate BMI 37.0-37.9, adult Muscle strain Hip pain Screening for colon cancer Right calf pain Hip pain, right Elevated bilirubin Obesity Anxiety Depression COPD (chronic obstructive pulmonary disease) GERD (gastroesophageal reflux disease) DDD (degenerative disc disease), cervical History of non-ST elevation myocardial infarction (NSTEMI) History of pulmonary embolism Cataract HLD (hyperlipidemia) HTN (hypertension) Cough NANCY on CPAP Sarcoidosis Asthma Surgical History History of bone marrow biopsy History of tonsillectomy History of vasectomy History of endoscopy History of hernia repair History of colonoscopy Family History Father Family history of high blood pressure Mother History of colon cancer History of abdominal aortic aneurysm (AAA) Brother Prostate cancer Social History Household Members: Spouse Housing: House Do you presently have visiting nurse or other home services: No Alcohol intake: never Patient Tobacco Use Status: Former Tobacco user Tobacco use type: Cigarette e-Cigarette/Vaping Use: Never Used Second Hand Smoke Exposure: No Advance Directives Date on File: 11/13/21 service: No Current occupational status: retired Cognitive needs: No Hearing needs: No Vision needs: No Review of Systems Const Denies chills, Denies fatigue, Denies fever(s), Denies weight gain and Denies weight loss ENT Denies dizziness, Denies lip swelling and Denies tongue swelling Card Denies chest pain, Denies leg edema, Denies lightheadedness, Denies palpitations, Denies dyspnea on exertion, Denies orthopnea and Denies other Resp Denies cough, Denies dyspnea on exertion and Denies wheezing GI Reports as per HPI, Denies hematochezia and Denies change in stool character Musc Denies abnormal gait, Denies muscle weakness, Denies numbness, Denies radiating pain into limb and Denies tingling Neuro Denies abnormal gait, Denies dizziness, Denies numbness and Denies tingling Psych Denies no additional complaints Endo Denies fatigue and Denies palpitations Sy/Lymph Denies easy bleeding and Denies lymphadenopathy Aller/Immun Denies lip swelling, Denies tongue swelling and Denies wheezing Physical Exam Vital Signs: Last Vital Signs Pulse 64 07/25/25 13:07 BP 108/72 07/25/25 13:07 Pulse Ox 94 07/25/25 13:07 Oxygen Delivery Method Room Air 07/25/25 13:07 BMI result Body Mass Index 37.0 Const General: alert HEENT General nose exam: Abnormal external nose present and Nasal discharge present Eyes Pupils: Equal, round and reactive pupils present Neck Neck: Yes normal visual inspection, Yes full ROM and Yes no lymphadenopathy Chest Chest palpation & inspection: normal inspection of the chest Resp Auscultation: clear to auscultation bilaterally and no wheezes Cardio Rate: regular rate Rhythm: regular rhythm Heart sounds: S1 normal heart sound present and S2 normal heart sound present GI Palpation (GI): Soft to palpation and nontender Auscultation: normal bowel sounds General: Yes no CVA tenderness Back/Spine/Pelvis Back: no CVA tenderness Skin General skin exam: rashes and/or lesions noted Neuro Cranial nerves: Yes Equal, round and reactive pupils present Extrem General: Yes no clubbing, cyanosis or edema Assessment & Plan Assessment & Plan (1) Sarcoidosis: Comment: with evidence of extra pulmonary sarcoidosis with active inflammation Code(s): D86.9 - Sarcoidosis, unspecified Category: Medical Plan: ICS (2) NANCY on CPAP: Comment: (NANCY dx 2017 slepe test - AHI 39. On CPAP) Code(s): G47.33 - Obstructive sleep apnea (adult) (pediatric); Z99.89 - Dependence on other enabling machines and devices Category: Medical Plan: continue CPAP (3) Bone lesion: Code(s): M89.9 - Disorder of bone, unspecified Category: Medical (4) Pulmonary nodules: Code(s): R91.8 - Other nonspecific abnormal finding of lung field Category: Medical (5) Lymphadenopathy: Code(s): R59.1 - Generalized enlarged lymph nodes Category: Medical Plan off Cellcept 500mg daily CT chest/Abdomen in 3 months bloodwork Advair HFA AZUL as needed continue APAP F/U 6 months Orders: Orders CT abdomen pelvis w IV con 07/25/25 D86.9 - Sarcoidosis, unspecified, M89.9 - Disorder of bone, unspecified, R91.8 - Other nonspecific abnormal finding of lung field Complete Blood Count Auto Diff 07/25/25 D86.9 - Sarcoidosis, unspecified Basic Metabolic Panel 07/25/25 D86.9 - Sarcoidosis, unspecified CT chest w IV con 09/15/25 D86.9 - Sarcoidosis, unspecified, R59.1 - Generalized enlarged lymph nodes, R91.8 - Other nonspecific abnormal finding of lung field Angiotensin Converting Enzyme 07/25/25 D86.9 - Sarcoidosis, unspecified D Dimer High Sensitivity 07/25/25 D86.9 - Sarcoidosis, unspecified Erythrocyte Sedimentation Rate 07/25/25 D86.9 - Sarcoidosis, unspecified Coding Level of Care Code Est Pt Level 4 (16451) Complex EM visit Add On G2211 Diagnoses Sarcoidosis D86.9 NANCY on CPAP G47.33; Z99.89 Bone lesion M89.9 Pulmonary nodules R91.8 Lymphadenopathy R59.1 Time Spent (min) 17
--- OUTSIDE RECORDS SUMMARY | 2025-07-25 18:54 | XMS_ITS | Clinical Summary ---
Author Organization [address] [facility] Address [address] [place] [address] Phone Care Team Providers Care Sheet Rock Nailer Name Role Phone Yury Menchaca NP Primary [...] dog, subsequent encounter 09/27/2024 Ascending aorta dilatation ([facility] V24) 022 Overview (09/13/2024): 4. 2 cm seen on ECHO 11/2021 NSTEMI (non-ST elevated myoc ardial infarction) ([facility] V24, [facility] V28) 12/20/2021 GERD (gastroesophageal reflux disease) Severe obesity (BMI 35.0-39. 9) with comorbidity ([facility] [place]24, [facility] V28) 07/08/2020 Other pulmonary embolism wit h acute cor pulmonale ([facility] V24, [facility] V28) 06/05/2019 Overview (09/13/2024): ? Provoked had driven to [place] Moderate persistent asthma without complication 04/03/2019 Sarcoidosis of lymph nodes 10/02/2017 Overview (09/13/2024): 2018 Obstructive sleep apnea 08/30/2017 Overview (09/13/2024): [facility] Home Polysomnogram: Date 08/25/2017; AHI 39, [...] HISTORICAL VASECTOMY UPPER GASTROINTESTINAL ENDOSCOPY 04/30/2020 PROCEDURE: [place] UPPER GI ENDOSCOPY PERFORMED; COMMENT: rosmery,esophagitis, mild [...] COMMENT: 2016 ? Provoked had driven to [place] Sarcoidosis of lymph nodes 10/02/2017 DX:Sa rcoidosis [...] Health Maintenance Due Date Last Done Comments Colorectal Cancer Screening: Colonoscopy 1960 RSV Immunization Adult Patients (1 - Risk 50-74 years 1-dose series) 02/26/2012 Hepatitis B Vaccines (2 of 3 - 19+ 3-dose series) 10/19/2016 09/21/2016 Cholesterol Screening (Lipid Panel) 08/18/2022 HIV Screening 08/18/2022 Hepatitis C Screening [...] patient's age to complete this topic Insurance [employer] [facility] Care Teams Sheet Rock Nailer Relationship Specialty Start Date End Date Yury Menchaca NP PCP - General Family Medicine 09/20/24
--- OUTSIDE RECORDS SUMMARY | 2025-07-25 18:54 | XMS_ITS | Clinical Summary ---
Author Organization [facility] Address [address] [place] [id number] Care Team Providers Care Airborne Electronics Analyst Name Role Phone Amilcar Leggett MD Primary Care Provider [phone] Allergies Active Allergy Reactions Criticality Noted Date [...] ADULT PO) Take by mouth. 0 Active [place]-3 Fatty Acids (FISH OIL) 1000 MG CAPS Take by mouth. 0 Active aspirin EC 81 MG tablet Take 81 mg by mouth daily. 0 Active Active Problems Problem Noted Date Diagnosed Date Other pulmonary embolism with acute cor pulmonal e 06/05/2019 Overview: Overview: ? Provoked had driven to [place] Sarcoidosis of lymph nodes 10/02/2017 Obstructive sleep apnea 08/30/2017 Overview: Overview: [facility] Home Polysomnogram: Date 08/25/2017; AHI 39, Unclassified apneas 0; Obstructive apneas 91; Central apneas 5; Mixed apneas 5; hypopneas 37; average oxygen saturation 89% (lowest 67% with saturations <88% for 5% or more of study) [facility] Polysomnogram treatment study. [...] age to complete this topic Care Teams Airborne Electronics Analyst Relationship Specialty Start Date End Date Amilcar Leggett MD PCP - General Harness And Bag Inspector 04/24/20
== END 2025-07-25 13:41 | disposition home or self-care (01) ==
LOC: HO.HPS 12:56
PROVIDERS: PCP Nurse Practitioner Family; Visit Provider Hospitalist
DX: D86.9 Sarcoidosis, unspecified (principal); G47.33 Obstructive sleep apnea (adult) (pediatric); Z99.89 Dependence on other enabling machines and devices; M89.9 Disorder of bone, unspecified; R91.8 Other nonspecific abnormal finding of lung field; R59.1 Generalized enlarged lymph nodes
CPT/HCPCS: 99214

== ENCOUNTER 2025-09-01 11:59 | Outpatient (REF) | payer OTHER, SELFPAY ==
[2025-09-01 12:21] LABS: MANUAL DIFF FLAG NO
[2025-09-01 13:11] LABS: Hematocrit 43.8 % (42.0-52.0); Hemoglobin 14.6 g/dl (14.0-18.0); Imm Gran Abs Auto 0.04 X10*3/uL (0.00-0.03); Imm Gran Pct Auto 0.7 % (0.0-0.4); Lymphocytes Absolute Auto 0.9 X10*3/uL (1.2-4.9); Mean Corpuscular HGB Conc 33.3 g/dl (31.0-36.0); Mean Corpuscular Hemoglobin 28.6 pg (27.0-33.0); Mean Corpuscular Volume 85.7 fL (80.0-98.0); NRBC Abs Auto 0.000 X10*3/uL (0.0-0.012); NRBC Pct Auto 0.0 /100WBC (0.0-0.2); Platelet Count 253 X10*3/uL (160-400); Red Blood Count 5.11 X10*6/uL (4.60-5.80); White Blood Count 6.0 X10*3/uL (4.8-10.8)
[2025-09-01 13:29] LABS: Appearance Urine Clear; Glucose Urine UA Negative (Negative); PH 5.5 (5.0-9.0); Specific Gravity - Urine 1.020 (1.005-1.025)
[2025-09-01 13:52] LABS: D Dimer High Sensitivity < 150 NG/ML
[2025-09-01 14:01] LABS: Alanine Aminotransferase 28 U/L (0-40); Albumin Level 4.3 g/dL (3.5-5.0); Alkaline Phosphatase 144 U/L (39-117); Anion Gap 10 (12-20); Aspartate Amino Transferase 35 U/L (5-37); Blood Urea Nitrogen 19 mg/dL (9-16); Calcium 9.3 mg/dL (8.4-10.2); Carbon Dioxide 27 mmol/L (22-29); Chloride 109 mmol/L (96-108); Cholesterol 102 mg/dL (<200); Estimated Glomerular Filt Rate > 60; HDL Cholesterol 30 mg/dL (>40); Potassium 4.4 mmol/L (3.3-5.1); Sodium 142 mmol/L (135-145); Total Protein 6.5 g/dL (6.5-8.0); Triglycerides 146 mg/dL (<150)
[2025-09-01 14:17] LABS: Prostate Specific Antigen 3.43 ng/mL (<0.05-4.0)
--- OUTSIDE RECORDS SUMMARY | 2025-09-01 15:18 | XMS_ITS | Clinical Summary ---
Author Organization [address] [facility] Address [address] [place] [address] Phone Care Team Providers Care Activities Attendant Name Role Phone Yury Menchaca NP Primary Care Provider [phone] Allergies Active Allergy Reactions Criticality Noted Date [...] 2018 Obstructive sleep apnea 08/30/2017 Overview (09/13/2024): [facility] Home Polysomnogram: Date 08/25/2017; AHI [...] HISTORICAL VASECTOMY UPPER GASTROINTESTINAL ENDOSCOPY 04/30/2020 PROCEDURE: [place] UPPER GI ENDOSCOPY PERFORMED; COMMENT: rosmery,esophagitis, mild [...] 06/05/2019 DX :History of pulmonary embolism; COMMENT: 2017 ? Provoked had driven to [place] Sarcoidosis of lymph nodes 10/02/2017 DX: rcoidosis of lymph nodes; COMMENT: 2017 Severe [...] apnea 08/30/2017 DX:Obstr uctive sleep apnea; COMMENT: [facility] Home Polysomnogram: Date 08/25/2017; AHI [...] age to complete this topic Insurance [employer] [facility] Care Teams Activities Attendant Relationship Specialty Start Date End Date Yury Menchaca NP PCP - General Family Medicine 09/20/24
--- OUTSIDE RECORDS SUMMARY | 2025-09-01 15:18 | XMS_ITS | Clinical Summary ---
Author Organization [facility] Prior to 02/08/25 Address [address] [place] [address] Care Team Providers Care Checkering Machine Operator Name Role Phone Amilcar Leggett MD Primary Care Provider [phone] Allergies Active Allergy Reactions Criticality Noted Date [...] ADULT PO) Take by mouth. 0 Active [place]-3 Fatty Acids (FISH OIL) 1000 MG CAPS Take by mouth. 0 Active aspirin EC 81 MG tablet Take 81 mg by mouth daily. 0 Active Active Problems Problem Noted Date Diagnosed Date Other pulmonary embolism with acute cor pulmonal e 06/05/2019 Overview: Overview: ? Provoked had driven to [place] Sarcoidosis of lymph nodes 10/02/2017 Obstructive sleep apnea 08/30/2017 Overview: Overview: [facility] Home Polysomnogram: Date 08/25/2017; AHI 39, Unclassified apneas 0; Obstructive apneas 91; Central apneas 5; Mixed apneas 5; hypopneas 37; average oxygen saturation 89% (lowest 67% with saturations <88% for 5% or more of study) [facility] [place]ysomn[place] treatment study. Date 11/13/2017. SE 51 [...] age to complete this topic Care Teams Checkering Machine Operator Relationship Specialty Start Date End Date Amilcar Leggett MD PCP - General Rounder And Backer 04/24/20
== END 2025-09-01 12:00 | disposition home or self-care (01) ==
LOC: HO.LAB 11:59
PROVIDERS: Urology; PCP Nurse Practitioner Family; Visit Provider Hospitalist
DX: Z12.5 Encounter for screening for malignant neoplasm of prostate (principal); I10 Essential (primary) hypertension; D86.9 Sarcoidosis, unspecified
CPT/HCPCS: 36415; 80048; 80053; 80061; 81003; 82164; 84153; 84443; 85025; 85379; 85652

== ENCOUNTER 2025-09-09 08:20 | Outpatient (REF) | payer OTHER, SELFPAY ==
--- NOTE | ~2025-09-09 | CT_ITS ---
EXAMINATION: CT CHEST WITH IV CONTRAST, CT ABDOMEN PELVIS WITH IV CONTRAST INDICATION: D86.9 - Sarcoidosis, unspecified COMPARISON: Comparison is made with the prior CT of the abdomen and pelvis dated 02/09/[address] of the chest dated 10/06/2022. TECHNIQUE: CT scan of the chest, abdomen and pelvis was performed following administration of 85 mL Omnipaque 350 using standard departmental protocol. Coronal and sagittal reformatted images were generated and reviewed. Oral contrast material was not administered at the request of the referring physician. This CT exam was performed with one or more of the following dose reduction techniques: automated exposure control, adjustment of the mA and/or kV according to patient size, use of iterative reconstruction technique. DLP: 913 mGy-cm CHEST: THYROID: The thyroid is unremarkable. LUNGS: Again seen is extensive bilateral upper lobe scarring. There is micronodularity in both upper lobes. Again seen is a 3 mm subpleural nodule in the right upper lobe (series 4, image 44), a 5 mm nodule in the right lower lobe (series 4, image 67), and a 3 mm nodule at the left lung apex (series 4, image 22). MEDIASTINUM: Again seen are prominent mediastinal lymph nodes including a 10 mm paratracheal lymph node and a 9 mm subcarinal lymph node. Some of the lymph nodes demonstrate internal calcification. DELGADO: There are prominent bilateral hilar lymph nodes measuring up to 11 mm on the right and 11 mm on the left. CARDIOVASCULATURE: The heart is normal in size. There is no pericardial effusion. The thoracic aorta is normal in caliber. DEGREE OF CORONARY CALCIFICATION: not evaluable, due to dense contrast in the coronary arteries. PLEURA: There is no pleural effusion. No pneumothorax. MAIN AIRWAYS: The mainstem bronchi and proximal branches are patent. AXILLA: There is no axillary lymphadenopathy. SOFT TISSUES: Unremarkable. BONES: There is degenerative disc disease of the spine. ABDOMEN: LIVER: The liver is normal in size and contour. No liver mass is identified. The hepatic and portal veins are patent. GALLBLADDER / BILE DUCTS: There is probable cholelithiasis. There is no intra or extrahepatic biliary ductal dilatation. SPLEEN: The spleen is normal in size. No focal splenic lesion is identified. PANCREAS: Again seen is prominent soft tissue in the region of the pancreatic head which may represent mildly enlarged peripancreatic lymph nodes. The appearance is similar dating back to 08/28/2020. ADRENAL GLANDS: Within normal limits. KIDNEYS/RETROPERITONEUM: No renal calculi are identified. There is no hydronephrosis. There is a 2.4 cm cyst at the upper pole of the right kidney. LYMPH NODES: There are multiple prominent periportal, celiac axis, and retroperitoneal lymph nodes which are more notable for number than size. The largest node measures up to 1.4 cm in short axis dimension. There is an enlarged right iliac lymph node measuring 1.6 cm, similar in size to the prior study. VASCULATURE: The abdominal aorta is normal in caliber. MESENTERY/PERITONEUM: No free fluid. No masses. There is no free intraperitoneal gas. STOMACH: The stomach is collapsed, limiting evaluation. SMALL BOWEL: The small bowel is normal in caliber. COLON: There is extensive diverticulosis of the colon, without evidence of diverticulitis. APPENDIX: Normal. URINARY BLADDER/PELVIC ORGANS: The urinary bladder is collapsed, limiting detailed evaluation. There are calcifications of the prostate. BONES / SOFT TISSUES: No suspicious bony or soft tissue abnormalities. CT/CT abdomen pelvis w IV con IMPRESSION: 1. Prominent lymph nodes in the chest, abdomen, and pelvis as described with a similar appearance to the prior study. 2. Extensive bilateral upper lobe pulmonary scarring and micronodules are without change. 3. Probable cholelithiasis. Colonic diverticulosis without evidence of diverticulitis. 4. Prominent soft tissue in the region of the pancreatic head stable since 08/28/2020, which may represent prominent peripancreatic lymph nodes. Electronically signed by: Pete Mireles MD 09/09/2025 09:39 AM [facility] [place]
[2025-09-09] MEDS: iohexoL 350 MG/ML 100 ML INFUS..BTL IV (09:08)
--- OUTSIDE RECORDS SUMMARY | 2025-09-09 09:55 | XMS_ITS | Clinical Summary ---
Author Organization 175 [facility] Address [address] [place] [address] Phone Care Team Providers Care Front End Java Developer Name Role Phone Yury Menchaca NP Primary [...] Overview (09/13/2024): ? Provoked had driven to [place] Moderate persistent asthma without complication 04/03/2019 Sarcoidosis of lymph nodes 10/02/2017 Overview (09/13/2024): 2018 Obstructive sleep apnea 08/30/2017 Overview (09/13/2024): [facility] Home Polysomnogram: Date 08/25/2017; AHI 39, [...] HISTORICAL VASECTOMY UPPER GASTROINTESTINAL ENDOSCOPY 04/30/2020 PROCEDURE: [place] UPPER GI ENDOSCOPY PERFORMED; COMMENT: rosmery,esophagitis, mild [...] COMMENT: 2017 ? Provoked had driven to [place] Sarcoidosis of lymph nodes 10/02/2017 DX: rcoidosis [...] apnea 08/30/2017 DX:Obstr uctive sleep apnea; COMMENT: [facility] Home Polysomnogram: Date 08/25/2017; AHI 39, [...] patient's age to complete this topic Insurance [employer] [facility] Care Teams Front End Java Developer Relationship Specialty Start Date End Date Yury Menchaca NP PCP - General Family Medicine 09/20/24
--- OUTSIDE RECORDS SUMMARY | 2025-09-09 09:55 | XMS_ITS | Clinical Summary ---
Author Organization [facility] Prior to 02/08/25 Address [address] [place] [address] Care Team Providers Care Benzol Still Operator Name Role Phone Amilcar Leggett MD Primary Care Provider [phone] Allergies Active Allergy Reactions Criticality Noted Date [...] ADULT PO) Take by mouth. 0 Active [place]-3 Fatty Acids (FISH OIL) 1000 MG CAPS Take by mouth. 0 Active aspirin EC 81 MG tablet Take 81 mg by mouth daily. 0 Active Active Problems Problem Noted Date Diagnosed Date Other pulmonary embolism with acute cor pulmonal e 06/05/2019 Overview: Overview: ? Provoked had driven to [place] Sarcoidosis of lymph nodes 10/02/2017 Obstructive sleep apnea 08/30/2017 Overview: Overview: [facility] Home Polysomnogram: Date 08/25/2017; AHI 39, Unclassified apneas 0; Obstructive apneas 91; Central apneas 5; Mixed apneas 5; hypopneas 37; average oxygen saturation 89% (lowest 67% with saturations <88% for 5% or more of study) [facility] [place]ysomnogram treatment study. Date 11/13/2017. SE 51 [...] age to complete this topic Care Teams Benzol Still Operator Relationship Specialty Start Date End Date Amilcar Leggett MD PCP - General Wide Piece Goods Inspector 04/24/20
== END 2025-09-09 08:21 | disposition home or self-care (01) ==
LOC: HO.CT 08:20
PROVIDERS: PCP Nurse Practitioner Family; Visit Provider Hospitalist
DX: D86.9 Sarcoidosis, unspecified (principal); M89.9 Disorder of bone, unspecified; R91.8 Other nonspecific abnormal finding of lung field; R59.1 Generalized enlarged lymph nodes
CPT/HCPCS: 71260; 74177; Q9967

== ENCOUNTER → 2025-09-09 08:23 | Outpatient (BNV) | payer OTHER, SELFPAY | PROVIDERS: PCP Nurse Practitioner Family; Visit Provider Radiology Diagnostic Radiology | DX: K57.30 Diverticulosis of large intestine without perforation or abscess without bleeding (principal); N28.1 Cyst of kidney, acquired; D86.0 Sarcoidosis of lung | CPT/HCPCS: 71260; 74177 ==